=== PATIENT | female | born 1950 | race Caucasian/White ===

== ENCOUNTER → 2017-10-17 | Day surgery (SDC) | payer BC ==
[2017-10-15 08:35] VITALS: Ht 149.9 cm; Wt 90.9 kg
[~2017-10-17] VITALS: Ht 149.9 cm; Wt 90.9 kg
[~2017-10-17] MED LIST: 500ML BSS 0.3ML EPI 1:1000PF IRRIG ONE; ACETAMINOPHEN 325 MG TAB PO PRN; AMVISC PLUS 0.8ML SYRINGE INT OCU ONE; ASPI81TA28 PO; ATROPINE SULFATE 0.1 MG/ML 5ML SYR IV PRN; BSS FLUSH ONE; CALC-51 PO; EFF/375 PO; ENDOCOAT 0.85ML SYRINGE INT OCU ONE; EpHEDrine SULFATE INJ 50 MG/ML AMP IV PRN; EpINEphrine INJ 1MG/ML AMP 1 MG/ML AMP ONE; GLC/500 PO; LACTATED RINGER'S 1000ML 500 ML IV SCH; LEVO100T7 PO; LIDOCAINE 4% OP SOLN DROP CHARGE ONE; LIDOCAINE 4% OP SOLN DROP CHARGE OPR SCH; LIDOCAINE HCL 1% MPF 2 ML VIAL ONE; LISI-729 PO; LVMIPEN SC; MAGN400T6 PO; METO50TA16 PO; MIDAZOLAM HCL 1 MG/ML 2ML VIAL ONE; MIX: 4ML BSS 1ML EPI 1:1000 PF TOP ONE; MOXIFLOXACIN OPH SOLN PER DROP CHARGE ONE; NAPR-22 PO; PHENYLEPHRINE HCL 2.5% OP SOLN PER DROP CHARGE OPR SCH; POVIDONE-IODINE OP SOLN 30 ML BTL ONE; PROPARACAINE 0.5% OP SOLN PER DROP CHARGE OPR SCH; RANI150T85 PO; SIMV40TA2 PO; TOBRAMYCIN/DEXAMETHASONE OPH OINT PER APPLN CHARGE ONE; VENL75CA73 PO
--- NOTE | 2017-10-17 07:30 | History & Physical Bridge - SC ---
H&P Re-Evaluation Bridge Note: I have examined the patient, reviewed the History & Physical and in the interval since the performance of the History & Physical I have noted the following changes of clinical significance: No changes noted
[2017-10-17] MEDS: PHENYLEPHRINE HCL 10% OP SOLN PER DROP CHARGE OPR SCH ×3 (07:31→07:41)
[2017-10-17] MEDS: TROPICAMIDE 1% OP SOLN PER DROP CHARGE OPR SCH ×3 (07:32→07:42)
[2017-10-17] MEDS: CYCLOPENTOLATE HCL 1% OP SOLN PER DROP CHARGE OPR SCH ×3 (07:33→07:43)
[2017-10-17] MEDS: MOXIFLOXACIN OPH SOLN PER DROP CHARGE OPR SCH ×3 (07:34→07:44)
--- NOTE | 2017-10-17 08:37 | [facility] Post Operative Brief Note ---
Immediate Operative Summary Operative Date Oct 17, 2017. Pre-Operative Diagnosis Right Eye Cataract Post-Operative Diagnosis Same Procedure(s) Performed Right Cataract Phacoemulsification With Intraocular Lens Implant Surgeon Dr. Ming Forrest Cloth Printing Back Tender Surgeon(s) None Estimated Blood Loss 0 Findings Consistent with Post-Op Diagnosis Specimens None Anesthesia Type MAC Complication(s) none Disposition Accompanied Pt To Recover: no Disposition:
--- NOTE | 2017-10-17 08:38 | [facility] Operative Report ---
Operative Report Date of Service Oct 17, 2017. Operative Report DATE OF OPERATION: 10/17/17 PREOPERATIVE DIAGNOSIS: Senile nuclear cataract, right eye POSTOPERATIVE DIAGNOSIS: Senile nuclear cataract, right eye PROCEDURE PERFORMED: Phacoemulsification with intraocular lens implantation, right eye SURGEON: Dr. Bradford Forrest ANESTHESIA: Topical with 1% intracameral lidocaine and monitored anesthesia care COMPLICATIONS: None DESCRIPTION OF PROCEDURE: After positively identifying the patient both verbally and by wristband in the preoperative area, the right eye was marked as the operative eye. The patient was then brought back to the operating room by the anesthesia and nursing staff where they were given a drop of Lidocaine and betadine into the operative eye. They were then sterilely prepped and draped in the standard fashion typical for ophthalmic surgery. Steri-strips were placed along the upper eyelids to keep the lashes back, and a lid speculum was placed into the operative eye. At this point, a documented time out was performed with members of the ophthalmology, nursing, and anesthesia staffs all agreeing upon the correct patient, correct location for surgery, correct procedure, and correct type and power of intraocular lens to be implanted. The microscope was then swung into position. First, a paracentesis wound was made using a sideport blade. Then, in sequence, 1% preservative-free lidocaine followed by Endocoat viscoelastic was injected into the anterior chamber. Next , the main incision was made with a keratome blade in triplanar fashion. A sharp cystotome was introduced into the eye and used to create a tear in the anterior capsule, which was directed into a continuous curvilinear capsulorrhexis using Utrata forceps. Hydrodissection was then performed with BSS on a flat-tip cannula. Next, the phacoemulsification handpiece was introduced into the eye and used to remove the nucleus in a [id number] fashion. This was done without complication and then the irrigation-aspiration handpiece was introduced into the eye and used to remove all remaining cortical and epinuclear material. Amvisc was then injected into the anterior chamber as well as into the capsular bag and using the lens injector system, an MX60 17.0 D lens, serial number [id number], and expiration date 05/2020 was injected into the capsular bag and rotated into the correct position. Next, the irrigation- aspiration handpiece was used to remove all remaining Amvisc. BSS was used to hydrate the main wound, and then BSS was injected into the paracentesis site to reach physiologic pressure and then the main wound was checked and found to be watertight. The patient was given drops of Vigamox and Tobradex ointment into the operative eye, and then the surrounding area was cleaned and dried. A clear plastic shield was placed over the eye and the patient was then sat up and taken from the operating room by the anesthesia staff having tolerated the procedure well and suffering no complications. DISPOSITION: The patient was returned to the recovery room in stable condition. I attest to the content of the Intraoperative Record and any orders documented therein. Any exceptions are noted below.
--- NOTE | 2017-10-17 08:39 | Discharge Instructions-SurgCtr ---
Discharge Instructions Date of Service Oct 17, 2017. Visit Reason for Visit: Cataract Right Eye Discharge Discharge Diagnosis / Problem: right cataract Discharge Goals Goal(s): Decrease discomfort, Improve function Activity Recommendations Activity Limitations: as noted below Anesthesia . Post Anesthesia Instructions: If you have had General Anesthesia or IV Sedation: * Do not drive today. * Resume driving when surgeon permits. * Do not make important decisions or sign legal documents today. * Call surgeon for: 1. Temperature elevations greater than 101 degrees F. 2. Uncontrollable pain. 3. Excessive bleeding. 4. Persistent nausea and vomiting. 5. Medication intolerance (nausea, vomiting or rash). * For nausea and vomiting use only clear liquids such as: tea, soda, bouillon until nausea subsides, then gradually increase diet as tolerated. * If you have any concerns or questions, call your surgeon's office. If physician is unavailable and it is an emergency, call 911 or go to the nearest emergency room. . Instructions / Follow-Up Instructions / Follow-Up ACTIVITY RECOMMENDATIONS: * Light activities. * You may walk outside, read, watch television. * You may notice redness on the white part of the eye and some blurry vision - this is normal. MEDICATIONS: Resume previous medications unless instructed otherwise by your surgeon. Start all eye drops at 11 am today: * Eye drops (today): Prednisone - one drop in operative eye every 2 hours while awake Ofloxacin - one drop in operative eye every 2 hours while awake Ketorolac - one drop in operative eye 4 times daily SPECIAL CARE INSTRUCTIONS: * Tape plastic shield over eye to sleep at night. Call your doctor at with any concerns or problems. FOLLOW UP VISIT: Follow-up with Dr Forrest at [facility] as scheduled. Diet Recommendations Home Diet: no limitations Procedures Procedures Performed: Right Cataract Phacoemulsification With Intraocular Lens Implant Pending Studies Studies pending at discharge: no Medical Emergencies . Who to Call and When: Medical Emergencies: If at any time you feel your situation is an emergency, please call 911 immediately. . Non-Emergent Contact Non-Emergency issues call your: Surgeon . . "Provider Documentation" section prepared by Bradford Forrest. .
[2017-10-17 08:40] VITALS: TEMP 36.5
[2017-10-17 09:06] VITALS: BP 131/53; PULSE 64; O2SAT 98
--- NOTE | 2017-10-17 09:09 | Anesthesia Progress Nt - [facility] ---
Anesthesia Post Op Note Date & Time Oct 17, 2017 at 09:09 Vital Signs Pain Intensity: 0 Vital Signs Past 12 Hours Date Time Temp Pulse Resp B/P (MAP) Pulse Ox O2 Delivery O2 Flow Rate FiO2 10/17/17 09:06 64 16 131/53 (79) 98 Room Air 10/17/17 08:40 36.5 61 14 133/62 (85) 96 Room Air 10/17/17 07:22 36.8 60 20 138/82 (100) 96 Room Air Notes Mental Status: alert / awake / arousable, participated in evaluation Pt Amnestic to Procedure: Yes Nausea / Vomiting: adequately controlled Pain: adequately controlled Airway Patency, RR, SpO2: stable & adequate BP & HR: stable & adequate Hydration State: stable & adequate Anesthetic Complications: no major complications apparent
--- NOTE | 2017-10-17 09:22 | [facility] Operative Report ---
Operative Report Date of Service Oct 17, 2017. Operative Report Addendum to operate note on 10/17/17. A Malyugin ring was placed into the eye prior to capsulorrhexis due to poor pupil dilation, and removed prior to final I /A of viscoelastic. I attest to the content of the Intraoperative Record and any orders documented therein. Any exceptions are noted below.
== END | disposition home or self-care (01) ==
LOC: X.SURG 07:06
PROVIDERS: ATTEND Ophthalmology
DX: H25.11 Age-related nuclear cataract, right eye (principal); I25.10 Atherosclerotic heart disease of native coronary artery without angina pectoris; I10 Essential (primary) hypertension; K21.9 Gastro-esophageal reflux disease without esophagitis; E11.9 Type 2 diabetes mellitus without complications; M19.90 Unspecified osteoarthritis, unspecified site; E78.00 Pure hypercholesterolemia, unspecified; Z90.710 Acquired absence of both cervix and uterus; Z90.49 Acquired absence of other specified parts of digestive tract

== ENCOUNTER 2020-01-21 13:23 | Observation (INO) ==
[2020-01-21] MEDS ORDERED: SODIUM CHLORIDE 0.9% 500 ML IV SCH (14:15)
--- NOTE | 2020-01-21 14:31 | Emergency Department Note ---
Impression & Plan Diarrhea, Abdominal pain, lower, Hematochezia ED Provider Note INFORMANT: [Patient] ED PROVIDER(S): Ronnell Farrar MD CHIEF COMPLAINT: Diarrhea PLAN: Disposition: Admitted Condition: [Good] MEDICAL DECISION MAKING: Patient presented due to persistent diarrhea and worsening lower abdominal pain. IV was established. She was hydrated. She declined analgesia. She was placed on a cardiac nurse specialist which revealed a normal sinus rhythm. The patient was sent for CT imaging. Her labs were unremarkable except for an elevated lactate. CT showed colitis. Given the elevated lactate and colitis with GI bleeding, further management in the hospital is warranted. Triage Nursing notes reviewed and agree them. [Prior medical records reviewed] Covid test from yesterday still pending. Vital Signs: reviewed and remarkable for [no significant abnormalities] Differential diagnosis: Etiologies such as infectious colitis, ischemic colitis, COVID-19 infection, gastroenteritis, food borne illness, infections, appendicitis, diverticulitis, inflammatory bowel disease, GI bleed, biliary pathology, as well as others were entertained. Diagnostics interpreted by me: Cardiac Monitoring: Cardiac monitoring ordered by me: The patient was placed on continuous cardiac monitoring and observed. It revealed a normal sinus rhythm at 70 beats per minute without ectopy or evidence of dysrhythmia. Imaging studies: CT revealed a non-specific colitis Consultation(s): Dr. Apple, [facility] Hospitalist. HPI: The patient is a 69 year old female who presents to the Emergency Room with complaints of diarrhea. This started 4 days ago and is worsening. The patient also notes the following associated symptoms, lower abdominal pain, nausea and vomiting. The patient has found no relieving factors. Current pain is rated as 2/10. Telehealth with PCP resulted in outpatient COVID testing, results pending. Pt denies LOC, headache, fevers, chills, diaphoresis, visual changes, neck pain, chest pain, breathing difficulties, back pain, hematochezia, urinary symptoms, numbness, weakness, lymphadenopathy, rash, or other complaints. ROS: See above HPI for pertinent positives & negatives. A total of [10] systems reviewed and were otherwise negative. PAST MEDICAL HISTORY:[See Below] , Diabetes PAST SURGICAL HISTORY:[See Below] FAMILY HISTORY:[See Below] SOCIAL HISTORY:[See Below], No tobacco HOME MEDICATIONS:[See Below] ALLERGIES:[See Below] VITALS:[See Below] PHYSICAL EXAMINATION: GENERAL: Awake, alert, well-appearing, in no distress HENT: Normocephalic, atraumatic. Oropharynx unremarkable. EYES: Normal conjunctiva. Sclera non-icteric. NECK: Inspection normal. Non-tender. Supple. No nuchal rigidity. FROM. No masses. RESPIRATORY: Clear to auscultation. No wheezes. No rales. Normal respiratory effort. CARDIAC: Normal rate. Normal rhythm. No murmurs. No rubs. Extremities warm and well perfused. Pulses equal. No JVD. GI: Soft, non-distended. Bilateral lower tenderness to palpation. No rebound or guarding. No masses. RECTAL: Deferred. MUSCULOSKELETAL: Atraumatic. Chest examination reveals no tenderness. The back is symmetrical on inspection without obvious abnormality. There is no CVA tenderness to palpation. No joint edema. LOWER EXTREMITIES: Calves are equal size bilaterally and non-tender. No edema. No discoloration. NEURO: Normal sensorium. No sensory or motor deficits noted. SKIN: No rash or jaundice noted. Ronnell Farrar MD Past Med/Surg History Medical History Acid reflux Depression with anxiety Fatty liver Frequent PVCs Generalized osteoarthritis Hearing difficulty Hiatal hernia Hyperlipidemia Hypertension Hypothyroidism Type 2 diabetes mellitus Surgical History History of carpal tunnel surgery 1989 History of cataract surgery R/L History of section 1982 History of cholecystectomy mid History of colonoscopy History of esophagogastroduodenoscopy (EGD) History of hysterectomy TOTAL History of tonsillectomy Family History Father Family history of diabetes mellitus Myocardial infarction, Onset Age: 56 Mother Anxiety Grandfather Throat cancer Other Diabetes Denies family history of Ovarian cancer Prostate cancer Breast cancer Colorectal cancer Social History Smoking Status: Never smoker Second Hand Exposure: No; Hx Alcohol Use: Yes Alcohol type: hard liquor Hx Substance Use: No Preferred Language: Faroese Communication Ability: Effective Visual Impairment: No Limitations Hearing Ability: Use of Hearing Aid Mechatronics Technician Required: No Beliefs That Will Affect Care: None marital status: Current Living Situation: Alone Current Living Situation Comment: apartment current occupational status: retired Feels Safe at Home: Yes Childhood Exposure to Second-Hand Smoke: No Dental Care, Regularly: No Physical Activity Frequency: 3-4 Times per Week Seatbelt Use: always Sunscreen Use: No Assistive Devices: Glasses and Hearing Aid - Bilateral Allergies Allergies Allergy/AdvReac Type Severity Reaction Status Date / Time dog dander Allergy Severe Unknown Verified 01/21/20 17:24 Home Meds Home Medications Medication Instructions Recorded Confirmed aspirin 81 mg PO QAM 09/25/18 01/27/20 calcium carbonate [Calcium 600] 600 mg PO BID 09/25/18 01/27/20 fish oil-dha-epa 1 cap PO BID 09/25/18 01/27/20 magnesium oxide 500 mg PO HS 09/25/18 01/27/20 Levemir FlexTouch U-100 Insuln 14 units SQ HS 01/21/20 01/27/20 albuterol sulfate 2 puff INHALATION Q6H PRN 01/21/20 01/27/20 vitamin B complex 1 tab PO QAM 01/21/20 01/27/20 Previous Rx's Medication Instructions Recorded levothyroxine 100 mcg tablet 100 mcg PO QAM #90 tab 11/12/19 metoprolol tartrate 50 mg tablet 50 mg PO BID #180 tab 11/12/19 omeprazole 20 mg capsule,delayed 20 mg PO QAM #90 cap 11/12/19 release simvastatin 40 mg tablet 40 mg PO HS #90 tab 11/12/19 venlafaxine 75 mg capsule,extended See Rx Instructions PO BID #270 cap 11/12/19 release 24 hr lisinopril 5 mg tablet 5 mg PO QAM #7 tab 12/19/19 metformin 500 mg tablet See Rx Instructions .ROUTE 12/19/19 .COMPLEX #28 tab naproxen 500 mg PO BID PRN #180 tab 01/23/20 Results & Data (ED) Vital Signs Vital Signs - 24 hr 01/21/20 13:27 Temperature 36.4 C L Temperature Source Oral Pulse Rate 99 H Pulse Rhythm Regular Pulse Strength Normal Respiratory Rate 20 Respiratory Effort / Characteristics Non-Labored Respiratory Depth Normal Respiratory Pattern Regular Blood Pressure 139/68 Blood Pressure Mean 91 Blood Pressure Position Sitting Pulse Oximetry 95 Oxygen Delivery Method Room Air Sepsis Recent Fever Within 48 Hours No Sepsis New/Unexplained Change in Mental Status No Sepsis Action Taken by Nursing No Action Required Laboratory Data Result diagrams: 01/23/20 07:07 01/23/20 07:07 Lab Results 01/21/20 01/21/20 01/21/20 Range/Units 14:50 14:50 14:50 WBC 10.16 (4.8-10.8) K/uL RBC 4.42 (4.2-5.4) M/uL Hgb 11.7 L (12.0-16.0) g/dL Hct 37.4 (37-47) % MCV 84.6 (80-100) fL MCH 26.5 (25-34) pg MCHC 31.3 L (32-36) g/dL RDW Std Deviation 45.2 (36.4-46.3) fL RDW Coeff of Judy 14.7 H (11.5-14.5) % Plt Count 368 (130-400) K/uL MPV 10.1 (7.4-10.4) fL Immature Gran % (Auto) 0.2 % Neut % (Auto) 77.1 % Lymph % (Auto) 13.6 % Archuleta % (Auto) 8.5 % Eos % (Auto) 0.4 % Baso % (Auto) 0.2 % Neut # (Auto) 7.84 H (1.4-6.5) K/uL Lymph # (Auto) 1.38 (1.2-3.4) K/uL Archuleta # (Auto) 0.86 H (0.11-0.59) K/uL Eos # (Auto) 0.04 (0-0.5) K/uL Baso # (Auto) 0.02 (0-0.2) K/uL Immature Gran # (Auto) 0.02 (0.00-0.02) K/uL Sodium 140 (136-145) mmol/L Potassium 4.4 (3.5-5.1) mmol/L Chloride 109 H (98-107) mmol/L Carbon Dioxide 24 (21-32) mmol/L Anion Gap 7.0 (3-11) BUN 21 H (7-18) mg/dl Creatinine 1.18 (0.6-1.2) mg/dl Est Cr Clr Drug Dosing 44.0 ml/min Est GFR ( Amer) 54.9 Est GFR (Non-Af Amer) 47.4 BUN/Creatinine Ratio 18.0 (10-20) Glucose 219 H (70-99) mg/dl Lactate 2.2 H* (0.4-2.0) mmol/L Calcium 9.4 (8.5-10.1) mg/dl Total Bilirubin 0.4 (0.2-1) mg/dl AST 10 L (15-37) U/L ALT 22 (12-78) U/L Alkaline Phosphatase 84 (45-117) U/L Total Protein 7.5 (6.4-8.2) gm/dl Albumin 3.5 (3.4-5.0) gm/dl Globulin 4.0 (2.5-4.0) gm/dl Albumin/Globulin Ratio 0.9 (0.9-2) Lipase 154 (73-393) U/L Administered Medications Discontinued Medications Aspirin (Aspirin 81 Mg Ectab) 81 mg PO QAM [facility] Stop: 02/21/20 08:59 Last Admin: 01/23/20 08:54 Dose: 81 mg Documented by: [id number] Admin: 01/22/20 08:01 Dose: 81 mg Documented by: [id number] Hydromorphone HCl (Hydromorphone Inj 0.5 Mg/0.5 Ml Syr) 0.5 mg IV Q15M PRN PRN Reason: Pain Stop: 02/04/20 17:17 Last Admin: 01/21/20 17:44 Dose: 0.5 mg Documented by: [id number] Sodium Chloride (Nss) 500 mls @ 999 mls/hr IV .Q31M [facility] Stop: 01/21/20 14:45 Last Infusion: 01/21/20 15:43 Dose: 0 mls/hr Documented by: [id number] Admin: 01/21/20 14:54 Dose: 999 mls/hr Documented by: [id number] Parenteral Electrolytes (Normosol-R) 1,000 mls @ 80 mls/hr IV .[id number] [facility] Stop: 02/20/20 21:18 Last Admin: 01/23/20 03:12 Dose: 80 mls/hr Documented by: [id number] Infusion: 01/23/20 03:12 Dose: 80 mls/hr Documented by: [id number] Infusion: 01/22/20 17:04 Dose: 80 mls/hr Documented by: [id number] Infusion: 01/22/20 12:23 Dose: 0 mls/hr Documented by: [id number] Admin: 01/22/20 10:48 Dose: 80 mls/hr Documented by: [id number] Infusion: 01/22/20 10:47 Dose: 0 mls/hr Documented by: [id number] Admin: 01/21/20 22:17 Dose: 80 mls/hr Documented by: [id number] Magnesium Sulfate/Dextrose (Magnesium Sulfate / D5w) 1 gm in 100 mls @ 50 mls/hr IV Q2H [facility] Stop: 01/22/20 15:29 Last Infusion: 01/22/20 16:22 Dose: 0 mls/hr Documented by: [id number] Admin: 01/22/20 14:22 Dose: 50 mls/hr Documented by: [id number] Infusion: 01/22/20 14:22 Dose: 0 mls/hr Documented by: [id number] Admin: 01/22/20 12:22 Dose: 50 mls/hr Documented by: [id number] Insulin Aspart (Insulin Aspart 100 Units/Ml 3 Ml Pen) 0 units SC ACHS [facility] Stop: 02/20/20 21:18 Last Admin: 01/23/20 08:57 Dose: 5 units Documented by: [id number] Cosigned by: [id number] Admin: 01/22/20 21:25 Dose: 2 units Documented by: [id number] Cosigned by: [id number] Admin: 01/22/20 17:33 Dose: 4 units Documented by: [id number] Cosigned by: [id number] Admin: 01/22/20 12:24 Dose: 3 units Documented by: [id number] Cosigned by: [id number] Admin: 01/22/20 08:02 Dose: 4 units Documented by: [id number] Cosigned by: [id number] Admin: 01/21/20 22:22 Dose: 2 units Documented by: [id number] Cosigned by: [id number] Insulin Detemir (Insulin Detemir Flexpen/Flex Touch 100 Units/Ml 3ml) 10 units SQ HS [facility] Stop: 02/20/20 21:18 Last Admin: 01/22/20 21:24 Dose: 10 units Documented by: [id number] Cosigned by: [id number] Admin: 01/21/20 22:20 Dose: 10 units Documented by: [id number] Cosigned by: [id number] Levothyroxine Sodium (Levothyroxine Sodium 100 Mcg Tablet) 100 mcg PO DAILYBB [facility] Stop: 02/21/20 06:29 Last Admin: 01/23/20 07:44 Dose: 100 mcg Documented by: [id number] Admin: 01/22/20 05:46 Dose: 100 mcg Documented by: [id number] Lisinopril (Lisinopril 5 Mg Tab) 5 mg PO QAM [facility] Stop: 02/21/20 08:59 Last Admin: 01/23/20 08:54 Dose: 5 mg Documented by: [id number] Admin: 01/22/20 08:01 Dose: 5 mg Documented by: [id number] Loperamide HCl (Loperamide Hcl 2 Mg Cap) 2 mg PO Q4H PRN PRN Reason: Diarrhea Stop: 02/20/20 21:18 Last Admin: 01/21/20 22:28 Dose: 2 mg Documented by: [id number] Magnesium Oxide (Magnesium Oxide 400 Mg Tab) 400 mg PO HS [facility] Stop: 02/21/20 20:59 Last Admin: 01/22/20 21:24 Dose: 400 mg Documented by: [id number] Metoprolol Tartrate (Metoprolol Tartrate 50 Mg Tab) 50 mg PO BID [facility]ID Stop: 02/20/20 21:18 Last Admin: 01/23/20 08:56 Dose: 50 mg Documented by: [id number] Admin: 01/22/20 20:34 Dose: 50 mg Documented by: [id number] Admin: 01/22/20 08:01 Dose: 50 mg Documented by: [id number] Admin: 01/21/20 22:21 Dose: 50 mg Documented by: [id number] Ondansetron HCl (Ondansetron Inj 2 Mg/Ml 2 Ml Vial) 4 mg IV NOW STA Stop: 01/21/20 17:19 Last Admin: 01/21/20 17:44 Dose: 4 mg Documented by: [id number] Pantoprazole Sodium (Pantoprazole 40 Mg Tab) 40 mg PO QAM [facility] Stop: 02/22/20 08:59 Last Admin: 01/23/20 08:55 Dose: 40 mg Documented by: [id number] Simethicone (Simethicone 80 Mg Chew) 80 mg PO Q6H PRN PRN Reason: gas Stop: 02/22/20 00:22 Last Admin: 01/23/20 09:07 Dose: 80 mg Documented by: [id number] Simvastatin (Simvastatin 40 Mg Tab) 40 mg PO [facility] Stop: 02/20/20 21:18 Last Admin: 01/22/20 21:24 Dose: 40 mg Documented by: [id number] Admin: 01/21/20 22:23 Dose: 40 mg Documented by: [id number] Venlafaxine HCl (Venlafaxine Hcl Xr 150 Mg Capxr) [facility] [place]: 02/21/20 08:59 Last Admin: 01/23/20 08:55 Dose: 150 mg Documented by: [id number] Admin: 01/22/20 08:02 Dose: 150 mg Documented by: [id number] Venlafaxine HCl (Venlafaxine Hcl Xr 75 Mg Capxr) 75 mg PO [facility] Stop: 02/20/20 21:18 Last Admin: 01/22/20 20:34 Dose: 75 mg Documented by: [id number] Admin: 01/21/20 22:21 Dose: 75 mg Documented by: [id number] Vitamin B Complex (Vitamin B Complex Tab) 1 tab PO [facility] Stop: 02/22/20 08:59 Last Admin: 01/23/20 08:55 Dose: 1 tab Documented by: [id number] Discharge Plan Visit Data Chief Complaint: Diarrhea Stated Complaint: DIARRHEA,CRAMPING/VOMITING ED Provider: Ronnell Farrar Discharge Problem: Diarrhea, Abdominal pain, lower, Hematochezia Patient Disposition: Admitted As Inpatient Condition: Good Discharge Instructions Interventions: ED Discharge Assessment Last Done: 01/21/20 20:44
[2020-01-21 15:00] LABS: Basophils # (auto) 0.02 K/uL (0-0.2); Basophils % (auto) 0.2 %; Eosinophils # (auto) 0.04 K/uL (0-0.5); Eosinophils % (auto) 0.4 %; Hematocrit (blood only) 37.4 % (37-47); Hemoglobin 11.7 g/dL (12.0-16.0); Immature Granulocytes # (auto) 0.02 K/uL (0.00-0.02); Immature Granulocytes % (auto) 0.2 %; Lymphocytes # (auto) 1.38 K/uL (1.2-3.4); Lymphocytes % (auto) 13.6 %; Mean Corpuscular Hemoglobin 26.5 pg (25-34); Mean Corpuscular Hgb Conc 31.3 g/dL (32-36); Mean Corpuscular Volume 84.6 fL (80-100); Mean Platelet Volume 10.1 fL (7.4-10.4); Monocytes # (auto) 0.86 K/uL (0.11-0.59); Monocytes % (auto) 8.5 %; Neutrophils # (auto) 7.84 K/uL (1.4-6.5); Neutrophils % (auto) 77.1 %; Platelet Count 368 K/uL (130-400); RDW Coefficient of Variation 14.7 % (11.5-14.5); RDW Standard Deviation 45.2 fL (36.4-46.3); Red Blood Count 4.42 M/uL (4.2-5.4); White Blood Count 10.16 K/uL (4.8-10.8)
[2020-01-21 15:17] LABS: Albumin Level 3.5 gm/dl (3.4-5.0); Calcium 9.4 mg/dl (8.5-10.1); Est GFR (African American) 54.9; Est GFR (Non-African American) 47.4; Potassium 4.4 mmol/L (3.5-5.1)
[2020-01-21 15:20] LABS: Albumin Globulin Ratio 0.9 (0.9-2); Bilirubin,Total 0.4 mg/dl (0.2-1); Total Protein 7.5 gm/dl (6.4-8.2)
--- NOTE | 2020-01-21 15:54 | CT Scan Report ---
CT SCAN OF THE ABDOMEN AND PELVIS WITHOUT IV CONTRAST CLINICAL HISTORY: Lower abdominal pain. Hematochezia. Vomiting. COMPARISON STUDY: No priors. TECHNIQUE: CT scan of the abdomen and pelvis is performed from the lung bases to the proximal femora. Images are reviewed in the axial, sagittal, and coronal planes. IV contrast was not administered for this examination. Note that the examination is suboptimal without IV contrast. A dose lowering techn ique was utilized adhering to the principles of ALARA. CT DOSE: 1050.10 mGycm FINDINGS: Lung bases: The heart is normal in size and without pericardial effusion. There are coronary artery c alcifications. A small hiatal hernia is observed. The lung bases are clear noting bibasilar scarring/ atelectasis. Liver: The unenhanced liver is enlarged, measuring 19.4 cm in length. The liver demonstrates diffusel y diminished attenuation consistent with hepatic steatosis. There is no intrahepatic biliary ductal d ilatation. Gallbladder: Surgically absent noting clips in the gallbladder fossa. Spleen: Normal in size and attenuation. A peripherally calcified splenic artery aneurysm measures 1.7 cm. Pancreas: The unenhanced pancreas is moderately atrophic and grossly unremarkable. Adrenal glands: Unremarkable. Kidneys: The unenhanced kidneys are atrophic and without hydronephrosis. There are no renal calculi i dentified. There is no evidence of contour deforming renal mass lesion. Abdominal vasculature: The abdominal aorta is normal in course and caliber noting moderate atheroscle rotic calcification. Bowel: There is no bowel obstruction. There is underdistention versus mild wall thickening of the col on. There is moderate sigmoid diverticulosis without clear CT evidence of acute diverticulitis. The a ppendix is not identified. Findings suggest previous appendectomy. Peritoneum: There is no intraperitoneal free air or abdominal ascites. A midline surgical scar is not ed in the pelvis. Lymphadenopathy: None. Pelvic viscera: The bladder is decompressed and grossly unremarkable. The uterus is surgically absent . No adnexal lesion is seen. Skeletal structures: The skeletal structures are osteopenic. There is moderate lumbosacral spondylosi s. No lytic or blastic lesions are seen. IMPRESSION: 1. There is underdistention versus mild wall thickening of the colon. Correlate clinically for eviden ce of a mild nonspecific colitis. 2. There is moderate sigmoid diverticulosis without clear CT evidence of acute diverticulitis. 3. Hepatomegaly and hepatic steatosis. 4. There is a 1.7 cm peripherally calcified splenic artery aneurysm. 5. Additional findings as above. ACT 112: Negative or not required by law. Electronically signed by: Arpit Corley M.D. 01/21/2020 3:52 PM
[2020-01-21] MEDS ORDERED: ONDANSETRON INJ 2 MG/ML 2 ML VIAL IV STA (17:18)
[2020-01-21] MEDS ORDERED: HYDROmorphone INJ 0.5 MG/0.5 ML SYR IV PRN (17:18)
--- NOTE | 2020-01-21 17:57 | History & Physical Report ---
Date of Service January 21, 2020 Assessment & Plan (1) Diarrhea: Copious amounts of watery diarrhea with some blood today. CT a/p on 01/20 showed some non-specific colitis. Lactate was 2.2. ED provider had concern for ischemic colitis, though I do not see much evidence for that, and the diarrhea is already improving. To me, seems more likely a viral gastroenteritis, though no one else in the family has it and she denies any new/different foods. - C. diff and stool culture ordered by the ER - Imodium PRN if C. diff negative - If improving/resolved tomorrow, can consider GI consult or empiric abx. Defer for now given it seems to be resolving already today. (2) Hematochezia: Colonoscopy in 09/2018 showed internal hemorrhoids. Only started bleeding after 4 days of diarrhea. Presently vitals and hemoglobin stable and bleeding seems relatively scant. Believe it to be a flare of her hemorrhoids from the diarrhea. - Hemorrhoid treatment PRN - Monitor hgb and vitals (3) Type 2 diabetes mellitus: A1c was 7.6% in 09/2019. - Hold metformin (could also be contributing to her diarrhea) - Lowered long-acting insulin to 10 units HS given her poor PO intake - Sliding scale insulin (4) Hypertension: BP is 170/75 in the ED. - Continue home lisinopril and metoprolol (5) Hypothyroidism: TSH was 0.84 in 11/2019. No signs/symptoms of hypo-/hyperthyroidism. Don't think diarrhea is an aspect of hyperthyroidism given its acuity. - Continue home Synthroid 100 mcg - Recheck TSH in AM (6) Hyperlipidemia: - Continue statin (7) DVT prophylaxis: SCDs - Low DVT risk per admission calculator & hematochezia History of Present Illness Primary Care Provider: Meliza Dumont MD 69yo F w/ hx of DM and hypothyroidism who presents with diarrhea x 4 days. Reports the diarrhea started on Sunday as explosive watery diarrhea. After 2 days, it became more mucus-y. She is having many episodes per day. She had a tele-health visit with her PCP on Sunday and was ordered a Covid test and stool studies. Her son and granddaughter were exposed to a Covid-confirmed patient, though she herself has not had any respiratory symptoms and no known fevers. The Covid test is pending, but she did not bring in the stool studies. Today, she had some bright red blood with the diarrhea and decided to come to the hospital. She reports she "spent the morning" in the bathroom, but has not had a bowel movement since her arrival to the ER. Allergies Allergy/AdvReac Type Severity Reaction Status Date / Time dog dander Allergy Severe Unknown Verified 01/21/20 17:24 Home Medications Home Medications Medication Instructions Recorded Confirmed Type aspirin 81 mg PO QAM 09/25/18 01/21/20 History calcium carbonate [Calcium 600] 600 mg PO BID 09/25/18 01/21/20 History fish oil-dha-epa 1 cap PO BID 09/25/18 01/21/20 History magnesium oxide 500 mg PO HS 09/25/18 01/21/20 History levothyroxine 100 mcg tablet 100 mcg PO QAM #90 tab 11/12/19 01/21/20 Rx metoprolol tartrate 50 mg tablet 50 mg PO BID #180 tab 11/12/19 01/21/20 Rx naproxen 500 mg tablet 500 mg PO BID #180 tab 11/12/19 01/21/20 Rx omeprazole 20 mg capsule,delayed 20 mg PO QAM #90 cap 11/12/19 01/21/20 Rx release simvastatin 40 mg tablet 40 mg PO HS #90 tab 11/12/19 01/21/20 Rx venlafaxine 75 mg capsule,extended See Rx Instructions PO BID #270 cap 11/12/19 01/21/20 Rx release 24 hr lisinopril 5 mg tablet 5 mg PO QAM #7 tab 12/19/19 01/21/20 Rx metformin 500 mg tablet See Rx Instructions .ROUTE 12/19/19 01/21/20 Rx .COMPLEX #28 tab albuterol sulfate 2 puff INHALATION Q6H PRN 01/21/20 01/21/20 History insulin detemir U-100 [Levemir 14 units SQ HS 01/21/20 01/21/20 History FlexTouch U-100 Insuln] vitamin B complex 1 tab PO QAM 01/21/20 01/21/20 History Past Med/Surg History Medical History Acid reflux Depression with anxiety Fatty liver Frequent PVCs Generalized osteoarthritis Hearing difficulty Hiatal hernia Hyperlipidemia Hypertension Hypothyroidism Type 2 diabetes mellitus Surgical History History of carpal tunnel surgery 1989 History of cataract surgery R/L History of section 1982 History of cholecystectomy mid History of colonoscopy History of esophagogastroduodenoscopy (EGD) History of hysterectomy TOTAL History of tonsillectomy Family History Father Family history of diabetes mellitus Myocardial infarction, Onset Age: 56 Mother Anxiety Grandfather Throat cancer Other Diabetes Denies family history of Ovarian cancer Prostate cancer Breast cancer Colorectal cancer Social History Smoking Status: Never smoker Second Hand Exposure: No; Hx Alcohol Use: Yes Alcohol type: beer, wine and hard liquor Hx Substance Use: No Preferred Language: [place] Communication Ability: Effective Visual Impairment: No Limitations Hearing Ability: Use of Hearing Aid Care Transition Coordinator Required: No Beliefs That Will Affect Care: None marital status: Current Living Situation: Alone current occupational status: retired Feels Safe at Home: Yes Childhood Exposure to Second-Hand Smoke: No Dental Care, Regularly: No Physical Activity Frequency: 3-4 Times per Week Seatbelt Use: always Sunscreen Use: No Assistive Devices: Glasses and Hearing Aid - Bilateral Review of Systems Review of Systems: All systems reviewed & are unremarkable except as noted in HPI & below Physical Exam Constitutional: WD/WN, vitals as above + acute distress Eyes: EOM intact bilaterally; no conjunctival abnormality ENMT: external ear and nose normal, oropharynx normal Neck: trachea midline, no thyromegaly normal visual inspection Respiratory: normal respiratory effort, lungs clear to auscultation no respiratory distress Cardiovascular: RRR, no murmur, no edema Gastrointestinal (Abdomen): Inspection/Auscultation: abdomen normal to inspection; abdomen not distended Musculoskeletal: no cyanosis or clubbing, extremities motor strength 5/5 Skin: no rashes, warm and dry Neurologic: moves all extremities and awake Psychiatric: Orientation: alert, oriented to person and cooperative Results & Data Results & Data ([facility]) Vital Signs (Past 12 Hours) Vital Signs Temp Pulse Resp BP Pulse Ox 01/21/20 16:34 89 14 168/77 H 96 01/21/20 15:00 82 16 144/78 H 95 01/21/20 14:30 85 16 153/79 H 96 01/21/20 13:27 36.4 C L 99 H 20 139/68 95 Code Status & VTE Plan VTE Prophylaxis Plan VTE Prophylaxis will be ordered: Yes PG Care Time/CCT Total # of Minutes Spent Total Time Spent with Patient: Total time spent is greater than 50% in coordination of care (as documented) at patient's floor/unit and/or counseling patient: Coding Level of Care Code 53802 OBS Care - Level 3 Diagnoses Diarrhea R19.7 Hematochezia K92.1 Type 2 diabetes mellitus E11.9 Hypertension I10 Hypothyroidism E03.9 Hyperlipidemia E78.5 DVT prophylaxis Z29.9
[2020-01-21] MEDS ORDERED: ONDANSETRON INJ 2 MG/ML 2 ML VIAL IV PRN (21:19)
[2020-01-21] MEDS ORDERED: ANUSOL SUPP 1 EA PR PRN (21:19)
[2020-01-21] MEDS ORDERED: CARBOHYDRATES FOR HYPOGLYCEMIA PO PRN (21:19)
[2020-01-21] MEDS ORDERED: ALBUT/IPRATROP 3MG/0.5MG NEB 3 ML VIAL NEB PRN (21:19)
[2020-01-21] MEDS ORDERED: GLUCOSE 40% GEL 15 GM TUBE PO PRN (21:19)
[2020-01-21] MEDS ORDERED: GLUCOSE 10 TABS/TUBE PO PRN (21:19)
[2020-01-21] MEDS ORDERED: DEXTROSE 50% 50 ML SYRINGE IV PRN (21:19)
[2020-01-21] MEDS ORDERED: ACETAMINOPHEN 325 MG TAB PO PRN (21:19)
[2020-01-21] MEDS ORDERED: LOPERAMIDE HCL 2 MG CAP PO PRN (21:19)
[2020-01-21] MEDS ORDERED: GLUCAGON FOR INJ 1 MG VIAL SQ PRN (21:19)
[2020-01-21] MEDS: NORMOSOL-R 1,000 ML IV SCH (22:17)
[2020-01-21] MEDS: INSULIN DETEMIR FLEXPEN/FLEX TOUCH 100 UNITS/ML 3ML SQ SCH (22:20)
[2020-01-21] MEDS: VENLAFAXINE HCL XR 75 MG CAPXR PO SCH (22:21)
[2020-01-21] MEDS: METOPROLOL TARTRATE 50 MG TAB PO SCH (22:21)
[2020-01-21] MEDS: INSULIN ASPART 100 UNITS/ML 3 ML PEN SC SCH (22:22)
[2020-01-21] MEDS: SIMVASTATIN 40 MG TAB PO SCH (22:23)
[2020-01-22] MEDS: LEVOTHYROXINE SODIUM 100 MCG TABLET PO SCH (05:46)
[2020-01-22 07:42] LABS: Hematocrit (blood only) 35.9 % (37-47); Hemoglobin 11.3 g/dL (12.0-16.0); Mean Corpuscular Hemoglobin 26.8 pg (25-34); Mean Corpuscular Hgb Conc 31.5 g/dL (32-36); Mean Corpuscular Volume 85.1 fL (80-100); Mean Platelet Volume 9.9 fL (7.4-10.4); Platelet Count 318 K/uL (130-400); RDW Coefficient of Variation 14.9 % (11.5-14.5); RDW Standard Deviation 46.1 fL (36.4-46.3); Red Blood Count 4.22 M/uL (4.2-5.4); White Blood Count 9.58 K/uL (4.8-10.8)
[2020-01-22] MEDS: ASPIRIN 81 MG ECTAB PO SCH (08:01)
[2020-01-22] MEDS: METOPROLOL TARTRATE 50 MG TAB PO SCH ×2 (08:01→20:34)
[2020-01-22] MEDS: lisinopril 5 MG TAB PO SCH (08:01)
[2020-01-22] MEDS: INSULIN ASPART 100 UNITS/ML 3 ML PEN SC SCH ×4 (08:02→21:25)
[2020-01-22] MEDS: VENLAFAXINE HCL XR 150 MG CAPXR PO SCH (08:02)
[2020-01-22 08:23] LABS: BUN Creatinine Ratio 17.5 (10-20); Calcium 9.1 mg/dl (8.5-10.1); Creatinine Clr Calc Pharmacy 53.5 ml/min; Est GFR (African American) 68.7; Est GFR (Non-African American) 59.3; Magnesium 1.4 mg/dl (1.8-2.4); Potassium 3.7 mmol/L (3.5-5.1); Thyroid Stimulating Hormone 0.943 uIu/ml (0.300-4.500)
[2020-01-22 08:30] LABS: Estimated Average Glucose 180 mg/dl; Hemoglobin A1C 7.9 % (4.5-5.6)
--- NOTE | 2020-01-22 09:02 | Student Report ---
[facility] Student Progress Note Date of Service Date of service: January 22, 2020 Subjective Subjective: Cain is a 69 year old female with a pertinent PMX of cholecystectomy (1970s due to "gallbladder infection"), and fatty liver, who presented to the ED yesterday with a 4 day history of worsening abdominal pain and diarrhea. The diarrhea began as explosive and foul smelling and then became more watery and with mucus. She describes her pain as cramping in the lower abdomen. Associated symptoms included nausea and vomiting when her abdominal pain worsened. Her vomitus was without blood and appeared clear. Her stools developed some blood beginning on day 4. A colonoscopy in 2019 showed the presence of internal hemorrhoids. She has never experienced symptoms like this before and she has had no sick contacts or exposures to her knowledge. She does not have a family history of GI cancers. In the ED, a CT scan showed non specific colitis, sigmoid diverticulosis, hepatomegaly and steatosis, and calcified splenic artery aneurism. Laboratory testing for c-diff and COVID-19 were negative. Today is hospital day 2. Her last episode of diarrhea was last night at 10pm. Before breakfast she was experiencing some lower abdominal cramping and nausea. She notes the cramping is worse when moving. After breakfast she is feeling well but developed some upper right quadrant cramping as I spoke with her. ROS ROS: Constitutional: +nausea, no vomiting, no fever/chills Cardiovascular: No chest pain, no calf pain, no swelling of the extremities Respiratory: No SOB Gastrointestinal: +abdominal pain, no diarrhea or constipation Neurological: No weakness, headache, or dizziness Physical Exam Physical Exam: Vitals: 166/86, 79, 20, 36.9C, 97% on room air General: NAD Eyes: anicteric Cardiovascular: RRR, no m/r/g, no lower extremity edema Pulmonary: Clear to auscultation without wheezes/rales/rhonchi, Abdomen: Soft, active bowel sounds. nondistended, RUQ and b/l lower quadrant tenderness to palpation Results Results: Labs Na 140 K 4.4 Cl 109 CO2 24 BUN 21, CRET 1.18 Glucose 156 WBC 9.58 HGB 11.3 HCT 35.9 PLT 31.8 Lactate 2.2 A1c 7.9% A&P A&P: Cain is a 69 year old female with a PMX of fatty liver and PSgx of cholecystectomy who presented to the ED yesterday with a 4 day worsening history of diarrhea and abdominal pain. Assessment Differential diagnosis: infectious (viral or bacterial gastroenteritis), noninfectious (inflammatory bowel disease, ischemic colitis, NSAID related enteropathy). Cain presents with acute diarrhea over the past 5 days along with abdominal pain, nausea, and vomiting but without fevers. This acute presentation seems most consistent with viral or bacterial gastroenteritis. She experienced only o ne episode of bloody diarrhea, leading me in the direction of non-inflammatory diarrhea. Possible causes could be s aureus, salmonella, as well as viral such as norovirus. Because she did have that one incident of bloody diarrhea, shiga toxin producing sin E coli is also on the differential. C diff is also possible but unlikely due to lack of recent hospitalizations. Ishcemic colitis was also considered in the ED due to her presentation. Ischemic colitis presents with abdominal cramping, bloody loose stools, fever and even signs of shock and on exam the patient may have guarding and rebound tenderness. The obstruction and perforation of the colon would be visualized on CT which was not the case for our patient. Because she is on naltrexone, an NSAID related enteropathy could also be considered. This would present with a GI bleed of the stomach or duodenum as well as corresponding lab findings. This is unlikely in her case but could be considered if the hematochezia persists. Although this is the first occurrence of this set of symptoms, if it were to reoccur noninfectious causes of chronic diarrhea should also be considered. This includes inflammatory bowel disease, such as Crohn's or ulcerative colitis, which are lower on the differential as these autoimmune conditions would have presented earlier but could be considered if her symptoms repeated. Plan 1. Diarrhea * Last incident at 10pm last night, currently taking Imodium () * Diarrhea - fluid repletion * C-diff and Covid-19 negative * If persists, consider GI consult and/or abx treatment (azithromycin or a fluoroquinolone) and/or test for staph aureus, bacillus ceurus, clostridium perfringens, salmonella 2. Hematochezia * First incident in the ED, no recent incident * Possibly due to internal hemorrhoids * HgB 11.3 (11.7 on admission), continue to monitor 3. Lower Abdominal pain * mild colon wall thickening on abdominal CT * ddx - infectious colitis, acute uncomplicated diverticulitis, * If persists with diarrhea, GI consult. 4. RUQ Abdominal pain * History of fatty liver and cholecystectomy * ddx - GERD, IBS, sphincter of Oddi dysfunction * If persists, GI consult
[2020-01-22] MEDS: NORMOSOL-R 1,000 ML IV SCH (10:48)
--- NOTE | 2020-01-22 11:37 | Hospitalist Progress Note ---
Date of Service January 22, 2020 Assessment & Plan (1) Diarrhea: Copious amounts of watery diarrhea with some blood in stool on the day of admission. CT a/p on 01/20 showed some possible non-specific colitis. Lactate was 2.2. ED provider had concern for ischemic colitis, though I do not see much evidence for that, and the diarrhea is already resolved. To me, seems more likely a viral gastroenteritis, though no one else in the family has it and she denies any new/different foods. - C. diff negative Stool culture collected and pending Covid-19 negative - Imodium PRN -Continue IV fluids Seems to be improving, abdominal pain persists but not as severe Continue stay for observation for worsening of pain and for replacement of electrolytes Remains afebrile (2) Hematochezia: Colonoscopy in 09/2018 showed internal hemorrhoids. Only started bleeding after 4 days of diarrhea. Presently vitals and hemoglobin stable and bleeding seems relatively scant. Believe it to be a flare of her hemorrhoids from the diarrhea. - Hemorrhoid treatment PRN - Monitor hgb and vitals-both remain stable No endoscopy warranted at this time Okay to continue home aspirin (3) Type 2 diabetes mellitus: A1c was 7.6% in 09/2019. -Continue to hold metformin (could also be contributing to her diarrhea) - Lowered long-acting insulin to 10 units HS given her poor PO intake - Sliding scale insulin (4) Hypertension: Blood pressures here are normal - Continue home lisinopril and metoprolol (5) Hypothyroidism: TSH was 0.84 in 11/2019 and again normal here today at 0.94. No signs/symptoms of hypo-/hyperthyroidism. Don't think diarrhea is an aspect of hyperthyroidism given its acuity. - Continue home Synthroid 100 mcg (6) Hyperlipidemia: - Continue statin (7) Hypomagnesemia: Magnesium 1.4 likely secondary to GI losses Replace with IV magnesium sulfate and restart home magnesium p.o. replacement Follow magnesium level in the morning (8) Acid reflux: On PPI at home-restart for here in the morning (9) Depression with anxiety: Stable -Continue home venlafaxine (10) Frequent PVCs: Continue home metoprolol (11) DVT prophylaxis: SCDs - Low DVT risk per admission calculator & hematochezia Disposition-continued stay but possible discharge home tomorrow if improved Admission and Anticipated Discharge Date Admission Date: January 21, 2020 Subjective Patient feeling improved. Still with some lower abdominal cramping that seems constant. She has not had any further diarrhea since admission. No nausea or vomiting and was tolerating p.o. today. She is making urine. No hematuria or dysuria, no urinary frequency. Denies chest pain or shortness of breath. Denies fevers or chills. Review of Systems Review of Systems: All systems reviewed & are unremarkable except as noted in HPI & below Physical Exam Constitutional: WD/WN, vitals as above + obese Eyes: + anicteric sclerae ENMT: external ear and nose normal, oropharynx normal Neck: trachea midline, no thyromegaly Respiratory: normal respiratory effort, lungs clear to auscultation Cardiovascular: RRR, no murmur, no edema Chest (Breasts): Chest: normal inspection of chest Gastrointestinal (Abdomen): Inspection/Auscultation: normal bowel sounds; abdomen not distended Percussion/Palpation: + abdomen tender (Mild in the periumbilical region without guarding or rebound) and abdomen soft; no guarding and abdomen not rigid Musculoskeletal: Extremities: extremities normal to inspection; no cyanosis and no clubbing Skin: no rashes, warm and dry Neurologic: moves all extremities and awake; no focal motor deficits Psychiatric: A+Ox3, euthymic affect Lymphatic: no lymphedema Results & Data Results & Data ([facility]) Vital Signs (Past 12 Hours) Vital Signs Temp Pulse Resp BP Pulse Ox 01/22/20 07:25 36.9 C 79 20 166/86 H 97 Laboratory Results 01/22/20 01/22/20 01/22/20 Range/Units 16:45 11:56 07:46 WBC (4.8-10.8) K/uL RBC (4.2-5.4) M/uL Hgb (12.0-16.0) g/dL Hct (37-47) % MCV (80-100) fL MCH (25-34) pg MCHC (32-36) g/dL RDW Std Deviation (36.4-46.3) fL RDW Coeff of Judy (11.5-14.5) % Plt Count (130-400) K/uL MPV (7.4-10.4) fL Sodium (136-145) mmol/L Potassium (3.5-5.1) mmol/L Chloride (98-107) mmol/L Carbon Dioxide (21-32) mmol/L Anion Gap (3-11) BUN (7-18) mg/dl Creatinine (0.6-1.2) mg/dl Est Cr Clr Drug Dosing ml/min Est GFR ( Amer) Est GFR (Non-Af Amer) BUN/Creatinine Ratio (10-20) Glucose (70-99) mg/dl POC Glucose 167 H 161 H 181 H (70-99) mg/dl Estimat Average Glucose mg/dl Hemoglobin A1c (4.5-5.6) % Calcium (8.5-10.1) mg/dl Magnesium (1.8-2.4) mg/dl TSH (0.300-4.500) uIu/ml Stl C. diff Tox B Gene (Neg) 01/22/20 01/22/20 01/22/20 Range/Units 07:17 07:17 07:17 WBC 9.58 (4.8-10.8) K/uL RBC 4.22 (4.2-5.4) M/uL Hgb 11.3 L (12.0-16.0) g/dL Hct 35.9 L (37-47) % MCV 85.1 (80-100) fL MCH 26.8 (25-34) pg MCHC 31.5 L (32-36) g/dL RDW Std Deviation 46.1 (36.4-46.3) fL RDW Coeff of Judy 14.9 H (11.5-14.5) % Plt Count 318 (130-400) K/uL MPV 9.9 (7.4-10.4) fL Sodium 141 (136-145) mmol/L Potassium 3.7 D (3.5-5.1) mmol/L Chloride 109 H (98-107) mmol/L Carbon Dioxide 23 (21-32) mmol/L Anion Gap 8.0 (3-11) BUN 17 (7-18) mg/dl Creatinine 0.98 (0.6-1.2) mg/dl Est Cr Clr Drug Dosing 53.5 ml/min Est GFR ( Amer) 68.7 Est GFR (Non-Af Amer) 59.3 BUN/Creatinine Ratio 17.5 (10-20) Glucose 156 H (70-99) mg/dl POC Glucose (70-99) mg/dl Estimat Average Glucose 180 mg/dl Hemoglobin A1c 7.9 H (4.5-5.6) % Calcium 9.1 (8.5-10.1) mg/dl Magnesium 1.4 L (1.8-2.4) mg/dl TSH 0.943 (0.300-4.500) uIu/ml Stl C. diff Tox B Gene (Neg) 01/21/20 01/21/20 Range/Units 22:04 22:01 WBC (4.8-10.8) K/uL RBC (4.2-5.4) M/uL Hgb (12.0-16.0) g/dL Hct (37-47) % MCV (80-100) fL MCH (25-34) pg MCHC (32-36) g/dL RDW Std Deviation (36.4-46.3) fL RDW Coeff of Judy (11.5-14.5) % Plt Count (130-400) K/uL MPV (7.4-10.4) fL Sodium (136-145) mmol/L Potassium (3.5-5.1) mmol/L Chloride (98-107) mmol/L Carbon Dioxide (21-32) mmol/L Anion Gap (3-11) BUN (7-18) mg/dl Creatinine (0.6-1.2) mg/dl Est Cr Clr Drug Dosing ml/min Est GFR ( Amer) Est GFR (Non-Af Amer) BUN/Creatinine Ratio (10-20) Glucose (70-99) mg/dl POC Glucose 197 H (70-99) mg/dl Estimat Average Glucose mg/dl Hemoglobin A1c (4.5-5.6) % Calcium (8.5-10.1) mg/dl Magnesium (1.8-2.4) mg/dl TSH (0.300-4.500) uIu/ml Stl C. diff Tox B Gene Negative Cdiff Gene (Neg) PG Care Time/CCT Total # of Minutes Spent Total Time Spent with Patient: Total time spent is greater than 50% in coordina tion of care (as documented) at patient's floor/unit and/or counseling patient: Coding Level of Care Code 61009 Subseq Hosp Care Lvl 2 Diagnoses Diarrhea R19.7 Hematochezia K92.1 Type 2 diabetes mellitus E11.9 Hypertension I10 Hypothyroidism E03.9 Hyperlipidemia E78.5 Hypomagnesemia E83.42 Acid reflux K21.9 Depression with anxiety F41.8 Frequent PVCs I49.3 DVT prophylaxis Z29.9
[2020-01-22] MEDS: MAGNESIUM SULFATE / D5W 1 GM/100 ML BAG IV SCH ×2 (12:22→14:22)
[2020-01-22] MEDS: VENLAFAXINE HCL XR 75 MG CAPXR PO SCH (20:34)
[2020-01-22] MEDS ORDERED: MAGNESIUM OXIDE 400 MG TAB PO SCH (21:00)
[2020-01-22] MEDS: SIMVASTATIN 40 MG TAB PO SCH (21:24)
[2020-01-22] MEDS: INSULIN DETEMIR FLEXPEN/FLEX TOUCH 100 UNITS/ML 3ML SQ SCH (21:24)
[2020-01-22] MEDS ORDERED: Nursing to Pharmacy Communication SCH (22:30)
[2020-01-23] MEDS ORDERED: SIMETHICONE 80 MG CHEW PO PRN (00:23)
[2020-01-23] MEDS: NORMOSOL-R 1,000 ML IV SCH (03:12)
[2020-01-23 07:42] LABS: Basophils # (auto) 0.03 K/uL (0-0.2); Basophils % (auto) 0.4 %; Eosinophils # (auto) 0.16 K/uL (0-0.5); Eosinophils % (auto) 1.9 %; Hematocrit (blood only) 32.6 % (37-47); Hemoglobin 10.3 g/dL (12.0-16.0); Immature Granulocytes # (auto) 0.02 K/uL (0.00-0.02); Immature Granulocytes % (auto) 0.2 %; Lymphocytes # (auto) 2.05 K/uL (1.2-3.4); Lymphocytes % (auto) 24.2 %; Mean Corpuscular Hemoglobin 26.6 pg (25-34); Mean Corpuscular Hgb Conc 31.6 g/dL (32-36); Mean Corpuscular Volume 84.2 fL (80-100); Mean Platelet Volume 9.7 fL (7.4-10.4); Monocytes # (auto) 0.88 K/uL (0.11-0.59); Monocytes % (auto) 10.4 %; Neutrophils # (auto) 5.34 K/uL (1.4-6.5); Neutrophils % (auto) 62.9 %; Platelet Count 276 K/uL (130-400); RDW Coefficient of Variation 14.9 % (11.5-14.5); RDW Standard Deviation 45.2 fL (36.4-46.3); Red Blood Count 3.87 M/uL (4.2-5.4); White Blood Count 8.48 K/uL (4.8-10.8)
[2020-01-23] MEDS: LEVOTHYROXINE SODIUM 100 MCG TABLET PO SCH (07:44)
[2020-01-23 08:18] LABS: BUN Creatinine Ratio 18.1 (10-20); Calcium 8.4 mg/dl (8.5-10.1); Creatinine Clr Calc Pharmacy 58.9 ml/min; Est GFR (African American) 77.2; Est GFR (Non-African American) 66.6; Magnesium 1.9 mg/dl (1.8-2.4); Potassium 4.2 mmol/L (3.5-5.1)
[2020-01-23] MEDS: lisinopril 5 MG TAB PO SCH (08:54)
[2020-01-23] MEDS: ASPIRIN 81 MG ECTAB PO SCH (08:54)
[2020-01-23] MEDS: VENLAFAXINE HCL XR 150 MG CAPXR PO SCH (08:55)
[2020-01-23] MEDS: METOPROLOL TARTRATE 50 MG TAB PO SCH (08:56)
[2020-01-23] MEDS: INSULIN ASPART 100 UNITS/ML 3 ML PEN SC SCH (08:57)
[2020-01-23] MEDS ORDERED: PANTOprazole 40 MG TAB PO SCH (09:00)
[2020-01-23] MEDS ORDERED: VITAMIN B COMPLEX TAB PO SCH (09:00)
--- NOTE | 2020-01-23 11:39 | Discharge Summary ---
Date of Service January 23, 2020 Admission HPI Per Admitting Provider 69yo F w/ hx of DM and hypothyroidism who presents with diarrhea x 4 days. Reports the diarrhea started on Sunday as explosive watery diarrhea. After 2 days, it became more mucus-y. She is having many episodes per day. She had a tele-health visit with her PCP on Sunday and was ordered a Covid test and stool studies. Her son and granddaughter were exposed to a Covid-confirmed patient, though she herself has not had any respiratory symptoms and no known fevers. The Covid test is pending, but she did not bring in the stool studies. Today, she had some bright red blood with the diarrhea and decided to come to the hospital. She reports she "spent the morning" in the bathroom, but has not had a bowel movement since her arrival to the ER. Principal Diagnosis Viral gastroenteritis Rectal bleeding Discharge Exam Constitutional WD/WN, vitals as above + obese Eyes + anicteric sclerae Neck trachea midline, no thyromegaly Respiratory normal respiratory effort, lungs clear to auscultation Cardiovascular RRR, no murmur, no edema Chest (Breasts) Chest: normal inspection of chest Gastrointestinal (Abdomen) normal bowel sounds, soft, nontender, no hepatosplenomegaly Musculoskeletal Extremities: extremities normal to inspection; no cyanosis and no clubbing Skin no rashes, warm and dry Neurologic moves all extremities and awake; no focal motor deficits Psychiatric A+Ox3, euthymic affect Lymphatic no lymphedema Discharge Data Allergies Allergy/AdvReac Type Severity Reaction Status Date / Time dog dander Allergy Severe Unknown Verified 01/21/20 17:24 Consultations 01/21/20 17:18 ED Decision to Admit Stat Ordered Studies 01/21/20 14:33 CT abd pelvis wo con Stat Hospital Course (1) Diarrhea: Copious amounts of watery diarrhea with some blood in stool on the day of admission. CT a/p on 01/20 showed some possible non-specific colitis. Lactate was 2.2. ED provider had concern for ischemic colitis, though I do not see much evidence for that, and the diarrhea is already resolved. To me, seems more likely a viral gastroenteritis, though no one else in the family has it and she denies any new/different foods. - C. diff negative Stool culture collected and pending but negative to date Covid-19 negative - Imodium PRN was givne She had no further BMs at all for the entire hospital stay Abd pain was improved with simethicone received IV fluids Afebrile Doing well, stable for dc to home (2) Hematochezia: Colonoscopy in 09/2018 showed internal hemorrhoids. Only started bleeding after 4 days of diarrhea. Presently vitals and hemoglobin stable and bleeding seems relatively scant. Believe it to be a flare of her hemorrhoids from the diarrhea. - Hemorrhoid treatment PRN - Monitor hgb and vitals-both remain stable except some mild drop likely from hemodilution No endoscopy warranted at this time Okay to continue home aspirin No further bleeding since admission (3) Type 2 diabetes mellitus: A1c was 7.6% in 09/2019. -ok to restart home metformin -continue home insulin (4) Hypertension: Blood pressures here are normal - Continue home lisinopril and metoprolol (5) Hypothyroidism: TSH was 0.84 in 11/2019 and again normal here today at 0.94. No signs/symptoms of hypo-/hyperthyroidism. Don't think diarrhea is an aspect of hyperthyroidism given its acuity. - Continue home Synthroid 100 mcg (6) Hyperlipidemia: - Continue statin (7) Hypomagnesemia: Magnesium 1.4 likely secondary to GI losses Replaced with IV magnesium sulfate and continued home magnesium p.o. 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 (11) DVT prophylaxis: SCDs - Low DVT risk per admission calculator & hematochezia Disposition-stable for dc to home Total Time Total Time Spent Total Time Spent (In Minutes): 35 min Total Time Includes: Examination of the Patient, Discharge Planning and Medication Reconciliation Discharge Plan Discharge Items Patient Disposition: Home - Self-Care Reason For Visit: Colitis Discharge Diagnosis: Diarrhea, viral gastroenteritis Condition on Discharge: Good Activity: Resume your previous activity Non-emergency contact: Primary Care Provider Call non-emergency contact if: you have any medication questions and your symptoms worsen Follow-up/Referrals: Meliza Dumont MD [Primary Care Provider] - (Please follow up within 1-2 weeks.) Diet: Heart Healthy Addtl Attending Provider Instructions: Please stay hydrated. You likely had a viral gastroenteritis which is now resolved. Eat a bland diet until you are back to normal. Follow up with your PCP within 1 week. Pending Studies at Discharge: Yes Stand-Alone Forms: My [facility] Medications and DC Order Prescriptions: Continued levothyroxine 100 mcg tablet 100 mcg PO QAM Qty: 90 RF: 3 metoprolol tartrate 50 mg tablet 50 mg PO BID Qty: 180 RF: 3 omeprazole 20 mg capsule,delayed release(DR/EC) 20 mg PO QAM Qty: 90 RF: 3 simvastatin 40 mg tablet 40 mg PO HS Qty: 90 RF: 3 venlafaxine 75 mg capsule,extended release 24hr See Rx Instructions PO BID Qty: 270 RF: 3 metformin 500 mg tablet See Rx Instructions .ROUTE .COMPLEX Qty: 28 RF: 0 lisinopril 5 mg tablet 5 mg PO QAM Qty: 7 RF: 0 aspirin 81 mg tablet,delayed release (DR/EC) 81 mg PO QAM RF: 0 calcium carbonate [Calcium 600] 600 mg calcium (1,500 mg) tablet 600 mg PO BID RF: 0 fish oil-dha-epa 1,200-144-216 mg capsule 1 cap PO BID RF: 0 magnesium oxide 500 mg capsule 500 mg PO HS RF: 0 albuterol sulfate 90 mcg/actuation HFA aerosol inhaler 2 puff inhalation Q6H PRN (Reason: Shortness Of Breath Or Wheezing) RF: 0 Levemir FlexTouch U-100 Insuln 100 unit/mL (3 mL) insulin pen 14 units SQ HS RF: 0 vitamin B complex Tablet 1 tab PO QAM RF: 0 Changed naproxen 500 mg tablet 500 mg PO BID PRN (Reason: pain) Qty: 180 RF: 3 Discharge Orders: Discharge Order (Routine); Ordered 01/23/20 Ordered By: Zonia Meredith/Other Patient Handouts: Managing Type 2 Diabetes Admission Data Admit Date/Time: 01/21/20 17:40 Attending Provider: Zonia Giang Admit Provider: Farrukh Apple Primary Care Provider: Meliza Dumont Other Providers: Farrukh Apple Coding Level of Care Code 54778 OBS Care - Discharge Diagnoses Diarrhea R19.7 Hematochezia K92.1 Type 2 diabetes mellitus E11.9 Hypertension I10 Hypothyroidism E03.9 Hyperlipidemia E78.5 Hypomagnesemia E83.42 Acid reflux K21.9 Depression with anxiety F41.8 Frequent PVCs I49.3 DVT prophylaxis Z29.9
--- NOTE | 2020-01-23 12:22 | Student Report ---
[facility] Student Progress Note Date of Service Date of service: January 23, 2020 Subjective Subjective: Cain is a 69 year old female with a pertinent PMX of cholecystectomy and fatty liver, who presented to the ED 2 days ago with a 4 day history of worsening abdominal pain and diarrhea. Today is hospital day 3. Her last episode of diarrhea was two nights ago at 10pm and she has not had a bowel movement since. Her lower abdominal cramping has continued but is relieved some after receiving simethicone. She has had no nausea or vomiting. She is feeling fatigued. ROS ROS: Constitutional: no nausea, no vomiting, no fever/chills, +fatigue Cardiovascular: No chest pain, no calf pain, no swelling of the extremities Respiratory: No SOB Gastrointestinal: +abdominal pain, no diarrhea or constipation Neurological: No weakness, headache, or dizziness Physical Exam Physical Exam: Gen: NAD, AAA Cardiac: RRR, no m/r/b, no lower extremity edema Lungs: Nl bilateral effort, clear to auscultation, Abdominal: normal bowel sound, soft, nondistended, tender in the right and left lower quadrants without guarding Results Results: Preliminary stool cultures are no growing shigella producing e coli, campylobacter, or salmonella. A&P A&P: Cain is a 69 year old female with a PMX of fatty liver and PSgx of cholecystectomy who presented to the ED two days ago with a 4 day worsening history of diarrhea and abdominal pain. Assessment Differential diagnosis: infectious (viral or bacterial gastroenteritis), noninfectious (inflammatory bowel disease, ischemic colitis, NSAID related enteropathy). Cain presents with acute diarrhea over the past 5 days along with abdominal pain, nausea, and vomiting but without fevers. This acute presentation seems most consistent with viral or bacterial gastroenteritis. If this were to reoccur she may want to consider further testing for bacteria or parasites or chronic causes (autoimmune). Plan 1. Diarrhea Last incident at 10pm two days ago, should not continue Immodium Diarrhea - fluid repletion C-diff and Covid-19 negative If persists, consider GI consult and/or abx treatment (azithromycin or a fluoroquinolone) and/or test for staph aureus, bacillus ceurus, clostridium perfringens, salmonella 2. Hematochezia First incident in the ED, no recent incident Possibly due to internal hemorrhoids HgB 11.3 (11.7 on admission), continue to monitor, perhaps reconsider Naltrexone 3. Lower Abdominal pain mild colon wall thickening on abdominal CT ddx - infectious colitis, acute uncomplicated diverticulitis, If persists with diarrhea, GI consult. 4. RUQ Abdominal pain History of fatty liver and cholecystectomy ddx - GERD, IBS, sphincter of Oddi dysfunction If persists, GI consult
== END 2020-01-23 14:21 | disposition home or self-care (01) ==
LOC: 2W 13:23 → ED 13:23 → SUATTDRO 17:40 → 2W 20:44

== ENCOUNTER 2021-05-11 13:59 | Inpatient (IN) ==
[2021-05-11] MEDS ORDERED: ONDANSETRON INJ 2 MG/ML 2 ML VIAL IV STA (14:40)
[2021-05-11] MEDS ORDERED: SODIUM CHLORIDE 0.9% 1000ML 1,000 ML IV SCH (14:45)
--- NOTE | 2021-05-11 14:48 | Emergency Department Note ---
Impression & Plan Weakness, Acute confusion, Fall, Acute hyperglycemia, S/P left knee surgery, Hypomagnesemia ED Provider Note NAME: SHAR COSBY AGE: 70 SEX: F : 1950 ARRIVES VIA: Ambulance INFORMANT: [Patient][daughter] ED PROVIDER(S): [Arpit Joya MD] CHIEF COMPLAINT: Weakness, confusion HISTORY OF PRESENT ILLNESS: The patient is a 70-year-old female presents to the ER with weakness, confusion and a fever. EMS noted her sugar was elevated at around 300. The patient had a left knee replacement surgery yesterday by Dr. Hernandez. She left the hospital the same day. She has gone downhill today. She was trying to walk with her walker when her legs became weak and she was helped to the ground by family. She did not really get injured. She has been somewhat confused and talking about things are not real today. She had a temperature elevation earlier. Her at home nurse today told the family to call EMS. The patient denies any cough or congestion or shortness of breath. No headache. No abdominal pain. She admits to some nausea she thinks from her oxycodone. She does have some moderate left knee pain from her surgery. She denies any urinary complaints. No diarrhea. The patient is currently using oxycodone for pain. She also uses [id number] Tylenol. REVIEW OF SYSTEMS: See HPI for pertinent positives and negatives. A total of ten systems were reviewed and were otherwise negative. PMHx/PSHx: See Below SOCIAL HISTORY: See Below. PHYSICAL EXAM: GENERAL: Patient is in no acute distress. HEENT: No acute trauma, normocephalic atraumatic, mucous membranes moist, no nasal congestion, no scleral icterus. NECK: No stridor, no adenopathy, no meningismus, trachea is midline. LUNGS: Clear to auscultation bilaterally when listening anterior, no wheeze, no rhonchi, breath sounds equal. HEART: Mildly tachycardic, regular rhythm, no murmurs. ABDOMEN: Soft, nontender, bowel sounds positive, no hernias, no peritonitis. EXTREMITIES: No cyanosis. Her left knee surgical incision looks to be healing well so far. There is no drainage, the flakita are intact. NEUROLOGIC: Awake alert, answers questions well, no acute motor or sensory deficits, no focal weakness. No speech slur. SKIN: No rash, no jaundice, no diaphoresis. DIFFERENTIAL DIAGNOSIS: Infection, dehydration, medication reaction, COVID-19, influenza, UTI, metabolic abnormality, hypo/hyperglycemia, electrolyte disturbance, anemia, hypoxia, card iac sources, intracerebral event, toxicologic issues, stroke, TIA, as well as other pathologies. EMERGENCY DEPARTMENT COURSE/PROCEDURES: ECG: Indication was weakness. The ECG shows a sinus tachycardia with a rate of 101. There is some nonspecific ST change. There is no ST elevation, no PVCs. The QTc is 466. Continuous Cardiac Monitoring: An order was placed for continuous cardiac monitoring. The monitor shows a rate of 103 with sinus tachycardia. MEDICAL DECISION MAKING: There is a mild leukocytosis which could be consistent with infection or the stress of her recent surgery. The patient was anemic but she has a history of the same. There is a normal platelet count. No kidney failure. Glucose was elevated at nearly 300. Lactic acid level was elevated consistent with infection and/or dehydration. Magnesium was quite low at 1.3. There were some subtle liver enzyme elevations. The patient appeared to be in a euthyroid state. ECG showed sinus tachycardia, no obvious ischemia. Cardiac enzyme t esting x1 does not show any evidence for acute cardiac injury. Urinalysis does not show infection. COVID and influenza testing was negative. Chest film does not show pneumonia or CHF. On exam, patient's left knee looks to be healing status post her surgery, no signs of cellulitis or infection. The patient received IV saline, 1.5 L. Her sugar has come down a bit. She received IV Zofran for nausea. She was given IV magnesium for the lower magnesium value. The patient presents with weakness, a fall, hypomagnesemia, dehydration, tachycardia and confusion. She requires a hospital stay and further care. I did speak with the patient's orthopedic surgeon, Dr. Hernandez. The patient will be seen by them in consult. I did speak with the family and the patient, the on-call hospitalist was consulted. Past Med/Surg History Medical History Acid reflux controlled, stable, denies issues laying flat Depression with anxiety well managed and stable per pt Fatty liver reports abnormal LFTs following with PCP, stable per pt Generalized osteoarthritis Glaucoma Hearing difficulty Hiatal hernia History of blood transfusion 1982 during childbirth Hyperlipidemia Hypertension controlled, stable Hypothyroidism Iron deficiency anemia Improving per pt, follows with PCP and GI Lumbar back pain Multiple pulmonary nodules Stable per 09/2020, under annual surveillance by PCP Obesity PAC (premature atrial contraction) Chronic and stable per pt, denies recurrence on current regimen initiated by cardio and now following with PCP Type 2 diabetes mellitus NIDDM, stable Surgical History History of cardiac cath >10 yrs ago ([facility]) > no stents History of carpal tunnel surgery R/L History of cataract surgery R/L History of section x1 History of cholecystectomy History of colonoscopy Colonoscopy (10/02/18): MAC sedation at [facility] History of esophagogastroduodenoscopy (EGD) EGD/colonoscopy (08/25/20): MAC at [facility] History of hysterectomy Total History of tonsillectomy History of tooth extraction S/P trigger finger release left Family History Father Family history of diabetes mellitus Myocardial infarction, Onset Age: 56 Mother Anxiety Grandfather (Paternal) Throat cancer Other No family history of adverse response to anesthesia Denies family history of Ovarian cancer Prostate cancer Breast cancer Colorectal cancer Social History Smoking Status: Never smoker Second Hand Exposure: No; Hx Alcohol Use: No Hx Substance Use: No Preferred Language: Croatian Communication Ability: Effective Visual Impairment: No Limitations Hearing Ability: Use of Hearing Aid [place] Guide Required: No Beliefs That Will Affect Care: None marital status: Current Living Situation: Alone current occupational status: 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 Safe at Home: Yes Childhood Exposure to Second-Hand Smoke: No Dental Care, Regularly: No Physical Activity Frequency: Does not Exercise Seatbelt Use: always Sunscreen Use: Yes Assistive Devices: Glasses and Hearing Aid - Bilateral Allergies Allergies Allergy/AdvReac Type Severity Reaction Status Date / Time No Known Allergies Allergy Verified 05/11/21 16:38 Home Meds Home Medications Medication Instructions Recorded Confirmed calcium carbonate 600 mg calcium 600 mg PO BID 09/25/18 05/11/21 (1,500 mg) tablet (Calcium) fish oil-dha-epa 1,200 mg-144 1 cap PO BID 09/25/18 05/11/21 mg-216 mg capsule albuterol sulfate 90 mcg/actuation 2 puff INHALATION Q6H PRN 01/21/20 05/11/21 aerosol inhaler timolol 0.5 % eye drops 1 drp OPHTHALMIC (EYE) QAM 07/07/20 05/11/21 magnesium citrate 100 mg capsule 200 mg PO HS 11/16/20 05/11/21 levothyroxine 100 mcg tablet 100 mcg PO QAM 01/21/21 05/11/21 lisinopril 5 mg tablet 5 mg PO QAM 01/21/21 05/11/21 omeprazole 20 mg capsule,delayed 20 mg PO QAM 01/21/21 05/11/21 release amlodipine 2.5 mg tablet 2.5 mg PO QAM 03/03/21 05/11/21 aspirin 81 mg tablet,delayed 81 mg PO QAM 05/04/21 05/11/21 release venlafaxine 75 mg capsule,extended See Rx Instructions PO BID 05/10/21 05/11/21 release 24 hr (Effexor XR) acetaminophen 500 mg capsule 1,000 mg PO TID PRN 05/11/21 05/11/21 Previous Rx's Medication Instructions Recorded metformin 500 mg tablet 1,000 mg PO BID #360 tab 11/16/20 metoprolol tartrate 50 mg tablet 50 mg PO BID #180 tab 11/16/20 simvastatin 40 mg tablet 40 mg PO HS #90 tab 11/16/20 glipizide 5 mg tablet See Rx Instructions .ROUTE 12/30/20 .COMPLEX #450 tab ketorolac 10 mg tablet 10 mg PO Q6 5 Days #20 tab 05/08/21 ondansetron HCl 4 mg tablet 4 mg PO Q6 PRN #30 tab 05/08/21 oxycodone 5 mg tablet 5 - 10 mg PO Q6 PRN #40 tab 05/08/21 sennosides 8.6 mg-docusate sodium 1 tab-cap PO DAILY #14 tab 05/08/21 50 mg tablet (Senokot-S) Results & Data (ED) Vital Signs Vital Signs - 24 hr 05/11/21 14:24 05/11/21 14:25 05/11/21 15:08 Temperature 37.3 C 37.3 C Temperature Source Oral Oral Pulse Rate 104 H 99 H Pulse Rate [Apical] 104 H Pulse Rhythm Regular Regular Pulse Rhythm [Apical] Regular Pulse Strength Normal Pulse Strength [Apical] Normal Respiratory Rate 18 18 Respiratory Effort / Characteristics Non-Labored Non-Labored Respiratory Depth Normal Normal Respiratory Pattern Regular Regular Blood Pressure 200/80 H Blood Pressure [Left Arm] 200/80 H Blood Pressure Mean 120 Blood Pressure Mean [Left Arm] 120 Blood Pressure Position Lying Blood Pressure Position [Left Arm] Pulse Oximetry 95 95 95 Oxygen Delivery Method Room Air Room Air Room Air Sepsis Recent Fever Within 48 Hours Yes Sepsis New/Unexplained Change in Mental Status Yes Sepsis Action Taken by Nursing Physician Notified 05/11/21 16:55 05/11/21 17:50 Temperature Temperature Source Pulse Rate Pulse Rate [Apical] 99 H 99 H Pulse Rhythm Pulse Rhythm [Apical] Regular Regular Pulse Strength Pulse Strength [Apical] Normal Normal Respiratory Rate 20 18 Respiratory Effort / Characteristics Non-Labored Respiratory Depth Normal Normal Respiratory Pattern Regular Blood Pressure Blood Pressure [Left Arm] 179/96 H 173/97 H Blood Pressure Mean Blood Pressure Mean [Left Arm] 123 122 Blood Pressure Position Blood Pressure Position [Left Arm] Sitting Lying Pulse Oximetry 95 Oxygen Delivery Method Room Air Sepsis Recent Fever Within 48 Hours Sepsis New/Unexplained Change in Mental Status Sepsis Action Taken by Residential Medications Current Medication List: was personally reviewed by me Laboratory Data Attestation: I reviewed the patient's lab results. Result diagrams: 05/11/21 15:15 05/11/21 15:15 Lab Results 05/11/21 05/11/21 05/11/21 Range/Units 15:02 15:02 15:02 WBC (4.8-10.8) K/uL RBC (4.2-5.4) M/uL Hgb (12.0-16.0) g/dL Hct (37-47) % MCV (80-100) fL MCH (25-34) pg MCHC (32-36) g/dL RDW Std Deviation (36.4-46.3) fL RDW Coeff of Judy (11.5-14.5) % Plt Count (130-400) K/uL MPV (7.4-10.4) fL Immature Gran % (Auto) % Neut % (Auto) % Lymph % (Auto) % Martin % (Auto) % Eos % (Auto) % Baso % (Auto) % Neut # (Auto) (1.4-6.5) K/uL Lymph # (Auto) (1.2-3.4) K/uL Martin # (Auto) (0.11-0.59) K/uL Eos # (Auto) (0-0.5) K/uL Baso # (Auto) (0-0.2) K/uL Immature Gran # (Auto) (0.00-0.02) K/uL Sodium (136-145) mmol/L Potassium (3.5-5.1) mmol/L Chloride (98-107) mmol/L Carbon Dioxide (21-32) mmol/L Anion Gap (3-11) BUN (6-23) mg/dl Creatinine (0.6-1.2) mg/dl Est Cr Clr Drug Dosing ml/min Est GFR ( Amer) ml/min Est GFR (Non-Af Amer) ml/min BUN/Creatinine Ratio (10-20) Glucose (70-99(Fasting)) mg/dl POC Glucose (70-99) mg/dl Lactate (0.4-2.0) mmol/L Calcium (8.5-10.1) mg/dl Magnesium (1.7-2.4) mg/dl Total Bilirubin (0.2-1.0) mg/dl AST (13-39) U/L ALT (7-52) U/L Alkaline Phosphatase (34-104) U/L Troponin I (0-0.04) ng/ml Total Protein (6.0-8.3) gm/dl Albumin (3.4-5.0) gm/dl Globulin (2.5-4.0) gm/dl Albumin/Globulin Ratio (0.9-2) TSH (0.300-4.500) uIu/ml Urine Color Yellow Urine Appearance Clear (Clear) Urine pH 5.0 (4.5-7.5) Ur Specific Parks 1.016 (1.000-1.030) Urine Protein 1+ H (Negative) Urine Glucose (UA) 2+ H (Negative) Urine Ketones Negative (Negative) Urine Blood 1+ H (Negative) Urine Nitrite Negative (Negative) Urine Bilirubin Negative (Negative) Urine Urobilinogen Negative (Negative) Ur Leukocyte Esterase Negative (Negative) Urine WBC (Auto) 1-5 (0-5) /hpf Urine RBC (Auto) 0-4 (0-4) /hpf U Hyaline Cast (Auto) 0 (0-5) /lpf U Epithel Cells (Auto) 0-5 (0-5) /lpf Urine Bacteria (Auto) Negative (Negative) Influ A Molecular Assay Negative (Negative) Influ B Molecular Assay Negative (Negative) SARS-CoV-2, RNA, NAAT NEGATIVE (NEGATIVE) 05/11/21 05/11/21 05/11/21 Range/Units 15:15 15:15 15:15 WBC 14.29 H (4.8-10.8) K/uL RBC 3.59 L (4.2-5.4) M/uL Hgb 9.2 L (12.0-16.0) g/dL Hct 29.4 L (37-47) % MCV 81.9 (80-100) fL MCH 25.6 (25-34) pg MCHC 31.3 L (32-36) g/dL RDW Std Deviation 46.8 H (36.4-46.3) fL RDW Coeff of Judy 15.7 H (11.5-14.5) % Plt Count 295 (130-400) K/uL MPV 9.6 (7.4-10.4) fL Immature Gran % (Auto) 0.3 % Neut % (Auto) 76.0 % Lymph % (Auto) 7.9 % Martin % (Auto) 15.7 % Eos % (Auto) 0.0 % Baso % (Auto) 0.1 % Neut # (Auto) 10.86 H (1.4-6.5) K/uL Lymph # (Auto) 1.13 L (1.2-3.4) K/uL Martin # (Auto) 2.25 H (0.11-0.59) K/uL Eos # (Auto) 0.00 (0-0.5) K/uL Baso # (Auto) 0.01 (0-0.2) K/uL Immature Gran # (Auto) 0.04 H (0.00-0.02) K/uL Sodium 136 (136-145) mmol/L Potassium 4.6 (3.5-5.1) mmol/L Chloride 106 (98-107) mmol/L Carbon Dioxide 21 (21-32) mmol/L Anion Gap 9 (3-11) BUN 21 (6-23) mg/dl Creatinine 0.86 (0.6-1.2) mg/dl Est Cr Clr Drug Dosing 58.8 ml/min Est GFR ( Amer) 79.9 ml/min Est GFR (Non-Af Amer) 68.9 ml/min BUN/Creatinine Ratio 24.4 H (10-20) Glucose 289 H (70-99(Fasting)) mg/dl POC Glucose (70-99) mg/dl Lactate (0.4-2.0) mmol/L Calcium 8.9 (8.5-10.1) mg/dl Magnesium 1.3 L (1.7-2.4) mg/dl Total Bilirubin 0.4 (0.2-1.0) mg/dl AST 86 H (13-39) U/L ALT 70 H (7-52) U/L Alkaline Phosphatase 73 (34-104) U/L Troponin I < 0.03 (0-0.04) ng/ml Total Protein 6.4 (6.0-8.3) gm/dl Albumin 3.8 (3.4-5.0) gm/dl Globulin 2.6 (2.5-4.0) gm/dl Albumin/Globulin Ratio 1.5 (0.9-2) TSH 1.484 (0.300-4.500) uIu/ml Urine Color Urine Appearance (Clear) Urine pH (4.5-7.5) Ur Specific Parks (1.000-1.030) Urine Protein (Negative) Urine Glucose (UA) (Negative) Urine Ketones (Negative) Urine Blood (Negative) Urine Nitrite (Negative) Urine Bilirubin (Negative) Urine Urobilinogen (Negative) Ur Leukocyte Esterase (Negative) Urine WBC (Auto) (0-5) /hpf Urine RBC (Auto) (0-4) /hpf U Hyaline Cast (Auto) (0-5) /lpf U Epithel Cells (Auto) (0-5) /lpf Urine Bacteria (Auto) (Negative) Influ A Molecular Assay (Negative) Influ B Molecular Assay (Negative) SARS-CoV-2, RNA, NAAT (NEGATIVE) 05/11/21 05/11/21 05/11/21 Range/Units 15:15 16:50 18:05 WBC (4.8-10.8) K/uL RBC (4.2-5.4) M/uL Hgb (12.0-16.0) g/dL Hct (37-47) % MCV (80-100) fL MCH (25-34) pg MCHC (32-36) g/dL RDW Std Deviation (36.4-46.3) fL RDW Coeff of Judy (11.5-14.5) % Plt Count (130-400) K/uL MPV (7.4-10.4) fL Immature Gran % (Auto) % Neut % (Auto) % Lymph % (Auto) % Martin % (Auto) % Eos % (Auto) % Baso % (Auto) % Neut # (Auto) (1.4-6.5) K/uL Lymph # (Auto) (1.2-3.4) K/uL Martin # (Auto) (0.11-0.59) K/uL Eos # (Auto) (0-0.5) K/uL Baso # (Auto) (0-0.2) K/uL Immature Gran # (Auto) (0.00-0.02) K/uL Sodium (136-145) mmol/L Potassium (3.5-5.1) mmol/L Chloride (98-107) mmol/L Carbon Dioxide (21-32) mmol/L Anion Gap (3-11) BUN (6-23) mg/dl Creatinine (0.6-1.2) mg/dl Est Cr Clr Drug Dosing ml/min Est GFR ( Amer) ml/min Est GFR (Non-Af Amer) ml/min BUN/Creatinine Ratio (10-20) Glucose (70-99(Fasting)) mg/dl POC Glucose 253 H (70-99) mg/dl Lactate 2.7 H* 1.8 (0.4-2.0) mmol/L Calcium (8.5-10.1) mg/dl Magnesium (1.7-2.4) mg/dl Total Bilirubin (0.2-1.0) mg/dl AST (13-39) U/L ALT (7-52) U/L Alkaline Phosphatase (34-104) U/L Troponin I (0-0.04) ng/ml Total Protein (6.0-8.3) gm/dl Albumin (3.4-5.0) gm/dl Globulin (2.5-4.0) gm/dl Albumin/Globulin Ratio (0.9-2) TSH (0.300-4.500) uIu/ml Urine Color Urine Appearance (Clear) Urine pH (4.5-7.5) Ur Specific Parks (1.000-1.030) Urine Protein (Negative) Urine Glucose (UA) (Negative) Urine Ketones (Negative) Urine Blood (Negative) Urine Nitrite (Negative) Urine Bilirubin (Negative) Urine Urobilinogen (Negative) Ur Leukocyte Esterase (Negative) Urine WBC (Auto) (0-5) /hpf Urine RBC (Auto) (0-4) /hpf U Hyaline Cast (Auto) (0-5) /lpf U Epithel Cells (Auto) (0-5) /lpf Urine Bacteria (Auto) (Negative) Influ A Molecular Assay (Negative) Influ B Molecular Assay (Negative) SARS-CoV-2, RNA, NAAT (NEGATIVE) Administered Medications Discontinued Medications Sodium Chloride (Nss 1000ml) 1,000 mls @ 999 mls/hr IV .Q1H1M DAVID Stop: 05/11/21 15:45 Last Infusion: 05/11/21 17:04 Dose: 0 mls/hr Documented by: [id number] Admin: 05/11/21 14:51 Dose: 999 mls/hr Documented by: [id number] Magnesium Sulfate/Dextrose (Magnesium Sulfate / D5w) 1 gm in 100 mls @ 100 mls/hr IV NOW STA Stop: 05/11/21 17:24 Last Infusion: 05/11/21 18:18 Dose: 0 mls/hr Documented by: [id number] Admin: 05/11/21 17:03 Dose: 100 mls/hr Documented by: [id number] Sodium Chloride (Nss 1000ml) 500 mls @ 999 mls/hr IV .Q31M ONE Stop: 05/11/21 17:07 Last Infusion: 05/11/21 17:53 Dose: 0 mls/hr Documented by: [id number] Admin: 05/11/21 17:04 Dose: 999 mls/hr Documented by: [id number] Metoprolol Tartrate (Metoprolol Tartrate 50 Mg Tab) 50 mg PO NOW STA Stop: 05/11/21 17:24 Last Admin: 05/11/21 17:52 Dose: 50 mg Documented by: [id number] Ondansetron HCl (Ondansetron Inj 2 Mg/Ml 2 Ml Vial) 4 mg IV NOW STA Stop: 05/11/21 14:41 Last Admin: 05/11/21 14:51 Dose: 4 mg Documented by: [id number] Imaging Data Radiologist's Impression: Chest X-Ray 05/11/21 14:40 XR chest 1V portable HISTORY: 70 years-old Female weakness acute weakness COMPARISON: Chest CT 09/28/2020, chest radiographs 09/19/2019 TECHNIQUE: Portable AP view of the chest FINDINGS: Cardiac silhouette is enlarged. Calcified plaque of the thoracic aorta. Mild linear subsegmental scarring/atelectasis. Chronic blunting of the lateral right costophrenic angle. There is no pneumothorax, large pleural effusion or overt pulmonary edema. Degenerative changes of the shoulders an spine. Right shoulder rotator cuff calcific tendinosis. IMPRESSION: Mild linear subsegmental bibasilar atelectasis/scarring without acute process. ACT 112: Negative or not required by law. The above report was generated using voice recognition software. It may contain grammatical, syntax or spelling errors. Electronically signed by: Jorge Brito M.D. 05/11/2021 3:48 PM Discharge Plan Visit Data Chief Complaint: Altered Mental Status Stated Complaint: altered mental status, fall ED Provider: Arpit Joya Prescriptions Prescriptions: No Action glipizide 5 mg tablet See Rx Instructions .ROUTE .COMPLEX Qty: 450 RF: 3 ondansetron HCl 4 mg tablet 4 mg PO Q6 PRN (Reason: nausea) Qty: 30 RF: 0 oxycodone 5 mg tablet 5 - 10 mg PO Q6 PRN (Reason: pain) Qty: 40 RF: 0 sennosides-docusate sodium [Senokot-S] 8.6-50 mg tablet 1 tab-cap PO DAILY Qty: 14 RF: 0 ketorolac 10 mg tablet 10 mg PO Q6 5 Days Qty: 20 RF: 0 magnesium citrate 100 mg capsule 200 mg PO HS RF: 0 metoprolol tartrate 50 mg tablet 50 mg PO BID Qty: 180 RF: 3 simvastatin 40 mg tablet 40 mg PO HS Qty: 90 RF: 3 metformin 500 mg tablet 1,000 mg PO BID Qty: 360 RF: 3 amlodipine 2.5 mg tablet 2.5 mg PO QAM RF: 0 calcium carbonate [Calcium 600] 600 mg calcium (1,500 mg) tablet 600 mg PO BID RF: 0 fish oil-dha-epa 1,200-144-216 mg capsule 1 cap PO BID RF: 0 albuterol sulfate 90 mcg/actuation HFA aerosol inhaler 2 puff inhalation Q6H PRN (Reason: Shortness Of Breath Or Wheezing) RF: 0 timolol 0.5 % Drops 1 drp OPHTHALMIC (EYE) QAM RF: 0 levothyroxine 100 mcg tablet 100 mcg PO QAM RF: 0 omeprazole 20 mg capsule,delayed release(DR/EC) 20 mg PO QAM RF: 0 lisinopril 5 mg tablet 5 mg PO QAM RF: 0 aspirin 81 mg Tablet,Delayed Release (Dr/Ec) 81 mg PO QAM RF: 0 venlafaxine [Effexor XR] 75 mg capsule,extended release 24hr See Rx Instructions PO BID RF: 0 acetaminophen 500 mg capsule 1,000 mg PO TID PRN (Reason: Pain) RF: 0
[2021-05-11 15:33] LABS: Appearance Urine Clear (Clear); Bacteria Urine Automated Negative (Negative); Bilirubin Urine Negative (Negative); Blood Urine 1+ (Negative); Cast Urine Automated 0 /lpf (0-5); Color Urine Yellow; Epithelial Cell Urine Auto 0-5 /lpf (0-5); Glucose Urine UA 2+ (Negative); Ketones Urine Negative (Negative); Leukocyte Esterase Urine Negative (Negative); Nitrite Urine Negative (Negative); Protein Urine 1+ (Negative); RBC Urine Automated 0-4 /hpf (0-4); Specific Gravity Urine 1.016 (1.000-1.030); Urobilinogen Urine Negative (Negative)
[2021-05-11 15:33] LABS: Basophils # (auto) 0.01 K/uL (0-0.2); Basophils % (auto) 0.1 %; Hematocrit (blood only) 29.4 % (37-47); Hemoglobin 9.2 g/dL (12.0-16.0); Immature Granulocytes # (auto) 0.04 K/uL (0.00-0.02); Immature Granulocytes % (auto) 0.3 %; Lymphocytes # (auto) 1.13 K/uL (1.2-3.4); Lymphocytes % (auto) 7.9 %; Mean Corpuscular Hemoglobin 25.6 pg (25-34); Mean Corpuscular Hgb Conc 31.3 g/dL (32-36); Mean Corpuscular Volume 81.9 fL (80-100); Mean Platelet Volume 9.6 fL (7.4-10.4); Monocytes # (auto) 2.25 K/uL (0.11-0.59); Monocytes % (auto) 15.7 %; Neutrophils # (auto) 10.86 K/uL (1.4-6.5); Platelet Count 295 K/uL (130-400); RDW Coefficient of Variation 15.7 % (11.5-14.5); RDW Standard Deviation 46.8 fL (36.4-46.3); Red Blood Count 3.59 M/uL (4.2-5.4); White Blood Count 14.29 K/uL (4.8-10.8)
--- NOTE | 2021-05-11 15:49 | XRay Report ---
XR chest 1V portable HISTORY: 70 years-old Female weakness acute weakness COMPARISON: Chest CT 09/28/2020, chest radiographs 09/19/2019 TECHNIQUE: Portable AP view of the chest FINDINGS: Cardiac silhouette is enlarged. Calcified plaque of the thoracic aorta. Mild linear subsegmental scar ring/atelectasis. Chronic blunting of the lateral right costophrenic angle. There is no pneumothorax, large pleural effusion or overt pulmonary edema. Degenerative changes of the shoulders an spine. Rig ht shoulder rotator cuff calcific tendinosis. IMPRESSION: Mild linear subsegmental bibasilar atelectasis/scarring without acute process. ACT 112: Negative or not required by law. The above report was generated using voice recognition software. It may contain grammatical, syntax o r spelling errors. Electronically signed by: Jorge Brito M.D. 05/11/2021 3:48 PM
[2021-05-11 15:51] LABS: Influenza A virus by PCR Negative (Negative); Influenza B virus by PCR Negative (Negative)
[2021-05-11 15:57] LABS: Troponin I < 0.03 ng/ml (0-0.04)
[2021-05-11 16:01] LABS: Alanine Aminotransferase 70 U/L (7-52); Albumin Globulin Ratio 1.5 (0.9-2); Albumin Level 3.8 gm/dl (3.4-5.0); Alkaline Phosphatase 73 U/L (34-104); Anion Gap 9 (3-11); Aspartate Aminotransferase 86 U/L (13-39); BUN Creatinine Ratio 24.4 (10-20); Bilirubin,Total 0.4 mg/dl (0.2-1.0); Blood Urea Nitrogen 21 mg/dl (6-23); Calcium 8.9 mg/dl (8.5-10.1); Carbon Dioxide 21 mmol/L (21-32); Chloride 106 mmol/L (98-107); Creatinine Clr Calc Pharmacy 58.8 ml/min; Est GFR (African American) 79.9 ml/min; Est GFR (Non-African American) 68.9 ml/min; Globulin 2.6 gm/dl (2.5-4.0); Glucose 289 mg/dl (70-99(Fasting)); Magnesium 1.3 mg/dl (1.7-2.4); Potassium 4.6 mmol/L (3.5-5.1); Sodium 136 mmol/L (136-145); Total Protein 6.4 gm/dl (6.0-8.3)
[2021-05-11] MEDS ORDERED: MAGNESIUM SULFATE / D5W 1 GM/100 ML BAG IV STA (16:25)
[2021-05-11] MEDS ORDERED: SODIUM CHLORIDE 0.9% 1000ML 500 ML IV ONE (16:37)
--- NOTE | 2021-05-11 17:02 | History & Physical Report ---
Date of Service May 11, 2021 Assessment & Plan (1) Generalized weakness: Plan: Suspect secondary to recent surgery. Difficult to rule out how much oxycodone and hypomagnesemia contributing. Treatment as below. PT/OT (2) Delirium: Plan: Suspect secondary to opiate use. High possibility of sundowning while admitted. Switch oxycodone to DAVID acetaminophen and PRN tramadol for pain relief Re-orientate frequently (3) Hypomagnesemia: Plan: Mg level 1.3. Mg sulphate 1g given in ER, will give additional 1g now, then add Mg Ox 800mg PO BID. (4) SIRS (systemic inflammatory response syndrome): Plan: HR 99, WBC 14.29. No suspected source of infection. Leuckocytosis expected post surgery. Lactate 2.7. ?due to metformin use and hypoperfusion from anemia and post surgical status. Continue IV fluids. Follow up blood cultures. (5) Status post total knee replacement: Plan: Given significant knee pain will consult [facility] orthopedic surgeon (6) Type 2 diabetes mellitus: Plan: HbA1C 6.4. Discontinue metformin given elevated lactate. Switch glipizide for Novolog sliding scale during inpatient admission. (7) Hypothyroidism: Plan: TSH 1.484 Continue levothyroxine 100mcg PO daily (8) Hypertension: Plan: Missed her usual medications today - suspect cause of her elevated BP Continue amlodipine, lisinopril and metoprolol succinate home dosing (9) Acid reflux: Plan: Switch omeprazole to pantoprazole per hospital formulary Plan: VTE Prophylaxis - aspirin, further chemical prophylaxis deferred pending ortho review Diet - T2DM Disposition - admit to med/surg Admission and Anticipated Discharge Date Admission Date: May 11, 2021 History of Present Illness Chief Complaint: Generalized weakness and confusion Primary Care Provider: Meliza Dumont MD Cain Rowan is a 70 year old female admission for generalized weakness, knee pain and confusion following total knee replacement yesterday. She was reportedly mobile following her knee operation yesterday however overnight it was a struggle to get her to the bathroom and today her daughter was unable to get her up out of bed due to generalized weakness. She took oxycodone 5mg x2 today and her aspirin but none of her other routine medications. She denies any one sided weakness, change in sensation, facial droop, change in speech, vision or hearing. She denies falling and did not hit her head or knee. In the ER her hemoglobin was noted to be 9.2 gtom 10.6 pre-operatively, WBC 14.29, AST 86, ALT 70, glucose 289. CXR with mild bibasilar atelectasis. UA with glucosuria but negative for infection. Allergies Allergy/AdvReac Type Severity Reaction Status Date / Time No Known Allergies Allergy Verified 05/11/21 16:38 Home Medications Medication Instructions Recorded Confirmed Type calcium carbonate 600 mg calcium 600 mg PO BID 09/25/18 05/11/21 History (1,500 mg) tablet (Calcium) fish oil-dha-epa 1,200 mg-144 1 cap PO BID 09/25/18 05/11/21 History mg-216 mg capsule albuterol sulfate 90 mcg/actuation 2 puff INHALATION Q6H PRN 01/21/20 05/11/21 History aerosol inhaler timolol 0.5 % eye drops 1 drp OPHTHALMIC (EYE) QAM 07/07/20 05/11/21 History magnesium citrate 100 mg capsule 200 mg PO HS 11/16/20 05/11/21 History metformin 500 mg tablet 1,000 mg PO BID #360 tab 11/16/20 05/11/21 Rx metoprolol tartrate 50 mg tablet 50 mg PO BID #180 tab 11/16/20 05/11/21 Rx simvastatin 40 mg tablet 40 mg PO HS #90 tab 11/16/20 05/11/21 Rx glipizide 5 mg tablet See Rx Instructions .ROUTE 12/30/20 05/11/21 Rx .COMPLEX #450 tab levothyroxine 100 mcg tablet 100 mcg PO QAM 01/21/21 05/11/21 History lisinopril 5 mg tablet 5 mg PO QAM 01/21/21 05/11/21 History omeprazole 20 mg capsule,delayed 20 mg PO QAM 01/21/21 05/11/21 History release amlodipine 2.5 mg tablet 2.5 mg PO QAM 03/03/21 05/11/21 History aspirin 81 mg tablet,delayed 81 mg PO QAM 05/04/21 05/11/21 History release ketorolac 10 mg tablet 10 mg PO Q6 5 Days #20 tab 05/08/21 05/11/21 Rx ondansetron HCl 4 mg tablet 4 mg PO Q6 PRN #30 tab 05/08/21 05/11/21 Rx oxycodone 5 mg tablet 5 - 10 mg PO Q6 PRN #40 tab 05/08/21 05/11/21 Rx sennosides 8.6 mg-docusate sodium 1 tab-cap PO DAILY #14 tab 05/08/21 05/11/21 Rx 50 mg tablet (Senokot-S) venlafaxine 75 mg capsule,extended See Rx Instructions PO BID 05/10/21 05/11/21 History release 24 hr (Effexor XR) acetaminophen 500 mg capsule 1,000 mg PO TID PRN 05/11/21 05/11/21 History Past Med/Surg History Medical History Acid reflux controlled, stable, denies issues laying flat Depression with anxiety well managed and stable per pt Fatty liver reports abnormal LFTs following with PCP, stable per pt Generalized osteoarthritis Glaucoma Hearing difficulty Hiatal hernia History of blood transfusion 1982 during childbirth Hyperlipidemia Hypertension controlled, stable Hypothyroidism Iron deficiency anemia Improving per pt, follows with PCP and GI Lumbar back pain Multiple pulmonary nodules Stable per 09/2020, under annual surveillance by PCP Obesity PAC (premature atrial contraction) Chronic and stable per pt, denies recurrence on current regimen initiated by cardio and now following with PCP Type 2 diabetes mellitus NIDDM, stable Surgical History History of cardiac cath >10 yrs ago ([facility]) > no stents History of carpal tunnel surgery R/L History of cataract surgery R/L History of section x1 History of cholecystectomy History of colonoscopy Colonoscopy (10/02/18): MAC sedation at [facility] History of esophagogastroduodenoscopy (EGD) EGD/colonoscopy (08/25/20): MAC at [facility] History of hysterectomy Total History of tonsillectomy History of tooth extraction S/P trigger finger release left Family History Father Family history of diabetes mellitus Myocardial infarction, Onset Age: 56 Mother Anxiety Grandfather (Paternal) Throat cancer Other No family history of adverse response to anesthesia Denies family history of Ovarian cancer Prostate cancer Breast cancer Colorectal cancer Social History Smoking Status: Never smoker Second Hand Exposure: No; Hx Alcohol Use: No Hx Substance Use: No Preferred Language: Icelandic Communication Ability: Effective Visual Impairment: No Limitations Hearing Ability: Use of Hearing Aid Communications Planner Required: No Beliefs That Will Affect Care: None marital status: Current Living Situation: Alone current occupational status: 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 Safe at Home: Yes Childhood Exposure to Second-Hand Smoke: No Dental Care, Regularly: No Physical Activity Frequency: Does not Exercise Seatbelt Use: always Sunscreen Use: Yes Assistive Devices: Glasses and Hearing Aid - Bilateral Review of Systems Review of Systems: All systems reviewed & are unremarkable except as noted in Subjective Physical Exam Constitutional: WD/WN, vitals as above Eyes: + anicteric sclerae and EOM intact bilaterally; normal pupil size ENMT: external ear and nose normal, oropharynx normal Neck: trachea midline, no thyromegaly Respiratory: normal respiratory effort, lungs clear to auscultation Cardiovascular: RRR, no murmur, no edema Gastrointestinal (Abdomen): Inspection/Auscultation: normal bowel sounds Percussion/Palpation: abdomen soft; abdomen nontender, no guarding and abdomen not rigid Musculoskeletal: no cyanosis or clubbing, extremities motor strength 5/5 Skin: no rashes, warm and dry Neurologic: moves all extremities, awake and + confused; no focal motor deficits Speech / Cognition: normal speech Motor/Sensory: no tremor and no pronator drift Cranial Nerves: PERRL, EOM intact bilaterally, normal facial strength, tongue midline, able to rotate head bilaterally, able to elevate shoulders bilaterally, no nystagmus and symmetric palate elevation Psychiatric: Orientation: alert, oriented to person, oriented to place and oriented to time (off by may) Results & Data Results & Data ([facility]) Vital Signs (Past 12 Hours) Vital Signs Temp Pulse Pulse Resp BP BP Pulse Ox 05/11/21 16:55 99 H 20 179/96 H 05/11/21 15:08 99 H 95 05/11/21 14:25 37.3 C 104 H 18 200/80 H 95 05/11/21 14:24 37.3 C 104 H 18 200/80 H 95 Laboratory Results Abnormal lab results 05/11/21 05/11/21 05/11/21 Range/Units 15:02 15:15 15:15 WBC 14.29 H (4.8-10.8) K/uL RBC 3.59 L (4.2-5.4) M/uL Hgb 9.2 L (12.0-16.0) g/dL Hct 29.4 L (37-47) % MCHC 31.3 L (32-36) g/dL RDW Std Deviation 46.8 H (36.4-46.3) fL RDW Coeff of Judy 15.7 H (11.5-14.5) % Neut # (Auto) 10.86 H (1.4-6.5) K/uL Lymph # (Auto) 1.13 L (1.2-3.4) K/uL Stanly # (Auto) 2.25 H (0.11-0.59) K/uL Immature Gran # (Auto) 0.04 H (0.00-0.02) K/uL BUN/Creatinine Ratio 24.4 H (10-20) Glucose 289 H (70-99(Fasting)) mg/dl POC Glucose (70-99) mg/dl Lactate (0.4-2.0) mmol/L Magnesium 1.3 L (1.7-2.4) mg/dl AST 86 H (13-39) U/L ALT 70 H (7-52) U/L Urine Protein 1+ H (Negative) Urine Glucose (UA) 2+ H (Negative) Urine Blood 1+ H (Negative) 05/11/21 05/11/21 Range/Units 15:15 16:50 WBC (4.8-10.8) K/uL RBC (4.2-5.4) M/uL Hgb (12.0-16.0) g/dL Hct (37-47) % MCHC (32-36) g/dL RDW Std Deviation (36.4-46.3) fL RDW Coeff of Judy (11.5-14.5) % Neut # (Auto) (1.4-6.5) K/uL Lymph # (Auto) (1.2-3.4) K/uL Stanly # (Auto) (0.11-0.59) K/uL Immature Gran # (Auto) (0.00-0.02) K/uL BUN/Creatinine Ratio (10-20) Glucose (70-99(Fasting)) mg/dl POC Glucose 253 H (70-99) mg/dl Lactate 2.7 H* (0.4-2.0) mmol/L Magnesium (1.7-2.4) mg/dl AST (13-39) U/L ALT (7-52) U/L Urine Protein (Negative) Urine Glucose (UA) (Negative) Urine Blood (Negative) Diagnostic Findings XR chest 1V portable HISTORY: 70 years-old Female weakness acute weakness COMPARISON: Chest CT 09/28/2020, chest radiographs 09/19/2019 TECHNIQUE: Portable AP view of the chest FINDINGS: Cardiac silhouette is enlarged. Calcified plaque of the thoracic aorta. Mild linear subsegmental scarring/atelectasis. Chronic blunting of the lateral right costophrenic angle. There is no pneumothorax, large pleural effusion or overt pulmonary edema. Degenerative changes of the shoulders an spine. Right shoulder rotator cuff calcific tendinosis. IMPRESSION: Mild linear subsegmental bibasilar atelectasis/scarring without acute process. Medications Administered ER Medications Given: NSS 1L bolus, 500ml bolus Ondansetron mg IV Magnesium sulphate 1g IV ECG Indication: tachycardia Rate (beats per minute): 101 Rhythm: sinus tachycardia Findings: + other (Nonspecific T wave abnormality now evident in Inferolateral leads) Comparison ECG Date: from (Jan 24, 2021) Change: the following changes noted (non-specific T wave changes as above are new) Code Status & VTE Plan Code Status Full VTE Prophylaxis Plan VTE Prophylaxis will be ordered: Yes PG Care Time/CCT Total # of Minutes Spent Total Time Spent with Patient: Total time spent is greater than 50% in coordination of care (as documented) at patient's floor/unit and/or counseling patient: Coding Level of Care Code 21647 Initial Inpt Care Lvl 2 Diagnoses Type 2 diabetes mellitus E11.9 Hypothyroidism E03.9 Hypertension I10 Acid reflux K21.9 Hypomagnesemia E83.42 Status post total knee replacement Z96.659 Delirium R41.0 Generalized weakness R53.1 SIRS (systemic inflammatory response syndrome) R65.10
[2021-05-11] MEDS ORDERED: METOPROLOL TARTRATE 50 MG TAB PO STA (17:23)
--- NOTE | 2021-05-11 17:41 | Electrocardiogram Report ---
Test Reason : Blood Pressure : / mmHG Vent. Rate : 101 BPM Atrial Rate : 101 BPM P-R Int : 146 ms QRS Dur : 096 ms QT Int : 360 ms P-R-T Axes : 055 033 049 degrees QTc Int : 466 ms Poor data quality, interpretation may be adversely affected Sinus tachycardia Nonspecific ST and T wave abnormality Abnormal ECG When compared with ECG of 24-JAN-2021 12:20, Nonspecific T wave abnormality now evident in Inferior leads Nonspecific T wave abnormality now evident in Lateral leads Confirmed by Andry Yanes ([id number]) on 05/11/2021 5:41:03 PM Referred By: Confirmed By:Zeus Yanes
[2021-05-11] MEDS ORDERED: ONDANSETRON INJ 2 MG/ML 2 ML VIAL IV PRN (20:23)
[2021-05-11] MEDS ORDERED: GLUCAGON FOR INJ 1 MG VIAL SQ PRN (20:23)
[2021-05-11] MEDS ORDERED: CARBOHYDRATES FOR HYPOGLYCEMIA PO PRN (20:23)
[2021-05-11] MEDS ORDERED: POLYETHYLENE (MIRALAX) 17 GM PACK PO PRN (20:23)
[2021-05-11] MEDS ORDERED: DEXTROSE 50% 50 ML SYRINGE IV PRN (20:23)
[2021-05-11] MEDS ORDERED: GLUCOSE 40% GEL 15 GM TUBE PO PRN (20:23)
[2021-05-11] MEDS ORDERED: ACETAMINOPHEN 325 MG TAB PO PRN (20:23)
[2021-05-11] MEDS ORDERED: GLUCOSE 10 TABS/TUBE PO PRN (20:23)
[2021-05-11] MEDS ORDERED: ONDANSETRON 4 MG OD TAB PO PRN (20:34)
[2021-05-11] MEDS ORDERED: MAGNESIUM SULFATE / D5W 1 GM/100 ML BAG IV ONE (21:00)
[2021-05-11] MEDS ORDERED: SIMVASTATIN 40 MG TAB PO SCH (21:00)
[2021-05-11] MEDS: ACETAMINOPHEN 500 MG TAB PO SCH (21:31)
[2021-05-11] MEDS: MAGNESIUM OXIDE 400 MG TAB PO SCH (21:32)
[2021-05-11] MEDS: METOPROLOL TARTRATE 50 MG TAB PO SCH (21:33)
[2021-05-11] MEDS: VENLAFAXINE HCL XR 75 MG CAPXR PO SCH (21:35)
[2021-05-11] MEDS: INSULIN ASPART PER UNIT SC SCH (21:44)
[2021-05-12] MEDS: LEVOTHYROXINE SODIUM 100 MCG TABLET PO SCH (06:06)
[2021-05-12 08:45] LABS: Basophils # (auto) 0.02 K/uL (0-0.2); Basophils % (auto) 0.2 %; Eosinophils # (auto) 0.01 K/uL (0-0.5); Eosinophils % (auto) 0.1 %; Hematocrit (blood only) 27.2 % (37-47); Hemoglobin 8.7 g/dL (12.0-16.0); Immature Granulocytes # (auto) 0.02 K/uL (0.00-0.02); Immature Granulocytes % (auto) 0.2 %; Lymphocytes # (auto) 1.26 K/uL (1.2-3.4); Lymphocytes % (auto) 12.5 %; Mean Corpuscular Volume 81.2 fL (80-100); Monocytes # (auto) 1.38 K/uL (0.11-0.59); Monocytes % (auto) 13.7 %; Neutrophils # (auto) 7.39 K/uL (1.4-6.5); Neutrophils % (auto) 73.3 %; Platelet Count 271 K/uL (130-400); RDW Standard Deviation 47.4 fL (36.4-46.3); Red Blood Count 3.35 M/uL (4.2-5.4); White Blood Count 10.08 K/uL (4.8-10.8)
[2021-05-12 08:54] LABS: Albumin Globulin Ratio 1.2 (0.9-2); Albumin Level 3.4 gm/dl (3.4-5.0); BUN Creatinine Ratio 21.4 (10-20); Bilirubin,Total 0.4 mg/dl (0.2-1.0); Calcium 8.8 mg/dl (8.5-10.1); Creatinine Clr Calc Pharmacy 70.4 ml/min; Est GFR (African American) 102.5 ml/min; Est GFR (Non-African American) 88.4 ml/min; Globulin 2.8 gm/dl (2.5-4.0); Magnesium 1.7 mg/dl (1.7-2.4); Potassium 4.4 mmol/L (3.5-5.1); Total Protein 6.2 gm/dl (6.0-8.3)
[2021-05-12] MEDS: ACETAMINOPHEN 500 MG TAB PO SCH ×3 (09:56→20:49)
[2021-05-12] MEDS: amLODIPine BESYLATE 5 MG TAB PO SCH (09:57)
[2021-05-12] MEDS: ASPIRIN 81 MG ECTAB PO SCH (09:58)
[2021-05-12] MEDS: lisinopril 5 MG TAB PO SCH (09:58)
[2021-05-12] MEDS: MAGNESIUM OXIDE 400 MG TAB PO SCH ×2 (09:58→20:49)
[2021-05-12] MEDS: METOPROLOL TARTRATE 50 MG TAB PO SCH ×2 (09:59→20:49)
[2021-05-12] MEDS: PANTOprazole 40 MG TAB PO SCH (09:59)
[2021-05-12] MEDS: VENLAFAXINE HCL XR 75 MG CAPXR PO SCH ×2 (10:00→20:50)
[2021-05-12] MEDS: TIMOLOL MALEATE 0.5% OP SOLN 5 ML BTL OP SCH (10:02)
[2021-05-12] MEDS: INSULIN ASPART PER UNIT SC SCH ×4 (10:27→20:48)
[2021-05-12] MEDS: traMADol HCL 50 MG TABLET PO PRN ×2 (10:35→14:43)
[2021-05-12 12:19] LABS: Iron < 10 mcg/dl (35-150); Unsaturated Iron Binding Cap 287 mcg/dl (155-355)
--- NOTE | 2021-05-12 13:22 | Hospitalist Progress Note ---
Date of Service May 12, 2021 Assessment & Plan (1) Acute confusion: Plan: Uncertain etiology of patient's altered mental status, suspect could be toxic encephalopathy related to opioids Patient is awake alert and oriented x3 today on examination 1 set of blood cultures with growth of GPC in clusters, ?Infectious component Urinalysis does not appear grossly infected Chest x-ray without evidence of pneumonia (2) S/P left knee surgery: Plan: Pain control, limit opioids--PO APAP scheduled 1g TID and prn Tramadol currently on board PT/OT eval Orthopedic surgeon has been consulted, appreciate recommendations May benefit from short stay in acute rehab after discharge (3) SIRS (systemic inflammatory response syndrome): Plan: As noted above, 1 set of blood cultures with growth of GPC in clusters Await second set of blood cultures 1 dose of IV vancomycin will be given while waiting for second set Although WBC has normalized, still with left shift on differential Follow up lactate after IV fluid infusion within normal limits at 1.8--could be related to Metformin which is on hold (4) Anemia: Plan: Normocytic and normochromic in setting of recent surgery Iron panel has been ordered, thus far serum iron level back at <10 Dose of Venofer 300 mg x 1 ordered Heme test stool She has a history of Fe deficiency anemia but is not presently on iron supplementation (5) Generalized weakness: Plan: Multifactorial due to the above PT/OT (6) Hypomagnesemia: Plan: Replaced and resolved Continue daily supplementation (7) Type 2 diabetes mellitus: Plan: Metformin is on hold due to the above Continue diabetic diet, Accu-Cheks before meals and at bedtime Sliding scale NovoLog before meals and at bedtime Last hemoglobin A1c 6.4% on 05/02/2021 (8) Elevated LFTs: Plan: AST and ALT both elevated, have trended down some since admission Documented history of fatty liver w/ abnormal LFTs in the past Continue to trend, may need to consider right upper quadrant ultrasound Hold simvastatin (9) Hypertension: Plan: Currently on low-dose amlodipine, lisinopril, and Lopressor Blood pressure elevated this morning prior to med administration We will monitor and make adjustments in current regimen as needed Plan: Interventions as outlined above, dose of Vancomycin, await culture data, dose of Venofer. DVT prevention, currently on aspirin however if being utilized for DVT prevention needs to be administered twice daily. Due to her anemia, will hold adjusting frequency of ASA at this time until stool heme tested to ensure no GI blood loss. For now utilize SCDs to bilateral lower extremities. Follow-up labs in the morning including cbc w/ diff, cmp, and mag PT/OT eval Case management to follow for d/c planning Admission and Anticipated Discharge Date Admission Date: May 11, 2021 Supervising Physician Co-Signing Physician Notes chart reviewed, case d/w Rey Dickey PAC. as above Subjective Patient seen on daily rounds this morning. She is currently resting in bed, verbalizes no current complaints. She is status post left TKA by Dr. Hernandez performed as an outpatient on 05/10/2021. Reports knee pain, aching and burning in nature. She denies chest pain or shortness of breath. Denies cough, fever, chills, N/V/D, or symptoms. She was hospitalized due to intractable knee pain with increased confusion and generalized weakness. This morning, she is awake and alert, answers questions appropriately. Notified by nursing staff that 1 set of her blood cultures came back with gram-positive cocci in clusters. Review of Systems Review of Systems: CONSTITUTIONAL: (+) generalized weakness. Denies weight los s/gain, fever and chills, fatigue, malaise. HEENT: Denies changes in vision and hearing. RESPIRATORY: Denies SOB, cough, wheezing. CV: Denies palpitations, CP, lower extremity edema, orthopnea, PND. GI: Denies abdominal pain, nausea, vomiting and diarrhea. : Denies dysuria and urinary frequency, urgency, hesitancy. MUSCULOSKELETAL: (+) s/p L TKA, burning knee pain. SKIN: Denies rash and pruritus. NEUROLOGICAL: (+) confusion. Denies headache, syncope, focal weakness, numbness, tingling. PSYCHIATRIC: Denies recent changes in mood. Denies anxiety and depression. Physical Exam Physical Exam: GENERAL: 70 yo well-developed, well-nourished WF. NAD. LUNGS: Clear to auscultation bilaterally. No W/R/R. CARDIOVASCULAR: Regular rate and rhythm. ABDOMEN: Soft, non-tender and non-distended. BS normal x 4 quad. EXTREMITIES: No edema. Non-tender. Peripheral pulses +2/4. NEUROLOGIC: A&O x3. PSYCHIATRIC: Cooperative. Appropriate mood and affect. SKIN: Warm, dry, intact. No rashes or lesions. skin incision w/ intact flakita over L knee. Results & Data Results & Data ([facility]) Vital Signs (Past 12 Hours) Vital Signs Temp Pulse Resp BP Pulse Ox 05/12/21 08:39 36.7 C 102 H 16 181/82 H 91 Laboratory Results 05/12/21 07:42 05/12/21 07:42 PG Care Time/CCT Total # of Minutes Spent Total Time Spent with Patient: Total time spent is greater than 50% in coordination of care (as documented) at patient's floor/unit and/or counseling patient: Coding Level of Care Code 29554 Subseq Hosp Care Lvl 3 Diagnoses Acute confusion R41.0 S/P left knee surgery Z98.890 Hypomagnesemia E83.42 SIRS (systemic inflammatory response syndrome) R65.10 Generalized weakness R53.1 Type 2 diabetes mellitus E11.9 Anemia D64.9 Elevated LFTs R79.89 Hypertension I10
[2021-05-12] MEDS ORDERED: VANCOMYCIN CONSULT ACTIVE PRN (13:39)
[2021-05-12] MEDS ORDERED: VANCOMYCIN HCL 1,750 MG in SODIUM CHLORIDE 0.9% 500 ML IV ONE (14:00)
--- NOTE | 2021-05-12 14:48 | Pharmacy Report ---
Pharmacy Vanc AUC Short Note - Date of Service May 12, 2021 - Assessment & Plan Assessment 70 year old F s/p left knee surgery on 05/10/21 admitted with acute confusion Ordered vancomycin IV for GPC (clusters) 03/22 BC - staph/MRSA PCR not obtained Plan Vancomycin * Loading dose: 1750 mg * Maintenance dose: 1250 mg IV every 12 hours * Regimen is predicted to achieve target AUC/PAIGE of 400-600 mg/L.hr within the first 24 hours of therapy * dose reduction may be required if therapy is extended * Ordered x 48 hours - drug level to be obtained if therapy is extended beyond 48 hours Pharmacy will continue to follow and will adjust dose/frequency as necessary. Thank you.
[2021-05-12] MEDS ORDERED: IRON SUCROSE 300 MG in SODIUM CHLORIDE 0.9% 250 ML IV ONE (15:00)
--- NOTE | 2021-05-12 17:58 | Progress Notes ---
DATE OF SERVICE: 05/12/2021. SUBJECTIVE: A 70-year-old white female now postop day #3 from a total knee replacement. She was adm itted last evening for confusion and failure to thrive and decreased mobility. She is doing much bet ter today. She has experienced pain, but nothing out of the ordinary. Feeling much better. OBJECTIVE: VITAL SIGNS: Temperature 36.6. Vital signs are stable. PHYSICAL EXAMINATION: GENERAL: Shows a pleasant, elderly female. Sitting up in her bedside chair, looks pretty comfortabl e. EXTREMITIES: Examination of the leg reveals the dressing to be clean, dry and intact. Mild swelling . Compartments are soft. She can dorsiflex and plantarflex her foot appropriately. LABORATORY DATA: Hemoglobin 8.7. Hematocrit 27.2. Electrolytes are stable. ASSESSMENT: A 70-year-old white female postoperative day 3 from a left knee replacement, readmitted due to just weakness and fatigue and failure to thrive. Also, some confusion. Seems much improved. PLAN: 1. DVT prophylaxis includes thigh-high TEDs, SCDs, and aspirin twice a day. 2. PT, OT, weightbear as tolerated. Left total knee protocol. 3. Pain control. We will try and limit narcotic pain medicines in order to avoid confusion. 4. Medical management as per the medicine service. 5. Disposition: She is hoping to go to rehab, which is appropriate I think in her situation. She w ould benefit from a brief rehab or jail stay for 2 weeks or so. Job ID: [id number]
[2021-05-13] MEDS ORDERED: VANCOMYCIN HCL 1,250 MG in SODIUM CHLORIDE 0.9% 250 ML IV SCH (04:00)
[2021-05-13] MEDS: LEVOTHYROXINE SODIUM 100 MCG TABLET PO SCH (04:52)
[2021-05-13 07:47] LABS: Basophils # (auto) 0.01 K/uL (0-0.2); Basophils % (auto) 0.1 %; Eosinophils # (auto) 0.07 K/uL (0-0.5); Eosinophils % (auto) 0.9 %; Hematocrit (blood only) 25.4 % (37-47); Immature Granulocytes # (auto) 0.04 K/uL (0.00-0.02); Immature Granulocytes % (auto) 0.5 %; Lymphocytes # (auto) 1.08 K/uL (1.2-3.4); Lymphocytes % (auto) 14.1 %; Mean Corpuscular Hemoglobin 25.8 pg (25-34); Mean Corpuscular Hgb Conc 31.5 g/dL (32-36); Mean Corpuscular Volume 81.9 fL (80-100); Monocytes # (auto) 0.76 K/uL (0.11-0.59); Monocytes % (auto) 9.9 %; Neutrophils # (auto) 5.68 K/uL (1.4-6.5); Neutrophils % (auto) 74.5 %; Platelet Count 281 K/uL (130-400); RDW Coefficient of Variation 16.2 % (11.5-14.5); RDW Standard Deviation 48.5 fL (36.4-46.3); White Blood Count 7.64 K/uL (4.8-10.8)
--- NOTE | 2021-05-13 08:01 | Progress Notes ---
DATE OF SERVICE: 05/13/2021. SUBJECTIVE: A 70-year-old female now postop day 3 from a left total knee replacement. She was readm itted for weakness and just gait dysfunction. She is doing quite a bit better. Still having some pa in, but seems to be getting better daily. No complaints. OBJECTIVE: VITAL SIGNS: Temperature 36.9. Vital signs are stable. GENERAL: Shows a pleasant middle-aged female. She is lying in bed, looks pretty comfortable. EXTREMITIES: Examination of the left leg reveals the dressing and wound to be clean, dry and intact. No drainage. She can dorsiflex and plantarflex her foot appropriately. She is neurologically inta ct. LABORATORY DATA: No new labs. ASSESSMENT: A 70-year-old white female postop day 3 from left total knee replacement readmitted with failure to thrive, gait dysfunction and confusion. She is doing much better now. Pain seems to be improved. There are no clinical signs of infection. She had 1 positive blood culture and I think th is is likely a contaminant. She has no signs of sepsis or infection. PLAN: 1. DVT prophylaxis includes thigh-high TEDs, SCDs and we recommend a baby aspirin twice a day for 6 weeks. 2. PT/OT. She should be doing therapy. 3. Routine wound care. 4. Medical management as per the medicine service. From my standpoint, she is okay for discharge an y time. She does not need further antibiotic care from my standpoint. I need to see her back in [facility] 2-3 weeks out from surgery date. Any orthopedic questions can be directed to [phone]. Job ID: [id number]
[2021-05-13 08:06] LABS: Albumin Level 3.1 gm/dl (3.4-5.0); BUN Creatinine Ratio 21.1 (10-20); Bilirubin,Total 0.4 mg/dl (0.2-1.0); Calcium 8.4 mg/dl (8.5-10.1); Creatinine Clr Calc Pharmacy 64.8 ml/min; Est GFR (African American) 92.8 ml/min; Magnesium 1.5 mg/dl (1.7-2.4); Total Protein 6.1 gm/dl (6.0-8.3)
[2021-05-13] MEDS: MAGNESIUM OXIDE 400 MG TAB PO SCH ×2 (08:19→20:56)
[2021-05-13] MEDS: METOPROLOL TARTRATE 50 MG TAB PO SCH ×2 (08:20→20:56)
[2021-05-13] MEDS: amLODIPine BESYLATE 5 MG TAB PO SCH (08:20)
[2021-05-13] MEDS: ASPIRIN 81 MG ECTAB PO SCH ×2 (08:20→20:57)
[2021-05-13] MEDS: ACETAMINOPHEN 500 MG TAB PO SCH ×3 (08:21→20:57)
[2021-05-13] MEDS: lisinopril 5 MG TAB PO SCH (08:21)
[2021-05-13] MEDS: PANTOprazole 40 MG TAB PO SCH (08:23)
[2021-05-13] MEDS: VENLAFAXINE HCL XR 75 MG CAPXR PO SCH ×2 (08:23→20:57)
[2021-05-13] MEDS: TIMOLOL MALEATE 0.5% OP SOLN 5 ML BTL OP SCH (08:29)
[2021-05-13] MEDS: INSULIN ASPART PER UNIT SC SCH ×4 (08:58→20:57)
[2021-05-13] MEDS ORDERED: IRON SUCROSE 300 MG in SODIUM CHLORIDE 0.9% 250 ML IV ONE (10:00)
[2021-05-13] MEDS: MAGNESIUM SULFATE / D5W 1 GM/100 ML BAG IV SCH ×2 (12:13→14:01)
--- NOTE | 2021-05-13 12:26 | Hospitalist Progress Note ---
Date of Service May 13, 2021 Assessment & Plan (1) Acute confusion: Plan: Suspect toxic encephalopathy d/t opioids Resolved (2) S/P left knee surgery: Plan: Pain control, limit opioids--PO APAP scheduled 1g TID and prn Tramadol currently on board PT/OT eval--recommending rehab Orthopedic surgeon has been consulted, appreciate recommendations, have since signed off as they are stable for d/c from their perspective Case management consult for d/c planning since therapy recommending acute rehab (3) SIRS (systemic inflammatory response syndrome): Plan: 1 out of 4 blood culture tubes w/ GPC in clusters, suspect that this is a skin contaminant Follow up lactate after IV fluid infusion within normal limits at 1.8--could be related to Metformin which is on hold No gross evidence of infection, no further vancomycin to be given Chest x-ray unremarkable without evidence of pneumonia Urinalysis does not appear grossly infected (4) Anemia: Plan: Normocytic and normochromic in setting of recent surgery Iron panel has been ordered, thus far serum iron level back at <10 Dose of Venofer 300 mg IV ordered on 05/12 and 05/13 Rectal exam performed on 05/13 and was heme negative She has a history of Fe deficiency anemia but is not presently on iron supplementation Recent thorough work-up including EGD, colonoscopy, and small bowel capsule all w/o evidence of bleeding (5) Generalized weakness: Plan: Multifactorial due to the above Continue PT/OT Rehab on discharge (6) Hypomagnesemia: Plan: IV replacement ordered Continue daily supplementation (7) Type 2 diabetes mellitus: Plan: Metformin is on hold due to the above Continue diabetic diet, Accu-Cheks before meals and at bedtime Sliding scale NovoLog before meals and at bedtime Last hemoglobin A1c 6.4% on 05/02/2021 (8) Elevated LFTs: Plan: AST and ALT both elevated, have trended down some since admission Documented history of fatty liver w/ abnormal LFTs in the past Hold simvastatin (9) Hypertension: Plan: Currently on low-dose amlodipine, lisinopril, and Lopressor Blood pressure elevated this morning prior to med administration We will monitor and make adjustments in current regimen as needed Plan: Interventions as outlined above DVT prevention: ASA 81mg BID per ortho, will adjust frequency as there is no gross evidence of GI blood loss at this time GI ppx: continue PPI Continue PT/OT Follow-up labs in the morning including cbc w/ diff, cmp, and mag Case management to follow for d/c planning: referrals sent to [facility] Updated patient's daughter, Letty, on 05/13. Admission and Anticipated Discharge Date Admission Date: May 11, 2021 Subjective Patient seen on daily rounds this morning. She is currently resting in bed, verbalizes no current complaints. She is status post left TKA by Dr. Hernandez performed as an outpatient on 05/10/2021 and was hospitalized d/t confusion (felt to be opioid induced) and uncontrolled knee pain. She denies chest pain or shortness of breath. Denies cough, fever, chills, N/V/D, or symptoms. Has purewick in place for urine collection. Review of Systems Review of Systems: CONSTITUTIONAL: (+) generalized weakness, fatigue. Denies weight loss/gain, fever and chills, malaise. HEENT: Denies changes in vision and hearing. RESPIRATORY: Denies SOB, cough, wheezing. CV: Denies palpitations, CP, lower extremity edema, orthopnea, PND. GI: Denies abdominal pain, nausea, vomiting and diarrhea. : Denies dysuria and urinary frequency, urgency, hesitancy. MUSCULOSKELETAL: (+) s/p L TKA, knee pain. SKIN: Denies rash and pruritus. NEUROLOGICAL: (+) confusion. Denies headache, syncope, focal weakness, numbness, tingling. PSYCHIATRIC: Denies recent changes in mood. Denies anxiety and depression. Physical Exam Physical Exam: GENERAL: 70 yo well-developed, well-nourished WF. NAD. LUNGS: Fine bibasilar crackles but otherwise clear, nonlabored. CARDIOVASCULAR: Regular rate and rhythm. ABDOMEN: Soft, non-tender and non-distended. BS normal x 4 quad. EXTREMITIES: No edema. Non-tender. Peripheral pulses +2/4. L knee flakita intact, knee wrapped w/ jeannie. NEUROLOGIC: A&O x3. PSYCHIATRIC: Cooperative. Appropriate mood and affect. SKIN: Warm, dry, intact. No rashes or lesions. skin incision w/ intact flakita over L knee. Results & Data Results & Data ([facility]) Vital Signs (Past 12 Hours) Vital Signs Temp Pulse Resp BP Pulse Ox 05/13/21 07:58 37.4 C 100 H 16 163/79 H 91 Laboratory Results 05/13/21 06:52 05/13/21 06:52 PG Care Time/CCT Total # of Minutes Spent Total Time Spent with Patient: Total time spent is greater than 50% in coordination of care (as documented) at patient's floor/unit and/or counseling patient: Coding Level of Care Code 00607 Subseq Hosp Care Lvl 2 Diagnoses Acute confusion R41.0 S/P left knee surgery Z98.890 SIRS (systemic inflammatory response syndrome) R65.10 Anemia D64.9 Generalized weakness R53.1 Hypomagnesemia E83.42 Type 2 diabetes mellitus E11.9 Elevated LFTs R79.89 Hypertension I10
[2021-05-13] MEDS: traMADol HCL 50 MG TABLET PO PRN (18:23)
[2021-05-14] MEDS: LEVOTHYROXINE SODIUM 100 MCG TABLET PO SCH (06:09)
[2021-05-14 06:43] LABS: Hematocrit (blood only) 26.7 % (37-47); Hemoglobin 8.2 g/dL (12.0-16.0); Mean Corpuscular Hemoglobin 25.5 pg (25-34); Mean Corpuscular Hgb Conc 30.7 g/dL (32-36); Mean Corpuscular Volume 83.2 fL (80-100); Mean Platelet Volume 9.4 fL (7.4-10.4); Nucleated RBC # (auto) 0.07 K/uL (0-0); Nucleated RBC % (auto) 0.9 %; Platelet Count 314 K/uL (130-400); RDW Coefficient of Variation 16.4 % (11.5-14.5); RDW Standard Deviation 49.3 fL (36.4-46.3); Red Blood Count 3.21 M/uL (4.2-5.4); White Blood Count 7.99 K/uL (4.8-10.8)
[2021-05-14 07:09] LABS: BUN Creatinine Ratio 25.9 (10-20); Bilirubin,Total 0.4 mg/dl (0.2-1.0); Calcium 8.1 mg/dl (8.5-10.1); Creatinine Clr Calc Pharmacy 57.9 ml/min; Est GFR (Non-African American) 69.9 ml/min; Magnesium 1.9 mg/dl (1.7-2.4); Potassium 4.3 mmol/L (3.5-5.1)
[2021-05-14 07:17] LABS: ALC (manual) 1.73 K/uL (1.2-3.4); ANC (manual) 5.35 K/uL (1.4-6.5); Basophils # (manual) 0.07 K/uL (0-0.2); Basophils % (manual) 0.9 %; Eosinophils # (manual) 0.21 K/uL (0-0.5); Eosinophils % (manual) 2.6 %; Lymphocytes # (manual) 1.73 K/uL (1.2-3.4); Lymphocytes % (manual) 21.7 %; Monocytes # (manual) 0.56 K/uL (0.11-0.59); Myelocytes # (manual) 0.07 K/uL (0-0); Myelocytes % (manual) 0.9 %; Neutrophils # (manual) 5.35 K/uL (1.4-6.5); Neutrophils % (manual) 66.9 %; Polychromasia 1+
[2021-05-14] MEDS: amLODIPine BESYLATE 5 MG TAB PO SCH (08:11)
[2021-05-14] MEDS: METOPROLOL TARTRATE 50 MG TAB PO SCH ×2 (08:11→20:48)
[2021-05-14] MEDS: MAGNESIUM OXIDE 400 MG TAB PO SCH ×2 (08:11→20:49)
[2021-05-14] MEDS: VENLAFAXINE HCL XR 75 MG CAPXR PO SCH ×2 (08:11→20:49)
[2021-05-14] MEDS: ASPIRIN 81 MG ECTAB PO SCH ×2 (08:11→20:49)
[2021-05-14] MEDS: PANTOprazole 40 MG TAB PO SCH (08:11)
[2021-05-14] MEDS: TIMOLOL MALEATE 0.5% OP SOLN 5 ML BTL OP SCH (08:12)
[2021-05-14] MEDS: lisinopril 5 MG TAB PO SCH (08:12)
[2021-05-14] MEDS: ACETAMINOPHEN 500 MG TAB PO SCH (08:12)
[2021-05-14] MEDS: INSULIN ASPART PER UNIT SC SCH ×4 (08:21→20:50)
[2021-05-14] MEDS: traMADol HCL 50 MG TABLET PO PRN (11:00)
--- NOTE | 2021-05-14 11:10 | Progress Notes ---
DATE OF SERVICE: 05/14/2021. SUBJECTIVE: A 70-year-old female now postop day 4 from left knee replacement. Pain seems to be sign ificantly better today. No new complaints. OBJECTIVE: VITAL SIGNS: Temperature 36.9. Vital signs are stable. PHYSICAL EXAMINATION: GENERAL: Shows a pleasant, elderly female. Lying in bed, looks pretty comfortable this morning. EXTREMITIES: Examination of the left leg reveals the incision to be clean, dry and intact. No drain age. She can dorsiflex and plantarflex her foot appropriately. NEUROLOGIC: She is neurologically intact. LABORATORY DATA: Hemoglobin 8.2. Hematocrit 26.7. Electrolytes are stable. ASSESSMENT: A 70-year-old white female now postoperative day 4 from left total knee replacement, dorene dmitted for just fatigue, nausea and failure to thrive. She is doing much better. Pain is controlle d. She is anemic, but asymptomatic. PLAN: 1. DVT prophylaxis including thigh-high TEDs, SCDs, and aspirin twice a day. 2. PT/OT. She can weight bear as tolerated. Left total knee protocol. 3. Pain control, doing okay with current pain regimen. 4. Anemia. She is asymptomatic and we will continue to just follow this along. I would advise amy zacharyt a blood transfusion as she is clinically stable and hemoglobin is stable. 5. Disposition: She is orthopedically okay for discharge any time. She is looking to go to a skill ed nursing facility at this point. I need to see her back 2 weeks out from surgery date. Any orthop edic questions can be directed to me at [phone]. Job ID: [id number]
[2021-05-14] MEDS ORDERED: IRON SUCROSE 300 MG in SODIUM CHLORIDE 0.9% 250 ML IV ONE (13:15)
--- NOTE | 2021-05-14 17:35 | Hospitalist Progress Note ---
Date of Service May 14, 2021 Assessment & Plan (1) Acute confusion: Plan: * Suspect toxic encephalopathy d/t opioids * Resolved with IVF and discontinuation of OxyIR (2) S/P left knee surgery: Plan: * Outpatient elective left TKA done 05/10 on the day prior to this hospitalization * Uncontrolled pain and inability to function independently at home prompted her back to the ED * Patient does seem somewhat unmotivated given knee pain * Consult PT/OTappreciate recommendations. Suspect patient may need rehab (3) SIRS (systemic inflammatory response syndrome): Plan: * Patient with leukocytosis of 14.29 and a mild lactic acidemia of 2.7 upon presentation * Now with low-grade fever of 100.2 * No obvious source of infection * Chest x-ray negative * Blood cultures: 03/22 tubes showing coag negative staph not lugdunensis. Suspect contaminant * Urine culture showing no growth to date. Urinalysis is not grossly infected. * covid negative * Leukocytosis resolved without intervention. Could have been reactive from recent surgery * Lactic acidemia mild and could have been related to Metformin * Low-grade fever could be related to atelectasis. I have encouraged use of incentive spirometry * Hold any antibiotics for now * Her left knee does not appear to be infected * Will obtain a venous Doppler of the left lower extremity to rule out DVT. This could explain her level of pain, her leukocytosis, and her low-grade fever. Not highly suspicious of PE at this time as patient is not hypoxic nor tachycardic. (4) Anemia: Plan: * Normocytic and normochromic in setting of recent surgery * Iron panel has been ordered, thus far serum iron level back at <10 * Dose of Venofer 300 mg IV ordered on 05/12, 05/13 and 05/14 and started on oral supplementation * Rectal exam performed on 05/13 and was heme negative * she has a history of Fe deficiency anemia but is not presently on iron supplementation * Recent thorough work-up including EGD, colonoscopy, and small bowel capsule a ll w/o evidence of bleeding (5) Generalized weakness: Plan: Multifactorial due to the above Continue PT/OT suspect Rehab on discharge (6) Hypomagnesemia: Plan: IV replacement ordered Continue daily supplementation (7) Type 2 diabetes mellitus: Plan: Metformin is on hold due to the above Continue diabetic diet, Accu-Cheks before meals and at bedtime Sliding scale NovoLog before meals and at bedtime Last hemoglobin A1c 6.4% on 05/02/2021 (8) Elevated LFTs: Plan: AST and ALT both elevated, have trended down some since admission Documented history of fatty liver w/ abnormal LFTs in the past Hold simvastatin (9) Hypertension: Plan: Currently on low-dose amlodipine, lisinopril, and Lopressor Blood pressure elevated this morning prior to med administration We will monitor and make adjustments in current regimen as needed Plan: Interventions as outlined above DVT prevention: ASA 81mg BID per ortho, will adjust frequency as there is no gross evidence of GI blood loss at this time GI ppx: continue PPI Continue PT/OT Follow-up labs in the morning including cbc w/ diff, cmp, and mag Case management to follow for d/c planning: referrals sent to [facility] plan of care D/W Dr. Heller Admission and Anticipated Discharge Date Admission Date: May 11, 2021 Subjective Patient seen on daily rounds today. Hospitalized due to weakness following outpatient elective left TKA done the day prior to arrival. Reports when she got home, she had significant pain limiting her ability to ambulate. She lives in a second store apartment and could not function independently which prompted her evaluation into the ED. In addition, there was mention that she was confused. This was thought to be opiate induced. Opiates have since been stopped and her mentation is normal. Answering all questions appropriately to me today. She did have leukocytosis of 14.29 that has normalized without any intervention. She does have a low-grade fever today of 100.2 F but is not utilizing her incentive spirometry every 1 hour as ordered. Currently reports pain in her left knee that is not controlled. Otherwise she denies subjective fevers, chills, chest pain, shortness of breath, abdominal pain, nausea or vomiting. Review of Systems Review of Systems: All systems reviewed and are unremarkable except as noted in HPI and below Denies fevers, chills, headache, nasal congestion, sore throat, cough, chest pain, shortness of breath, palpitations, orthopnea, PND, abdominal pain, nausea, vomiting, diarrhea, constipation, dysuria, hematuria, frequency, back pain, easy bruising or bleeding, skin lesions or rashes. Physical Exam Physical Exam: General: Resting comfortably in her hospital bed. She does not appear ill or toxic. NAD. HEENT: Head is AT/NC. Buccal mucosa is moist and pink Neck: No JVD. Negative hepatojugular reflex Cardiac: RRR without M/G/R Lungs: CTA without W/R/R Abdomen: Normoactive X4. Soft and nontender in all quadrants. Extremities: Left knee examined-- flakita intact. incision well approximated. no drainage or periwound erythema. mild calf tenderness Neuro: A&O X4. Cranial nerves II through XII are grossly intact. No focal neuro deficits Skin: No obvious skin lesions or rashes Psych: Appropriate affect. Pleasant and cooperative Results & Data Results & Data ([facility]) Vital Signs (Past 12 Hours) Vital Signs Temp Pulse Resp BP BP Pulse Ox 05/14/21 15:30 37.8 C H 86 20 166/79 H 93 05/14/21 13:50 36.7 C 82 18 144/64 H 96 05/14/21 07:35 36.9 C 83 16 168/72 H 94 Laboratory Results 05/14/21 06:25 05/14/21 06:25 PG Care Time/CCT Total # of Minutes Spent Total Time Spent with Patient: Total time spent is greater than 50% in coordination of care (as documented) at patient's floor/unit and/or counseling patient: Coding Level of Care Code 65793 Subseq Hosp Care Lvl 2 Diagnoses Acute confusion R41.0 S/P left knee surgery Z98.890 SIRS (systemic inflammatory response syndrome) R65.10 Anemia D64.9 Generalized weakness R53.1 Hypomagnesemia E83.42 Type 2 diabetes mellitus E11.9 Elevated LFTs R79.89 Hypertension I10
[2021-05-15] MEDS ORDERED: OPTIRAY 320 125ml IV ONE (00:10)
--- NOTE | 2021-05-15 02:28 | Communication Note ---
Date of Service: May 15, 2021 Received communication regarding patient's LLE duplex, which showed DVT in the left popliteal and posterior tibial veins. Ordered CTA chest to r/o PE given HR in 90s-100s over last several days (although no hypoxia) - results pending. Started Eliquis 10mg PO BID x1 week. Should be followed by 5mg PO BID, for at least 3 months, given provoked DVT.
[2021-05-15] MEDS ORDERED: APIXABAN 5 MG TABLET PO STA (02:51)
[2021-05-15] MEDS: LEVOTHYROXINE SODIUM 100 MCG TABLET PO SCH (05:17)
[2021-05-15 07:52] LABS: Basophils # (auto) 0.03 K/uL (0-0.2); Basophils % (auto) 0.4 %; Eosinophils # (auto) 0.07 K/uL (0-0.5); Eosinophils % (auto) 0.8 %; Hematocrit (blood only) 27.2 % (37-47); Hemoglobin 8.4 g/dL (12.0-16.0); Immature Granulocytes # (auto) 0.17 K/uL (0.00-0.02); Lymphocytes # (auto) 1.53 K/uL (1.2-3.4); Lymphocytes % (auto) 18.2 %; Mean Corpuscular Hemoglobin 25.5 pg (25-34); Mean Corpuscular Hgb Conc 30.9 g/dL (32-36); Mean Corpuscular Volume 82.7 fL (80-100); Mean Platelet Volume 9.6 fL (7.4-10.4); Monocytes % (auto) 11.9 %; Neutrophils % (auto) 66.7 %; Nucleated RBC # (auto) 0.19 K/uL (0-0); Nucleated RBC % (auto) 2.3 %; Platelet Count 349 K/uL (130-400); RDW Coefficient of Variation 16.4 % (11.5-14.5); RDW Standard Deviation 49.2 fL (36.4-46.3); Red Blood Count 3.29 M/uL (4.2-5.4)
[2021-05-15] MEDS: MAGNESIUM OXIDE 400 MG TAB PO SCH ×2 (08:08→21:02)
[2021-05-15] MEDS: amLODIPine BESYLATE 5 MG TAB PO SCH (08:09)
[2021-05-15] MEDS: VENLAFAXINE HCL XR 75 MG CAPXR PO SCH ×2 (08:09→21:02)
[2021-05-15] MEDS: ASPIRIN 81 MG ECTAB PO SCH (08:09)
[2021-05-15] MEDS: TIMOLOL MALEATE 0.5% OP SOLN 5 ML BTL OP SCH (08:10)
[2021-05-15] MEDS: PANTOprazole 40 MG TAB PO SCH (08:10)
[2021-05-15] MEDS: FERROUS SULFATE 325 MG/7.4 ML UDP PO SCH (08:10)
--- NOTE | 2021-05-15 08:17 | Ultrasound Report ---
LEFT LOWER EXTREMITY VENOUS DOPPLER HISTORY: Left leg pain. COMPARISON STUDY: None. FINDINGS: The left common femoral and superficial femoral veins are patent. There is thrombus seen wi thin the distal left popliteal vein, posterior tibial veins, and one of 2 peroneal veins. The left an terior tibial vein is patent. IMPRESSION: Positive DVT within the left lower extremity. ACT 112: Negative or not required by law. Electronically signed by: Patrick Infante M.D. 05/15/2021 8:15 AM
[2021-05-15 08:28] LABS: Alanine Aminotransferase 82 U/L (7-52); Albumin Level 3.1 gm/dl (3.4-5.0); Alkaline Phosphatase 190 U/L (34-104); Anion Gap 9 (3-11); BUN Creatinine Ratio 28.4 (10-20); Bilirubin,Total 0.4 mg/dl (0.2-1.0); Blood Urea Nitrogen 23 mg/dl (6-23); Calcium 8.2 mg/dl (8.5-10.1); Carbon Dioxide 23 mmol/L (21-32); Chloride 104 mmol/L (98-107); Creatinine Clr Calc Pharmacy 60.8 ml/min; Est GFR (African American) 85.9 ml/min; Est GFR (Non-African American) 74.1 ml/min; Globulin 3.2 gm/dl (2.5-4.0); Glucose 217 mg/dl (70-99(Fasting)); Magnesium 1.8 mg/dl (1.7-2.4); Sodium 136 mmol/L (136-145); Total Protein 6.3 gm/dl (6.0-8.3)
[2021-05-15] MEDS: lisinopril 10 MG TAB PO SCH (08:30)
[2021-05-15] MEDS: INSULIN ASPART PER UNIT SC SCH ×4 (08:30→21:39)
[2021-05-15] MEDS: METOPROLOL TARTRATE 50 MG TAB PO SCH ×2 (08:31→21:03)
[2021-05-15] MEDS: traMADol HCL 50 MG TABLET PO PRN (08:41)
[2021-05-15 08:47] LABS: Polychromasia 1+
--- NOTE | 2021-05-15 09:06 | Progress Notes ---
DATE OF SERVICE: 05/15/2021. SUBJECTIVE: A 70-year-old female postoperative from a left knee replacement. She was discharged and then brought almost right back due to medical issues and confusion. She seems much better. Just waiting for placement. Her pain is controlled. Pain is getting better daily. No fevers. OBJECTIVE: VITAL SIGNS: Temperature 36.9. Vital signs are stable. PHYSICAL EXAMINATION: GENERAL: Shows a pleasant middle-aged female. She is sitting up in bed, looks comfortable. EXTREMITIES: Examination of the left knee reveals the incision to be well approximated. Leg is well aligned. Minimal swelling. No drainage. She can dorsiflex and plantarflex her foot appropriately. ASSESSMENT: A 70-year-old female now postoperative day #5 from a left total knee replacement, readmitted for medical issues. She is doing fine now. Just waiting for placement. PLAN: 1. DVT prophylaxis includes thigh-high TEDs, SCDs, and she is back on her anticoagulation. She has U/S for + DVT. She is back on full dose anti- coagulation. Needs to wear TEDs as well 2. PT/OT. She can weight bear as tolerated in the left lower extremity. 3. Pain control, doing okay with current pain regimen. 4. Disposition: She is okay for discharge any time medically stable and we can find a bed for her. I believe we are just awaiting placement. Job ID: [id number] MTDD
--- NOTE | 2021-05-15 09:09 | CT Scan Report ---
CT ANGIOGRAPHY OF THE CHEST, PULMONARY EMBOLUS PROTOCOL CLINICAL HISTORY: eval for PE (has LLE DVT) COMPARISON STUDY: Chest CT September 28, 2020. Chest radiograph May 11, 2021. TECHNIQUE: Following IV administration of 120 mL of Optiray, helical axial images of the chest were o btained utilizing the pulmonary embolus protocol. Maximal intensity projections and sagittal and cor onal reformats were viewed on an independent 3D workstation. IV contrast was administered without co mplication. Automated exposure control was utilized for the study. A dose lowering technique was ut ilized adhering to the principles of ALARA. CT DOSE: 415.89 mGy.cm FINDINGS: No pulmonary emboli are identified although this exam is significantly compromised by resp iratory motion artifact which compromises visualization of the segmental and subsegmental pulmonary a rteries. Cardiomegaly is noted. There is no pericardial effusion. No thoracic aortic dissection is pr esent. There is no thoracic lymphadenopathy. No pneumothorax or pleural effusion is noted. Linear and groundglass opacities favor atelectasis. No consolidation is identified to suggest pneumonia. The pr eviously described small pulmonary nodules on CT of September 28, 2020 are not well visualized on this exa m due to respiratory motion. Partially calcified 1.7 cm splenic artery aneurysm is unchanged. There i s extensive atherosclerotic plaque of the splenic artery. IMPRESSION: 1. No pulmonary emboli identified although exam significantly compromised by respiratory motion. 2. Linear and groundglass opacity suggestive of atelectasis. No consolidation to suggest pneumonia. 3. Cardiomegaly. ACT 112: Negative or not required by law. Electronically signed by: Avtar Dumont M.D. 05/15/2021 9:08 AM
[2021-05-15 09:19] LABS: Potassium 4.3 mmol/L (3.5-5.1)
--- NOTE | 2021-05-15 09:27 | Hospitalist Progress Note ---
Date of Service May 15, 2021 Assessment & Plan (1) Acute confusion: Plan: * this (and the let leg/knee pain) is what prompted evaluation into the ED * Suspected 2/2 toxic encephalopathy d/t opioids as resolved with IVF and discontinuation of OxyIR (2) S/P left knee surgery: Plan: * Outpatient elective left TKA done 05/10 on the day prior to this hospitalization * Uncontrolled pain and inability to function independently at home prompted her back to the ED * Patient does seem somewhat unmotivated given knee pain * given level of pain, venous doppler done confirming acute DVT- see below * PT/OT on board-- recommending rehab. CM on board * was on ASA BID for DVT prophylaxis but now on Eliquis for tx of his DVT. STOP ASA (3) Left leg DVT: Plan: * Venous Doppler done given postsurgical state and increased left leg pain: Positive for DVT within the left lower extremity involving the distal left popliteal vein, posterior tibial vein and one of the 2 peroneal veins * eliquis started by overnight resident (nees 10mg bid x 7 days then daily) * this is a provoked DVT. needs 6 months ACT. will NOT do hypercoagulable W/U at this time as will be skewed given acute clot and ACT on board. * No hypoxemia or tachycardia. No CP or pleurisy. CTA ordered by night resident (although would not have changed treatment plan). Negative for PE * staff encouraged to HOLD OFF on compression stocking x48 hours (to allow for stabilization of the clot not that patient is on ACT) as to reduce the risk of embolization. (4) SIRS (systemic inflammatory response syndrome): Plan: * Patient with leukocytosis of 14.29 and a mild lactic acidemia of 2.7 upon presentation * Now with low-grade fever of 100.2 (on 05/14) * No obvious source of infection * Chest x-ray negative * Blood cultures: 03/22 tubes showing coag negative staph not lugdunensis. Suspect contaminant * Urine culture showing no growth to date. Urinalysis is not grossly infected. * covid negative * Leukocytosis resolved without intervention. Could have been reactive from recent surgery * Lactic acidemia mild and could have been related to Metformin * Low-grade fever could be related to atelectasis. I have encouraged use of incentive spirometry * Hold any antibiotics for now * Her left knee does not appear to be infected * venous Doppler of the left lower extremity positive for DVT-- This could explain her level of pain, her leukocytosis, and her low-grade fever. Not highly suspicious of PE at this time as patient is not hypoxic nor tachycardic. (5) Anemia: Plan: * Normocytic and normochromic in setting of recent surgery (EBL only 50cc). Could be dilutional * hgb 10.6 prior to surgery (so clearly with chronic anemia) and in the 8's post-op (stable at 8.4 currently) * Iron panel has been ordered, thus far serum iron level back at <10 * Dose of Venofer 300 mg IV ordered on 05/12, 05/13 and 05/14 and started on oral supplementation * Rectal exam performed on 05/13 and was heme negative * she has a history of Fe deficiency anemia but is not presently on iron supplementation * Recent thorough work-up including EGD, colonoscopy, and small bowel capsule all w/o evidence of bleeding (6) Generalized weakness: Plan: * Multifactorial due to the above * Continue PT/OT * needs rehab (7) Hypomagnesemia: Plan: * replaced (8) Type 2 diabetes mellitus: Plan: * Metformin/glipizide on hold while in house (instead utilizing insulin) * BS uptrending (300's today) * add lantus and tighten carb/insulin ratio and correction factor (9) Elevated LFTs: Plan: * AST and ALT both elevated, have trended down some since admission * Documented history of fatty liver w/ abnormal LFTs in the past * Hold simvastatin (recommend 2 week drug holiday) (10) Hypertension: Plan: * Currently on low-dose amlodipine, lisinopril, and Lopressor * Blood pressure elevated this morning prior to med administration * We will monitor and make adjustments in current regimen as needed Plan: Interventions as outlined above GI ppx: continue PPI Continue PT/OT Case management to follow for d/c planning: referrals sent to [facility] plan of care to be D/W Dr. Heller Admission and Anticipated Discharge Date Admission Date: May 11, 2021 Subjective Patient seen on daily rounds today. Venous doppler done lastnight (given post-op state, increased left leg pain and low grade fever). Was positive for DVT. Night resident notified and subsequently started patient on Eliquis. Also order placed for CTA. Patient not hypoxic or tachycardic. CTA negative for PE. staff reports increasing blood sugars (>300 today) Review of Systems Review of Systems: All systems reviewed and are unremarkable except as noted in HPI and below Denies fevers, chills, headache, nasal congestion, sore throat, cough, chest pain, shortness of breath, palpitations, orthopnea, PND, abdominal pain, nausea, vomiting, diarrhea, constipation, dysuria, hematuria, frequency, back pain, joint pain or swelling, easy bruising or bleeding, skin lesions or rashes. Physical Exam Physical Exam: General: Resting comfortably in her hospital bed. She does not appear ill or toxic. NAD. HEENT: Head is AT/NC. Buccal mucosa is moist and pink Neck: No JVD. Negative hepatojugular reflex Cardiac: RRR without M/G/R Lungs: CTA without W/R/R Abdomen: Normoactive X4. Soft and nontender in all quadrants. Extremities: Left knee examined-- flakita intact. incision well approximated. no drainage or periwound erythema. mild calf tenderness Neuro: A&O X4. Cranial nerves II through XII are grossly intact. No focal neuro deficits Skin: No obvious skin lesions or rashes Psych: Appropriate affect. Pleasant and cooperative Results & Data Results & Data ([facility]) Vital Signs (Past 12 Hours) Vital Signs Temp Pulse Resp BP Pulse Ox 05/15/21 07:25 36.9 C 88 18 167/84 H 92 Diagnostic Findings 05/15/21 07:22 PG Care Time/CCT Total # of Minutes Spent Total Time Spent with Patient: Total time spent is greater than 50% in coordination of care (as documented) at patient's floor/unit and/or counseling patient: Coding Level of Care Code 60673 Subseq Hosp Care Lvl 3 Diagnoses Acute confusion R41.0 S/P left knee surgery Z98.890 SIRS (systemic inflammatory response syndrome) R65.10 Anemia D64.9 Generalized weakness R53.1 Hypomagnesemia E83.42 Type 2 diabetes mellitus E11.9 Elevated LFTs R79.89 Hypertension I10 Left leg DVT I82.402
[2021-05-15] MEDS: APIXABAN 5 MG TABLET PO SCH (17:41)
[2021-05-15] MEDS: INSULIN GLARGINE SOLOSTAR 100 UNITS/ML 3 ML PEN SC SCH (21:40)
[2021-05-16] MEDS ORDERED: METOPROLOL TARTRATE 50 MG TAB PO STA (01:01)
[2021-05-16] MEDS: LEVOTHYROXINE SODIUM 100 MCG TABLET PO SCH (06:01)
[2021-05-16] MEDS: VENLAFAXINE HCL XR 75 MG CAPXR PO SCH ×2 (07:49→20:21)
[2021-05-16] MEDS: METOPROLOL TARTRATE 50 MG TAB PO SCH ×2 (07:49→20:22)
[2021-05-16] MEDS: PANTOprazole 40 MG TAB PO SCH (07:49)
[2021-05-16] MEDS: MAGNESIUM OXIDE 400 MG TAB PO SCH ×2 (07:49→20:19)
[2021-05-16] MEDS: APIXABAN 5 MG TABLET PO SCH ×2 (07:50→20:19)
[2021-05-16] MEDS: lisinopril 10 MG TAB PO SCH (07:50)
[2021-05-16] MEDS: amLODIPine BESYLATE 5 MG TAB PO SCH (07:50)
[2021-05-16] MEDS: TIMOLOL MALEATE 0.5% OP SOLN 5 ML BTL OP SCH (07:51)
[2021-05-16] MEDS: FERROUS SULFATE 325 MG/7.4 ML UDP PO SCH (07:51)
[2021-05-16] MEDS: INSULIN GLARGINE SOLOSTAR 100 UNITS/ML 3 ML PEN SC SCH ×2 (09:04→20:18)
[2021-05-16] MEDS: INSULIN ASPART PER UNIT SC SCH ×4 (09:04→20:18)
[2021-05-16] MEDS: traMADol HCL 50 MG TABLET PO PRN ×2 (09:19→13:28)
[2021-05-16] MEDS ORDERED: cloNIDine HCL 0.1 MG TAB PO PRN (10:22)
[2021-05-16] MEDS ORDERED: POLYETHYLENE (MIRALAX) 17 GM PACK PO PRN (10:22)
[2021-05-16] MEDS: bisacodyL 10 MG SUPP PR STA ×2 (11:38→11:39)
[2021-05-16 14:00] LABS: Appearance Urine Clear (Clear); Bacteria Urine Automated Negative (Negative); Bilirubin Urine Negative (Negative); Blood Urine Negative (Negative); Color Urine Yellow; Epithelial Cell Urine Auto >30 /lpf (0-5); Glucose Urine UA Trace (Negative); Ketones Urine Trace (Negative); Leukocyte Esterase Urine Negative (Negative); Nitrite Urine Negative (Negative); Protein Urine 1+ (Negative); RBC Urine Automated 0-4 /hpf (0-4); Specific Gravity Urine 1.022 (1.000-1.030); Urobilinogen Urine Negative (Negative); pH Urine 5.5 (4.5-7.5)
--- NOTE | 2021-05-16 16:23 | Hospitalist Progress Note ---
Date of Service May 16, 2021 Assessment & Plan (1) S/P left knee surgery: Plan: * Outpatient elective left TKA done 05/10 on the day prior to this hospitalization * Uncontrolled pain and inability to function independently at home prompted her back to the ED * Patient does seem somewhat unmotivated given knee pain * given level of pain, venous doppler done confirming acute DVT- see below * PT/OT on board-- recommending rehab. CM on board * was on ASA BID for DVT prophylaxis but now on Eliquis for tx of his DVT. STOP ASA (2) Acute confusion: Plan: * this (and the let leg/knee pain) is what prompted evaluation into the ED * Suspected 2/2 toxic encephalopathy d/t opioids as resolved with IVF and discontinuation of OxyIR (3) Left leg DVT: Plan: * Venous Doppler done given postsurgical state and increased left leg pain: Positive for DVT within the left lower extremity involving the distal left popliteal vein, posterior tibial vein and one of the 2 peroneal veins * eliquis started by overnight resident (nees 10mg bid x 7 days then 5mg bid) * this is a provoked DVT. needs 6 months ACT. will NOT do hypercoagulable W/U at this time as will be skewed given acute clot and ACT on board. * No hypoxemia or tachycardia. No CP or pleurisy. CTA ordered by night resident (although would not have changed treatment plan). Negative for PE * staff encouraged to HOLD OFF on compression stocking x48 hours (to allow for stabilization of the clot not that patient is on ACT) as to reduce the risk of embolization. (4) SIRS (systemic inflammatory response syndrome): Plan: * Patient with leukocytosis of 14.29 and a mild lactic acidemia of 2.7 upon presentation * Now with low-grade fever of 100.2 (on 05/14) * No obvious source of infection * Chest x-ray negative * Blood cultures: 03/22 tubes showing coag negative staph not lugdunensis. Suspect contaminant * Urine culture showing no growth to date. Urinalysis is not grossly infected. * covid negative * Leukocytosis resolved without intervention. Could have been reactive from recent surgery * Lactic acidemia mild and could have been related to Metformin * Low-grade fever could be related to atelectasis or even reactive from DVT-- no fever spikes * no need for abx therapy at this time * Her left knee does not appear to be infected * venous Doppler of the left lower extremity positive for DVT-- This could explain her level of pain, her leukocytosis, and her low-grade fever. Not highly suspicious of PE at this time as patient is not hypoxic nor tachycardic. (5) Anemia: Plan: * Normocytic and normochromic in setting of recent surgery (EBL only 50cc). Could be dilutional * hgb 10.6 prior to surgery (so clearly with chronic anemia) and in the 8's post-op (stable at 8.4 currently) * Iron panel has been ordered--> iron level back at <10 * Dose of Venofer 300 mg IV ordered on 05/12, 05/13 and 05/14 and started on oral supplementation * Recent thorough work-up including EGD, colonoscopy, and small bowel capsule all w/o evidence of bleeding (6) Generalized weakness: Plan: * Multifactorial due to the above * Continue PT/OT--> recommending rehab * needs rehab (7) Hypomagnesemia: Plan: * replaced (8) Type 2 diabetes mellitus: Plan: * Metformin/glipizide on hold while in house (instead utilizing insulin) * BS uptrending (300's today) * now on lantus and with analog coverage (carb/insulin ratio and correction factor) (9) Elevated LFTs: Plan: * AST and ALT both elevated, have trended down some since admission * Documented history of fatty liver w/ abnormal LFTs in the past * Hold simvastatin (recommend 2 week drug holiday) * fu labs in am (10) Hypertension: Plan: * on amlodipine, lisinopril, and Lopressor * lisinopril increased to 10mg * BP slightly improved * continue to monitor Plan: Interventions as outlined above GI ppx: continue PPI Continue PT/OT Case management to follow for d/c planning: referrals sent to [facility] plan of care to be D/W Dr. Heller Admission and Anticipated Discharge Date Admission Date: May 11, 2021 Subjective Urinary incontinence which is new. Denies dysuria, hematuria, frequency, fevers or chills. No suprapubic pain. Urinary incontinence which is new. Denies dysuria, hematuria, frequency, suprapubic pain, F/C. Otherwise, still with pain in the Left leg. Lisinopril has since been increased and her BP is improving with this. Review of Systems Review of Systems: All systems reviewed and are unremarkable except as noted in HPI and below Denies fevers, chills, headache, nasal congestion, sore throat, cough, chest pain, shortness of breath, palpitations, orthopnea, PND, abdominal pain, nausea, vomiting, diarrhea, constipation, dysuria, hematuria, frequency, back pain, joint pain or swelling, easy bruising or bleeding, skin lesions or rashes. Physical Exam Physical Exam: General: Resting comfortably in her hospital bed. She does not appear ill or toxic. NAD. HEENT: Head is AT/NC. Buccal mucosa is moist and pink Neck: No JVD. Negative hepatojugular reflex Cardiac: RRR without M/G/R Lungs: CTA without W/R/R Abdomen: Normoactive X4. Soft and nontender in all quadrants. Extremities: Left knee examined-- flakita intact. incision well approximated. no drainage or periwound erythema. mild calf tenderness Neuro: A&O X4. Cranial nerves II through XII are grossly intact. No focal neuro deficits Skin: No obvious skin lesions or rashes Psych: Appropriate affect. Pleasant and cooperative Results & Data Results & Data ([facility]) Vital Signs (Past 12 Hours) Vital Signs Temp Pulse Resp BP BP Pulse Ox 05/16/21 15:36 37.0 C 84 16 154/80 H 94 05/16/21 10:38 80 136/80 05/16/21 09:00 36.8 C 87 16 173/90 H 95 05/16/21 04:23 73 166/79 H Laboratory Results no lab data today PG Care Time/CCT Total # of Minutes Spent Total Time Spent with Patient: Total time spent is greater than 50% in coordination of care (as documented) at patient's floor/unit and/or counseling patient: Coding Level of Care Code 33469 Subseq Hosp Care Lvl 2 Diagnoses Acute confusion R41.0 S/P left knee surgery Z98.890 Left leg DVT I82.402 SIRS (systemic inflammatory response syndrome) R65.10 Anemia D64.9 Generalized weakness R53.1 Hypomagnesemia E83.42 Type 2 diabetes mellitus E11.9 Elevated LFTs R79.89 Hypertension I10
--- NOTE | 2021-05-16 17:15 | Progress Notes ---
DATE OF SERVICE: 05/16/2021. SUBJECTIVE: A 70-year-old female status post a left knee replacement, readmitted for medical issues. She continues to be doing well. Pain is getting better daily. She did have an ultrasound, which showed a DVT. She is on anticoagulation normally. She is back on her Xarelto at a dose of 10 mg twice a day. PHYSICAL EXAMINATION: GENERAL: Shows a pleasant middle-aged female. EXTREMITIES: Examination of the left knee reveals the incisions and wound to be healing nicely. There is no drainage. She has not had much swelling in this leg. Calf is soft and supple. She is neurologically intact. LABORATORY DATA: No new labs. ASSESSMENT: A 70-year-old female, now 6 days out from a left knee replacement, readmitted for medical issues, now also with a deep venous thrombosis. She is on anticoagulation at baseline. Her knee and leg actually are doing quite well with no signs of thrombosis. CT was negative for pulmonary embolism. PLAN: 1. DVT prophylaxis includes thigh-high TEDs, SCDs, and she is back on Eliquis for DVT treatment. 2. PT/OT. She can weight bear as tolerated. Left total knee protocol. 3. Pain control, doing okay with current pain regimen. 4. Medical management as per the medicine service. 5. Disposition: She is orthopedically okay for discharge any time medically stable. I think they are just waiting to find a placement. I need to see her back in 2 to 3 weeks out from surgery date. Any orthopedic questions can be directed to me at [phone]. Job ID: [id number] [facility]
[2021-05-17] MEDS: LEVOTHYROXINE SODIUM 100 MCG TABLET PO SCH (06:17)
[2021-05-17 06:43] LABS: Basophils # (auto) 0.01 K/uL (0-0.2); Basophils % (auto) 0.1 %; Eosinophils # (auto) 0.11 K/uL (0-0.5); Eosinophils % (auto) 1.1 %; Hematocrit (blood only) 28.4 % (37-47); Hemoglobin 8.8 g/dL (12.0-16.0); Immature Granulocytes % (auto) 3.9 %; Lymphocytes # (auto) 1.86 K/uL (1.2-3.4); Lymphocytes % (auto) 18.1 %; Mean Corpuscular Hemoglobin 26.4 pg (25-34); Mean Corpuscular Volume 85.3 fL (80-100); Mean Platelet Volume 9.2 fL (7.4-10.4); Monocytes # (auto) 1.25 K/uL (0.11-0.59); Monocytes % (auto) 12.2 %; Neutrophils # (auto) 6.62 K/uL (1.4-6.5); Neutrophils % (auto) 64.6 %; Nucleated RBC # (auto) 0.08 K/uL (0-0); Nucleated RBC % (auto) 0.7 %; Platelet Count 420 K/uL (130-400); RDW Coefficient of Variation 16.6 % (11.5-14.5); RDW Standard Deviation 49.5 fL (36.4-46.3); Red Blood Count 3.33 M/uL (4.2-5.4); White Blood Count 10.25 K/uL (4.8-10.8)
[2021-05-17 07:10] LABS: Albumin Level 3.2 gm/dl (3.4-5.0); BUN Creatinine Ratio 28.4 (10-20); Bilirubin,Total 0.4 mg/dl (0.2-1.0); Calcium 8.4 mg/dl (8.5-10.1); Creatinine Clr Calc Pharmacy 48.3 ml/min; Est GFR (Non-African American) 56.1 ml/min; Globulin 3.3 gm/dl (2.5-4.0); Potassium 4.5 mmol/L (3.5-5.1); Total Protein 6.5 gm/dl (6.0-8.3)
[2021-05-17] MEDS: traMADol HCL 50 MG TABLET PO PRN (07:30)
[2021-05-17] MEDS: APIXABAN 5 MG TABLET PO SCH ×2 (07:32→20:26)
[2021-05-17] MEDS: MAGNESIUM OXIDE 400 MG TAB PO SCH ×2 (07:33→20:27)
[2021-05-17] MEDS: amLODIPine BESYLATE 5 MG TAB PO SCH (07:33)
[2021-05-17] MEDS: METOPROLOL TARTRATE 50 MG TAB PO SCH ×2 (07:33→20:26)
[2021-05-17] MEDS: FERROUS SULFATE 325 MG/7.4 ML UDP PO SCH (07:33)
[2021-05-17] MEDS: TIMOLOL MALEATE 0.5% OP SOLN 5 ML BTL OP SCH (07:34)
[2021-05-17] MEDS: lisinopril 10 MG TAB PO SCH (07:34)
[2021-05-17] MEDS: VENLAFAXINE HCL XR 75 MG CAPXR PO SCH ×2 (07:34→20:27)
[2021-05-17] MEDS: PANTOprazole 40 MG TAB PO SCH (07:34)
[2021-05-17] MEDS: INSULIN ASPART PER UNIT SC SCH ×4 (08:36→21:03)
[2021-05-17] MEDS: INSULIN GLARGINE SOLOSTAR 100 UNITS/ML 3 ML PEN SC SCH ×2 (08:37→21:03)
[2021-05-17] MEDS ORDERED: SODIUM CHLORIDE 0.9% 500 ML IV SCH (10:30)
[2021-05-17] MEDS: CeleBREX 200 MG CAP PO SCH (11:22)
--- NOTE | 2021-05-17 14:25 | Progress Notes ---
DATE OF SERVICE: 05/17/2021. SUBJECTIVE: A 70-year-old female now 1 week out from a left total knee arthroplasty readmitted for c onfusion and failure to thrive. She is doing much better. Pain seems to get better daily. She is r eally just waiting for placement. Denies any chest pain or shortness of breath. OBJECTIVE: VITAL SIGNS: Temperature is 36.8. Vital signs are stable. GENERAL: Shows a pleasant, elderly female. She is sitting up at her bedside chair, looks pretty com fortable. EXTREMITIES: Examination of the left leg reveals incision to be clean, dry and intact. Really fairl y mild swelling. Calf is soft and supple. No drainage. NEUROLOGIC: She is neurologically intact. LABORATORY DATA: Hemoglobin 8.8. Hematocrit 28.4. Electrolytes are stable. ASSESSMENT: A 70-year-old female postop day 7 from a left total knee replacement. She has been read mitted for confusion and failure to thrive, but doing much better now. [facility] PLAN: We will continue current management. She is getting therapy daily. She talked about maybe go ing to her daughter's to stay, which I think is a viable option as we are having difficulty getting h er placement. We will leave that up to her and child protective services social worker. In the meantime, she will continue DVT treatment including thigh-high TEDs, SCDs, and Eliquis. Routine wound care. She can weight bear as tolerated. I need to see her back two to three weeks out from surgery date. Any orthopedic ques tions can be directed to me at [phone]. Job ID: [id number]
--- NOTE | 2021-05-17 16:37 | Hospitalist Progress Note ---
Date of Service May 17, 2021 Assessment & Plan (1) S/P left knee surgery: Plan: * Outpatient elective left TKA done 05/10 on the day prior to this hospitalization * Uncontrolled pain and inability to function independently at home prompted her back to the ED * given level of pain, venous doppler done confirming acute DVT- see below * Pain seems to be improving with adequate treatment for DVT * PT/OT on board-- recommending rehab. CM on board * was on ASA BID for DVT prophylaxis but now on Eliquis for tx of his DVT. STOP ASA * Orthopedics on board while in house. Appreciate assistance. (2) Acute confusion: Plan: * this (and the let leg/knee pain) is what prompted evaluation into the ED * Suspected 2/2 toxic encephalopathy d/t opioids as resolved with IVF and discontinuation of OxyIR (3) Left leg DVT: Plan: * Venous Doppler done given postsurgical state and increased left leg pain: Positive for DVT within the left lower extremity involving the distal left popliteal vein, posterior tibial vein and one of the 2 peroneal veins * eliquis started by overnight resident (nees 10mg bid x 7 days then 5mg bid) * this is a provoked DVT. needs 6 months ACT. will NOT do hypercoagulable W/U at this time as will be skewed given acute clot and ACT on board. * No hypoxemia or tachycardia. No CP or pleurisy. CTA ordered by night resident (although would not have changed treatment plan). Negative for PE * staff encouraged to HOLD OFF on compression stocking x48 hours (to allow for stabilization of the clot not that patient is on ACT) as to reduce the risk of embolization. (4) SIRS (systemic inflammatory response syndrome): Plan: * Patient with leukocytosis of 14.29 and a mild lactic acidemia of 2.7 upon presentation * Now with low-grade fever of 100.2 (on 05/14) * No obvious source of infection * Chest x-ray negative * Blood cultures: 03/22 tubes showing coag negative staph not lugdunensis. Suspect contaminant * Initial urinalysis showing no growth * covid negative * Leukocytosis resolved without intervention. Could have been reactive from recent surgery * Lactic acidemia mild and could have been related to Metformin * Low-grade fever could be related to atelectasis or even reactive from DVT-- no fever spikes since adequate treatment for DVT * Her left knee does not appear to be infected * venous Doppler of the left lower extremity positive for DVT-- This could explain her level of pain, her leukocytosis, and her low-grade fever. Not highly suspicious of PE at this time as patient is not hypoxic nor tachycardic. * Patient has since developed urinary incontinence and appears to have a UTI; however, no leukocytosis, fever, tachycardia, or symptoms of sepsis (5) Anemia: Plan: * Normocytic and normochromic in setting of recent surgery (EBL only 50cc). Could be dilutional * hgb 10.6 prior to surgery (so clearly with chronic anemia) and in the 8's post-op (stable at 8.4 currently) * Iron panel has been ordered--> iron level back at <10 * Dose of Venofer 300 mg IV ordered on 05/12, 05/13 and 05/14 and started on oral supplementation * Recent thorough work-up including EGD, colonoscopy, and small bowel capsule all w/o evidence of bleeding (6) UTI (urinary tract infection): Plan: * 05/16, patient developed urinary incontinence * Urinalysis was not grossly infected but her urine culture is growing gram- negative bacilli * Will start Rocephin empirically and tailor final antibiotic based on sensitivities (7) Orthostatic hypotension: Plan: Lyin/82, sitting 130/67, standing 112/67 * lisinopril increased while in house for accelerated HTN * on homeopathic dose of norvasc (2.5mg). Hold this * gently IVF with 500cc IVF * treat UTI * avoid compression stockings for now given DVT * Patient encouraged to sit at the bedside for 30 to 60 seconds prior to standing and then stand for 30 to 60 seconds prior to ambulating (8) Generalized weakness: Plan: * Multifactorial due to the above * Continue PT/OT--> recommending rehab * Case management on board (9) Hypomagnesemia: Plan: * replaced (10) Elevated LFTs: Plan: * AST and ALT both elevated, have trended down some since admission * Documented history of fatty liver w/ abnormal LFTs in the past * Hold simvastatin (recommend 2 week drug holiday) * fu labs show that these are downtrending (11) Type 2 diabetes mellitus: Plan: * Metformin/glipizide on hold while in house (instead utilizing insulin) * now on lantus and with analog coverage (carb/insulin ratio and correction factor) * Blood sugars improving * A1c 6.4% (12) Hypertension: Plan: * on amlodipine, lisinopril, and Lopressor prior to this hospitalization * lisinopril increased to 10mg given multiple days of accelerated BP (180s/90s) * BP improved but now with orthostatic hypotension * Really only on a homeopathic dose of amlodipine anyway. Hold this with continuation of her lisinopril and Lopressor * Continue to monitor Plan: Interventions as outlined above GI ppx: continue PPI Continue PT/OT Case management to follow for d/c planning: referrals sent to [facility] plan of care to be D/W Dr. Scott Admission and Anticipated Discharge Date Admission Date: May 11, 2021 Supervising Physician Co-Signing Physician Notes Attending Attestation - Chart reviewed, care plan d/w CHRISTIANO Banks. I agree with the saucedo components of her documentation. Heath Scott MD Subjective Patient seen on daily rounds today. Reports that her left leg pain is starting to finally improve. Still with urinary incontinence. Her urinalysis was not grossly infected but it seems as if her urine culture is showing gram-negative bacilli asked to. She remains afebrile without leukocytosis. Denies dysuria, hematuria, subjective fevers or chills, or suprapubic pain. In addition, nurse reached out reporting patient felt very dizzy upon standing. Orthostatic vital signs were requested and she did tilt. Laying blood pressure was 159/82, sitting 130/67, standing 112/67 Review of Systems Review of Systems: All systems reviewed and are unremarkable except as noted in HPI and below Denies fevers, chills, headache, nasal congestion, sore throat, cough, chest pain, shortness of breath, palpitations, orthopnea, PND, abdominal pain, nausea, vomiting, diarrhea, constipation, dysuria, hematuria, frequency, back pain, joint pain or swelling, easy bruising or bleeding, skin lesions or rashes. Physical Exam Physical Exam: General: Resting comfortably in her hospital bed. She does not appear ill or toxic. NAD. HEENT: Head is AT/NC. Buccal mucosa is moist and pink Neck: No JVD. Negative hepatojugular reflex Cardiac: RRR without M/G/R Lungs: CTA without W/R/R Abdomen: Normoactive X4. Soft and nontender in all quadrants. Extremities: Left knee examined-- flakita intact. incision well approximated. no drainage or periwound erythema. Improving calf tenderness noted. Negative Homans' sign. Neuro: A&O X4. Cranial nerves II through XII are grossly intact. No focal neuro deficits Skin: No obvious skin lesions or rashes Psych: Appropriate affect. Pleasant and cooperative Results & Data Results & Data ([facility]) Vital Signs (Past 12 Hours) Vital Signs Temp Pulse Pulse Resp BP BP Pulse Ox 05/17/21 14:24 36.8 C 78 17 139/83 95 05/17/21 10:23 36.8 C 74 18 112/67 95 05/17/21 08:31 37.1 C 87 17 145/90 H 96 Laboratory Results 05/17/21 06:05 05/17/21 06:05 Urine culture: Gram-negative bacilli X2 different organisms PG Care Time/CCT Total # of Minutes Spent Total Time Spent with Patient: Total time spent is greater than 50% in coordination of care (as documented) at patient's floor/unit and/or counseling patient: Coding Level of Care Code 85331 Subseq Hosp Care Lvl 3 Diagnoses S/P left knee surgery Z98.890 Acute confusion R41.0 Left leg DVT I82.402 SIRS (systemic inflammatory response syndrome) R65.10 Anemia D64.9 Generalized weakness R53.1 Hypomagnesemia E83.42 Type 2 diabetes mellitus E11.9 Elevated LFTs R79.89 Hypertension I10 UTI (urinary tract infection) N39.0 Orthostatic hypotension I95.1
[2021-05-17] MEDS ORDERED: cefTRIAXone SODIUM 2,000 MG in DEXTROSE 5% 50 ML IV SCH (16:45)
[2021-05-18] MEDS: LEVOTHYROXINE SODIUM 100 MCG TABLET PO SCH (06:01)
[2021-05-18] MEDS: METOPROLOL TARTRATE 50 MG TAB PO SCH ×2 (08:17→20:46)
[2021-05-18] MEDS: lisinopril 10 MG TAB PO SCH (08:17)
[2021-05-18] MEDS: APIXABAN 5 MG TABLET PO SCH ×2 (08:17→20:45)
[2021-05-18] MEDS: VENLAFAXINE HCL XR 75 MG CAPXR PO SCH ×2 (08:18→20:45)
[2021-05-18] MEDS: CeleBREX 200 MG CAP PO SCH (08:18)
[2021-05-18] MEDS: TIMOLOL MALEATE 0.5% OP SOLN 5 ML BTL OP SCH (08:18)
[2021-05-18] MEDS: MAGNESIUM OXIDE 400 MG TAB PO SCH ×2 (08:18→20:46)
[2021-05-18] MEDS: PANTOprazole 40 MG TAB PO SCH (08:18)
[2021-05-18] MEDS: FERROUS SULFATE 325 MG/7.4 ML UDP PO SCH (08:18)
[2021-05-18 08:20] LABS: Hematocrit (blood only) 30.8 % (37-47); Hemoglobin 9.3 g/dL (12.0-16.0); Mean Corpuscular Hemoglobin 25.9 pg (25-34); Mean Corpuscular Hgb Conc 30.2 g/dL (32-36); Mean Corpuscular Volume 85.8 fL (80-100); Mean Platelet Volume 9.5 fL (7.4-10.4); Nucleated RBC # (auto) 0.13 K/uL (0-0); Nucleated RBC % (auto) 1.1 %; Platelet Count 504 K/uL (130-400); RDW Coefficient of Variation 17.6 % (11.5-14.5); RDW Standard Deviation 49.1 fL (36.4-46.3); Red Blood Count 3.59 M/uL (4.2-5.4); White Blood Count 12.39 K/uL (4.8-10.8)
--- NOTE | 2021-05-18 08:32 | Hospitalist Progress Note ---
Date of Service May 18, 2021 Assessment & Plan (1) S/P left knee surgery: Plan: * Outpatient elective left TKA done 05/10 on the day prior to this hospitalization * Uncontrolled pain and inability to function independently at home prompted her back to the ED * given level of pain, venous doppler done confirming acute DVT- see below * Pain seems to be improving with adequate treatment for DVT * PT/OT on board--and initially recommending rehab; however, with controlled leg pain her mobility has also improved. Patient lives in a second floor apartment with a flight of steps; however, has made arrangements to stay with her son temporarily. Therapy believes patient would be safe for discharge home with additional services regarding this plan * was on ASA BID for DVT prophylaxis but now on Eliquis for tx of his DVT. STOP ASA * Orthopedics on board while in house. Appreciate assistance. (2) Acute confusion: Plan: * this (and the let leg/knee pain) is what prompted evaluation into the ED * Suspected 2/2 toxic encephalopathy d/t opioids as resolved with IVF and discontinuation of OxyIR (3) Left leg DVT: Plan: * Venous Doppler done given postsurgical state and increased left leg pain: Po sitive for DVT within the left lower extremity involving the distal left popliteal vein, posterior tibial vein and one of the 2 peroneal veins * eliquis started by overnight resident (nees 10mg bid x 7 days then 5mg bid) * this is a provoked DVT. needs 6 months ACT. will NOT do hypercoagulable W/U at this time as will be skewed given acute clot and ACT on board. * No hypoxemia or tachycardia. No CP or pleurisy. CTA ordered by night resident (although would not have changed treatment plan). Negative for PE * staff encouraged to HOLD OFF on compression stocking x48 hours (to allow for stabilization of the clot not that patient is on ACT) as to reduce the risk of embolization. (4) SIRS (systemic inflammatory response syndrome): Plan: * Patient with leukocytosis of 14.29 and a mild lactic acidemia of 2.7 upon presentation * Now with low-grade fever of 100.2 (on 05/14) * No obvious source of infection * Chest x-ray negative * Blood cultures: 03/22 tubes showing coag negative staph not lugdunensis. Suspect contaminant * Initial urinalysis showing no growth * covid negative * Leukocytosis resolved without intervention. Could have been reactive from recent surgery * Lactic acidemia mild and could have been related to Metformin * Low-grade fever could be related to atelectasis or even reactive from DVT-- no fever spikes since adequate treatment for DVT * Her left knee does not appear to be infected * venous Doppler of the left lower extremity positive for DVT-- This could explain her level of pain, her leukocytosis, and her low-grade fever. Not highly suspicious of PE at this time as patient is not hypoxic nor tachycardic. * Patient has since developed urinary incontinence and appears to have a UTI-- now with increasing leukocytosis. Will follow now that on appropriate abx therapy (5) Anemia: Plan: * Normocytic and normochromic in setting of recent surgery (EBL only 50cc). Could be dilutional * hgb 10.6 prior to surgery (so clearly with chronic anemia) * Hemoglobin has been in the low 8's during this hospital stay * Iron panel has been ordered--> iron level back at <10 * Dose of Venofer 300 mg IV ordered on 05/12, 05/13 and 05/14 and started on oral supplementation * Recent thorough work-up including EGD, colonoscopy, and small bowel capsule all w/o evidence of bleeding * Hemoglobin today at 9.3 (6) UTI (urinary tract infection): Plan: * 05/16, patient developed urinary incontinence * Urinalysis was not grossly infected but her urine culture is growing gram- negative bacilli for which she was empirically started on Rocephin * Urine culture showing Pseudomonas and Proteus * Transition antibiotics to Cipro based on culture data (7) Orthostatic hypotension: Plan: Lyin/82, sitting 130/67, standing 112/67 * lisinopril increased while in house for accelerated HTN * on homeopathic dose of norvasc (2.5mg)-- since stopped * gently IVF with 500cc IVF * treated UTI * avoid compression stockings for now given DVT * Patient encouraged to sit at the bedside for 30 to 60 seconds prior to standing and then stand for 30 to 60 seconds prior to ambulating * follow up Orthostatic VS now normal (8) Generalized weakness: Plan: * Multifactorial due to the above * Continue PT/OT--> initially rehab recommended but now therapy recommends home with home PT/OT, visiting nurses * Case management on board (9) Hypomagnesemia: Plan: * replaced (10) Elevated LFTs: Plan: * AST and ALT both elevated, have trended down some since admission * Documented history of fatty liver w/ abnormal LFTs in the past * Hold simvastatin (recommend 2 week drug holiday) * fu labs show that these are downtrending (11) Type 2 diabetes mellitus: Plan: * Metformin/glipizide on hold while in house (instead utilizing insulin) * now on lantus and with analog coverage (carb/insulin ratio and correction factor) * Blood sugars improving * A1c 6.4% (12) Hypertension: Plan: * on amlodipine, lisinopril, and Lopressor prior to this hospitalization * lisinopril increased to 10mg given multiple days of accelerated BP (180s/90s) * BP improved but now with orthostatic hypotension * Really only on a homeopathic dose of amlodipine anyway. Norvasc has since b een stopped with continuation of her lisinopril and Lopressor * BP currently 125/68 on lisinopril/lopressor. * DC Jenifer upon D.C (as not needed - only 2.5mg) Plan: Interventions as outlined above GI ppx: continue PPI Continue PT/OT improvement in mobility/ambulation with adequate treatment in DVT and now improved leg pain. Plan was for rehab but now therapy agrees patient can be discharged home as planning on staying with her son temporarily to avoid her flight of steps at home. plan of care to be D/W Dr. Scott Admission and Anticipated Discharge Date Admission Date: May 11, 2021 Supervising Physician Co-Signing Physician Notes Attending Attestation - Chart reviewed, care plan d/w CHRISTIANO Banks. I agree with the saucedo components of her documentation. Heath Scott MD Subjective Patient seen on daily rounds today. Overall reports her left leg pain has improved greatly since initiation of anticoagulation therapy for DVT. Still having urinary incontinence. White blood cell count slightly elevated tod ay. Denies fevers or chills. Denies suprapubic pain or dysuria. Urine culture has since come back positive for UTI. Patient initially was empirically placed on Rocephin. Spoke with therapy, patient is improving given control of her left leg pain. She does live in a second floor apartment with a flight of steps; however, is able to stay with her son or daughter temporarily. Therapy believes that she would be stable for discharge to home at this point and no longer needs rehab. Review of Systems Review of Systems: All systems reviewed and are unremarkable except as noted in HPI and below Denies fevers, chills, headache, nasal congestion, sore throat, cough, chest pain, shortness of breath, palpitations, orthopnea, PND, abdominal pain, nausea, vomiting, diarrhea, constipation, dysuria, hematuria, frequency, back pain, joint pain or swelling, easy bruising or bleeding, skin lesions or rashes. Physical Exam Physical Exam: General: Resting comfortably in her hospital bed. She does not appear ill or toxic. NAD. HEENT: Head is AT/NC. Buccal mucosa is moist and pink Neck: No JVD. Negative hepatojugular reflex Cardiac: RRR without M/G/R Lungs: CTA without W/R/R Abdomen: Normoactive X4. Soft and nontender in all quadrants. Extremities: Left knee examined-- flakita intact. incision well approximated. no drainage or periwound erythema. Improving calf tenderness noted. Negative Homans' sign. Neuro: A&O X4. Cranial nerves II through XII are grossly intact. No focal neuro deficits Skin: No obvious skin lesions or rashes Psych: Appropriate affect. Pleasant and cooperative Results & Data Results & Data ([facility]) Vital Signs (Past 12 Hours) Vital Signs Temp Pulse Pulse Resp BP Pulse Ox 05/18/21 07:46 36.3 C L 105 H 16 152/85 H 100 05/17/21 22:51 37.0 C 81 81 16 150/84 H 91 Laboratory Results 05/18/21 07:36 05/18/21 07:36 PG Care Time/CCT Total # of Minutes Spent Total Time Spent with Patient: Total time spent is greater than 50% in coordination of care (as documented) at patient's floor/unit and/or counseling patient: Coding Level of Care Code 22056 Subseq Hosp Care Lvl 2 Diagnoses S/P left knee surgery Z98.890 Acute confusion R41.0 Left leg DVT I82.402 SIRS (systemic inflammatory response syndrome) R65.10 Anemia D64.9 UTI (urinary tract infection) N39.0 Orthostatic hypotension I95.1 Generalized weakness R53.1 Hypomagnesemia E83.42 Elevated LFTs R79.89 Type 2 diabetes mellitus E11.9 Hypertension I10
[2021-05-18 08:54] LABS: Albumin Globulin Ratio 0.9 (0.9-2); Albumin Level 3.3 gm/dl (3.4-5.0); BUN Creatinine Ratio 28.6 (10-20); Bilirubin,Total 0.4 mg/dl (0.2-1.0); Calcium 8.6 mg/dl (8.5-10.1); Creatinine Clr Calc Pharmacy 46.9 ml/min; Est GFR (African American) 62.8 ml/min; Est GFR (Non-African American) 54.1 ml/min; Globulin 3.7 gm/dl (2.5-4.0); Magnesium 1.8 mg/dl (1.7-2.4); Potassium 4.5 mmol/L (3.5-5.1)
[2021-05-18] MEDS ORDERED: TOLTERODINE TARTRATE LA 2 MG CAPCR PO SCH (09:00)
[2021-05-18] MEDS: INSULIN ASPART PER UNIT SC SCH ×4 (09:17→21:15)
[2021-05-18] MEDS: INSULIN GLARGINE SOLOSTAR 100 UNITS/ML 3 ML PEN SC SCH ×2 (09:18→21:11)
[2021-05-18] MEDS: CIPROFLOXACIN / D5W 400 MG/200 ML BAG IV SCH ×2 (10:06→20:44)
--- NOTE | 2021-05-18 15:32 | Progress Notes ---
DATE OF SERVICE: 05/18/2021. SUBJECTIVE: A 70-year-old female, now 8 days out from left knee replacement. This has been complica zulma by a DVT and hospital readmission. She seems to be getting better. Pain seems to be much better controlled. She is just waiting for placement. She is thinking about going to her daughters. OBJECTIVE: VITAL SIGNS: Temperature is 36.9. Vital signs are stable. PHYSICAL EXAMINATION: GENERAL: Shows a pleasant, elderly female. She is sitting up in bed and looks pretty comfortable. EXTREMITIES: Examination of the left leg reveals the incision to be clean, dry and intact. No drain age. Really not much in the way of swelling. NEUROLOGIC: She is neurologically intact. LABORATORY DATA: Hemoglobin 9.3. Hematocrit 30.8. Electrolytes are stable. ASSESSMENT: A 70-year-old female now 8 days out from a left knee replacement complicated by deep jane ous thrombosis, doing okay. Her pain is getting better. She is thinking about maybe going home to h er daughter's house. PLAN: 1. DVT prophylaxis includes thigh-high TEDs, SCDs, and she is now on anticoagulation for her DVT. S he is on a therapeutic dose of Eliquis. 2. PT/OT. She can weight bear as tolerated. Left total knee protocol. 3. Pain control, seems to be doing better with pain control. Pain is improving. 4. Disposition: She is orthopedically okay for discharge any time medically stable. I need to see her back in 2-3 weeks out from her surgery date. Any orthopedic questions can be directed to me at . Job ID: [id number]
[2021-05-19] MEDS: LEVOTHYROXINE SODIUM 100 MCG TABLET PO SCH (06:02)
[2021-05-19 06:18] LABS: Basophils # (auto) 0.03 K/uL (0-0.2); Basophils % (auto) 0.3 %; Eosinophils # (auto) 0.11 K/uL (0-0.5); Hematocrit (blood only) 30.5 % (37-47); Hemoglobin 9.3 g/dL (12.0-16.0); Immature Granulocytes % (auto) 4.6 %; Lymphocytes # (auto) 2.54 K/uL (1.2-3.4); Lymphocytes % (auto) 23.5 %; Mean Corpuscular Hemoglobin 26.1 pg (25-34); Mean Corpuscular Hgb Conc 30.5 g/dL (32-36); Mean Corpuscular Volume 85.7 fL (80-100); Mean Platelet Volume 9.2 fL (7.4-10.4); Monocytes # (auto) 1.09 K/uL (0.11-0.59); Monocytes % (auto) 10.1 %; Neutrophils # (auto) 6.55 K/uL (1.4-6.5); Neutrophils % (auto) 60.5 %; Nucleated RBC # (auto) 0.13 K/uL (0-0); Nucleated RBC % (auto) 1.2 %; Platelet Count 492 K/uL (130-400); RDW Coefficient of Variation 18.1 % (11.5-14.5); RDW Standard Deviation 49.1 fL (36.4-46.3); Red Blood Count 3.56 M/uL (4.2-5.4); White Blood Count 10.82 K/uL (4.8-10.8)
[2021-05-19 06:43] LABS: Albumin Globulin Ratio 0.9 (0.9-2); Albumin Level 3.2 gm/dl (3.4-5.0); BUN Creatinine Ratio 29.1 (10-20); Bilirubin,Total 0.4 mg/dl (0.2-1.0); Calcium 9.4 mg/dl (8.5-10.1); Creatinine Clr Calc Pharmacy 44.8 ml/min; Est GFR (African American) 59.3 ml/min; Est GFR (Non-African American) 51.2 ml/min; Globulin 3.4 gm/dl (2.5-4.0); Potassium 4.7 mmol/L (3.5-5.1); Total Protein 6.6 gm/dl (6.0-8.3)
--- NOTE | 2021-05-19 08:09 | Progress Notes ---
DATE OF SERVICE: 05/19/2021. SUBJECTIVE: A 70-year-old female, now 9 days out from a left knee replacement. She was readmitted f or medical issues. She does have DVT now. She is on anticoagulation. Her knee pain is getting bett er. Just waiting for placement. I believe she has decided to go to her daughter's house. OBJECTIVE: VITAL SIGNS: Temperature 36.5. Vital signs are stable. GENERAL: Shows a pleasant, elderly female. She is lying in bed, looks to be comfortable this mornin g. I did have to wake her. EXTREMITIES: Examination of the left knee reveals incision to be clean, dry and intact. Not much sw elling. No drainage. She is neurologically intact. LABORATORY DATA: Hemoglobin 9.3. Hematocrit 30.5. Electrolytes are stable. ASSESSMENT: A 70-year-old female, now 9 days out from a total knee replacement, doing reasonably wel l. She got readmitted for medical issues including failure to thrive, confusion and doing much thomas r. Just waiting for placement. I believe she has decided to go and stay with her daughter. PLAN: 1. DVT prophylaxis includes thigh-high TEDs, SCDs, and she is on treatment doses now of Eliquis as p er the medicine service. 2. PT/OT. She can weight bear as tolerated. Left total knee protocol. 3. Pain control, doing okay with current pain regimen. 4. Disposition: She is orthopedically okay for discharge any time. I need to see her back somewher e between 2 and 3 weeks out from surgery date, which is about a week from now. Any orthopedic questi ons can be directed to [phone]. Job ID: [id number]
[2021-05-19] MEDS: APIXABAN 5 MG TABLET PO SCH ×2 (08:47→20:29)
[2021-05-19] MEDS: lisinopril 10 MG TAB PO SCH (08:47)
[2021-05-19] MEDS: METOPROLOL TARTRATE 50 MG TAB PO SCH ×2 (08:47→20:29)
[2021-05-19] MEDS: VENLAFAXINE HCL XR 75 MG CAPXR PO SCH ×2 (08:47→20:28)
[2021-05-19] MEDS: CeleBREX 200 MG CAP PO SCH (08:47)
[2021-05-19] MEDS: MAGNESIUM OXIDE 400 MG TAB PO SCH ×2 (08:47→20:28)
[2021-05-19] MEDS: PANTOprazole 40 MG TAB PO SCH (08:48)
[2021-05-19] MEDS: TIMOLOL MALEATE 0.5% OP SOLN 5 ML BTL OP SCH (08:53)
[2021-05-19] MEDS: CIPROFLOXACIN / D5W 400 MG/200 ML BAG IV SCH (08:55)
[2021-05-19] MEDS: FERROUS SULFATE 325 MG/7.4 ML UDP PO SCH (08:59)
[2021-05-19] MEDS: INSULIN GLARGINE SOLOSTAR 100 UNITS/ML 3 ML PEN SC SCH ×2 (08:59→21:22)
[2021-05-19] MEDS: INSULIN ASPART PER UNIT SC SCH ×4 (09:01→21:23)
--- NOTE | 2021-05-19 15:22 | Hospitalist Progress Note ---
Date of Service May 19, 2021 Assessment & Plan (1) S/P left knee surgery: Plan: * Outpatient elective left TKA done 05/10 on the day prior to this hospitalization * Uncontrolled pain and inability to function independently at home prompted her back to the ED * given level of pain, venous doppler done confirming acute DVT- see below * Pain seems to be improving with adequate treatment for DVT * Meeting therapy goals except for step training * PT/OT on board--recommending rehab. Accepted to [facility] with bed availability tomorrow * was on ASA BID for DVT prophylaxis but now on Eliquis for tx of his DVT. STOP ASA * Orthopedics on board while in house. Appreciate assistance. (2) Acute confusion: Plan: * this (and the let leg/knee pain) is what prompted evaluation into the ED * Suspected 2/2 toxic encephalopathy d/t opioids as resolved with IVF and discontinuation of OxyIR (3) Left leg DVT: Plan: * Venous Doppler done given postsurgical state and increased left leg pain: Positive for DVT within the left lower extremity involving the distal left popliteal vein, posterior tibial vein and one of the 2 peroneal veins * eliquis started by overnight resident (nees 10mg bid x 7 days then 5mg bid) * this is a provoked DVT. needs 6 months ACT. will NOT do hypercoagulable W/U at this time as will be skewed given acute clot and ACT on board. * No hypoxemia or tachycardia. No CP or pleurisy. CTA ordered by night resident (although would not have changed treatment plan). Negative for PE * staff encouraged to HOLD OFF on compression stocking x48 hours (to allow for stabilization of the clot not that patient is on ACT) as to reduce the risk of embolization. (4) SIRS (systemic inflammatory response syndrome): Plan: * Patient with leukocytosis of 14.29 and a mild lactic acidemia of 2.7 upon presentation * Now with low-grade fever of 100.2 (on 05/14) * No obvious source of infection * Chest x-ray negative * Blood cultures: 03/22 tubes showing coag negative staph not lugdunensis. Susp ect contaminant * Initial urinalysis showing no growth * covid negative * Leukocytosis resolved without intervention. Could have been reactive from recent surgery * Lactic acidemia mild and could have been related to Metformin * Low-grade fever could be related to atelectasis or even reactive from DVT-- no fever spikes since adequate treatment for DVT * Her left knee does not appear to be infected * venous Doppler of the left lower extremity positive for DVT-- This could explain her level of pain, her leukocytosis, and her low-grade fever. Not highly suspicious of PE at this time as patient is not hypoxic nor tachycardic. * Patient has since developed urinary incontinence and appears to have a UTI-- now with increasing leukocytosis. Will follow now that on appropriate abx therapy (5) Anemia: Plan: * Normocytic and normochromic in setting of recent surgery (EBL only 50cc). Could be dilutional * hgb 10.6 prior to surgery (so clearly with chronic anemia) * Hemoglobin has been in the low 8's during this hospital stay * Iron panel has been ordered--> iron level back at <10 * Dose of Venofer 300 mg IV ordered on 05/12, 05/13 and 05/14 and started on oral supplementation * Recent thorough work-up including EGD, colonoscopy, and small bowel capsule all w/o evidence of bleeding * Hemoglobin today at 9.3 (6) UTI (urinary tract infection): Plan: * 05/16, patient developed urinary incontinence * Urinalysis was not grossly infected but her urine culture is growing gram- negative bacilli for which she was empirically started on Rocephin * Urine culture showing Pseudomonas and Proteus * Transitioned antibiotics to Cipro based on culture data. will need 14 days (7) Orthostatic hypotension: Plan: Lyin/82, sitting 130/67, standing 112/67 * resolved with gently IV hydration * avoid compression stockings for now given DVT * Patient encouraged to sit at the bedside for 30 to 60 seconds prior to standing and then stand for 30 to 60 seconds prior to ambulating * follow up Orthostatic VS now normal (8) Generalized weakness: Plan: * Multifactorial due to the above * Continue PT/OT-->to go to rehab tomorrow * Case management on board (9) Hypomagnesemia: Plan: * replaced (10) Elevated LFTs: Plan: * AST and ALT both elevated, have since normalized * Documented history of fatty liver w/ abnormal LFTs in the past * Hold simvastatin (recommend 2 week drug holiday) * fu labs show that these are downtrending (11) Type 2 diabetes mellitus: Plan: * Metformin/glipizide on hold while in house (instead utilizing insulin) * now on lantus and with analog coverage (carb/insulin ratio and correction factor) * Blood sugars remain elevated * uptitrate lantus * Resume Metformin but will continue to hold glipizide given analog coverage and risk for hypoglycemia * A1c 6.4% (12) Hypertension: Plan: * on amlodipine, lisinopril, and Lopressor prior to this hospitalization * lisinopril increased to 10mg given multiple days of accelerated BP (180s/90s) * BP improved but now with orthostatic hypotension * Really only on a homeopathic dose of amlodipine anyway. Norvasc has since been stopped with continuation of her lisinopril and Lopressor * BP currently 125/68 on lisinopril/lopressor. * DC Norvacs upon D.C (as not needed - only 2.5mg) Plan: Interventions as outlined above GI ppx: continue PPI Continue PT/OT Medically hemodynamically stable for discharge. Has been accepted to [facility] for rehab. They will have a bed open tomorrow. plan of care to be D/W Dr. Scott Admission and Anticipated Discharge Date Admission Date: May 11, 2021 Supervising Physician Co-Signing Physician Notes Attending Attestation - Chart reviewed, care plan d/w CHRISTIANO Banks. I agree with the saucedo components of her documentation. Heath Scott MD Subjective Patient seen on daily rounds today. Overall her pain is adequately controlled. Initially, plan was for discharge to home today where she was temporarily going to stay with a family member that has limited steps; however, in therapy this morning, she was very unsteady with steps. Case management was able to find a bed availability at [facility] and they can accept her tomorrow. Review of Systems Review of Systems: All systems reviewed and are unremarkable except as noted in HPI and below Denies fevers, chills, headache, nasal congestion, sore throat, cough, chest pain, shortness of breath, palpitations, orthopnea, PND, abdominal pain, nausea, vomiting, diarrhea, constipation, dysuria, hematuria, frequency, back pain, joint pain or swelling, easy bruising or bleeding, skin lesions or rashes. Physical Exam Physical Exam: General: Resting comfortably in her hospital bed. She does not appear ill or toxic. NAD. HEENT: Head is AT/NC. Buccal mucosa is moist and pink Neck: No JVD. Negative hepatojugular reflex Cardiac: RRR without M/G/R Lungs: CTA without W/R/R Abdomen: Normoactive X4. Soft and nontender in all quadrants. Extremities: Left knee examined-- flakita intact. incision well approximated. no drainage or periwound erythema. Improving calf tenderness noted. Negative Homans' sign. Neuro: A&O X4. Cranial nerves II through XII are grossly intact. No focal neuro deficits Skin: No obvious skin lesions or rashes Psych: Appropriate affect. Pleasant and cooperative Results & Data Results & Data ([facility]) Vital Signs (Past 12 Hours) Vital Signs Temp Pulse Pulse Resp BP Pulse Ox 05/19/21 14:25 36.9 C 85 16 162/86 H 95 05/19/21 07:26 36.5 C 80 16 173/79 H 97 Diagnostic Findings 05/19/21 05:50 05/19/21 05:50 PG Care Time/CCT Total # of Minutes Spent Total Time Spent with Patient: Total time spent is greater than 50% in coordination of care (as documented) at patient's floor/unit and/or counseling patient: Coding Level of Care Code 51083 Subseq Hosp Care Lvl 2 Diagnoses S/P left knee surgery Z98.890 Acute confusion R41.0 Left leg DVT I82.402 SIRS (systemic inflammatory response syndrome) R65.10 Anemia D64.9 UTI (urinary tract infection) N39.0 Orthostatic hypotension I95.1 Generalized weakness R53.1 Hypomagnesemia E83.42 Elevated LFTs R79.89 Type 2 diabetes mellitus E11.9 Hypertension I10
[2021-05-19] MEDS ORDERED: traMADol HCL 50 MG TABLET PO PRN (15:30)
[2021-05-19] MEDS: traMADol HCL 50 MG TABLET PO PRN (18:00)
[2021-05-19] MEDS: metFORMIN HCL 500 MG TAB PO SCH (20:28)
[2021-05-19] MEDS: CIPROFLOXACIN 500 MG TAB PO SCH (20:29)
[2021-05-20] MEDS: LEVOTHYROXINE SODIUM 100 MCG TABLET PO SCH (05:39)
[2021-05-20] MEDS: lisinopril 10 MG TAB PO SCH (08:52)
[2021-05-20] MEDS: APIXABAN 5 MG TABLET PO SCH (08:52)
[2021-05-20] MEDS: METOPROLOL TARTRATE 50 MG TAB PO SCH (08:52)
[2021-05-20] MEDS: CeleBREX 200 MG CAP PO SCH (08:52)
[2021-05-20] MEDS: CIPROFLOXACIN 500 MG TAB PO SCH (08:52)
[2021-05-20] MEDS: metFORMIN HCL 500 MG TAB PO SCH (08:53)
[2021-05-20] MEDS: MAGNESIUM OXIDE 400 MG TAB PO SCH (08:53)
[2021-05-20] MEDS: PANTOprazole 40 MG TAB PO SCH (08:53)
[2021-05-20] MEDS: VENLAFAXINE HCL XR 75 MG CAPXR PO SCH (08:53)
[2021-05-20] MEDS: FERROUS SULFATE 325 MG/7.4 ML UDP PO SCH (08:54)
[2021-05-20] MEDS: TIMOLOL MALEATE 0.5% OP SOLN 5 ML BTL OP SCH (08:54)
[2021-05-20] MEDS: INSULIN GLARGINE SOLOSTAR 100 UNITS/ML 3 ML PEN SC SCH (08:59)
[2021-05-20] MEDS: INSULIN ASPART PER UNIT SC SCH (09:00)
--- NOTE | 2021-05-20 17:49 | Discharge Summary ---
Date of Service May 20, 2021 Admission HPI Per Admitting Provider Cain Rowan is a 70 year old female admission for generalized weakness, knee pain and confusion following total knee replacement yesterday. She was reportedly mobile following her knee operation yesterday however overnight it was a struggle to get her to the bathroom and today her daughter was unable to get her up out of bed due to generalized weakness. She took oxycodone 5mg x2 today and her aspirin but none of her other routine medications. She denies any one sided weakness, change in sensation, facial droop, change in speech, vision or hearing. She denies falling and did not hit her head or knee. In the ER her hemoglobin was noted to be 9.2 gtom 10.6 pre-operatively, WBC 14.29, AST 86, ALT 70, glucose 289. CXR with mild bibasilar atelectasis. UA with glucosuria but negative for infection. Principal Diagnosis 1. Acute DVT to left lower extremity 2. Altered mental statusopiate induced and resolved 3. UTIPseudomonas 4. Systemic inflammatory response syndromelikely secondary to UTI and acute DVT. Resolved 5. Acute on chronic anemia 6. Hypomagnesemia 7. Transaminitisresolved 8. Overall debility Discharge Exam General: Resting comfortably in her hospital bed. She does not appear ill or toxic. NAD. HEENT: Head is AT/NC. Buccal mucosa is moist and pink Neck: No JVD. Negative hepatojugular reflex Cardiac: RRR without M/G/R Lungs: CTA without W/R/R Abdomen: Normoactive X4. Soft and nontender in all quadrants. Extremities: Left knee examined-- flakita intact. incision well approximated. no drainage or periwound erythema. Improving calf tenderness noted. Negative Homans' sign. Neuro: A&O X4. Cranial nerves II through XII are grossly intact. No focal neuro deficits Skin: No obvious skin lesions or rashes Psych: Appropriate affect. Pleasant and cooperative Discharge Data Allergies Allergy/AdvReac Type Severity Reaction Status Date / Time No Known Allergies Allergy Verified 05/11/21 16:38 Consultations 05/11/21 16:37 ED Decision to Admit Stat 05/11/21 20:57 Consult Orthopedic Surgery Routine Ordered Studies 05/14/21 17:27 US venous doppler LE LT Urgent 05/14/21 23:30 CT angio chest PE protocol Urgent Hospital Course (1) S/P left knee surgery: * Outpatient elective left TKA done 05/10 on the day prior to this hospitalization * Uncontrolled pain and inability to function independently at home prompted her back to the ED * given level of pain, venous doppler done confirming acute DVT- see below * Pain seems to be improving with adequate treatment for DVT * Meeting therapy goals except for step training * PT/OT on board--recommending rehab. Today. Patient is medically hemodynamically stable * was on ASA BID for DVT prophylaxis but now on Eliquis for tx of his DVT. STOP ASA * Orthopedics on board while in house. Appreciate assistance. (2) Acute confusion: * this (and the let leg/knee pain) is what prompted evaluation into the ED * Suspected 2/2 toxic encephalopathy d/t opioids as resolved with IVF and discontinuation of OxyIR (3) Left leg DVT: * Venous Doppler done given postsurgical state and increased left leg pain: Positive for DVT within the left lower extremity involving the distal left popliteal vein, posterior tibial vein and one of the 2 peroneal veins * eliquis started by overnight resident (needs 10mg bid x 7 days then 5mg bid) * this is a provoked DVT. needs 6 months ACT. will NOT do hypercoagulable W/U at this time as will be skewed given acute clot and ACT on board. * No hypoxemia or tachycardia. No CP or pleurisy. CTA ordered by night resident (although would not have changed treatment plan). Negative for PE * staff encouraged to HOLD OFF on compression stocking x48 hours (to allow for stabilization of the clot not that patient is on ACT) as to reduce the risk of embolization. Now (4) SIRS (systemic inflammatory response syndrome): * Patient with leukocytosis of 14.29 and a mild lactic acidemia of 2.7 upon presentation * Now with low-grade fever of 100.2 (on 05/14) * No obvious source of infection * Chest x-ray negative * Blood cultures: 03/22 tubes showing coag negative staph not lugdunensis. Suspect contaminant * Initial urinalysis showing no growth * covid negative * Leukocytosis resolved without intervention. Could have been reactive from recent surgery * Lactic acidemia mild and could have been related to Metformin * Low-grade fever could be related to atelectasis or even reactive from DVT-- no fever spikes since adequate treatment for DVT * Her left knee does not appear to be infected * venous Doppler of the left lower extremity positive for DVT-- This could explain her level of pain, her leukocytosis, and her low-grade fever. Not highly suspicious of PE at this time as patient is not hypoxic nor tachycardic. * Patient has since developed urinary incontinence and appears to have a UTI-- now with increasing leukocytosis. Will follow now that on appropriate abx therapy (5) Anemia: * Normocytic and normochromic in setting of recent surgery (EBL only 50cc). Could be dilutional * hgb 10.6 prior to surgery (so clearly with chronic anemia) * Hemoglobin has been in the low 8's during this hospital stay * Iron panel has been ordered--> iron level back at <10 * Dose of Venofer 300 mg IV ordered on 05/12, 05/13 and 05/14 and started on oral supplementation * Recent thorough work-up including EGD, colonoscopy, and small bowel capsule a ll w/o evidence of bleeding * Hemoglobin today at 9.3 * Continue iron supplementation. Avoid taking with dairy. Recommend taking with vitamin C. Can be constipating thus recommend Colace * Recommend follow-up labs at discretion of PCP (6) UTI (urinary tract infection): * 05/16, patient developed urinary incontinence * Urinalysis was not grossly infected but her urine culture is growing gram- negative bacilli for which she was empirically started on Rocephin * Urine culture showing Pseudomonas and Proteus * Transitioned antibiotics to Cipro based on culture data. will need 14 days * Is complaining of some mild nausea which I believe to be secondary to antibiotics. Did prescribe Zofran to use as needed (7) Orthostatic hypotension: Lyin/82, sitting 130/67, standing 112/67 * resolved with gently IV hydration * avoid compression stockings for now given DVT * Patient encouraged to sit at the bedside for 30 to 60 seconds prior to standing and then stand for 30 to 60 seconds prior to ambulating * follow up Orthostatic VS now normal (8) Generalized weakness: * Multifactorial due to the above * Continue PT/OT--> to SNF for rehab today * Case management on board (9) Hypomagnesemia: * replaced. Continue increased dose (10) Elevated LFTs: * AST and ALT both elevated, have since normalized * Documented history of fatty liver w/ abnormal LFTs in the past * Hold simvastatin (recommend 2 week drug holiday) * fu labs show that these are downtrending (11) Type 2 diabetes mellitus: * Metformin/glipizide on hold while in house (instead utilizing insulin) * now on lantus and with analog coverage (carb/insulin ratio and correction factor) * Blood sugars elevated while in house--suspect diet biggest contributing fa ctor. Although on carb consistent diet, she reports that she is receiving significant amounts of carbohydrates per meal * A1c 6.4% * Resume Metformin and glipizide upon discharge (12) Hypertension: * on amlodipine, lisinopril, and Lopressor prior to this hospitalization * lisinopril increased to 10mg given multiple days of accelerated BP (180s/90s) * BP improved but now with orthostatic hypotension * Really only on a homeopathic dose of amlodipine anyway. Norvasc has since been stopped with continuation of her lisinopril and Lopressor * BP currently 123/70 on lisinopril/lopressor. * DC Dianes upon D.C (as not needed - only 2.5mg) Patient has been medically hemodynamically stable X days. Discharged to SNF for rehab today. plan of care D/W Dr. Scott Total Time Total Time Spent Total Time Spent (In Minutes): 40 minutes including time spent with patient, preparation of documentation, coordination of care, discussion with attending provider. Discharge Plan Discharge Items Patient Disposition: Transfer [facility] Reason For Visit: GENERALIZED WEAKNESS, CONFUSION, HYPOMAGNESIA Discharge Diagnosis: 1. Left Knee Pain s/p Left ORIF 2. Left leg (Acute) DVT 3. Acute on Chronic Anemia 4. UTI- Pseudomonas 5. Urinary Incontinence (suspect related to #4 but may also component overflow incontinence) 6. Nausea- likely related to antibiotic Condition on Discharge: Fair Activity: Per Instructions section Weightbearing: Full weightbearing Non-emergency contact: Primary Care Provider and Specialist Call non-emergency contact if: you have any medication questions, your symptoms worsen and you have a fever Follow-up/Referrals: Meliza Dumont MD [Primary Care Provider] - Ronni Hernandez MD [Physician] - (Orthopedic Follow-up 2-3 weeks from surgery date.) Diet: Carb Consistent or DM2 Addtl Attending Provider Instructions: Diet: carb consistent Activity: as tolerated Recommendations: - for the DVT (clot in the leg) --Eliquis 10mg twice a day (next dose due tonight) through 05/22 then change to 5mg twice a day. --can likely stop Eliquis in 6 months as this is considered a prevoked DVT --this is likely the reason behind the increased pain (which has improved) - for the UTI --because your urine is growing pseudomonas (harder bacteria to treat) you need 14 days total of antibiotics --continue Cipro 500mg twice a day with last dose to complete on the evening of 05/31 --I suspect that the Cipro is contributing to your nausea. Use Zofran as needed - your omeprazole has been changed to pantoprazole and increased to twice a day to protect your stomach on account of the blood thinner and antiinflammatories on board - for your recent knee replacement --use the Naprosyn twice a day as needed for pain --Ultram can be used for breakthrough pain --follow up with Ortho next week as flakita will need removed. - for the urinary incontinence --likely related to the UTI --may be some overflow incontinence (given inability to make it to the bathroom as fast) --if persists-- consider urology referral - for the Anemia --this seems to be chronic but of course if worse following this surgery --you have been started on iron (which can be constipating) --take iron with vitamin C (and avoid dairy) as diary blocks the absorption --recommend follow up labs to trend - CONTINUE TO HOLD STATIN (Zocor) x 2 weeks for "drug holiday" given the mildly elevated liver function studies - Hold ASA (which you take daily) until you are off of the Eliquis - your magnesium supplementation was held increased while in house - follow up with House Physician: 24-48 hours - Recommend Follow up labs (at discretion of PCP/House Physician) 1. CBC- 1 week 2. BMP- 1 week 3. Magnesium- 1 week Addtl Developer Evangelist Provider Instructions: ACTIVITY RECOMMENDATIONS: Physical Therapy: * You will go to physical therapy three times each week for four to six weeks after your surgery in order to regain your knee range of motion and to retrain your knee to work properly. * It is just as important to make sure you are getting your knee perfectly straight as it is to regain your knee bend. * Taking a pain pill an hour before therapy can help you have a more productive and comfortable therapy session. Home Exercise: * You were shown a series of exercises (heel props, heel slides, etc.) in the hospital. Do these exercises three to four times each day including the exercises you were shown in physical therapy. Walking: * Get up and walk several times each day. For the first four weeks, try not to stand or walk for more than one hour at a time. If you do stand or walk for more than one hour, you will not hurt anything, but your knee and leg will likely swell. * As you feel comfortable, you may change from the walker or crutches to a cane and then to independent walking. MEDICATIONS: "VERY IMPORTANT TO READ AND REVIEW" Pain: * The immediate post-operative period after knee replacement surgery is often quite painful. * You are given a prescription for pain medicine. You should take it, as directed, when you need it, especially before physical therapy and before going to bed. Pain that interferes with sleep is very common and can last several months. * You will likely need pain medicine for the first four to six weeks. It will not stop all of the pain. The pain will lessen and as you feel better, you may change to milder pain medicine such as Tylenol. * The most common side effects of pain medicine are nausea and constipation, so don't take more than you need. SPECIAL CARE INSTRUCTIONS: Incision Site Care: * Remove dressing postoperative day 2 and then shower. Keep direct shower pressure off the incision site. * After showering, cover flakita with dry gauze and change daily or more frequently if the dressing is getting saturated with drainage. * Use the JANETTE stockings to hold dressing in place. DO NOT apply tape on the skin. * May completely stop using bandage if wound is dry and no drainage * Flakita are removed between 2 and 3 weeks post-op. If your follow-up appointment is made before 2 weeks, please have your appointment re- scheduled. It is too early to remove the flaktia. Prevention of Infection: * Take antibiotics one hour before any dental cleaning, dental work, urological procedure, gastrointestinal procedure or any invasive surgery in order to prevent your new joint from getting infected. * You may get the antibiotics from the doctor performing the procedure or you may call our office at [phone] before and we will call in a prescription to the pharmacy of your choice. Things to Watch For: * Drainage from the incision site that occurs more than one week after your surgery. * Severely increased knee/leg pain or swelling. * Increased redness at the incision site. * Fever above 102 degrees Fahrenheit. * Unusual chest pain or shortness of breath. * Unusual pain or burning with urination. Call [facility] at [phone] with any of the above problems or if you have any questions about your medicines or recovery. FOLLOW UP VISIT: Make an appointment to see your doctor for approximately two weeks after surgery for a progress check and staple removal by calling the office at [phone]. Pending Studies at Discharge: No Stand-Alone Forms: My [facility] Skilled Items Patient informed of condition?: Yes DNR: No Discharge Level of Care: Acute rehab Communicable Disease: No Discharge Prognosis: Stable Lines: None Urinary Catheter: No Medications and DC Order Prescriptions: New ciprofloxacin HCl 500 mg Tablet 500 mg PO BID Qty: 23 RF: 0 Eliquis 5 mg Tablet 10 mg PO BID Qty: 4 RF: 0 Eliquis 5 mg tablet 5 mg PO BID Qty: 60 RF: 0 ferrous sulfate 325 mg (65 mg iron) tablet 325 mg PO DAILY Qty: 30 RF: 0 tramadol 50 mg Tablet 50 mg PO Q4H PRN (Reason: severe pain) Qty: 30 RF: 0 magnesium oxide 400 mg (241.3 mg magnesium) Tablet 400 mg PO BID Qty: 60 RF: 0 pantoprazole 40 mg Tablet,Delayed Release (Dr/Ec) 40 mg PO BID Qty: 60 RF: 0 lisinopril 10 mg Tablet 10 mg PO QAM Qty: 30 RF: 0 naproxen [Naprosyn] 500 mg tablet 500 mg PO BID PRN (Reason: pain) Qty: 60 RF: 0 Continued glipizide 5 mg tablet See Rx Instructions .ROUTE .COMPLEX Qty: 450 RF: 3 ondansetron HCl 4 mg tablet 4 mg PO Q6 PRN (Reason: nausea) Qty: 30 RF: 0 sennosides-docusate sodium [Senokot-S] 8.6-50 mg tablet 1 tab-cap PO DAILY Qty: 14 RF: 0 metoprolol tartrate 50 mg tablet 50 mg PO BID Qty: 180 RF: 3 metformin 500 mg tablet 1,000 mg PO BID Qty: 360 RF: 3 calcium carbonate [Calcium 600] 600 mg calcium (1,500 mg) tablet 600 mg PO BID RF: 0 fish oil-dha-epa 1,200-144-216 mg capsule 1 cap PO BID RF: 0 albuterol sulfate 90 mcg/actuation HFA aerosol inhaler 2 puff inhalation Q6H PRN (Reason: Shortness Of Breath Or Wheezing) RF: 0 timolol 0.5 % Drops 1 drp OPHTHALMIC (EYE) QAM RF: 0 levothyroxine 100 mcg tablet 100 mcg PO QAM RF: 0 venlafaxine [Effexor XR] 75 mg capsule,extended release 24hr See Rx Instructions PO BID RF: 0 acetaminophen 500 mg capsule 1,000 mg PO TID PRN (Reason: Pain) RF: 0 Discontinued oxycodone 5 mg tablet 5 - 10 mg PO Q6 PRN (Reason: pain) Qty: 40 RF: 0 ketorolac 10 mg tablet 10 mg PO Q6 5 Days Qty: 20 RF: 0 magnesium citrate 100 mg capsule 200 mg PO HS RF: 0 simvastatin 40 mg tablet 40 mg PO HS Qty: 90 RF: 3 amlodipine 2.5 mg tablet 2.5 mg PO QAM RF: 0 omeprazole 20 mg capsule,delayed release(DR/EC) 20 mg PO QAM RF: 0 lisinopril 5 mg tablet 5 mg PO QAM RF: 0 aspirin 81 mg Tablet,Delayed Release (Dr/Ec) 81 mg PO QAM RF: 0 Discharge Orders: Discharge Order (Routine); Ordered 05/20/21 Ordered By: Tia Banks Admission Data Admit Date/Time: 05/11/21 16:53 Attending Provider: Heath Scott Admit Provider: Heath Knutson Primary Care Provider: Meliza Dumont Other Providers: Ronni Hernandez ; Micky Jacob Other Interventions: Discharge Summary Assessment (RN) Last Done: 05/20/21 11:37 Supervising Physician Co-Signing Physician Notes Attending Attestation and Discharge Note: Pt seen/examined, chart reviewed, care plan d/w PA Tia Banks. I agree with the saucedo components of her documentation. 70yo female with T2DM, HTN, & hypothyroidism who presented to the ER about 24 hours after she had undergone outpatient elective L TKR. She returned to the ER because of severe weakness, confusion, and worsening L leg pain. During her stay she was found to have a UTI as well as L leg DVTs. The former was treated with IV then PO abx, and her LLE DVTs were Rx with Eliquis. She made gradual improvement in all presenting symptoms & problems. At discharge she is transferring to SNF for rehab. Discharge exam: gen - NAD, obese, a/o x 3 neck - no JVD mouth - MMM heart - RRR, s1 s2, no murmur lungs - CTA b/l abd - soft, NT, ND, BS+ ext - <1+ edema LLE, none on right; pulses 2+ b/l musculo - left knee vertical incision C/D/I She will follow-up with Dr Hernandez, [facility] [place] [facility], within 1 week of discharge. Heath Scott MD Coding Level of Care Code D/C DAY MANAGEMENT >30 MINS Diagnoses S/P left knee surgery Z98.890 Acute confusion R41.0 Left leg DVT I82.402 SIRS (systemic inflammatory response syndrome) R65.10 Anemia D64.9 UTI (urinary tract infection) N39.0 Orthostatic hypotension I95.1 Generalized weakness R53.1 Hypomagnesemia E83.42 Elevated LFTs R79.89 Type 2 diabetes mellitus E11.9 Hypertension I10
[2021-05-22] MEDS ORDERED: APIXABAN 5 MG TABLET PO SCH (09:00)
== END 2021-05-20 12:28 | DRG 981 ==
LOC: ED 13:59 → 3W 16:53 → SUATTDRO 16:53 → 3W 19:40

== ENCOUNTER 2022-02-22 15:04 | Inpatient (IN) ==
[2022-02-22] MEDS ORDERED: ONDANSETRON INJ 2 MG/ML 2 ML VIAL IV STA (15:25)
[2022-02-22] MEDS ORDERED: ONDANSETRON INJ 2 MG/ML 2 ML VIAL ONE (15:25)
--- NOTE | 2022-02-22 15:25 | Emergency Department Note ---
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 chest radiograph 05/11/2021 FINDINGS: No lines and tubes are seen. Calcified aortic knob is seen. The lungs are clear. No evidence of pleural effusion or pneumothorax. IMPRESSION: No acute chest disease. ACT 112: Negative or not required by law. Electronically signed by: Yosi Solomon M.D. 02/22/2022 4:[address] 02/22/22 15:05 CT head/brain wo con CLINICAL HISTORY: neuro deficit, acute stroke suspected Technique: Contiguous axial CT images of the head were acquired from the base of the skull to the vertex without intravenous contrast administration. Images were viewed in brain, subdural and bone windows. Automated dose lowering techniques and/or adjustment according to patient size were utilized for this exam. Comparison: None available at the time of this dictation. Findings: Areas of decreased attenuation are present in the periventricular and subcortical white matter bilaterally consistent with small vessel ischemic disease. Generalized cerebral atrophy with commensurate enlargement of the ventr icles, sulci, and cisterns is also present. There is no acute intracranial hemorrhage or evidence of acute territorial infarction. No shift of the midline structures, mass effect, or extra-axial abnormalities are shown. Atherosclerotic calcifications are present in the intracranial segments of the internal carotid arteries. Imaged portions of the paranasal sinuses and mastoid air cells are clear. The orbits appear normal. There are no acute fractures of the calvaria or scalp swelling. Impression: No acute intracranial hemorrhage, no evidence of acute territorial infarction or other acute intracranial disease process. ACT 112: Negative or not required by law. Electronically signed by: Yosi Solomon M.D. 02/22/2022 3:31 PM Head CTA 02/22/22 15:05 CTA ANGIOGRAPHY OF THE HEAD CLINICAL HISTORY: neuro deficit, acute stroke suspected COMPARISON STUDY: No previous studies for comparison. TECHNIQUE: Helical axial images of the head were obtained following uneventful intravenous administration of 108 cc of Optiray. Sagittal and coronal reconstructions were viewed as well as maximal intensity projections on an independent 3-D workstation. Automated exposure control was utilized for the study. A dose lowering technique was utilized adhering to the principles of ALARA. FINDINGS: Please note that the head CT will be reported separately. The bilateral M1, M2, A1 and A2 segment are patent. There is moderate plaque within the bilateral cavernous carotids without significant stenosis. No central vessel occlusion is present. There is moderate plaque within the intracranial portion of the left vertebral artery which results in mild stenosis. Basilar artery and bilateral posterior arteries are patent. Major dural sinuses are patent. IMPRESSION: No central vessel occlusion. No intracranial aneurysm. ACT 112: Negative or not required by law. Electronically signed by: Avtar Dumont M.D. 02/22/2022 3:41 PM Neck CTA 02/22/22 15:05 NECK CTA HISTORY: neuro deficit, acute stroke suspected TECHNIQUE: Multiaxial CT images of the neck were performed following the intravenous administration of contrast to evaluate the major cervical vessels. Maximum intensity projection images were also obtained. All measurements were calculated based on NASCET criteria. A dose lowering technique was utilized adhering to the principles of ALARA. COMPARISON STUDY: None. FINDINGS: The aortic arch and proximal great vessels are widely patent. There is no significant stenosis, occlusion, or dissection identified within the bilateral common carotid, internal carotid, or cervical vertebral arteries. IMPRESSION: No significant stenosis, occlusion, or dissection identified within the carotid or vertebral arteries. ACT 112: Negative or not required by law. Electronically signed by: Patrick Infante M.D. 02/22/2022 3:39 PM Discharge Plan Visit Data Chief Complaint: Stroke Alert ED Provider: Stephen Hinson Discharge Problem: Stroke-like symptoms, Hypertension, Hypomagnesemia Patient Disposition: Admitted As Inpatient Discharge Instructions Interventions: ED Discharge Assessment Last Done: 02/22/22 20:06 : Hypertension Qualifiers: Hypertension type: unspecified Qualified Code(s): I10 - Essential (primary) hypertension
[2022-02-22] MEDS ORDERED: OPTIRAY 320 500ml IV ONE (15:27)
[2022-02-22 15:32] LABS: Basophils # (auto) 0.02 K/uL (0-0.2); Basophils % (auto) 0.3 %; Eosinophils # (auto) 0.07 K/uL (0-0.50); Eosinophils % (auto) 0.9 %; Hematocrit (blood only) 38.9 % (34.1-44.9); Hemoglobin 13.1 g/dl (12.0-16.0); Immature Granulocytes # (auto) 0.03 K/uL (0.00-0.02); Immature Granulocytes % (auto) 0.4 %; Lymphocytes % (auto) 29.5 %; Mean Corpuscular Hemoglobin 29.7 pg (25.0-34.0); Mean Corpuscular Hgb Conc 33.7 g/dL (32.0-36.0); Mean Corpuscular Volume 88.2 fL (80.0-100.0); Mean Platelet Volume 9.8 fL (9.4-12.3); Monocytes # (auto) 0.68 K/uL (0.24-0.82); Monocytes % (auto) 8.7 %; Neutrophils # (auto) 4.69 K/uL (1.4-6.5); Neutrophils % (auto) 60.2 %; Platelet Count 270 K/uL (130-400); RDW Coefficient of Variation 12.5 % (11.5-14.5); RDW Standard Deviation 40.4 fL (36.4-46.3); Red Blood Count 4.41 M/uL (3.93-5.22); White Blood Count 7.79 K/ul (4.8-10.8)
--- NOTE | 2022-02-22 15:32 | CT Scan Report ---
CT head/brain wo con CLINICAL HISTORY: neuro deficit, acute stroke suspected Technique: Contiguous axial CT images of the head were acquired from the base of the skull to the tabitha diana without intravenous contrast administration. Images were viewed in brain, subdural and [facility]. Automated dose lowering techniques and/or adjustment according to patient size were utilized for this exam. Comparison: None available at the time of this dictation. Findings: Areas of decreased attenuation are present in the periventricular and subcortical white matter bilate rally consistent with small vessel ischemic disease. Generalized cerebral atrophy with commensurate e nlargement of the ventricles, sulci, and cisterns is also present. There is no acute intracranial hem orrhage or evidence of acute territorial infarction. No shift of the midline structures, mass effect, or extra-axial abnormalities are shown. Atherosclerotic calcifications are present in the intracran ial segments of the internal carotid arteries. Imaged portions of the paranasal sinuses and mastoid air cells are clear. The orbits appear normal. There are no acute fractures of the calvaria or scalp swelling. Impression: No acute intracranial hemorrhage, no evidence of acute territorial infarction or other acute intracra nial disease process. ACT 112: Negative or not required by law. Electronically signed by: Yosi Solomon M.D. 02/22/2022 3:31 PM
[2022-02-22] MEDS ORDERED: LABETALOL HCL IV 5 MG/ML 20ML IV STA (15:34)
--- NOTE | 2022-02-22 15:40 | CT Scan Report ---
NECK CTA HISTORY: neuro deficit, acute stroke suspected TECHNIQUE: Multiaxial CT images of the neck were performed following the intravenous administration o f contrast to evaluate the major cervical vessels. Maximum intensity projection images were also obta ined. All measurements were calculated based on NASCET criteria. A dose lowering technique was utili zed adhering to the principles of ALARA. COMPARISON STUDY: None. FINDINGS: The aortic arch and proximal great vessels are widely patent. There is no significant sten osis, occlusion, or dissection identified within the bilateral common carotid, internal carotid, or c ervical vertebral arteries. IMPRESSION: No significant stenosis, occlusion, or dissection identified within the carotid or vertebral arteries . ACT 112: Negative or not required by law. Electronically signed by: Patrick Infante M.D. 02/22/2022 3:39 PM
--- NOTE | 2022-02-22 15:43 | CT Scan Report ---
CTA ANGIOGRAPHY OF THE HEAD CLINICAL HISTORY: neuro deficit, acute stroke suspected COMPARISON STUDY: No previous studies for comparison. TECHNIQUE: Helical axial images of the head were obtained following uneventful intravenous administr ation of 108 cc of Optiray. Sagittal and coronal reconstructions were viewed as well as maximal inten sity projections on an independent 3-D workstation. Automated exposure control was utilized for the study. A dose lowering technique was utilized adhering to the principles of ALARA. FINDINGS: Please note that the head CT will be reported separately. The bilateral M1, M2, A1 and A2 s egment are patent. There is moderate plaque within the bilateral cavernous carotids without significa nt stenosis. No central vessel occlusion is present. There is moderate plaque within the intracranial portion of the left vertebral artery which results in mild stenosis. Basilar artery and bilateral po sterior arteries are patent. Major dural sinuses are patent. IMPRESSION: No central vessel occlusion. No intracranial aneurysm. ACT 112: Negative or not required by law. Electronically signed by: Avtar Dumont M.D. 02/22/2022 3:41 PM
[2022-02-22 15:48] LABS: Partial Thromboplastin Ratio 0.9; Partial Thromboplastin Time 24.8 Seconds (21.0-31.0); Prothrombin Time 10.6 Seconds (9.0-12.0)
[2022-02-22 16:00] LABS: Albumin Globulin Ratio 1.5 (0.9-2); Albumin Level 4.1 gm/dl (3.4-5.0); BUN Creatinine Ratio 32.4 (10-20); Bilirubin,Total 0.4 mg/dl (0.2-1.0); Calcium 9.4 mg/dl (8.5-10.1); Creatinine Clr Calc Pharmacy 48.3 ml/min; Est GFR (African American) 64.5 ml/min; Est GFR (Non-African American) 55.7 ml/min; Globulin 2.8 gm/dl (2.5-4.0); Magnesium 1.4 mg/dl (1.7-2.4); Potassium 4.4 mmol/L (3.5-5.1); Total Protein 6.9 gm/dl (6.0-8.3)
[2022-02-22 16:02] LABS: Troponin I High Sensitivity 5.9 pg/ml (0-14)
--- NOTE | 2022-02-22 16:50 | XRay Report ---
XR chest 1V portable CLINICAL HISTORY: neuro deficit, acute stroke suspected TECHNIQUE: Single frontal radiograph of the chest was obtained. Comparison: Comparison is made to chest radiograph 05/11/2021 FINDINGS: No lines and tubes are seen. Calcified aortic knob is seen. The lungs are clear. No evidence of pleur al effusion or pneumothorax. IMPRESSION: No acute chest disease. ACT 112: Negative or not required by law. Electronically signed by: Yosi Solomon M.D. 02/22/2022 4:48 PM
[2022-02-22] MEDS ORDERED: MAGNESIUM SULFATE / D5W 1 GM/100 ML BAG IV STA (16:52)
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
[2022-02-22 17:32] LABS: Appearance Urine Clear (Clear); Bacteria Urine Automated Negative (Negative); Bilirubin Urine Negative (Negative); Blood Urine Negative (Negative); Color Urine Yellow; Epithelial Cell Urine Auto >30 /lpf (0-5); Glucose Urine UA Negative (Negative); Ketones Urine Trace (Negative); Leukocyte Esterase Urine Negative (Negative); Nitrite Urine Negative (Negative); Protein Urine 1+ (Negative); RBC Urine Automated 0-4 /hpf (0-4); Specific Gravity Urine > 1.045 (1.000-1.030); Urobilinogen Urine Negative (Negative); pH Urine 5.5 (4.5-7.5)
[2022-02-22] MEDS ORDERED: amLODIPine BESYLATE 5 MG TAB PO ONE (17:32)
[2022-02-22] MEDS: LABETALOL HCL IV 5 MG/ML 20ML IV PRN (18:05)
[2022-02-22] MEDS ORDERED: METOPROLOL TARTRATE 1 MG/ML VIAL IV STA (19:07)
[2022-02-22] MEDS ORDERED: PHARMACIST DISCHARGE MED REC CONSULT PRN (20:05)
[2022-02-22] MEDS ORDERED: GLUCAGON FOR INJ 1 MG VIAL SQ PRN (20:05)
[2022-02-22] MEDS ORDERED: CARBOHYDRATES FOR HYPOGLYCEMIA PO PRN (20:05)
[2022-02-22] MEDS ORDERED: DEXTROSE 50% 50 ML SYRINGE IV PRN (20:05)
[2022-02-22] MEDS ORDERED: ALBUTEROL HFA 8 GM INHALER INH PRN (20:05)
[2022-02-22] MEDS ORDERED: GLUCOSE 40% GEL 15 GM TUBE PO PRN (20:05)
[2022-02-22] MEDS ORDERED: GLUCOSE 10 TAB/TUBE PO PRN (20:05)
[2022-02-22] MEDS: ACETAMINOPHEN 325 MG TAB PO PRN (20:42)
[2022-02-22] MEDS: hydroCHLOROthiazide 25 MG TAB PO SCH (20:42)
[2022-02-22] MEDS: METOPROLOL TARTRATE 50 MG TAB PO SCH (20:43)
[2022-02-22] MEDS: MAGNESIUM OXIDE 400 MG TAB PO SCH (20:43)
[2022-02-22] MEDS: ONDANSETRON INJ 2 MG/ML 2 ML VIAL IV PRN (20:44)
[2022-02-22] MEDS: SIMVASTATIN 40 MG TAB PO SCH (21:43)
[2022-02-22] MEDS: OMEGA-3 (PURIFIED FISH OIL) 1 GM CAP PO SCH (21:43)
[2022-02-22] MEDS: VENLAFAXINE HCL XR 75 MG CAPXR PO SCH (21:43)
[2022-02-22] MEDS: CALCIUM CARBONATE 1250MG TAB PO SCH (21:43)
[2022-02-22] MEDS: INSULIN ASPART PER UNIT SC SCH (21:43)
[2022-02-22] MEDS: LANTUS PER UNIT CHARGE SQ SCH (22:26)
[2022-02-23] MEDS: LABETALOL HCL IV 5 MG/ML 20ML IV PRN (01:32)
[2022-02-23 04:44] LABS: Basophils # (auto) 0.01 K/uL (0-0.2); Basophils % (auto) 0.1 %; Eosinophils # (auto) 0.01 K/uL (0-0.50); Eosinophils % (auto) 0.1 %; Hematocrit (blood only) 39.4 % (34.1-44.9); Hemoglobin 13.7 g/dl (12.0-16.0); Immature Granulocytes # (auto) 0.04 K/uL (0.00-0.02); Immature Granulocytes % (auto) 0.4 %; Lymphocytes # (auto) 1.91 K/uL (1.2-3.4); Lymphocytes % (auto) 20.1 %; Mean Corpuscular Hemoglobin 30.2 pg (25.0-34.0); Mean Corpuscular Hgb Conc 34.8 g/dL (32.0-36.0); Mean Platelet Volume 9.8 fL (9.4-12.3); Monocytes # (auto) 0.85 K/uL (0.24-0.82); Monocytes % (auto) 8.9 %; Neutrophils % (auto) 70.4 %; Platelet Count 280 K/uL (130-400); RDW Coefficient of Variation 12.5 % (11.5-14.5); RDW Standard Deviation 39.4 fL (36.4-46.3); Red Blood Count 4.53 M/uL (3.93-5.22); White Blood Count 9.52 K/ul (4.8-10.8)
[2022-02-23 05:28] LABS: BUN Creatinine Ratio 22.4 (10-20); Calcium 9.5 mg/dl (8.5-10.1); Chol HDL Ratio 2.5 (0-5); Creatinine Clr Calc Pharmacy 57.9 ml/min; Est GFR (African American) 80.5 ml/min; Est GFR (Non-African American) 69.4 ml/min
[2022-02-23] MEDS: LEVOTHYROXINE SODIUM 100 MCG TABLET PO SCH (06:33)
[2022-02-23 08:04] LABS: Estimated Average Glucose 157 mg/dl; Hemoglobin A1C 7.1 % (4.5-5.6)
[2022-02-23] MEDS: INSULIN ASPART PER UNIT SC SCH ×4 (09:45→20:39)
[2022-02-23] MEDS: METOPROLOL TARTRATE 50 MG TAB PO SCH ×2 (10:54→20:42)
[2022-02-23] MEDS: amLODIPine BESYLATE 5 MG TAB PO SCH (10:54)
[2022-02-23] MEDS: ASPIRIN 81 MG ECTAB PO SCH (10:54)
[2022-02-23] MEDS: DOCUSATE SODIUM 100 MG CAP PO SCH (10:56)
[2022-02-23] MEDS: OMEGA-3 (PURIFIED FISH OIL) 1 GM CAP PO SCH ×2 (10:56→20:41)
[2022-02-23] MEDS: CALCIUM CARBONATE 1250MG TAB PO SCH ×2 (10:56→20:40)
[2022-02-23] MEDS: VENLAFAXINE HCL XR 150 MG CAPXR PO SCH (10:57)
[2022-02-23] MEDS: MAGNESIUM OXIDE 400 MG TAB PO SCH ×2 (10:57→20:41)
[2022-02-23] MEDS: TIMOLOL MALEATE 0.5% OP SOLN 5 ML BTL OP SCH (10:58)
[2022-02-23] MEDS: hydroCHLOROthiazide 25 MG TAB PO SCH (11:12)
[2022-02-23] MEDS: LANTUS PER UNIT CHARGE SQ SCH ×2 (11:13→20:39)
--- NOTE | 2022-02-23 12:28 | Hospitalist Progress Note ---
Date of Service February 23, 2022 Assessment & Plan (1) Stroke-like symptoms: Plan: Strokelike symptoms,? CVA versus hypertensive encephalopathy versus more syncopal Patient reports bilateral leg weakness, coordination weakness in her hands without right versus left-sided symptoms. At bedside assessment feels like she is mentating relatively normally, feels fatigued and weak in her legs but with normal strength in her hands Difficulty walking, confusion Last known normal was day prior, tPA not indicated Neck CTA: No acute findings/dissection/significant stenosis or occlusion CTA head: No central vessel occlusion or aneurysm CThead: No acute findings CXR: No acute findings MRI brain w/o contrast not ordered on admission. Will order now but low suspicion of CVA Patient hypertensive to greater than 200, received labetalol with some improve ment Echo pending, no chest pain/clinical signs of ACS leading symptoms Denies history of A. fib, sinus on admission PT/OT ordered. Patient does sound like she has an element of chronic decondi tioning and gradual worsening strength over the last year - B12 level given difficulty with balancing and metformin use Type 2 diabetes mellitus Hold home glipizide Hold home metformin 1 g twice daily Convert to weight-based basal bolus SSI CAD Continue metoprolol Continue simvastatin Continue aspirin daily No signs of ACS Anxiety/depression Venlafaxine continued Hypertension Continue amlodipine, metoprolol, aspirin Hyperlipidemia If work-up consistent with TIA/CVA or lipid panel elevated convert simvastatin to atorvastatin 40-80 mg Hypothyroidism TSH 1.223 Continue Synthroid Hypomagnesemia - continue to monitor and replace as needed. Low suspicion contributing towards presentation given rapid resolution as above DVT prophylaxis: SCDs Diet: DM Disposition: med/tele CODE STATUS: Full (2) Hypertension: (3) Hypomagnesemia: (4) Sacroiliac joint pain: (5) Type 2 diabetes mellitus: (6) Hypothyroidism: (7) Hearing difficulty: (8) Hyperlipidemia: Admission and Anticipated Discharge Date Admission Date: February 22, 2022 Subjective Reports not sleeping at all overnight therefore just feels very tired today. Able to recount story from yesterday but unsure if she lost consciousness. No lightheadedness today but not yet been out of bed. Symptoms appear to be bilateral in both legs and arms. No current weakness or reduced co-ordination. Ongoing difficulties with balance since her left knee operation. Review of Systems Review of Systems: All systems reviewed & are unremarkable except as noted in Subjective Physical Exam Constitutional: WD/WN, vitals as above Respiratory: normal respiratory effort, lungs clear to auscultation Cardiovascular: RRR, no murmur, no edema Gastrointestinal (Abdomen): normal bowel sounds, soft, nontender, no hepatosplenomegaly Musculoskeletal: no cyanosis or clubbing, extremities motor strength 5/5 Neurologic: moves all extremities and awake; no focal motor deficits and not confused Speech / Cognition: normal speech Motor/Sensory: no tremor and no pronator drift Cranial Nerves: PERRL, EOM intact bilaterally, normal facial strength, tongue midline, able to rotate head bilaterally, able to elevate shoulders bilaterally, no nystagmus and symmetric palate elevation Coordination: normal [id number] test (slow but no lateralizing deficit) Psychiatric: A+Ox3, euthymic affect Results & Data Results & Data ([facility]) Vital Signs (Past 12 Hours) Vital Signs Pulse Pulse Resp BP BP Pulse Ox O2 Del Method 02/23/22 03:00 81 16 162/74 H 96 Room Air 02/23/22 02:40 82 22 02/23/22 02:40 168/67 H 02/23/22 02:30 79 19 02/23/22 02:20 79 15 92 02/23/22 02:10 76 12 93 02/23/22 02:00 78 16 93 02/23/22 02:00 201/87 H 02/23/22 01:50 77 14 183/92 H 94 02/23/22 01:40 75 15 90 02/23/22 01:38 183/92 H 02/23/22 01:38 76 20 95 Room Air 02/23/22 01:30 81 20 02/23/22 01:21 84 21 02/23/22 01:21 193/90 H 02/23/22 01:20 84 15 02/23/22 01:10 88 22 96 02/23/22 01:01 90 16 96 02/23/22 01:01 192/55 H 02/23/22 01:00 89 18 97 Nasal Cannula 02/23/22 00:50 80 21 97 02/23/22 00:40 81 17 97 02/23/22 00:30 81 15 95 O2 Flow Rate 02/23/22 03:00 02/23/22 02:40 02/23/22 02:40 02/23/22 02:30 02/23/22 02:20 02/23/22 02:10 02/23/22 02:00 02/23/22 02:00 02/23/22 01:50 02/23/22 01:40 02/23/22 01:38 02/23/22 01:38 02/23/22 01:30 02/23/22 01:21 02/23/22 01:21 02/23/22 01:20 02/23/22 01:10 02/23/22 01:01 02/23/22 01:01 02/23/22 01:00 2 02/23/22 00:50 02/23/22 00:40 02/23/22 00:30 PG Care Time/CCT Total # of Minutes Spent Total Time Spent with Patient: Total time spent is greater than 50% in coordination of care (as documented) at patient's floor/unit and/or counseling patient: Coding Level of Care Code 10919 Subseq Obs Care Lvl 2 Diagnoses Stroke-like symptoms R29.90 Hypertension I10 Hypertension type: unspecified Hypomagnesemia E83.42 Sacroiliac joint pain M53.3 Type 2 diabetes mellitus E11.9 Hypothyroidism E03.9 Hearing difficulty H91.90 Hyperlipidemia E78.5 (1) Hypertension Hypertension type: unspecified Qualified Code(s): I10 - Essential (primary) hypertension
--- NOTE | 2022-02-23 13:38 | XCELERA ---
[id number]
[2022-02-23] MEDS: MAGNESIUM SULFATE / D5W 1 GM/100 ML BAG IV SCH ×3 (13:42→17:50)
[2022-02-23] MEDS: ONDANSETRON INJ 2 MG/ML 2 ML VIAL IV PRN (16:13)
[2022-02-23] MEDS: ACETAMINOPHEN 325 MG TAB PO PRN (16:13)
[2022-02-23] MEDS: hydrALAZINE HCL 20 MG/ML VIAL IV PRN (18:40)
[2022-02-23] MEDS: SIMVASTATIN 40 MG TAB PO SCH (20:43)
[2022-02-23] MEDS: VENLAFAXINE HCL XR 75 MG CAPXR PO SCH (20:44)
--- NOTE | 2022-02-23 21:30 | Electrocardiogram Report ---
Test Reason : Blood Pressure : / mmHG Vent. Rate : 076 BPM Atrial Rate : 076 BPM P-R Int : 152 ms QRS Dur : 100 ms QT Int : 422 ms P-R-T Axes : 064 035 070 degrees QTc Int : 474 ms Normal sinus rhythm Normal ECG When compared with ECG of 11-MAY-2021 14:20, Nonspecific T wave abnormality no longer evident in Lateral leads Confirmed by Tim Perkins ([id number]) on 02/23/2022 9:29:36 PM Referred By: REFERRED SELF Confirmed By:Tim Perkins
[2022-02-24] MEDS: LEVOTHYROXINE SODIUM 100 MCG TABLET PO SCH (06:00)
--- NOTE | 2022-02-24 07:26 | Magnetic Resonance Report ---
MR brain wo con CLINICAL HISTORY: Off balance, altered mental state TECHNIQUE: Multiplanar and multisequence MR images of the brain were obtained without intravenous con trast. Comparison: Comparison is made to CTA head and neck 02/22/2022 FINDINGS: No abnormal restricted diffusion is identified. Foci of T2 and FLAIR hyperintensity are noted in the paraventricular areas consistent with chronic small vessel ischemic disease. Ex vacuo ventriculomegal y and sulcal enlargement is noted compatible with diffuse encephalomalacia. No mass is seen. There is no mass effect or midline shift. There is no evidence of acute intraparenchymal hemorrhage. No extra axial fluid collections are seen. The corpus callosum, pituitary gland, and cerebellar tonsils appea r grossly unremarkable. Flow voids of the major intracranial arterial vessels are identified. The imaged portions of the para nasal sinuses, mastoid air cells, and orbits are unremarkable. IMPRESSION: No acute abnormality and in particular no evidence of acute infarct. ACT 112: Negative or not required by law. Electronically signed by: Yosi Solomon M.D. 02/24/2022 7:25 AM
[2022-02-24 08:03] LABS: Basophils # (auto) 0.01 K/uL (0-0.2); Basophils % (auto) 0.1 %; Eosinophils # (auto) 0.05 K/uL (0-0.50); Eosinophils % (auto) 0.6 %; Hematocrit (blood only) 44.4 % (34.1-44.9); Immature Granulocytes # (auto) 0.03 K/uL (0.00-0.02); Immature Granulocytes % (auto) 0.3 %; Lymphocytes # (auto) 2.43 K/uL (1.2-3.4); Lymphocytes % (auto) 26.8 %; Mean Corpuscular Hemoglobin 29.9 pg (25.0-34.0); Mean Corpuscular Hgb Conc 33.8 g/dL (32.0-36.0); Mean Corpuscular Volume 88.6 fL (80.0-100.0); Mean Platelet Volume 9.6 fL (9.4-12.3); Monocytes # (auto) 1.03 K/uL (0.24-0.82); Monocytes % (auto) 11.4 %; Neutrophils # (auto) 5.52 K/uL (1.4-6.5); Neutrophils % (auto) 60.8 %; Platelet Count 300 K/uL (130-400); RDW Coefficient of Variation 12.4 % (11.5-14.5); RDW Standard Deviation 40.2 fL (36.4-46.3); Red Blood Count 5.01 M/uL (3.93-5.22); White Blood Count 9.07 K/ul (4.8-10.8)
[2022-02-24] MEDS: TIMOLOL MALEATE 0.5% OP SOLN 5 ML BTL OP SCH (08:45)
[2022-02-24] MEDS: METOPROLOL TARTRATE 50 MG TAB PO SCH ×2 (08:45→20:05)
[2022-02-24] MEDS: MAGNESIUM OXIDE 400 MG TAB PO SCH ×2 (08:45→20:06)
[2022-02-24] MEDS: OMEGA-3 (PURIFIED FISH OIL) 1 GM CAP PO SCH ×2 (08:46→20:05)
[2022-02-24] MEDS: DOCUSATE SODIUM 100 MG CAP PO SCH (08:46)
[2022-02-24] MEDS: CALCIUM CARBONATE 1250MG TAB PO SCH ×2 (08:46→20:06)
[2022-02-24] MEDS: ASPIRIN 81 MG ECTAB PO SCH (08:46)
[2022-02-24] MEDS: amLODIPine BESYLATE 5 MG TAB PO SCH (08:46)
[2022-02-24] MEDS: hydroCHLOROthiazide 25 MG TAB PO SCH (08:46)
[2022-02-24] MEDS: VENLAFAXINE HCL XR 150 MG CAPXR PO SCH (08:46)
[2022-02-24 08:49] LABS: BUN Creatinine Ratio 22.3 (10-20); Calcium 9.7 mg/dl (8.5-10.1); Creatinine Clr Calc Pharmacy 52.3 ml/min; Est GFR (African American) 71.2 ml/min; Est GFR (Non-African American) 61.5 ml/min; Magnesium 1.9 mg/dl (1.7-2.4); Potassium 3.7 mmol/L (3.5-5.1)
[2022-02-24] MEDS: INSULIN ASPART PER UNIT SC SCH ×4 (08:49→20:03)
[2022-02-24] MEDS: LANTUS PER UNIT CHARGE SQ SCH ×2 (08:49→20:03)
[2022-02-24] MEDS: CYANOCOBALAMIN 1000 MCG/ML VIAL IM SCH (12:05)
[2022-02-24] MEDS: ACETAMINOPHEN 325 MG TAB PO PRN ×2 (12:07→16:40)
[2022-02-24] MEDS: ONDANSETRON INJ 2 MG/ML 2 ML VIAL IV PRN (12:07)
[2022-02-24] MEDS: hydrALAZINE HCL 20 MG/ML VIAL IV PRN (13:02)
[2022-02-24] MEDS ORDERED: MECLIZINE 12.5 MG TAB PO PRN (18:53)
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
[2022-02-24] MEDS: VENLAFAXINE HCL XR 75 MG CAPXR PO SCH (20:04)
[2022-02-24] MEDS: SIMVASTATIN 40 MG TAB PO SCH (20:05)
[2022-02-24 21:06] LABS: Albumin Globulin Ratio 1.4 (0.9-2); Albumin Level 4.2 gm/dl (3.4-5.0); BUN Creatinine Ratio 27.6 (10-20); Bilirubin,Total 0.4 mg/dl (0.2-1.0); Calcium 9.7 mg/dl (8.5-10.1); Creatinine Clr Calc Pharmacy 56.5 ml/min; Est GFR (African American) 78.2 ml/min; Est GFR (Non-African American) 67.5 ml/min; Potassium 3.6 mmol/L (3.5-5.1); Total Protein 7.2 gm/dl (6.0-8.3)
[2022-02-25] MEDS: LEVOTHYROXINE SODIUM 100 MCG TABLET PO SCH (05:28)
[2022-02-25 07:05] LABS: Basophils # (auto) 0.02 K/uL (0-0.2); Basophils % (auto) 0.2 %; Eosinophils # (auto) 0.04 K/uL (0-0.50); Eosinophils % (auto) 0.4 %; Hematocrit (blood only) 44.7 % (34.1-44.9); Hemoglobin 15.1 g/dl (12.0-16.0); Immature Granulocytes # (auto) 0.04 K/uL (0.00-0.02); Immature Granulocytes % (auto) 0.4 %; Lymphocytes # (auto) 2.69 K/uL (1.2-3.4); Lymphocytes % (auto) 26.5 %; Mean Corpuscular Hemoglobin 29.7 pg (25.0-34.0); Mean Corpuscular Hgb Conc 33.8 g/dL (32.0-36.0); Mean Platelet Volume 9.4 fL (9.4-12.3); Monocytes % (auto) 11.8 %; Neutrophils # (auto) 6.18 K/uL (1.4-6.5); Neutrophils % (auto) 60.7 %; Platelet Count 293 K/uL (130-400); RDW Coefficient of Variation 12.4 % (11.5-14.5); RDW Standard Deviation 39.9 fL (36.4-46.3); Red Blood Count 5.08 M/uL (3.93-5.22); White Blood Count 10.17 K/ul (4.8-10.8)
[2022-02-25 07:27] LABS: BUN Creatinine Ratio 27.6 (10-20); Calcium 9.7 mg/dl (8.5-10.1); Est GFR (African American) 78.2 ml/min; Est GFR (Non-African American) 67.5 ml/min; Magnesium 1.7 mg/dl (1.7-2.4); Potassium 3.3 mmol/L (3.5-5.1)
[2022-02-25] MEDS: CALCIUM CARBONATE 1250MG TAB PO SCH ×2 (07:59→20:33)
[2022-02-25] MEDS: METOPROLOL TARTRATE 50 MG TAB PO SCH ×2 (07:59→20:34)
[2022-02-25] MEDS: hydroCHLOROthiazide 25 MG TAB PO SCH (07:59)
[2022-02-25] MEDS: ASPIRIN 81 MG ECTAB PO SCH (07:59)
[2022-02-25] MEDS: VENLAFAXINE HCL XR 150 MG CAPXR PO SCH (07:59)
[2022-02-25] MEDS: MAGNESIUM OXIDE 400 MG TAB PO SCH ×2 (07:59→20:32)
[2022-02-25] MEDS: amLODIPine BESYLATE 5 MG TAB PO SCH (08:00)
[2022-02-25] MEDS: OMEGA-3 (PURIFIED FISH OIL) 1 GM CAP PO SCH ×2 (08:00→20:32)
[2022-02-25] MEDS: TIMOLOL MALEATE 0.5% OP SOLN 5 ML BTL OP SCH (08:00)
[2022-02-25] MEDS: CYANOCOBALAMIN 1000 MCG/ML VIAL IM SCH (08:00)
[2022-02-25] MEDS: LANTUS PER UNIT CHARGE SQ SCH ×2 (08:11→20:29)
[2022-02-25] MEDS: INSULIN ASPART PER UNIT SC SCH ×4 (08:11→20:29)
[2022-02-25] MEDS: DOCUSATE SODIUM 100 MG CAP PO SCH (08:12)
[2022-02-25] MEDS: ACETAMINOPHEN 325 MG TAB PO PRN ×2 (10:31→20:30)
[2022-02-25] MEDS ORDERED: POTASSIUM CHLORIDE CRTAB 20 MEQ TABCR PO STA (11:27)
--- NOTE | 2022-02-25 20:09 | Hospitalist Progress Note ---
Date of Service February 25, 2022 Assessment & Plan (1) Acute encephalopathy: Plan: Uncertain etiology. I spoke with Dr Knutson who cared for her prior to me assuming her care. He reports that she was more interactive and more talkative. In fact she was able to answer questions & give history. MRI brain without acute or chronic stroke but severe atrophy noted. Baseline mental status?? B12 level was low - replacing. Check B1 level. TSH wnl and ammonia wnl. If family reports rapidly worsening memory & cognition along with gait impairment and urinary incontinence consider NPH. If NPH is suspected could attempt diagnostic/therapeutic LP on Sunday. Strongly consider neurology consult for their opinion. No obvious infectious etiology seen. To be complete check a COVID/flu/RSV swab as these viral pathogens can cause considerable confusion in some adults. (2) Dizziness: Plan: Patient reported this to Dr Knutson in the last [address] Knutson had started meclizine. Etiology of her dizziness is uncertain. By report it sounds like vertigo -- due to peripheral reason? (ie - inner ear) (3) Headache: Plan: Patient also reported this to Dr Knutson in the last 48 hours in addition to #2. Check a crp/sed rate in am. If high consider TA as cause of presentation as TA can present with not only headache but confusion & other neuro signs/symptoms. (4) Epigastric pain: Plan: abdomen benign on exam today resolved (5) Hypertensive urgency: Plan: Improved s/p increase in amlodipine to 10mg PO daily Continue metoprolol and HCTZ (6) Stroke-like symptoms: Plan: CVA ruled out - MRI brain negative for such stroke-like symptoms -- due to #5? other? (7) Hypomagnesemia: Plan: replaced resolved (8) Type 2 diabetes mellitus: Plan: HbA1C 7.1 Holding glipizide and metformin While inpatient treat with basal bolus insulin Lantus and novolog increase lantus to 10 units BID (9) Hypothyroidism: Plan: TSH 1.223 Continue levothyroxine 100mcg PO daily (10) Hearing difficulty: Plan: SEVERE Requires hearing aids by report but did not have them during my visit today (11) Hyperlipidemia: Plan: Continue simvastatin LFTS wnl (12) Coronary artery disease: Plan: Continue metoprolol, statin, asa No signs of ACS (13) Anxiety: Plan: venlafaxine continued (14) H/O deep venous thrombosis: Plan: 04/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 no longer on anticoagulation (15) Hypokalemia: Plan: replace repeat BMP am Plan will need to get collateral information from family re: her neurocognitive baseline Admission and Anticipated Discharge Date Admission Date: February 22, 2022 Subjective patient sitting in chair during the visit when I came to see her I noted that her IV was lying on the floor she was also picking at the leads and wires of her tele box I said hello and showed her my ID badge - she did not say anything I then asked verbally how she was - she just looked at me I then wrote down on paper "How are you feeling?" she took the pad of paper and looked the the writing - she did not respond verbally; she then started flipping the pages on the paperpad I gave her a pen and showed her the pad once more - the pad said "How are you feeling?" again she simply started flipping the pages staff came to bedside - she did similarly things for them as well per staff she was more oriented and talkative earlier in the day unable to elicit any history or ROS due to confusion & hearing impairment (latter severe) tele overnight - wnl Review of Systems Review of Systems: Unobtainable due to cognitive status Physical Exam Physical Exam: gen - obese, NAD, sitting in chair, occasionally smiling face - right lower facial droop mouth - MMM ears - SEVERE hearing impairment neck - no JVD heart - RRR, s1 s2 lungs - CTA b/l abd - soft ND BS+, apparent nontenderness ext - no edema, pulses 2+ b/l neuro - seems to move all 4 limbs spontaneously & equally, thought blocking? vs expressive aphasia vs other; no tremors noted; ?slight facial droop on right? skin - no rash Results & Data Results & [facility] ([facility]) Vital Signs (Past 12 Hours) Vital Signs Temp Pulse Pulse Resp BP BP Pulse Ox 02/25/22 19:50 37.0 C 86 20 174/97 H 92 02/25/22 15:58 36.9 C 86 18 145/82 H 93 02/25/22 14:14 82 02/25/22 10:55 36.8 C 67 18 172/97 H 92 O2 Del Method 02/25/22 19:50 Room Air 02/25/22 15:58 Room Air 02/25/22 14:14 02/25/22 10:55 Room Air Laboratory Results Laboratory Results - last 24 hr 02/24/22 02/25/22 02/25/22 19:26 06:35 06:35 WBC 10.17 RBC 5.08 Hgb 15.1 Hct 44.7 MCV 88.0 MCH 29.7 MCHC 33.8 RDW Std Deviation 39.9 RDW Coeff of Judy 12.4 Plt Count 293 MPV 9.4 Immature Gran % (Auto) 0.4 Neut % (Auto) 60.7 Lymph % (Auto) 26.5 Isabella % (Auto) 11.8 Eos % (Auto) 0.4 Baso % (Auto) 0.2 Neut # (Auto) 6.18 Lymph # (Auto) 2.69 Isabella # (Auto) 1.20 H Eos # (Auto) 0.04 Baso # (Auto) 0.02 Immature Gran # (Auto) 0.04 H Sodium 133 L 135 L Potassium 3.6 3.3 L Chloride 95 L 97 L Carbon Dioxide 27 27 Anion Gap 11 11 BUN 24 H 24 H Creatinine 0.87 0.87 Est Cr Clr Drug Dosing 56.5 55.0 Est GFR ( Amer) 78.2 78.2 Est GFR (Non-Af Amer) 67.5 67.5 BUN/Creatinine Ratio 27.6 H 27.6 H Glucose 180 H 167 H POC Glucose Calcium 9.7 9.7 Magnesium 1.7 Total Bilirubin 0.4 AST 22 ALT 18 Alkaline Phosphatase 73 Total Protein 7.2 Albumin 4.2 Globulin 3.0 Albumin/Globulin Ratio 1.4 Lipase 44 02/25/22 02/25/22 02/25/22 07:44 11:55 16:37 WBC RBC Hgb Hct MCV MCH MCHC RDW Std Deviation RDW Coeff of Judy Plt Count MPV Immature Gran % (Auto) Neut % (Auto) Lymph % (Auto) Isabella % (Auto) Eos % (Auto) Baso % (Auto) Neut # (Auto) Lymph # (Auto) Isabella # (Auto) Eos # (Auto) Baso # (Auto) Immature Gran # (Auto) Sodium Potassium Chloride Carbon Dioxide Anion Gap BUN Creatinine Est Cr Clr Drug Dosing Est GFR ( Amer) Est GFR (Non-Af Amer) BUN/Creatinine Ratio Glucose POC Glucose 181 H 178 H 215 H Calcium Magnesium Total Bilirubin AST ALT Alkaline Phosphatase Total Protein Albumin Globulin Albumin/Globulin Ratio Lipase 02/25/22 19:42 WBC RBC Hgb Hct MCV MCH MCHC RDW Std Deviation RDW Coeff of Judy Plt Count MPV Immature Gran % (Auto) Neut % (Auto) Lymph % (Auto) Isabella % (Auto) Eos % (Auto) Baso % (Auto) Neut # (Auto) Lymph # (Auto) Isabella # (Auto) Eos # (Auto) Baso # (Auto) Immature Gran # (Auto) Sodium Potassium Chloride Carbon Dioxide Anion Gap BUN Creatinine Est Cr Clr Drug Dosing Est GFR ( Amer) Est GFR (Non-Af Amer) BUN/Creatinine Ratio Glucose POC Glucose 185 H Calcium Magnesium Total Bilirubin AST ALT Alkaline Phosphatase Total Protein Albumin Globulin Albumin/Globulin Ratio Lipase PG Care Time/CCT Total # of Minutes Spent Total Time Spent with Patient: Total time spent is greater than 50% in coordination of care (as documented) at patient's floor/unit and/or counseling patient: Coding Level of Care Code 55072 Subseq Hosp Care Lvl 2 Diagnoses Acute encephalopathy G93.40 Dizziness R42 Headache R51.9 Epigastric pain R10.13 Hypertensive urgency I16.0 Stroke-like symptoms R29.90 Hypomagnesemia E83.42 Type 2 diabetes mellitus E11.9 Hypothyroidism E03.9 Hearing difficulty H91.90 Hyperlipidemia E78.5 Coronary artery disease I25.10 Anxiety F41.9 H/O deep venous thrombosis Z86.718 Hypokalemia E87.6
[2022-02-25] MEDS ORDERED: MELATONIN 3 MG TAB PO PRN (20:10)
[2022-02-25] MEDS: MELATONIN 3 MG TAB PO SCH (20:30)
[2022-02-25] MEDS: SIMVASTATIN 40 MG TAB PO SCH (20:32)
[2022-02-25] MEDS: POTASSIUM CHLORIDE CRTAB 20 MEQ TABCR PO SCH (20:32)
[2022-02-25] MEDS: VENLAFAXINE HCL XR 75 MG CAPXR PO SCH (20:33)
[2022-02-26] MEDS: LEVOTHYROXINE SODIUM 100 MCG TABLET PO SCH (05:58)
[2022-02-26 06:56] LABS: BUN Creatinine Ratio 40.2 (10-20); Calcium 9.4 mg/dl (8.5-10.1); Creatinine Clr Calc Pharmacy 52.9 ml/min; Est GFR (African American) 73.1 ml/min; Est GFR (Non-African American) 63.1 ml/min; Potassium 3.6 mmol/L (3.5-5.1)
[2022-02-26] MEDS: LANTUS PER UNIT CHARGE SQ SCH ×2 (08:12→20:56)
[2022-02-26] MEDS: INSULIN ASPART PER UNIT SC SCH ×4 (08:12→20:56)
[2022-02-26] MEDS: OMEGA-3 (PURIFIED FISH OIL) 1 GM CAP PO SCH ×2 (08:16→20:56)
[2022-02-26] MEDS: POTASSIUM CHLORIDE CRTAB 20 MEQ TABCR PO SCH ×2 (08:16→21:00)
[2022-02-26] MEDS: METOPROLOL TARTRATE 50 MG TAB PO SCH ×2 (08:16→20:58)
[2022-02-26] MEDS: CALCIUM CARBONATE 1250MG TAB PO SCH ×2 (08:16→20:57)
[2022-02-26] MEDS: MAGNESIUM OXIDE 400 MG TAB PO SCH ×2 (08:16→20:57)
[2022-02-26] MEDS: TIMOLOL MALEATE 0.5% OP SOLN 5 ML BTL OP SCH (08:16)
[2022-02-26] MEDS: amLODIPine BESYLATE 5 MG TAB PO SCH (08:17)
[2022-02-26] MEDS: CYANOCOBALAMIN 1000 MCG/ML VIAL IM SCH (08:17)
[2022-02-26] MEDS: hydroCHLOROthiazide 25 MG TAB PO SCH (08:17)
[2022-02-26] MEDS: VENLAFAXINE HCL XR 150 MG CAPXR PO SCH (08:17)
[2022-02-26] MEDS: DOCUSATE SODIUM 100 MG CAP PO SCH (08:19)
[2022-02-26 08:55] LABS: Influenza A virus by PCR Negative (Neg); Influenza B virus by PCR Negative (Neg); RSV by PCR Negative (Neg); SARS CoV2 RNA(COVID-19) Ceph NEGATIVE (Negative)
--- NOTE | 2022-02-26 10:47 | Neurology Consultation ---
Date of Consultation February 26, 2022 Assessment & Plan (1) Acute encephalopathy: (2) Gait disturbance: (3) Hypertension: (4) Hearing difficulty: Plan patient was admitted with acute encephalopathy. She has had some balance and gait issues for months now which may be worse. On examination today she does not have any encephalopathy or dementia. She answers questions follows commands very well. She is extremely hard of hearing but when she can hear she answers well. There are no focal findings but her balance and stance is off. MRI of the brain shows no stroke or posterior fossa issue but she does have moderate old small vessel ischemic disease and generalized atrophy. Radiology report states that the enlarged ventricles are likely due to the generalized atrophy ( hydrocephalus ex vacuo ). I am not certain about this. Patient does have some urinary continence. Patient may have a polyneuropathy affecting her gait. Recommendations: 1. Check B12 and TSH. 2. I see no indication for an LP or EEG at this time. 3. I would consider EMG and nerve conduction studies of the legs as an outpatient. 4. the patient needs her hearing aids 5. We can follow up in Neurology as an outpatient, if desired. Overall, spent a total of 60 minutes with this case including review of records, review of MRI films, direct evaluation the patient bedside, and discussion case with the patient and RN at bedside, and Dr. Scott including differential diagnosis and treatment options. History of Present Illness Reason for Consultation: Patient is a 71-year-old, who I was asked to see at the request of Dr. Scott, for neurologic consultation regarding balance issues and altered mental status. Requesting Physician: Dr. Scott Attending Physician: Heath Scott History of Present Illness this patient has a history of hypertension, type 2 diabetes, and urinary urgency / incontinence followed by Dr. Dumont. She had a left knee replacement in April of this year by Dr. Hernandez and has bilateral knee pain. Gradually over the last 6 months her balance has been worse. She last saw Dr. Dumont February 22 as an outpatient. Later that day the patient came to the emergency room because of confusion and a retic driving. She was slow and had difficulty walking. There are no new medications. In the emergency room she was not confused and had no focal findings. Blood pressure was 180/114 and had remained elevated in the emergency room. laboratory studies revealed a magnesium of 1.4 on admission which has been replaced. Glucose was 156 otherwise Chem profile and CBC were unremarkable. Triglycerides were 221 and total cholesterol 178. CT scan of the head was unremarkable. CT angiography of the head and neck were unremarkable as well. MRI of the brain showed no stroke. There was atrophy and old small vessel ischemic changes of a mild to moderate nature. Ventricles were enlarged radiology felt that it was hydrocephalus ex vacuo. Last evening the patient was very confused. Nursing, this morning says the patient is oriented. Blood pressure today is 159/81.Chem profile this morning was unremarkable although the glucose was 153 and C reactive protein was mildly elevated at 0.82. ESR is normal at 26. she has been remained afebrile with normal white counts Allergies Allergy/AdvReac Type Severity Reaction Status Date / Time lisinopril AdvReac hyperkalemi Verified 02/22/22 14:11 a Home Medications Medication Instructions Recorded Confirmed Type calcium carbonate 600 mg calcium 600 mg PO BID 09/25/18 02/22/22 History (1,500 mg) tablet (Calcium) fish oil-dha-epa 1,200 mg-144 1 cap PO BID 09/25/18 02/22/22 History mg-216 mg capsule albuterol sulfate 90 mcg/actuation 2 puff inhalation Q6H PRN 01/21/20 02/22/22 History aerosol inhaler Shortness Of Breath Or Wheezing timolol 0.5 % eye drops 1 drp ophthalmic (eye) QAM 07/07/20 02/22/22 History acetaminophen 500 mg capsule 1,000 mg PO TID PRN Pain 05/11/21 02/22/22 History naproxen 500 mg tablet (Naprosyn) 500 mg PO BID PRN pain #60 tabs 05/20/21 02/22/22 Rx docusate sodium 100 mg capsule 100 mg PO DAILY 08/04/21 02/22/22 History (Colace) magnesium oxide 400 mg (241.3 mg 400 mg PO DAILY #60 tabs 10/03/21 02/22/22 Rx magnesium) tablet glipizide 5 mg tablet See Rx Instructions .Route 12/23/21 02/22/22 Rx .COMPLEX #450 tabs levothyroxine 100 mcg tablet 100 mcg PO QAM #90 tabs 12/23/21 02/22/22 Rx metformin 500 mg tablet 1,000 mg PO BID #360 tabs 12/23/21 02/22/22 Rx metoprolol tartrate 50 mg tablet 50 mg PO BID #180 tabs 12/23/21 02/22/22 Rx omeprazole 20 mg capsule,delayed 20 mg PO DAILY #90 caps 12/23/21 02/22/22 Rx release simvastatin 40 mg tablet 40 mg PO QPM #90 tabs 12/23/21 02/22/22 Rx venlafaxine 75 mg capsule,extended See Rx Instructions PO BID #270 12/23/21 02/22/22 Rx release 24 hr (Effexor XR) caps amlodipine 5 mg tablet 5 mg PO DAILY #90 tabs 01/06/22 02/22/22 Rx aspirin 81 mg tablet,delayed 81 mg PO DAILY 02/22/22 02/22/22 History release solifenacin 5 mg tablet (Vesicare) 5 mg PO DAILY 02/22/22 02/22/22 History Patient History Medical History Acid reflux Depression with anxiety Fatty liver Generalized osteoarthritis Glaucoma Hearing difficulty Hiatal hernia Hyperlipidemia Hypertension Hypothyroidism Iron deficiency anemia Ischial bursitis Left leg DVT post-up left TKA 04/2021 - completed 6 months anticoagulation Lumbar back pain Multiple pulmonary nodules Obesity Sacroiliac joint pain Type 2 diabetes mellitus Surgical History History of cardiac cath >10 yrs ago ([facility]) > no stents History of carpal tunnel surgery R/L History of cataract surgery R/L History of section x1 History of cholecystectomy History of colonoscopy Colonoscopy (10/02/18): MAC sedation at [facility] History of esophagogastroduodenoscopy (EGD) EGD/colonoscopy (08/25/20): MAC at [facility] History of hysterectomy Total History of tonsillectomy History of tooth extraction S/P trigger finger release left Status post total knee replacement left knee 05/10/21 Family History Father Family history of diabetes mellitus Myocardial infarction, Onset Age: 56 Mother Anxiety Grandfather (Paternal) Throat cancer Other No family history of adverse response to anesthesia Denies family history of Ovarian cancer Prostate cancer Breast cancer Colorectal cancer Social History Smoking Status: Unknown if ever smoked Second Hand Exposure: No; Hx Alcohol Use: No Hx Substance Use: No Preferred Language: Mohawk Communication Ability: Impaired Communication Ability Comment: hard of hearing Visual Impairment: No Limitations Hearing Ability: Use of Hearing Aid Rn Bariatric Required: No Beliefs That Will Affect Care: None marital status: Current Living Situation: Alone Current Living Situation Comment: possible placement- daughter expressed concerns with recent illness current occupational status: retired 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 Constitutional: no fever, no fatigue and no weakness Eyes: no diplopia, no eye pain and no worsening vision Ear, Nose, Mouth, Throat: no ear pain, no tinnitus, no hearing loss, no dizziness, no snoring, no hoarseness and no dysphagia Respiratory: no cough and no dyspnea Cardiovascular: no chest pain, no palpitations and no lightheadedness Gastrointestinal: no abdominal pain, no nausea and no vomiting Genitourinary: no dysuria, no urinary frequency and no urinary incontinence Musculoskeletal: no back pain, no neck pain, no radicular pain, no joint pain and no myalgia Integumentary: no rash and no lesions Neurologic: no gait abnormality, no localized weakness, no generalized weakness, no tingling, no numbness, no tremor(s), no abnormal movements, no headache(s), no abnormal speech, no confusion and no memory loss Psychiatric: no depression, no irritability, no anxiety, no difficulty concentrating, no confusion and no hallucinations Endocrine: no fatigue and no flushing Hematologic / Lymphatic: no easy bleeding and no easy bruising Allergy / Immunological: no urticaria and no problem reported Exam (Neuro) Physical Exam: The patient is right-handed. The patient is very hard of hearing bilaterally. She normally has hearing aides, but can't find them The patient is awake, alert, and attentive. Speech is normal without any aphasia or dysarthria. The patient can name objects, repeat phrases, and has normal spontaneous speech. Mentation and thought processes are intact, with orientation to person, place and time, and normal fund of knowledge. Attention and concentration are normal. Mood and affect are normal and appropriate. General appearance and grooming are normal. Short and long-term memory are intact To conversation. Pupils are 4 mm bilaterally and reactive to light. Extraocular eye muscles are intact without nystagmus. Visual acuity and visual morris seem normal grossly to confrontation. There are no deficits to sensation in the face in all 3 distributions of the fifth cranial nerve bilaterally. Corneal reflexes are positive bilaterally. Facial strength and symmetry was normal bilaterally. There is normal sternocleidomastoid and trapezius (shoulder shrug) strength bilaterally. Tongue is midline with good strength bilaterally. Neck has a full range of motion without discomfort. There are no cervical bruits bilaterally. There are no cranial or ocular bruits. Heart is without murmur. There is a regular rhythm and rate. Cervical, thoracic, and lumbar spine are nontender to palpation. stance sitting up in bed is poor and she tends to fall back and to the right. Stance standing is difficult and needs the assistance of 1. Her gait is very unstable. With outstretched arms there is no drift. There are no resting, postural, or action tremors. There is no ataxia with finger to nose testing. There is good facility in the hands. No other abnormal involuntary movements are noted. Motor strength is 5/5 diffusely in the arms bilaterally including deltoids, biceps, triceps, brachioradialis, wrist flexors and extensors, pot sander, and intrinsic hand muscles. Motor strength is 5/5 diffusely in the legs bilaterally including hip flexors, quadriceps, hamstrings, gastrocnemius, tibialis anterior, tibialis posterior, and Peroneii muscles. Toe extensors are normal and there is good bulk in the extensor digitorum brevis muscles bilaterally. The limbs have good tone without rigidity or spasticity. There is no atrophy noted in the muscles. Muscle bulk is normal, there is no tenderness to palpation, no myotonia to percussion, and no fasciculations seen. Sensory examination is intact to touch and pin throughout all 4 limbs diffusely. Reflexes are 1/4 in the biceps, triceps, brachioradialis, quadriceps, and Achilles tendons bilaterally. There is no clonus bilaterally. Toes are downgoing with plantar stimulation bilaterally. Peripheral pulses are present and of normal quality distally in all 4 limbs. There is no peripheral edema noted in the limbs. Results & Data ([facility]) Vital Signs (Past 12 Hours) Vital Signs Temp Pulse Pulse Resp BP BP Pulse Ox 02/26/22 09:19 02/26/22 07:48 36.5 C 71 18 159/81 H 92 02/26/22 07:04 84 02/26/22 04:31 36.8 C 74 20 136/73 94 02/25/22 23:55 36.8 C 81 20 160/91 H 92 O2 Del Method 02/26/22 09:19 Room Air 02/26/22 07:48 Room Air 02/26/22 07:04 02/26/22 04:31 Room Air 02/25/22 23:55 Room Air PG Care Time/CCT Total # of Minutes Spent Total Time Spent with Patient: Total time spent is greater than 50% in coordination of care (as documented) at patient's floor/unit and/or counseling patient: Coding Level of Care Code 11900 Initial Inpt Care Lvl 3 Diagnoses Acute encephalopathy G93.40 Gait disturbance R26.9 Hypertension I10 Hypertension type: unspecified Hearing difficulty H91.90 (1) Hypertension Hypertension type: unspecified Qualified Code(s): I10 - Essential (primary) hypertension
[2022-02-26] MEDS: SIMVASTATIN 40 MG TAB PO SCH (20:58)
[2022-02-26] MEDS: VENLAFAXINE HCL XR 75 MG CAPXR PO SCH (20:58)
[2022-02-26] MEDS: MELATONIN 3 MG TAB PO SCH (21:00)
--- NOTE | 2022-02-26 21:12 | Hospitalist Progress Note ---
Date of Service February 26, 2022 Assessment & Plan (1) Acute encephalopathy: Plan: Uncertain etiology. I spoke with Dr Knutson who cared for her prior to me assuming her care. Her altered MS is odd - she will be fine for days at at time, then yesterday she was significantly altered, and now today is completely normal. MRI brain without acute or chronic stroke but severe atrophy noted. Baseline mental status - a/o x 3 but son confirmed mild memory issues over last year. B12 level was low - replacing. Check B1 level. TSH wnl and ammonia wnl. COVID/RSV/flu negative. With altered MS, urinary incontinence, and gait disturbance -- NPH? Other? Appreciate Dr Cohen's consultation. We discussed the possibility of an LP. If NPH an LP can be diagnostic - removal of some CSF leads to improvement in gait, etc. LP can also r/o infectious etiologies but highly unlikely. Will order LP for tomorrow. (2) Dizziness: Plan: Patient reported this to Dr Knutson earlier in the stay. Dr Knutson had started meclizine. Etiology of her dizziness is uncertain. By report it sounds like vertigo -- due to peripheral reason? (ie - inner ear) Either way it is resolved. (3) Headache: Plan: Patient also reported this to Dr Knutson early in the stay. crp/sed rate wnl. headache resolved. (4) Epigastric pain: Plan: abdomen benign on exam again today resolved (5) Hypertensive urgency: Plan: Improved s/p increase in amlodipine to 10mg PO daily Continue metoprolol and HCTZ (6) Stroke-like symptoms: Plan: CVA ruled out - MRI brain negative for such stroke-like symptoms -- due to #5? other? (7) Hypomagnesemia: Plan: replaced resolved (8) Type 2 diabetes mellitus: Plan: HbA1C 7.1 Holding glipizide and metformin increased lantus to 10 units BID increase novolog sliding scale (9) Hypothyroidism: Plan: TSH 1.223 Continue levothyroxine 100mcg PO daily (10) Hearing difficulty: Plan: SEVERE Requires hearing aids by report; does not have them with her (11) Hyperlipidemia: Plan: Continue simvastatin LFTS wnl (12) Coronary artery disease: Plan: Continue metoprolol, statin, asa No signs of ACS (13) Anxiety: Plan: venlafaxine continued (14) H/O deep venous thrombosis: Plan: 04/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 no longer on anticoagulation (15) Hypokalemia: Plan: replaced resolved Plan LP tomorrow PT/OT both advise rehab at d/c - I agree w/ their recommendations Admission and Anticipated Discharge Date Admission Date: February 25, 2022 Subjective tele overnight wnl patient is back to baseline - talking, answering questions, etc son at bedside - agrees she was very confused yesterday but he also agrees she is at baseline today son does state they have noted some mild memory loss in the last 6-12 months patient states her walking has worsened last few months and the urinary incontinence is new as well she denies any complaints today eating well Review of Systems Review of Systems: gen - no fever cv - no cp, no orthopnea pulm - no cough, no dyspnea GI - no abd pain or nausea/emesis Physical Exam Physical Exam: gen - obese, NAD, laying in bed; looks MUCH better today; interactive, answering questions normally, talking, etc. mouth - MMM ears - SEVERE hearing impairment neck - no JVD heart - RRR, s1 s2, no murmur lungs - CTA b/l abd - soft ND BS+ NT ext - no edema, pulses 2+ b/l psych - a/o x 3 Results & Data Results & Data ([facility]) Vital Signs (Past 12 Hours) Vital Signs Temp Pulse Pulse Resp BP BP Pulse Ox 02/26/22 19:55 36.4 C L 81 20 133/81 95 02/26/22 16:13 72 02/26/22 15:37 36.9 C 70 18 130/74 93 02/26/22 11:49 36.8 C 70 18 148/80 H 94 02/26/22 09:19 O2 Del Method 02/26/22 19:55 Room Air 02/26/22 16:13 02/26/22 15:37 Room Air 02/26/22 11:49 Room Air 02/26/22 09:19 Room Air Laboratory Results Laboratory Results - last 24 hr 02/26/22 02/26/22 02/26/22 05:55 05:55 05:55 ESR 26 Sodium 138 Potassium 3.6 Chloride 101 Carbon Dioxide 27 Anion Gap 10 BUN 37 H Creatinine 0.92 Est Cr Clr Drug Dosing 52.9 Est GFR ( Amer) 73.1 Est GFR (Non-Af Amer) 63.1 BUN/Creatinine Ratio 40.2 H Glucose 153 H POC Glucose Calcium 9.4 C-Reactive Protein Vitamin B1 Pending SARS-CoV-2 (PCR) Influenza Type A (PCR) Influenza Type B (PCR) RSV (RT-PCR) 02/26/22 02/26/22 02/26/22 05:55 07:45 11:18 ESR Sodium Potassium Chloride Carbon Dioxide Anion Gap BUN Creatinine Est Cr Clr Drug Dosing Est GFR ( Amer) Est GFR (Non-Af Amer) BUN/Creatinine Ratio Glucose POC Glucose 170 H 322 H* Calcium C-Reactive Protein 0.82 H Vitamin B1 SARS-CoV-2 (PCR) Influenza Type A (PCR) Influenza Type B (PCR) RSV (RT-PCR) 02/26/22 02/26/22 02/26/22 11:20 11:20 17:14 ESR Sodium Potassium Chloride Carbon Dioxide Anion Gap BUN Creatinine Est Cr Clr Drug Dosing Est GFR ( Amer) Est GFR (Non-Af Amer) BUN/Creatinine Ratio Glucose POC Glucose 343 H* 326 H* 125 H Calcium C-Reactive Protein Vitamin B1 SARS-CoV-2 (PCR) Influenza Type A (PCR) Influenza Type B (PCR) RSV (RT-PCR) 02/26/22 02/26/22 20:50 Unknown ESR Sodium Potassium Chloride Carbon Dioxide Anion Gap BUN Creatinine Est Cr Clr Drug Dosing Est GFR ( Amer) Est GFR (Non-Af Amer) BUN/Creatinine Ratio Glucose POC Glucose 178 H Calcium C-Reactive Protein Vitamin B1 SARS-CoV-2 (PCR) NEGATIVE Influenza Type A (PCR) Negative Influenza Type B (PCR) Negative RSV (RT-PCR) Negative PG Care Time/CCT Total # of Minutes Spent Total Time Spent with Patient: Total time spent is greater than 50% in coordination of care (as documented) at patient's floor/unit and/or counseling patient: Coding Level of Care Code 21138 Subseq Hosp Care Lvl 3 Diagnoses Acute encephalopathy G93.40 Dizziness R42 Headache R51.9 Epigastric pain R10.13 Hypertensive urgency I16.0 Stroke-like symptoms R29.90 Hypomagnesemia E83.42 Type 2 diabetes mellitus E11.9 Hypothyroidism E03.9 Hearing difficulty H91.90 Hyperlipidemia E78.5 Coronary artery disease I25.10 Anxiety F41.9 H/O deep venous thrombosis Z86.718 Hypokalemia E87.6
[2022-02-27] MEDS: LEVOTHYROXINE SODIUM 100 MCG TABLET PO SCH (05:51)
[2022-02-27] MEDS: CALCIUM CARBONATE 1250MG TAB PO SCH ×2 (08:50→21:00)
[2022-02-27] MEDS: OMEGA-3 (PURIFIED FISH OIL) 1 GM CAP PO SCH ×2 (08:50→20:58)
[2022-02-27 08:51] LABS: Hematocrit (blood only) 45.1 % (34.1-44.9); Hemoglobin 15.2 g/dl (12.0-16.0); Mean Corpuscular Hemoglobin 29.9 pg (25.0-34.0); Mean Corpuscular Hgb Conc 33.7 g/dL (32.0-36.0); Mean Corpuscular Volume 88.6 fL (80.0-100.0); Mean Platelet Volume 9.7 fL (9.4-12.3); Platelet Count 323 K/uL (130-400); RDW Coefficient of Variation 12.6 % (11.5-14.5); Red Blood Count 5.09 M/uL (3.93-5.22); White Blood Count 8.74 K/ul (4.8-10.8)
[2022-02-27] MEDS: VENLAFAXINE HCL XR 150 MG CAPXR PO SCH (08:51)
[2022-02-27] MEDS: CYANOCOBALAMIN 1000 MCG/ML VIAL IM SCH (08:51)
[2022-02-27] MEDS: MAGNESIUM OXIDE 400 MG TAB PO SCH ×2 (08:51→20:59)
[2022-02-27] MEDS: CYANOCOBALAMIN (B-12) 500 MCG TABLET PO SCH (08:51)
[2022-02-27] MEDS: METOPROLOL TARTRATE 50 MG TAB PO SCH ×2 (08:51→21:00)
[2022-02-27] MEDS: POTASSIUM CHLORIDE CRTAB 20 MEQ TABCR PO SCH ×2 (08:52→20:59)
[2022-02-27] MEDS: amLODIPine BESYLATE 5 MG TAB PO SCH (08:52)
[2022-02-27] MEDS: TIMOLOL MALEATE 0.5% OP SOLN 5 ML BTL OP SCH (08:52)
[2022-02-27] MEDS: INSULIN ASPART PER UNIT SC SCH ×4 (08:53→20:55)
[2022-02-27] MEDS: hydroCHLOROthiazide 25 MG TAB PO SCH (08:53)
[2022-02-27] MEDS: LANTUS PER UNIT CHARGE SQ SCH ×2 (08:54→20:55)
[2022-02-27] MEDS: DOCUSATE SODIUM 100 MG CAP PO SCH (09:06)
[2022-02-27 09:15] LABS: BUN Creatinine Ratio 32.4 (10-20); Calcium 9.4 mg/dl (8.5-10.1); Creatinine Clr Calc Pharmacy 43.4 ml/min; Est GFR (African American) 58.3 ml/min; Est GFR (Non-African American) 50.3 ml/min; Potassium 3.8 mmol/L (3.5-5.1)
--- NOTE | 2022-02-27 15:06 | Fluoroscopy Report ---
FLUOROSCOPICALLY GUIDED LUMBAR PUNCTURE CLINICAL HISTORY: episodes altered MS, r/o infectious process FLUOROSCOPY TIME: 0.9 minutes NUMBER OF FLUOROSCOPIC IMAGES: 2 PROCEDURE: The procedure, risks and benefits were discussed with the patient's daughter and the will ent including the risk of spinal headache, bleeding and infection. Given patient's altered mental sta tus, the patient's daughter agreed to the procedure and informed written consent was obtained. The pr ocedure was performed by Dr. Dumont following a timeout. The left L4-L5 interlaminar space was tar geted. Skin overlying the space was prepped and draped in sterile fashion and local anesthesia was ac hieved with 1% lidocaine. Under intermittent fluoroscopic guidance, a 5 inch, 22-gauge spinal needle was directed thecal sac. CSF was initially blood-tinged but quickly cleared. Opening pressure was 12 cm of water. Despite multiple attempted repositioning, only 4 cc of CSF could be collected. This was placed in 3 vials and sent to the laboratory for analysis as ordered. The needle was removed. The pat ient tolerated the procedure well and no immediate complications were evident. IMPRESSION: 1. Fluoroscopically guided lumbar puncture with collection of 4 cc of cerebrospinal fluid which was s ent to the laboratory for analysis as ordered. Fluid initially blood-tinged but quickly cleared. Desp ite multiple attempts at repositioning, no additional fluid could be collected. 2. Opening pressure of 12 cm of water. ACT 112: Negative or not required by law. Electronically signed by: Avtar Dumont M.D. 02/27/2022 3:05 PM
[2022-02-27 15:37] LABS: CSF Glucose 130 mg/dl (40-70)
[2022-02-27 15:45] LABS: Appearance CSF Clear; CSF Count Tube # 3; CSF Xanthrochromic No xanthochromia; Color CSF Colorless
[2022-02-27 16:01] LABS: CSF Chemistry Tube # 1
[2022-02-27] MEDS: SIMVASTATIN 40 MG TAB PO SCH (20:59)
[2022-02-27] MEDS: VENLAFAXINE HCL XR 75 MG CAPXR PO SCH (21:00)
[2022-02-27] MEDS: MELATONIN 3 MG TAB PO SCH (21:02)
--- NOTE | 2022-02-27 22:03 | Hospitalist Progress Note ---
Date of Service February 27, 2022 Assessment & Plan (1) Acute encephalopathy: Plan: Present on admission -- Uncertain etiology. Mental status had improved, then on 02/25, was very confused much of the day but by 02/26 was again back to baseline. She is at baseline again today as well. MRI brain without acute or chronic stroke but severe atrophy noted. Baseline mental status - a/o x 3 but son confirmed mild memory issues over last year. B12 level was low - replacing. Checked B1 level. While level is pending place on empiric B1 200mg BID. TSH wnl and ammonia wnl. COVID/RSV/flu negative. With altered MS, urinary incontinence, and gait disturbance -- NPH? Other? Appreciate Dr Cohen's consultation from [facility] [place] neurolog. We discussed the possibility of an LP. If NPH an LP can be diagnostic - removal of some CSF leads to improvement in gait, etc. Patient did have LP today under fluoro - opening pressure 12, zero WBCs, mildly bloody tap (500 RBCs) but no xanthochromia. She did not notice any change in her gait following the LP. Dr Cohen recommended EMG studies post-d/c to rule out diabetic neuropathy as the cause of gait disturbance, but even if present, that would not cause her mental status issues. (2) Dizziness: Plan: Patient reported this to Dr Knutson earlier in the stay. Dr Knutson had started meclizine. Etiology of her dizziness was uncertain. By report it sounded like vertigo -- due to peripheral reason? (ie - inner ear) Either way it is resolved. (3) Headache: Plan: Patient also reported this to Dr Knutson early in the stay. crp/sed rate wnl. headache resolved. MRI brain negative. No infectious cause of her headache and her LP today is not suspicious for infection. (4) Epigastric pain: Plan: abdomen benign on exam again today resolved (5) Hypertensive urgency: Plan: Improved s/p increase in amlodipine to 10mg PO daily Continue metoprolol and HCTZ (6) Stroke-like symptoms: Plan: CVA ruled out - MRI brain negative for such stroke-like symptoms -- due to #5? other? 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 no longer on anticoagulation (15) Hypokalemia: Plan: replaced resolved Plan PT/OT both advise rehab at d/c - social work to assist w/ dispo left message for pt's daughter on her voicemail this evening Admission and Anticipated Discharge Date Admission Date: February 25, 2022 Subjective saw patient after her LP she reported feeling well no headache when getting up/standing she was very awake/alert during my visit today patient reports no change in gait or urinary incontinence following her LP today patient reports no new complaints she voices that she feels well we discussed rehab post-d/c -- she is agreeable tele overnight wnl Review of Systems Review of Systems: gen - feels good, normal appetite cv - no orthopnea, no cp pulm - no dyspnea, no cough GI - no abd pain, nausea or vomiting Physical Exam Physical Exam: gen - obese, NAD, laying in bed comfortably, awake/alert mouth - MMM ears - SEVERE hearing impairment - baseline neck - no JVD heart - RRR, s1 s2, no murmur lungs - CTA b/l abd - soft ND BS+ NT ext - no edema, pulses 2+ b/l psych - a/o x 3 Results & Data Results & Data ([facility]) Vital Signs (Past 12 Hours) Vital Signs Temp Pulse Pulse Resp BP BP Pulse Ox 02/27/22 19:00 36.8 C 83 18 147/84 H 94 02/27/22 16:28 36.5 C 78 16 154/82 H 94 02/27/22 15:58 37.1 C 75 18 155/81 H 93 02/27/22 15:49 75 02/27/22 15:28 36.6 C 75 16 162/84 H 94 02/27/22 15:13 36.7 C 76 16 168/81 H 94 02/27/22 11:03 36.6 C 70 18 134/69 95 O2 Del Method 02/27/22 19:00 Room Air 02/27/22 16:28 Room Air 02/27/22 15:58 Room Air 02/27/22 15:49 02/27/22 15:28 Room Air 02/27/22 15:13 Room Air 02/27/22 11:03 Room Air Laboratory Results Laboratory Results - last 24 hr 02/27/22 02/27/22 02/27/22 07:53 08:29 08:29 WBC 8.74 RBC 5.09 Hgb 15.2 Hct 45.1 H MCV 88.6 MCH 29.9 MCHC 33.7 RDW Std Deviation 41.0 RDW Coeff of Judy 12.6 Plt Count 323 MPV 9.7 Sodium 139 Potassium 3.8 Chloride 100 Carbon Dioxide 31 Anion Gap 8 BUN 36 H Creatinine 1.11 Est Cr Clr Drug Dosing 43.4 Est GFR ( Amer) 58.3 Est GFR (Non-Af Amer) 50.3 BUN/Creatinine Ratio 32.4 H Glucose 200 H POC Glucose 152 H Calcium 9.4 Fld Lyme DNA (PCR) Fluid Comment CSF Appearance CSF Color Xanthrochromic CSF WBC CSF RBC CSF Cell Count Tube # CSF Chemistry Tube # CSF Glucose CSF Total Protein Lyme Specimen Source 02/27/22 02/27/22 02/27/22 11:45 11:47 11:48 WBC RBC Hgb Hct MCV MCH MCHC RDW Std Deviation RDW Coeff of Judy Plt Count MPV Sodium Potassium Chloride Carbon Dioxide Anion Gap BUN Creatinine Est Cr Clr Drug Dosing Est GFR ( Amer) Est GFR (Non-Af Amer) BUN/Creatinine Ratio Glucose POC Glucose 387 H* 334 H* 328 H* Calcium Fld Lyme DNA (PCR) Fluid Comment CSF Appearance CSF Color Xanthrochromic CSF WBC CSF RBC CSF Cell Count Tube # CSF Chemistry Tube # CSF Glucose CSF Total Protein Lyme Specimen Source 02/27/22 02/27/22 02/27/22 14:25 14:25 14:25 WBC RBC Hgb Hct MCV MCH MCHC RDW Std Deviation RDW Coeff of Judy Plt Count MPV Sodium Potassium Chloride Carbon Dioxide Anion Gap BUN Creatinine Est Cr Clr Drug Dosing Est GFR ( Amer) Est GFR (Non-Af Amer) BUN/Creatinine Ratio Glucose POC Glucose Calcium Fld Lyme DNA (PCR) Fluid Comment CSF Appearance Clear CSF Color Colorless Xanthrochromic No xanthochromia CSF WBC 0 CSF RBC 600 CSF Cell Count Tube # 3 CSF Chemistry Tube # 1 CSF Glucose 130 H CSF Total Protein 83.9 H Lyme Specimen Source 02/27/22 02/27/22 02/27/22 14:25 16:41 20:35 WBC RBC Hgb Hct MCV MCH MCHC RDW Std Deviation RDW Coeff of Judy Plt Count MPV Sodium Potassium Chloride Carbon Dioxide Anion Gap BUN Creatinine Est Cr Clr Drug Dosing Est GFR ( Amer) Est GFR (Non-Af Amer) BUN/Creatinine Ratio Glucose POC Glucose 217 H 161 H Calcium Fld Lyme DNA (PCR) Pending Fluid Comment CSF Appearance CSF Color Xanthrochromic CSF WBC CSF RBC CSF Cell Count Tube # CSF Chemistry Tube # CSF Glucose CSF Total Protein Lyme Specimen Source Pending PG Care Time/CCT Total # of Minutes Spent Total Time Spent with Patient: Total time spent is greater than 50% in coordination of care (as documented) at patient's floor/unit and/or counseling patient: Coding Level of Care Code 70222 Subseq Hosp Care Lvl 2 Diagnoses Acute encephalopathy G93.40 Dizziness R42 Headache R51.9 Epigastric pain R10.13 Hypertensive urgency I16.0 Stroke-like symptoms R29.90 Hypomagnesemia E83.42 Type 2 diabetes mellitus E11.9 Hypothyroidism E03.9 Hearing difficulty H91.90 Hyperlipidemia E78.5 Coronary artery disease I25.10 Anxiety F41.9 H/O deep venous thrombosis Z86.718 Hypokalemia E87.6
[2022-02-28] MEDS: LEVOTHYROXINE SODIUM 100 MCG TABLET PO SCH (05:24)
[2022-02-28] MEDS: METOPROLOL TARTRATE 50 MG TAB PO SCH ×2 (08:16→21:44)
[2022-02-28] MEDS: CALCIUM CARBONATE 1250MG TAB PO SCH ×2 (08:17→21:43)
[2022-02-28] MEDS: MAGNESIUM OXIDE 400 MG TAB PO SCH ×2 (08:17→21:43)
[2022-02-28] MEDS: POTASSIUM CHLORIDE CRTAB 20 MEQ TABCR PO SCH ×2 (08:17→21:45)
[2022-02-28] MEDS: hydroCHLOROthiazide 25 MG TAB PO SCH (08:17)
[2022-02-28] MEDS: OMEGA-3 (PURIFIED FISH OIL) 1 GM CAP PO SCH ×2 (08:18→21:43)
[2022-02-28] MEDS: VENLAFAXINE HCL XR 150 MG CAPXR PO SCH (08:18)
[2022-02-28] MEDS: amLODIPine BESYLATE 5 MG TAB PO SCH (08:18)
[2022-02-28] MEDS: CYANOCOBALAMIN (B-12) 500 MCG TABLET PO SCH (08:18)
[2022-02-28] MEDS: TIMOLOL MALEATE 0.5% OP SOLN 5 ML BTL OP SCH (08:19)
[2022-02-28] MEDS: THIAMINE HCL 100 MG TAB PO SCH ×2 (08:22→21:45)
[2022-02-28] MEDS: INSULIN ASPART PER UNIT SC SCH ×4 (08:24→21:42)
[2022-02-28] MEDS: LANTUS PER UNIT CHARGE SQ SCH ×2 (08:24→21:42)
[2022-02-28] MEDS: DOCUSATE SODIUM 100 MG CAP PO SCH (08:38)
[2022-02-28] MEDS ORDERED: ASPIRIN 81 MG ECTAB PO ONE (10:00)
[2022-02-28] MEDS: ACETAMINOPHEN 325 MG TAB PO PRN ×2 (11:15→21:44)
--- NOTE | 2022-02-28 18:10 | Hospitalist Progress Note ---
Date of Service February 28, 2022 Assessment & Plan (1) Acute encephalopathy: Plan: Present on admission -- Uncertain etiology. Mental status had improved, then on 02/25, was very confused much of the day but by 02/26 was again back to baseline. She is at baseline again today as well. MRI brain without acute or chronic stroke but severe atrophy noted. MRI reviewed with the neurologist Baseline mental status - a/o x 3 but son confirmed mild memory issues over last year. B12 level was low - replacing. Checked B1 level. While level is pending place on empiric B1 200mg BID. TSH wnl and ammonia wnl. COVID/RSV/flu negative. Was quite hypertensive on admission and could be hypertensive encephalopathy With altered MS, urinary incontinence, and gait disturbance -- NPH? Other? Appreciate Dr Cohen's consultation from [facility] [place] neurolog. We discussed the possibility of an LP. If NPH an LP can be diagnostic - removal of some CSF leads to improvement in gait, etc. Patient did have LP on 02/27 under fluoro - opening pressure 12, zero WBCs, mildly bloody tap (500 RBCs) but no xanthochromia. Only four mL of CSF were able to be collected thus could not really be diagnostic/therapeutic for NPH as a large volume would have to be removed as per my discussion with neurology She did not notice any change in her gait following the LP. Dr Cohen recommended EMG studies post-d/c to rule out diabetic neuropathy as the cause of gait disturbance, but even if present, that would not cause her mental status issues. -Plan to have her follow-up with neurology, Dr. Cohen, after discharge for EMG. He will consider ordering a radionucleotide cisternogram which is a diagnostic study for NPH -Continue to control blood pressures (2) Dizziness: Plan: Patient reported this to Dr Knutson earlier in the stay. Dr Knutson had started meclizine. Etiology of her dizziness was uncertain. By report it sounded like vertigo -- due to peripheral reason? (ie - inner ear) Either way it is resolved. (3) Headache: Plan: Patient also reported this to Dr Knutson early in the stay. crp/sed rate wnl. headache resolved. MRI brain negative. No infectious cause of her headache and her LP today is not suspicious for infection. Follow CSF culture-no growth to date 0 WBCs on CSF fluid Protein elevated but in the setting of 600 RBCs (4) Hypertensive urgency: Plan: Improved s/p increase in amlodipine to 10mg PO daily Continue metoprolol and HCTZ (5) Type 2 diabetes mellitus: Plan: HbA1C 7.1 Holding glipizide and metformin With hyperglycemia at lunchtime Continue lantus to 10 units BID increase novolog sliding scale again to correction factor of 18, leave carb ratio at 1-8 (6) Hypothyroidism: Plan: TSH 1.223 Continue levothyroxine 100mcg PO daily (7) Hearing difficulty: Plan: SEVERE Requires hearing aids (8) Hyperlipidemia: Plan: Continue simvastatin LFTS wnl (9) Coronary artery disease: Plan: Continue metoprolol, statin, asa No signs of ACS (10) Anxiety: Plan: venlafaxine continued (11) H/O deep venous thrombosis: Plan: 04/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 Denies chest pains or shortness of breath. She knows where she is and what year does. She understands she is awaiting rehab placement. We discussed plans for EMG as an outpatient and her B12 deficiency as causes of the issues with her legs. She reported she had a headache earlier today but is now gone Telemetry with normal sinus rhythm with rates in the 60s to 70s Review of Systems Review of Systems: All systems reviewed & are unremarkable except as noted in HPI & below Physical Exam Physical Exam: gen - obese, NAD, sitting up in chair mouth - MMM ears - SEVERE hearing impairment - baseline heart - RRR, s1 s2, no murmur lungs - CTA b/l abd - soft ND BS+ NT ext - no edema, pulses 2+ b/l psych - a/o x 3, moves all extremities equally, no facial droop Results & Data Results & Data ([facility]) Vital Signs (Past 12 Hours) Vital Signs Temp Pulse Pulse Resp BP Pulse Ox O2 Del Method 02/28/22 16:58 67 02/28/22 14:55 36.5 C 66 18 148/78 H 96 Room Air 02/28/22 10:48 36.9 C 71 18 135/74 96 Room Air 02/28/22 08:50 Room Air 02/28/22 07:30 67 02/28/22 07:50 36.5 C 79 18 155/84 H 98 Room Air Laboratory Results 02/28/22 02/28/22 02/28/22 Range/Units 16:31 11:46 11:45 POC Glucose 172 H 350 H* 371 H* (70-99) mg/dl 02/28/22 02/27/22 Range/Units 07:41 20:35 POC Glucose 176 H 161 H (70-99) mg/dl PG Care Time/CCT Total # of Minutes Spent Total Time Spent with Patient: Total time spent is greater than 50% in coordination of care (as documented) at patient's floor/unit and/or counseling patient: Coding Level of Care Code 35498 Subseq Hosp Care Lvl 2 Diagnoses Acute encephalopathy G93.40 Dizziness R42 Headache R51.9 Hypertensive urgency I16.0 Type 2 diabetes mellitus E11.9 Hypothyroidism E03.9 Hearing difficulty H91.90 Hyperlipidemia E78.5 Coronary artery disease I25.10 Anxiety F41.9 H/O deep venous thrombosis Z86.718
[2022-02-28] MEDS: MELATONIN 3 MG TAB PO SCH (21:44)
[2022-02-28] MEDS: VENLAFAXINE HCL XR 75 MG CAPXR PO SCH (21:45)
[2022-02-28] MEDS: SIMVASTATIN 40 MG TAB PO SCH (21:46)
[2022-03-01] MEDS: LEVOTHYROXINE SODIUM 100 MCG TABLET PO SCH (05:44)
[2022-03-01] MEDS: CYANOCOBALAMIN (B-12) 500 MCG TABLET PO SCH (08:28)
[2022-03-01] MEDS: hydroCHLOROthiazide 25 MG TAB PO SCH (08:28)
[2022-03-01] MEDS: amLODIPine BESYLATE 5 MG TAB PO SCH (08:28)
[2022-03-01] MEDS: VENLAFAXINE HCL XR 150 MG CAPXR PO SCH (08:29)
[2022-03-01] MEDS: THIAMINE HCL 100 MG TAB PO SCH ×2 (08:29→20:04)
[2022-03-01] MEDS: ASPIRIN 81 MG ECTAB PO SCH (08:29)
[2022-03-01] MEDS: OMEGA-3 (PURIFIED FISH OIL) 1 GM CAP PO SCH ×2 (08:29→19:57)
[2022-03-01] MEDS: TIMOLOL MALEATE 0.5% OP SOLN 5 ML BTL OP SCH (08:30)
[2022-03-01] MEDS: LANTUS PER UNIT CHARGE SQ SCH ×2 (08:32→20:45)
[2022-03-01] MEDS: INSULIN ASPART PER UNIT SC SCH ×4 (08:32→20:38)
[2022-03-01] MEDS: POTASSIUM CHLORIDE CRTAB 20 MEQ TABCR PO SCH ×2 (08:37→20:04)
[2022-03-01] MEDS: DOCUSATE SODIUM 100 MG CAP PO SCH (08:37)
[2022-03-01] MEDS: METOPROLOL TARTRATE 50 MG TAB PO SCH ×2 (09:29→20:05)
[2022-03-01] MEDS: CALCIUM CARBONATE 1250MG TAB PO SCH ×2 (09:29→19:58)
[2022-03-01] MEDS: MAGNESIUM OXIDE 400 MG TAB PO SCH ×2 (09:29→20:05)
--- NOTE | 2022-03-01 16:19 | Hospitalist Progress Note ---
Date of Service March 01, 2022 Assessment & Plan (1) Acute encephalopathy: Plan: Present on admission -- Uncertain etiology except perhaps hypertensive encephalopathy Mental status had improved, then on 02/25, was very confused much of the day but by 02/26 was again back to baseline where she remains. Family does not report any underlying known cognitive impairment, but family is concerned that the patient is developing dementia Baseline mental status - a/o x 3 but son confirmed mild memory issues over last year. MRI brain without acute or chronic stroke but severe atrophy noted. MRI reviewed with the neurologist B12 level was low - replacing. Checked B1 level. While level is pending place on empiric B1 200mg BID. TSH wnl and ammonia wnl. COVID/RSV/flu negative. Was quite hypertensive on admission and could be hypertensive encephalopathy With altered MS, urinary incontinence, and gait disturbance -- NPH? Other? Appreciate Dr Cohen's consultation from [facility] [place] neurolog. If NPH an LP can be diagnostic - removal of some CSF leads to improvement in gait, etc. Patient did have LP on 02/27 under fluoro - opening pressure 12, zero WBCs, mildly bloody tap (500 RBCs) but no xanthochromia. Only four mL of CSF were able to be collected thus could not really be diagnostic/therapeutic for NPH as a large volume would have to be removed as per my discussion with neurology She did not notice any change in her gait following the LP. Dr Cohen recommended EMG studies post-d/c to rule out diabetic neuropathy as the cause of gait disturbance, but even if present, that would not cause her mental status issues. -Plan to have her follow-up with neurology, Dr. Cohen, after discharge for EMG. He will consider ordering a radionucleotide cisternogram which is a diagnostic study for NPH -Follow-up on B1 level when available -Continue B12 replacement -Continue to control blood pressures as below -Consider neuropsychological testing to evaluate for dementia -Recommend no driving at this time (2) Dizziness: Plan: Patient reported this to Dr Knutson earlier in the stay. Dr Knutson had started meclizine. Etiology of her dizziness was uncertain. By report it sounded like vertigo -- due to peripheral reason? (ie - inner ear) Either way it is resolved. (3) Headache: Plan: Patient also reported this to Dr Knutson early in the stay. crp/sed rate wnl. headache resolved but did report a mild headache on 12/14 MRI brain negative. No infectious cause of her headache and her LP today is not suspicious for i nfection. Follow CSF culture-no growth to date 0 WBCs on CSF fluid Protein elevated but in the setting of 600 RBCs (4) Hypertensive urgency: Plan: Improved s/p increase in amlodipine to 10mg PO daily Continue metoprolol and HCTZ was started this admission-we will increase to 25 Mg p.o. once daily (5) Type 2 diabetes mellitus: Plan: HbA1C 7.1 Holding glipizide and metformin With persistent hyperglycemia at lunchtime Increase lantus to 12 units BID increase novolog sliding scale again for the morning insulin given lunchtime highs (6) Hypothyroidism: Plan: TSH 1.223 Continue levothyroxine 100mcg PO daily (7) Hearing difficulty: Plan: SEVERE Requires hearing aids but unfortunately lost them here at the hospital (8) Hyperlipidemia: Plan: Continue simvastatin LFTS wnl (9) Coronary artery disease: Plan: Continue metoprolol, statin, asa No signs of ACS (10) Anxiety: Plan: venlafaxine continued (11) H/O deep venous thrombosis: Plan: 04/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 No dizziness. No chest pains or shortness of breath,. Does also report some mild abdominal pain. Thinks that she has not moved her bowels in 2 weeks but nursing reports she moved her bowels yesterday. When I checked back on her again later in the day with her family present, she was out of bed to chair and felt normal, was eating and drinking without difficulty. Telemetry with normal sinus rhythm with rates in the 60s 70s. Review of Systems Review of Systems: All systems reviewed & are unremarkable except as noted in HPI & below Physical Exam Physical Exam: gen - obese, NAD, sitting up in chair mouth - MMM ears - SEVERE hearing impairment - baseline heart - RRR, s1 s2, no murmur lungs - CTA b/l abd - soft ND BS+ NT ext - no edema, pulses 2+ b/l psych - a/o x 3, moves all extremities equally, no facial droop Results & Data Results & Data ([facility]) Vital Signs (Past 12 Hours) Vital Signs Temp Pulse Pulse Resp BP BP Pulse Ox 03/01/22 15:09 36.3 C L 77 17 147/82 H 97 03/01/22 11:05 36.8 C 78 18 168/92 H 96 03/01/22 08:00 03/01/22 07:56 36.7 C 71 18 150/72 H 94 03/01/22 06:49 72 O2 Del Method 03/01/22 15:09 Room Air 03/01/22 11:05 Room Air 03/01/22 08:00 Room Air 03/01/22 07:56 Room Air 03/01/22 06:49 Laboratory Results 03/01/22 03/01/22 03/01/22 Range/Units 16:15 11:17 11:16 POC Glucose 192 H 396 H* 379 H* (70-99) mg/dl 03/01/22 02/28/22 Range/Units 07:52 20:06 POC Glucose 190 H 148 H (70-99) mg/dl PG Care Time/CCT Total # of Minutes Spent Total Time Spent with Patient: Total time spent is greater than 50% in coordination of care (as documented) at patient's floor/unit and/or counseling patient: Coding Level of Care Code 32059 Subseq Hosp Care Lvl 2 Diagnoses Acute encephalopathy G93.40 Dizziness R42 Headache R51.9 Hypertensive urgency I16.0 Type 2 diabetes mellitus E11.9 Hypothyroidism E03.9 Hearing difficulty H91.90 Hyperlipidemia E78.5 Coronary artery disease I25.10 Anxiety F41.9 H/O deep venous thrombosis Z86.718
[2022-03-01] MEDS: ACETAMINOPHEN 325 MG TAB PO PRN (16:28)
[2022-03-01] MEDS: SIMVASTATIN 40 MG TAB PO SCH (19:58)
[2022-03-01] MEDS: VENLAFAXINE HCL XR 75 MG CAPXR PO SCH (20:05)
[2022-03-01] MEDS: MELATONIN 3 MG TAB PO SCH (20:06)
[2022-03-02] MEDS: LEVOTHYROXINE SODIUM 100 MCG TABLET PO SCH (05:48)
[2022-03-02 07:56] LABS: BUN Creatinine Ratio 32.7 (10-20); Calcium 9.1 mg/dl (8.5-10.1); Creatinine Clr Calc Pharmacy 47.6 ml/min; Est GFR (African American) 65.3 ml/min; Est GFR (Non-African American) 56.4 ml/min; Magnesium 1.6 mg/dl (1.7-2.4); Potassium 3.7 mmol/L (3.5-5.1)
[2022-03-02] MEDS: INSULIN ASPART PER UNIT SC SCH ×4 (08:28→20:21)
[2022-03-02] MEDS: MAGNESIUM OXIDE 400 MG TAB PO SCH ×2 (08:29→20:07)
[2022-03-02] MEDS: CALCIUM CARBONATE 1250MG TAB PO SCH ×2 (08:29→20:09)
[2022-03-02] MEDS: hydroCHLOROthiazide 25 MG TAB PO SCH (08:29)
[2022-03-02] MEDS: THIAMINE HCL 100 MG TAB PO SCH ×2 (08:30→20:13)
[2022-03-02] MEDS: METOPROLOL TARTRATE 50 MG TAB PO SCH ×2 (08:30→20:15)
[2022-03-02] MEDS: OMEGA-3 (PURIFIED FISH OIL) 1 GM CAP PO SCH ×2 (08:30→20:08)
[2022-03-02] MEDS: CYANOCOBALAMIN (B-12) 500 MCG TABLET PO SCH (08:30)
[2022-03-02] MEDS: amLODIPine BESYLATE 5 MG TAB PO SCH (08:31)
[2022-03-02] MEDS: DOCUSATE SODIUM 100 MG CAP PO SCH (08:32)
[2022-03-02] MEDS: POTASSIUM CHLORIDE CRTAB 20 MEQ TABCR PO SCH ×2 (08:32→20:07)
[2022-03-02] MEDS: ASPIRIN 81 MG ECTAB PO SCH (08:32)
[2022-03-02] MEDS: LANTUS PER UNIT CHARGE SQ SCH ×2 (08:32→20:21)
[2022-03-02] MEDS: VENLAFAXINE HCL XR 150 MG CAPXR PO SCH (08:33)
[2022-03-02] MEDS: TIMOLOL MALEATE 0.5% OP SOLN 5 ML BTL OP SCH (08:33)
[2022-03-02] MEDS: MAGNESIUM SULFATE / D5W 1 GM/100 ML BAG IV SCH ×2 (11:03→13:09)
[2022-03-02] MEDS: ACETAMINOPHEN 325 MG TAB PO PRN (17:28)
--- NOTE | 2022-03-02 17:33 | Hospitalist Progress Note ---
Date of Service March 02, 2022 Assessment & Plan (1) Acute encephalopathy: Plan: Present on admission -- Uncertain etiology except perhaps hypertensive encephalopathy Mental status had improved, then on 02/25, was very confused much of the day but by 02/26 was again back to baseline where she remains. Family does not report any underlying known cognitive impairment, but family is concerned that the patient is developing dementia Baseline mental status - a/o x 3 but son confirmed mild memory issues over last year. MRI brain without acute or chronic stroke but severe atrophy noted. MRI reviewed with the neurologist B12 level was low - replacing. Checked B1 level. While level is pending place on empiric B1 200mg BID. TSH wnl and ammonia wnl. COVID/RSV/flu negative. Was quite hypertensive on admission and could be hypertensive encephalopathy With altered MS, urinary incontinence, and gait disturbance -- NPH? Other? Appreciate Dr Cohen's consultation from [facility] [place] neurolog. If NPH an LP can be diagnostic - removal of some CSF leads to improvement in gait, etc. Patient did have LP on 02/27 under fluoro - opening pressure 12, zero WBCs, mildly bloody tap (500 RBCs) but no xanthochromia. Only four mL of CSF were able to be collected thus could not really be diagnostic/therapeutic for NPH as a large volume would have to be removed as per my discussion with neurology She did not notice any change in her gait following the LP. Dr Cohen recommended EMG studies post-d/c to rule out diabetic neuropathy as the cause of gait disturbance, but even if present, that would not cause her mental status issues. -Plan to have her follow-up with neurology, Dr. Cohen, after discharge for EMG. He will consider ordering a radionucleotide cisternogram which is a diagnostic study for NPH -Follow-up on B1 level when available -Continue B12 replacement -Continue to control blood pressures as below -Consider neuropsychological testing to evaluate for dementia -Recommend no driving at this time (2) Dizziness: Plan: Patient reported this to Dr Knutson earlier in the stay. Dr Knutson had started meclizine. Etiology of her dizziness was uncertain. By report it sounded like vertigo -- due to peripheral reason? (ie - inner ear) Either way it is resolved. (3) Headache: Plan: Patient also reported this to Dr Knutson early in the stay. crp/sed rate wnl. headache resolved but did report a mild headache on 12/14 MRI brain negative. No infectious cause of her headache and her LP today is not suspicious for infection. Follow CSF culture-no growth to date 0 WBCs on CSF fluid Protein elevated but in the setting of 600 RBCs (4) Hypertensive urgency: Plan: Improved s/p increase in amlodipine to 10mg PO daily but remained elevated -Continue metoprolol -increased HCTZ to 25mg-this was started this admission BPs now much improved (5) Type 2 diabetes mellitus: Plan: HbA1C 7.1 Holding glipizide and metformin With persistent hyperglycemia at lunchtime again today Increase lantus again to 14 units BID increase novolog sliding scale again on 03/02 -advised against eating pancakes for breakfast each morning as she has been doing (6) Hypothyroidism: Plan: TSH 1.223 Continue levothyroxine 100mcg PO daily (7) Hearing difficulty: Plan: severe Requires hearing aids but unfortunately lost them here at the hospital (8) Hyperlipidemia: Plan: Continue simvastatin LFTS wnl (9) Coronary artery disease: Plan: Continue metoprolol, statin, asa No signs of ACS (10) Anxiety: Plan: venlafaxine continued (11) H/O deep venous thrombosis: Plan: 04/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 Says she has chronic arthritis. No other concerns. Very mentally clear today. Review of Systems Review of Systems: All systems reviewed & are unremarkable except as noted in HPI & below Physical Exam Physical Exam: gen - obese, NAD, sitting up in chair mouth - MMM ears - SEVERE hearing impairment - baseline heart - RRR, s1 s2, no murmur lungs - CTA b/l abd - soft ND BS+ NT ext - no edema, pulses 2+ b/l psych - a/o x 3, moves all extremities equally, no facial droop Results & Data Results & Data ([facility]) Vital Signs (Past 12 Hours) Vital Signs Temp Pulse Resp BP Pulse Ox O2 Del Method 03/02/22 15:11 36.8 C 66 18 129/79 94 Room Air 03/02/22 07:58 36.8 C 72 18 150/84 H 91 Room Air Laboratory Results 03/02/22 03/02/22 03/02/22 Range/Units 16:32 14:32 12:00 Sodium (136-145) mmol/L Potassium (3.5-5.1) mmol/L Chloride (98-107) mmol/L Carbon Dioxide (21-32) mmol/L Anion Gap (3-11) BUN (6-23) mg/dl Creatinine (0.6-1.2) mg/dl Est Cr Clr Drug Dosing ml/min Est GFR ( Amer) ml/min Est GFR (Non-Af Amer) ml/min BUN/Creatinine Ratio (10-20) Glucose (70-99(Fasting)) mg/dl POC Glucose 110 H 230 H 339 H* (70-99) mg/dl Calcium (8.5-10.1) mg/dl Magnesium (1.7-2.4) mg/dl 03/02/22 03/02/22 03/01/22 Range/Units 07:43 07:22 20:31 Sodium 139 (136-145) mmol/L Potassium 3.7 (3.5-5.1) mmol/L Chloride 101 (98-107) mmol/L Carbon Dioxide 29 (21-32) mmol/L Anion Gap 9 (3-11) BUN 33 H (6-23) mg/dl Creatinine 1.01 (0.6-1.2) mg/dl Est Cr Clr Drug Dosing 47.6 ml/min Est GFR ( Amer) 65.3 ml/min Est GFR (Non-Af Amer) 56.4 ml/min BUN/Creatinine Ratio 32.7 H (10-20) Glucose 170 H (70-99(Fasting)) mg/dl POC Glucose 167 H 104 H (70-99) mg/dl Calcium 9.1 (8.5-10.1) mg/dl Magnesium 1.6 L (1.7-2.4) mg/dl PG Care Time/CCT Total # of Minutes Spent Total Time Spent with Patient: Total time spent is greater than 50% in coordination of care (as documented) at patient's floor/unit and/or counseling patient: Coding Level of Care Code 26984 Subseq Hosp Care Lvl 2 Diagnoses Acute encephalopathy G93.40 Dizziness R42 Headache R51.9 Hypertensive urgency I16.0 Type 2 diabetes mellitus E11.9 Hypothyroidism E03.9 Hearing difficulty H91.90 Hyperlipidemia E78.5 Coronary artery disease I25.10 Anxiety F41.9 H/O deep venous thrombosis Z86.718
[2022-03-02] MEDS: SIMVASTATIN 40 MG TAB PO SCH (20:09)
[2022-03-02] MEDS: VENLAFAXINE HCL XR 75 MG CAPXR PO SCH (20:09)
[2022-03-02] MEDS: MELATONIN 3 MG TAB PO SCH (20:21)
[2022-03-03] MEDS: LEVOTHYROXINE SODIUM 100 MCG TABLET PO SCH (05:56)
[2022-03-03] MEDS: INSULIN ASPART PER UNIT SC SCH ×4 (08:26→21:20)
[2022-03-03] MEDS: LANTUS PER UNIT CHARGE SQ SCH ×2 (08:27→21:19)
[2022-03-03] MEDS: POTASSIUM CHLORIDE CRTAB 20 MEQ TABCR PO SCH ×2 (08:31→21:22)
[2022-03-03] MEDS: CALCIUM CARBONATE 1250MG TAB PO SCH ×2 (08:32→21:22)
[2022-03-03] MEDS: VENLAFAXINE HCL XR 150 MG CAPXR PO SCH (08:32)
[2022-03-03] MEDS: THIAMINE HCL 100 MG TAB PO SCH ×2 (08:33→21:24)
[2022-03-03] MEDS: MAGNESIUM OXIDE 400 MG TAB PO SCH ×2 (08:34→21:25)
[2022-03-03] MEDS: ASPIRIN 81 MG ECTAB PO SCH (08:34)
[2022-03-03] MEDS: METOPROLOL TARTRATE 50 MG TAB PO SCH ×2 (08:34→21:26)
[2022-03-03] MEDS: CYANOCOBALAMIN (B-12) 500 MCG TABLET PO SCH (08:34)
[2022-03-03] MEDS: hydroCHLOROthiazide 25 MG TAB PO SCH (08:35)
[2022-03-03] MEDS: amLODIPine BESYLATE 5 MG TAB PO SCH (08:35)
[2022-03-03] MEDS: TIMOLOL MALEATE 0.5% OP SOLN 5 ML BTL OP SCH (08:36)
[2022-03-03] MEDS: DOCUSATE SODIUM 100 MG CAP PO SCH (10:40)
[2022-03-03] MEDS: OMEGA-3 (PURIFIED FISH OIL) 1 GM CAP PO SCH ×2 (10:41→21:23)
--- NOTE | 2022-03-03 16:09 | Hospitalist Progress Note ---
Date of Service March 03, 2022 Assessment & Plan (1) Acute encephalopathy: Plan: Present on admission -- Uncertain etiology except perhaps hypertensive encephalopathy Mental status had improved, then on 02/25, was very confused much of the day but by 02/26 was again back to baseline where she remains, doing well. Family does not report any underlying known cognitive impairment, but family is concerned that the patient is developing dementia Baseline mental status - a/o x 3 but son confirmed mild memory issues over last year. MRI brain without acute or chronic stroke but severe atrophy noted. MRI reviewed with the neurologist B12 level was low - replacing. Checked B1 level. While level is pending place on empiric B1 200mg BID. TSH wnl and ammonia wnl. COVID/RSV/flu negative. Was quite hypertensive on admission and could be hypertensive encephalopathy With altered MS, urinary incontinence, and gait disturbance -- NPH? Other? Appreciate Dr Cohen's consultation from [facility] [place]. If NPH an LP can be diagnostic - removal of some CSF leads to improvement in gait, etc. Patient did have LP on 02/27 under fluoro - opening pressure 12, zero WBCs, mildly bloody tap (500 RBCs) but no xanthochromia. Only four mL of CSF were able to be collected thus could not really be diagnostic/therapeutic for NPH as a large volume would have to be removed as per my discussion with neurology She did not notice any change in her gait following the LP. Dr Cohen recommended EMG studies post-d/c to rule out diabetic neuropathy as the cause of gait disturbance, but even if present, that would not cause her mental status issues. -Plan to have her follow-up with neurology, Dr. Cohen, after discharge for EMG. He will consider ordering a radionucleotide cisternogram which is a diagnostic study for NPH -Follow-up on B1 level when available -Continue B12 replacement -Continue to control blood pressures as below -Consider neuropsychological testing to evaluate for dementia -Recommend no driving at this time (2) Dizziness: Plan: Patient reported this to Dr Knutson earlier in the stay. Dr Knutson had started meclizine. Etiology of her dizziness was uncertain. By report it sounded like vertigo -- due to peripheral reason? (ie - inner ear) Either way it is resolved. (3) Headache: Plan: Patient also reported this to Dr Knutson early in the stay. crp/sed rate wnl. headache resolved but did report a mild headache on 03/01 MRI brain negative. No infectious cause of her headache and her LP today is not suspicious for infection. Follow CSF culture-no growth to date 0 WBCs on CSF fluid Protein elevated but in the setting of 600 RBCs (4) Hypertensive urgency: Plan: Improved s/p increase in amlodipine to 10mg PO daily but remained elevated -Continue metoprolol -increased HCTZ to 25mg-this was started this admission BPs now much improved (5) Type 2 diabetes mellitus: Plan: HbA1C 7.1 Holding glipizide and metformin With persistent hyperglycemia at lunchtime now improved with increasing doses of breakfast Novolog and Lantus; also counseled to not eat pancakes for breakfast continue lantus 14 units BID continue current novolog sliding scale (6) Hypothyroidism: Plan: TSH 1.223 Continue levothyroxine 100mcg PO daily (7) Hearing difficulty: Plan: severe Requires hearing aids but unfortunately lost them here at the hospital (8) Hyperlipidemia: Plan: Continue simvastatin LFTS wnl (9) Coronary artery disease: Plan: Continue metoprolol, statin, asa No signs of ACS (10) Anxiety: Plan: venlafaxine continued (11) H/O deep venous thrombosis: Plan: 04/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 Did not move bowels today. Is eating. Did not work with PT today. Review of Systems Review of Systems: All systems reviewed & are unremarkable except as noted in HPI & below Physical Exam Physical Exam: gen - obese, NAD, sitting up in chair mouth - MMM ears - SEVERE hearing impairment - baseline heart - RRR, s1 s2, no murmur lungs - CTA b/l abd - soft ND BS+ NT ext - no edema, pulses 2+ b/l psych - a/o x 3, moves all extremities equally, no facial droop Results & Data Results & Data ([facility]) Vital Signs (Past 12 Hours) Vital Signs Temp Pulse Resp BP Pulse Ox O2 Del Method 03/03/22 15:05 37.0 C 69 18 138/81 94 Room Air 03/03/22 10:59 Room Air 03/03/22 07:47 36.6 C 73 18 171/98 H 96 Room Air PG Care Time/CCT Total # of Minutes Spent Total Time Spent with Patient: Total time spent is greater than 50% in coordination of care (as documented) at patient's floor/unit and/or counseling patient: Coding Level of Care Code 70353 Subseq Hosp Care Lvl 1 Diagnoses Acute encephalopathy G93.40 Dizziness R42 Headache R51.9 Hypertensive urgency I16.0 Type 2 diabetes mellitus E11.9 Hypothyroidism E03.9 Hearing difficulty H91.90 Hyperlipidemia E78.5 Coronary artery disease I25.10 Anxiety F41.9 H/O deep venous thrombosis Z86.718
[2022-03-03] MEDS: MELATONIN 3 MG TAB PO SCH (21:21)
[2022-03-03] MEDS: VENLAFAXINE HCL XR 75 MG CAPXR PO SCH (21:22)
[2022-03-03] MEDS: SIMVASTATIN 40 MG TAB PO SCH (21:25)
[2022-03-03 22:42] LABS: Lyme DNA PCR CSF or Synovial Not Detected (Not Detected); Lyme DNA Source CSF
[2022-03-04] MEDS: LEVOTHYROXINE SODIUM 100 MCG TABLET PO SCH ×2 (05:36→07:23)
[2022-03-04] MEDS: POTASSIUM CHLORIDE CRTAB 20 MEQ TABCR PO SCH ×2 (08:07→22:14)
[2022-03-04] MEDS: CYANOCOBALAMIN (B-12) 500 MCG TABLET PO SCH (08:07)
[2022-03-04] MEDS: amLODIPine BESYLATE 5 MG TAB PO SCH (08:07)
[2022-03-04] MEDS: CALCIUM CARBONATE 1250MG TAB PO SCH ×2 (08:07→22:17)
[2022-03-04] MEDS: METOPROLOL TARTRATE 50 MG TAB PO SCH ×2 (08:08→22:14)
[2022-03-04] MEDS: OMEGA-3 (PURIFIED FISH OIL) 1 GM CAP PO SCH ×2 (08:08→22:18)
[2022-03-04] MEDS: THIAMINE HCL 100 MG TAB PO SCH ×2 (08:08→22:15)
[2022-03-04] MEDS: VENLAFAXINE HCL XR 150 MG CAPXR PO SCH ×2 (08:08→22:15)
[2022-03-04] MEDS: MAGNESIUM OXIDE 400 MG TAB PO SCH ×2 (08:09→22:15)
[2022-03-04] MEDS: ASPIRIN 81 MG ECTAB PO SCH (08:09)
[2022-03-04] MEDS: hydroCHLOROthiazide 25 MG TAB PO SCH (08:16)
[2022-03-04] MEDS: TIMOLOL MALEATE 0.5% OP SOLN 5 ML BTL OP SCH (09:37)
[2022-03-04] MEDS: DOCUSATE SODIUM 100 MG CAP PO SCH (09:37)
[2022-03-04] MEDS: LANTUS PER UNIT CHARGE SQ SCH ×2 (09:41→22:13)
[2022-03-04] MEDS: INSULIN ASPART PER UNIT SC SCH ×4 (09:41→22:14)
--- NOTE | 2022-03-04 18:38 | Hospitalist Progress Note ---
Date of Service March 04, 2022 Assessment & Plan (1) Acute encephalopathy: Plan: Present on admission -- Uncertain etiology except perhaps hypertensive encephalopathy Mental status had improved, then on 02/25, was very confused much of the day but by 02/26 was again back to baseline where she remains, doing well. Family does not report any underlying known cognitive impairment, but family is concerned that the patient is developing dementia Baseline mental status - a/o x 3 but son confirmed mild memory issues over last year. MRI brain without acute or chronic stroke but severe atrophy noted. MRI reviewed with the neurologist B12 level was low - replacing. Checked B1 level-severely low at 7. Was started on empiric B1 200mg BID prior to result but now would continue on same dose indefinitely TSH wnl and ammonia wnl. COVID/RSV/flu negative. Was quite hypertensive on admission and could be hypertensive encephalopathy With altered MS, urinary incontinence, and gait disturbance -- NPH? Other? Appreciate Dr Cohen[place] consultation [place] [facility] [place] If NPH an LP can be diagnostic - removal of some CSF leads to improvement in gait, etc. Patient did have LP on 02/27 under fluoro - opening pressure 12, zero WBCs, mildly bloody tap (500 RBCs) but no xanthochromia. Only four mL of CSF were able to be collected thus could not really be diagnostic/therapeutic for NPH as a large volume would have to be removed as per my discussion with neurology She did not notice any change in her gait following the LP. Dr Cohen recommended EMG studies post-d/c to rule out diabetic neuropathy as the cause of gait disturbance, but even if present, that would not cause her mental status issues. -Plan to have her follow-up with neurology, Dr. Cohen, after discharge for EMG. He will consider ordering a radionucleotide cisternogram which is a diagnostic study for NPH -replace vitamin B1 -Continue B12 replacement -Continue to control blood pressures as below -Consider neuropsychological testing to evaluate for dementia -Recommend no driving at this time (2) Dizziness: Plan: Patient reported this to Dr Knutson earlier in the stay. Dr Knutson had started meclizine. Etiology of her dizziness was uncertain. By report it sounded like vertigo -- due to peripheral reason? (ie - inner ear) Either way it is resolved. (3) Headache: Plan: Patient also reported this to Dr Zenia early in the stay. crp/sed rate wnl. headache resolved but did report a mild headache on 03/01 MRI brain negative. No infectious cause of her headache and her LP today is not suspicious for infection. Follow CSF culture-no growth to date 0 WBCs on CSF fluid Protein elevated but in the setting of 600 RBCs (4) Hypertensive urgency: Plan: Improved s/p increase in amlodipine to 10mg PO daily but remained elevated -Continue metoprolol -increased HCTZ to 25mg-this was started this admission BPs now much improved (5) Type 2 diabetes mellitus: Plan: HbA1C 7.1 Holding glipizide and metformin With persistent hyperglycemia at lunchtime now improved with increasing doses of breakfast Novolog and Lantus; also counseled to not eat pancakes for breakfast continue lantus 14 units BID continue current novolog sliding scale (6) Hypothyroidism: Plan: TSH 1.223 Continue levothyroxine 100mcg PO daily (7) Hearing difficulty: Plan: severe Requires hearing aids but unfortunately lost them here at the hospital (8) Hyperlipidemia: Plan: Continue simvastatin LFTS wnl (9) Coronary artery disease: Plan: Continue metoprolol, statin, asa No signs of ACS (10) Anxiety: Plan: venlafaxine continued (11) H/O deep venous thrombosis: Plan: 04/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 States that she's very bored. Has an occasional mild headache. Has some indigestion. Eating and drinking, moved bowels today Review of Systems Review of Systems: All systems reviewed & are unremarkable except as noted in HPI & below Physical Exam Physical Exam: gen - obese, NAD, lying in bed mouth - MMM ears - SEVERE hearing impairment - baseline heart - RRR, s1 s2, no murmur lungs - CTA b/l abd - soft ND BS+ NT ext - no edema, pulses 2+ b/l psych - a/o x 3, moves all extremities equally, no facial droop Results & Data Results & Data ([place]) Vital Signs (Past 12 Hours) Vital Signs Temp Pulse Resp BP Pulse Ox O2 Del Method 03/04/22 15:28 36.8 C 67 16 121/80 95 Room Air 03/04/22 08:00 Room Air 03/04/22 08:15 36.5 C 92 H 18 148/82 H 97 Room Air Laboratory Results 03/04/22 03/04/22 03/04/22 Range/Units 16:46 11:56 08:11 POC Glucose 144 H 195 H 161 H (70-99) mg/dl Vitamin B1 (8-30) nmol/L Fld Lyme DNA (PCR) (Not Detected) Lyme Specimen Source Lyme DNA Comment 03/03/22 02/27/22 02/26/22 Range/Units 20:18 14:25 05:55 POC Glucose 182 H (70-99) mg/dl Vitamin B1 7 L (8-30) nmol/L Fld Lyme DNA (PCR) Not Detected (Not Detected) Lyme Specimen Source CSF Lyme DNA Comment see note PG Care Time/CCT Total # of Minutes Spent Total Time Spent with Patient: Total time spent is greater than 50% in coordination of care (as documented) at patient's floor/unit and/or counseling patient: Coding Level of Care Code 95930 Subseq Hosp Care Lvl 2 Diagnoses Acute encephalopathy G93.40 Dizziness R42 Headache R51.9 Hypertensive urgency I16.0 Type 2 diabetes mellitus E11.9 Hypothyroidism E03.9 Hearing difficulty H91.90 Hyperlipidemia E78.5 Coronary artery disease I25.10 Anxiety F41.9 H/O deep venous thrombosis Z86.718
[2022-03-04] MEDS: VENLAFAXINE HCL XR 75 MG CAPXR PO SCH (22:16)
[2022-03-04] MEDS: SIMVASTATIN 40 MG TAB PO SCH (22:17)
[2022-03-04] MEDS: MELATONIN 3 MG TAB PO SCH (22:19)
[2022-03-04] MEDS: FAMOTIDINE 20 MG TAB PO SCH (22:19)
[2022-03-05] MEDS: LEVOTHYROXINE SODIUM 100 MCG TABLET PO SCH (06:04)
[2022-03-05] MEDS: ASPIRIN 81 MG ECTAB PO SCH (08:09)
[2022-03-05] MEDS: FAMOTIDINE 20 MG TAB PO SCH ×2 (08:09→21:38)
[2022-03-05] MEDS: CYANOCOBALAMIN (B-12) 500 MCG TABLET PO SCH (08:09)
[2022-03-05] MEDS: METOPROLOL TARTRATE 50 MG TAB PO SCH ×2 (08:09→21:37)
[2022-03-05] MEDS: MAGNESIUM OXIDE 400 MG TAB PO SCH ×2 (08:09→21:37)
[2022-03-05] MEDS: hydroCHLOROthiazide 25 MG TAB PO SCH (08:09)
[2022-03-05] MEDS: POTASSIUM CHLORIDE CRTAB 20 MEQ TABCR PO SCH ×2 (08:09→21:36)
[2022-03-05] MEDS: CALCIUM CARBONATE 1250MG TAB PO SCH ×2 (08:09→22:37)
[2022-03-05] MEDS: amLODIPine BESYLATE 5 MG TAB PO SCH (08:09)
[2022-03-05] MEDS: THIAMINE HCL 100 MG TAB PO SCH ×2 (08:09→21:38)
[2022-03-05] MEDS: DOCUSATE SODIUM 100 MG CAP PO SCH (08:09)
[2022-03-05] MEDS: OMEGA-3 (PURIFIED FISH OIL) 1 GM CAP PO SCH ×2 (08:10→21:38)
[2022-03-05] MEDS: TIMOLOL MALEATE 0.5% OP SOLN 5 ML BTL OP SCH (08:10)
[2022-03-05] MEDS: INSULIN ASPART PER UNIT SC SCH ×4 (09:04→20:54)
[2022-03-05] MEDS: LANTUS PER UNIT CHARGE SQ SCH ×2 (09:05→21:36)
--- NOTE | 2022-03-05 21:15 | Hospitalist Progress Note ---
Date of Service March 05, 2022 Assessment & Plan (1) Acute encephalopathy: Plan: resolved. has not recurred in over a week. Present on admission -- Uncertain etiology. Mental status had improved, then on 02/25, was very confused much of the day but by 02/26 was again back to baseline. MRI brain without acute or chronic stroke but severe atrophy noted. Baseline mental status - a/o x 3 but son confirmed mild memory issues over last year. B12 level and B1 level both low - replacing. Both of these nutritional def can cause memory/cognitive issues. TSH wnl and ammonia wnl. COVID/RSV/flu negative. With altered MS, urinary incontinence, and gait disturbance -- NPH? Other? Appreciate Dr Cohen's consultation from [facility] [place]. Patient did have LP under fluoro - opening pressure 12, zero WBCs, mildly bloody tap (500 RBCs) but no xanthochromia. She did not notice any change in her gait following the LP. Dr Cohen recommended EMG studies post-d/c to rule out diabetic neuropathy as the cause of gait disturbance, but even if present, that would not cause her mental status issues. In addition, he will consider ordering a radionucleotide cisternogram which is a diagnostic study for NPH. I explained the above plan to the patient & her son today. (2) Dizziness: Plan: Patient reported this to Dr Knutson earlier in the stay. Dr Knutson had started meclizine. Etiology of her dizziness was uncertain. By report it sounded like vertigo -- due to peripheral reason? (ie - inner ear) Either way it is resolved. Has not recurred. (3) Headache: Plan: Patient also reported this to Dr Knutson early in the stay. crp/sed rate wnl. headache resolved. MRI brain negative. No infectious cause of her headache and her LP today was negative for infection. (4) Hypertensive urgency: Plan: Improved s/p increase in amlodipine to 10mg PO daily Continue metoprolol and HCTZ BPs still modestly high - next step would add low-dose ARB follow for now (5) Stroke-like symptoms: Plan: CVA ruled out - MRI brain negative for such symptoms likely were due to #1 above (6) Hypomagnesemia: Plan: replaced resolved (7) Type 2 diabetes mellitus: Plan: HbA1C 7.1 Holding glipizide and metformin cont lantus BID cont novolog (8) Hypothyroidism: Plan: TSH 1.223 Continue levothyroxine 100mcg PO daily (9) Hearing difficulty: Plan: SEVERE Requires hearing aids (10) Hyperlipidemia: Plan: Continue simvastatin LFTS wnl (11) Coronary artery disease: Plan: Continue metoprolol, statin, asa No signs of ACS (12) Anxiety: Plan: venlafaxine continued (13) H/O deep venous thrombosis: Plan: 04/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 no longer on anticoagulation (14) Hypokalemia: Plan: replaced resolved (15) B12 deficiency: Plan: b12 1000mcg once daily x 1 year recheck level 4-6 weeks to ensure it is coming up (16) Vitamin B1 deficiency: Plan: thiamine 200mg BID x 1 month recheck level at conclusion of therapy Plan PT/OT both advised rehab at d/c - social work to assist w/ disposition son updated at bedside today Admission and Anticipated Discharge Date Admission Date: February 25, 2022 Subjective pt's son and daughter in law were present during the visit patient was sitting in chair by the window offered no complaints feels good eating well asked "what's the plan?" we talked about rehab - all present were in agreement Review of Systems Review of Systems: cv - no chest pain, edema or lightheadedness pulm - no cough, no dyspnea psych - no confusion GI - no pain or nausea/emesis Physical Exam Physical Exam: gen - obese, NAD, sitting in chair comfortably mouth - MMM ears - SEVERE hearing impairment - baseline neck - no JVD heart - RRR, s1 s2, no murmur lungs - CTA b/l abd - soft ND BS+ NT ext - no edema, pulses 2+ b/l psych - a/o x 3 Results & Data Results & Data ([facility]) Vital Signs (Past 12 Hours) Vital Signs Temp Pulse Resp BP Pulse Ox O2 Del Method 03/05/22 16:26 36.8 C 69 16 151/83 H 95 Room Air Laboratory Results Laboratory Results - last 24 hr 03/05/22 03/05/22 03/05/22 08:04 12:02 16:56 POC Glucose 103 H 161 H 158 H 03/05/22 20:45 POC Glucose 120 H PG Care Time/CCT Total # of Minutes Spent Total Time Spent with Patient: Total time spent is greater than 50% in coordination of care (as documented) at patient's floor/unit and/or counseling patient: Coding Level of Care Code 60955 Subseq Hosp Care Lvl 2 Diagnoses Acute encephalopathy G93.40 Dizziness R42 Headache R51.9 Hypertensive urgency I16.0 Stroke-like symptoms R29.90 Hypomagnesemia E83.42 Type 2 diabetes mellitus E11.9 Hypothyroidism E03.9 Hearing difficulty H91.90 Hyperlipidemia E78.5 Coronary artery disease I25.10 Anxiety F41.9 H/O deep venous thrombosis Z86.718 Hypokalemia E87.6 B12 deficiency E53.8 Vitamin B1 deficiency E51.9
[2022-03-05] MEDS: SIMVASTATIN 40 MG TAB PO SCH (21:36)
[2022-03-05] MEDS: MELATONIN 3 MG TAB PO SCH (21:36)
[2022-03-05] MEDS: VENLAFAXINE HCL XR 75 MG CAPXR PO SCH (21:40)
[2022-03-06] MEDS: LEVOTHYROXINE SODIUM 100 MCG TABLET PO SCH (05:44)
[2022-03-06] MEDS: POTASSIUM CHLORIDE CRTAB 20 MEQ TABCR PO SCH ×2 (07:30→21:41)
[2022-03-06] MEDS: VENLAFAXINE HCL XR 150 MG CAPXR PO SCH (07:30)
[2022-03-06] MEDS: amLODIPine BESYLATE 5 MG TAB PO SCH (07:31)
[2022-03-06] MEDS: ASPIRIN 81 MG ECTAB PO SCH (07:31)
[2022-03-06] MEDS: CYANOCOBALAMIN (B-12) 500 MCG TABLET PO SCH (07:31)
[2022-03-06] MEDS: hydroCHLOROthiazide 25 MG TAB PO SCH (07:32)
[2022-03-06] MEDS: THIAMINE HCL 100 MG TAB PO SCH ×2 (07:32→21:36)
[2022-03-06] MEDS: DOCUSATE SODIUM 100 MG CAP PO SCH (07:32)
[2022-03-06] MEDS: MAGNESIUM OXIDE 400 MG TAB PO SCH ×2 (07:32→21:36)
[2022-03-06] MEDS: METOPROLOL TARTRATE 50 MG TAB PO SCH ×2 (07:32→21:35)
[2022-03-06] MEDS: FAMOTIDINE 20 MG TAB PO SCH ×2 (07:33→22:44)
[2022-03-06] MEDS: OMEGA-3 (PURIFIED FISH OIL) 1 GM CAP PO SCH ×2 (07:33→21:35)
[2022-03-06] MEDS: CALCIUM CARBONATE 1250MG TAB PO SCH ×2 (07:34→21:34)
[2022-03-06] MEDS: TIMOLOL MALEATE 0.5% OP SOLN 5 ML BTL OP SCH (07:35)
[2022-03-06 08:44] LABS: Hematocrit (blood only) 43.5 % (34.1-44.9); Hemoglobin 14.3 g/dl (12.0-16.0); Mean Corpuscular Hemoglobin 29.4 pg (25.0-34.0); Mean Corpuscular Hgb Conc 32.9 g/dL (32.0-36.0); Mean Corpuscular Volume 89.5 fL (80.0-100.0); Mean Platelet Volume 10.1 fL (9.4-12.3); Platelet Count 268 K/uL (130-400); RDW Coefficient of Variation 12.7 % (11.5-14.5); RDW Standard Deviation 41.2 fL (36.4-46.3); Red Blood Count 4.86 M/uL (3.93-5.22); White Blood Count 8.51 K/ul (4.8-10.8)
[2022-03-06 09:18] LABS: BUN Creatinine Ratio 27.3 (10-20); Calcium 9.3 mg/dl (8.5-10.1); Creatinine Clr Calc Pharmacy 44.1 ml/min; Est GFR (African American) 58.9 ml/min; Est GFR (Non-African American) 50.8 ml/min; Magnesium 1.7 mg/dl (1.7-2.4)
[2022-03-06] MEDS: LANTUS PER UNIT CHARGE SQ SCH ×2 (09:29→21:43)
[2022-03-06] MEDS: INSULIN ASPART PER UNIT SC SCH ×4 (09:29→21:42)
[2022-03-06] MEDS: LOSARTAN POTASSIUM 25 MG TAB PO SCH (14:31)
--- NOTE | 2022-03-06 20:06 | Hospitalist Progress Note ---
Date of Service March 06, 2022 Assessment & Plan (1) Acute encephalopathy: Plan: resolved. has not recurred in over a week. Present on admission -- Uncertain etiology. Mental status had improved, then on 02/25, was very confused much of the day but by 02/26 was again back to baseline. MRI brain without acute or chronic stroke but severe atrophy noted. Baseline mental status - a/o x 3 but son confirmed mild memory issues over last year. B12 level and B1 level both low - replacing. Both of these nutritional def can cause memory/cognitive issues. TSH wnl and ammonia wnl. COVID/RSV/flu negative. With altered MS, urinary incontinence, and gait disturbance -- NPH? Other? Appreciate Dr Cohen's consultation from [facility] [place] neurology. Patient did have LP under fluoro - opening pressure 12, zero WBCs, mildly bloody tap (500 RBCs) but no xanthochromia. She did not notice any change in her gait following the LP. Dr Cohen recommended EMG studies post-d/c to rule out diabetic neuropathy as the cause of gait disturbance, but even if present, that would not cause her mental status issues. In addition, he will consider ordering a radionucleotide cisternogram which is a diagnostic study for NPH. I explained the above plan to the patient & her son this weekend. (2) Dizziness: Plan: present on admission - etiology uncertain - resolved, and has not recurred 2nd to #4? (3) Headache: Plan: present on admission - resolved, has not recurred 2nd to #4?? crp/sed rate wnl. headache resolved. MRI brain negative. No infectious cause of her headache and her LP was negative for infection. (4) Hypertensive urgency: Plan: resolved s/p increase in amlodipine to 10mg PO daily Continue metoprolol and HCTZ BPs still modestly high - add low-dose ARB - losartan 25mg daily (5) Stroke-like symptoms: Plan: CVA ruled out - MRI brain negative for such symptoms likely were due to #1 above (6) Hypomagnesemia: Plan: replaced resolved (7) Type 2 diabetes mellitus: Plan: HbA1C 7.1 Holding glipizide and metformin cont lantus BID cont novolog (8) Hypothyroidism: Plan: TSH 1.223 Continue levothyroxine 100mcg PO daily (9) Hearing difficulty: Plan: SEVERE Requires hearing aids (10) Hyperlipidemia: Plan: Continue simvastatin LFTS wnl (11) Coronary artery disease: Plan: Continue metoprolol, statin, asa No signs of ACS (12) Anxiety: Plan: venlafaxine continued (13) H/O deep venous thrombosis: Plan: 04/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 Admission and Anticipated Discharge Date Admission Date: February 25, 2022 Subjective patient resting in bed watching TV feels good no complaints anxious to get to rehab Review of Systems Review of Systems: gen - good appetite pulm - no cough/no dyspnea GI - no N/V neuro - no headache, no dizziness Physical Exam Physical Exam: gen - obese, NAD, laying in bed comfortably ; looks great today mouth - MMM ears - SEVERE hearing impairment - baseline neck - no JVD heart - RRR, s1 s2, no murmur lungs - CTA b/l abd - soft ND BS+ NT ext - no edema, pulses 2+ b/l psych - a/o x 3 Results & Data Results & Data ([facility]) Vital Signs (Past 12 Hours) Vital Signs Temp Pulse Resp BP Pulse Ox O2 Del Method 03/06/22 15:32 36.4 C L 69 16 139/83 94 Room Air Laboratory Results Laboratory Results - last 24 hr 03/05/22 03/06/22 03/06/22 20:45 08:11 08:18 WBC 8.51 RBC 4.86 Hgb 14.3 Hct 43.5 MCV 89.5 MCH 29.4 MCHC 32.9 RDW Std Deviation 41.2 RDW Coeff of Judy 12.7 Plt Count 268 MPV 10.1 Sodium Potassium Chloride Carbon Dioxide Anion Gap BUN Creatinine Est Cr Clr Drug Dosing Est GFR ( Amer) Est GFR (Non-Af Amer) BUN/Creatinine Ratio Glucose POC Glucose 120 H 126 H Calcium Magnesium 25-OH Vitamin D Total 03/06/22 03/06/2203/06/22 08:18 08:18 17:01 WBC RBC Hgb Hct MCV MCH MCHC RDW Std Deviation RDW Coeff of Judy Plt Count MPV Sodium 140 Potassium 4.0 Chloride 103 Carbon Dioxide 30 Anion Gap 7 BUN 30 H Creatinine 1.10 Est Cr Clr Drug Dosing 44.1 Est GFR ( Amer) 58.9 Est GFR (Non-Af Amer) 50.8 BUN/Creatinine Ratio 27.3 H Glucose 141 H POC Glucose 173 H Calcium 9.3 Magnesium 1.7 25-OH Vitamin D Total 40.9 PG Care Time/CCT Total # of Minutes Spent Total Time Spent with Patient: Total time spent is greater than 50% in coordination of care (as documented) at patient's floor/unit and/or counseling patient: Coding Level of Care Code 69343 Subseq Hosp Care Lvl 2 Diagnoses Acute encephalopathy G93.40 Dizziness R42 Headache R51.9 Hypertensive urgency I16.0 Stroke-like symptoms R29.90 Hypomagnesemia E83.42 Type 2 diabetes mellitus E11.9 Hypothyroidism E03.9 Hearing difficulty H91.90 Hyperlipidemia E78.5 Coronary artery disease I25.10 Anxiety F41.9 H/O deep venous thrombosis Z86.718 Hypokalemia E87.6 B12 deficiency E53.8 Vitamin B1 deficiency E51.9
[2022-03-06] MEDS: SIMVASTATIN 40 MG TAB PO SCH (21:34)
[2022-03-06] MEDS: VENLAFAXINE HCL XR 75 MG CAPXR PO SCH (21:34)
[2022-03-06] MEDS: MELATONIN 3 MG TAB PO SCH (21:42)
[2022-03-07] MEDS: LEVOTHYROXINE SODIUM 100 MCG TABLET PO SCH (05:36)
[2022-03-07] MEDS: LANTUS PER UNIT CHARGE SQ SCH ×2 (09:22→21:34)
[2022-03-07] MEDS: INSULIN ASPART PER UNIT SC SCH ×4 (09:22→21:00)
[2022-03-07] MEDS: amLODIPine BESYLATE 5 MG TAB PO SCH (09:24)
[2022-03-07] MEDS: ASPIRIN 81 MG ECTAB PO SCH (09:25)
[2022-03-07] MEDS: CALCIUM CARBONATE 1250MG TAB PO SCH ×2 (09:25→21:29)
[2022-03-07] MEDS: CYANOCOBALAMIN (B-12) 500 MCG TABLET PO SCH (09:25)
[2022-03-07] MEDS: OMEGA-3 (PURIFIED FISH OIL) 1 GM CAP PO SCH ×2 (09:27→21:33)
[2022-03-07] MEDS: METOPROLOL TARTRATE 50 MG TAB PO SCH ×2 (09:28→21:29)
[2022-03-07] MEDS: MAGNESIUM OXIDE 400 MG TAB PO SCH ×2 (09:28→21:33)
[2022-03-07] MEDS: hydroCHLOROthiazide 25 MG TAB PO SCH (09:28)
[2022-03-07] MEDS: LOSARTAN POTASSIUM 25 MG TAB PO SCH (09:28)
[2022-03-07] MEDS: VENLAFAXINE HCL XR 150 MG CAPXR PO SCH (09:29)
[2022-03-07] MEDS: THIAMINE HCL 100 MG TAB PO SCH ×2 (09:29→21:29)
[2022-03-07] MEDS: TIMOLOL MALEATE 0.5% OP SOLN 5 ML BTL OP SCH (09:31)
[2022-03-07] MEDS: FAMOTIDINE 20 MG TAB PO SCH ×2 (10:03→21:27)
[2022-03-07] MEDS: POTASSIUM CHLORIDE CRTAB 20 MEQ TABCR PO SCH (10:03)
[2022-03-07] MEDS: DOCUSATE SODIUM 100 MG CAP PO SCH (10:03)
[2022-03-07 12:20] LABS: Calcium 9.6 mg/dl (8.5-10.1); Creatinine Clr Calc Pharmacy 44.1 ml/min; Est GFR (African American) 58.9 ml/min; Est GFR (Non-African American) 50.8 ml/min; Magnesium 1.5 mg/dl (1.7-2.4); Potassium 3.7 mmol/L (3.5-5.1)
[2022-03-07] MEDS ORDERED: MAGNESIUM SULFATE / D5W 1 GM/100 ML BAG IV ONE ×2 (12:24→19:52)
[2022-03-07] MEDS ORDERED: metFORMIN HCL 500 MG TAB PO ONE (13:00)
[2022-03-07] MEDS ORDERED: SODIUM CHLORIDE 0.9% 1000ML 500 ML IV ONE (14:49)
--- NOTE | 2022-03-07 14:52 | Hospitalist Progress Note ---
Date of Service March 07, 2022 Assessment & Plan (1) Acute encephalopathy: Plan: resolved. has not recurred in over a week. Present on admission -- Uncertain etiology. Mental status had improved, then on 02/25, was very confused much of the day but by 02/26 was again back to baseline. MRI brain without acute or chronic stroke but severe atrophy noted. Baseline mental status - a/o x 3 but son confirmed mild memory issues over last year. B12 level and B1 level both low - replacing. Both of these nutritional def can cause memory/cognitive issues. TSH wnl and ammonia wnl. COVID/RSV/flu negative. With altered MS, urinary incontinence, and gait disturbance -- NPH? Other? Appreciate Dr Cohen's consultation from [facility] [place] neurology. Patient did have LP under fluoro - opening pressure 12, zero WBCs, mildly bloody tap (500 RBCs) but no xanthochromia. She did not notice any change in her gait following the LP. Dr Cohen recommended EMG studies post-d/c to rule out diabetic neuropathy as the cause of gait disturbance, but even if present, that would not cause her mental status issues. In addition, he will consider ordering a radionucleotide cisternogram which is a diagnostic study for NPH. I explained the above plan to the patient & her son this weekend. (2) Dizziness: Plan: present on admission - retrospectively it may have been orthostasis as in #3 (3) Orthostatic hypotension: Plan: severe as confirmed on formal orthostatics today, SBP dropping to the 70s with standing likely combination of recent institution of HCTZ and other BP meds, poor liquid intake, +/- diabetic neuropathy leading to orthostasis? STOP HCTZ 500cc bolus of NS now, followed by NS at 100cc/hr overnight orthostatic checks qshift f/u in am (4) Headache: Plan: present on admission - resolved, has not recurred 2nd to #5?? crp/sed rate wnl. headache resolved. MRI brain negative. No infectious cause of her headache and her LP was negative for infection. (5) Hypertensive urgency: Plan: at home patient was taking metoprolol 50mg BID + amlodipine 5mg daily during the stay her resting BPs were markedly elevated HCTZ and losartan were added while here, and amlodipine was titrated to 10mg although lying/resting BPs improved nicely with all of the above she now has significant, symptomatic orthostasis as in #3 STOP HCTZ cut back amlodipine to 5mg from 10mg re-eval BPs in am (6) Stroke-like symptoms: Plan: CVA ruled out - MRI brain negative for such (7) Hypomagnesemia: Plan: replaced resolved now low again - likely from HCTZ use stopping HCTZ replace today - mag sulfate 2 grams IV x 1 repeat mag level am (8) Type 2 diabetes mellitus: Plan: HbA1C 7.1 Had been holding glipizide and metformin resume metformin today cont lantus BID cont novolog (9) Hypothyroidism: Plan: TSH 1.223 Continue levothyroxine 100mcg PO daily (10) Hearing difficulty: Plan: SEVERE Requires hearing aids (11) Hyperlipidemia: Plan: Continue simvastatin LFTS wnl (12) Coronary artery disease: Plan: Continue metoprolol, statin, asa No signs of ACS (13) Anxiety: Plan: venlafaxine continued (14) H/O deep venous thrombosis: Plan: 04/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 no longer on anticoagulation given the protracted nature of this hospital stay will send out on 30 days of xarelto 10mg daily for DVT Proph while here adding lovenox (15) Hypokalemia: Plan: replaced resolved (16) B12 deficiency: Plan: b12 1000mcg once daily x 1 year recheck level 4-6 weeks to ensure it is coming up (17) Vitamin B1 deficiency: Plan: thiamine 200mg BID x 1 month recheck level at conclusion of therapy Plan PT/OT both advised rehab at d/c has bed at rehab, but canceled discharge today due to severe orthostasis daughter updated by phone this evening extensively Admission and Anticipated Discharge Date Admission Date: February 25, 2022 Subjective patient states that while ambulating this am she felt dizzy it was a lightheaded feeling, not vertigo the feeling is similar to prior episodes of dizziness she has had at home eating well per staff liquid intake is fair at best no other new complaints Review of Systems Review of Systems: gen - good appetite, feels well, normal energy cv - no cp, no edema pul - no cough or dyspnea GI - no vomiting, no abd pain Physical Exam Physical Exam: gen - obese, NAD, laying in bed comfortably mouth - MMM ears - hearing impairment at baseline neck - no JVD heart - RRR, s1 s2, no murmur lungs - CTA b/l abd - soft ND BS+ NT ext - no edema, pulses 2+ b/l psych - a/o x 3 Results & Data Results & Data ([facility]) Vital Signs (Past 12 Hours) Vital Signs Temp Pulse Resp BP Pulse Ox O2 Del Method 03/07/22 07:55 36.6 C 78 14 120/74 96 Room Air Laboratory Results Laboratory Results - last 24 hr 03/06/22 03/06/22 03/06/22 12:04 17:01 20:26 Sodium Potassium Chloride Carbon Dioxide Anion Gap BUN Creatinine Est Cr Clr Drug Dosing Est GFR ( Amer) Est GFR (Non-Af Amer) BUN/Creatinine Ratio Glucose POC Glucose 199 H 173 H 183 H Calcium Magnesium SARS-CoV-2, RNA, NAAT 03/07/22 03/07/22 03/07/22 08:53 10:46 11:05 Sodium 133 L Potassium 3.7 Chloride 98 Carbon Dioxide 27 Anion Gap 8 BUN 33 H Creatinine 1.10 Est Cr Clr Drug Dosing 44.1 Est GFR ( Amer) 58.9 Est GFR (Non-Af Amer) 50.8 BUN/Creatinine Ratio 30.0 H Glucose 307 H* POC Glucose 192 H Calcium 9.6 Magnesium 1.5 L SARS-CoV-2, RNA, NAAT NEGATIVE 03/07/22 11:55 Sodium Potassium Chloride Carbon Dioxide Anion Gap BUN Creatinine Est Cr Clr Drug Dosing Est GFR ( Amer) Est GFR (Non-Af Amer) BUN/Creatinine Ratio Glucose POC Glucose 289 H Calcium Magnesium SARS-CoV-2, RNA, NAAT PG Care Time/CCT Total # of Minutes Spent Total Time Spent with Patient: Total time spent is greater than 50% in coordination of care (as documented) at patient's floor/unit and/or counseling patient: Coding Level of Care Code 12191 Subseq Hosp Care Lvl 3 Diagnoses Acute encephalopathy G93.40 Dizziness R42 Orthostatic hypotension I95.1 Headache R51.9 Hypertensive urgency I16.0 Stroke-like symptoms R29.90 Hypomagnesemia E83.42 Type 2 diabetes mellitus E11.9 Hypothyroidism E03.9 Hearing difficulty H91.90 Hyperlipidemia E78.5 Coronary artery disease I25.10 Anxiety F41.9 H/O deep venous thrombosis Z86.718 Hypokalemia E87.6 B12 deficiency E53.8 Vitamin B1 deficiency E51.9
[2022-03-07] MEDS: NSS + 20MEQ KCL 20 MEQ/1,000 ML BAG IV SCH (17:21)
[2022-03-07] MEDS: MELATONIN 3 MG TAB PO SCH (21:27)
[2022-03-07] MEDS: SIMVASTATIN 40 MG TAB PO SCH (21:33)
[2022-03-07] MEDS: VENLAFAXINE HCL XR 75 MG CAPXR PO SCH (21:34)
[2022-03-08] MEDS: NSS + 20MEQ KCL 20 MEQ/1,000 ML BAG IV SCH ×2 (03:05→13:50)
[2022-03-08] MEDS: LEVOTHYROXINE SODIUM 100 MCG TABLET PO SCH (05:59)
[2022-03-08] MEDS: metFORMIN HCL 500 MG TAB PO SCH ×2 (07:57→17:26)
[2022-03-08 08:16] LABS: BUN Creatinine Ratio 30.4 (10-20); Calcium 8.7 mg/dl (8.5-10.1); Creatinine Clr Calc Pharmacy 47.5 ml/min; Est GFR (African American) 64.5 ml/min; Est GFR (Non-African American) 55.7 ml/min; Magnesium 1.8 mg/dl (1.7-2.4); Potassium 4.1 mmol/L (3.5-5.1)
[2022-03-08] MEDS: LANTUS PER UNIT CHARGE SQ SCH ×2 (09:05→21:19)
[2022-03-08] MEDS: INSULIN ASPART PER UNIT SC SCH ×4 (09:06→21:19)
[2022-03-08] MEDS: amLODIPine BESYLATE 5 MG TAB PO SCH (09:08)
[2022-03-08] MEDS: CYANOCOBALAMIN (B-12) 500 MCG TABLET PO SCH (09:09)
[2022-03-08] MEDS: CALCIUM CARBONATE 1250MG TAB PO SCH ×2 (09:09→21:22)
[2022-03-08] MEDS: ASPIRIN 81 MG ECTAB PO SCH (09:09)
[2022-03-08] MEDS: ENOXAPARIN INJ 40 MG/0.4 ML SYR SQ SCH (09:10)
[2022-03-08] MEDS: LOSARTAN POTASSIUM 25 MG TAB PO SCH (09:14)
[2022-03-08] MEDS: OMEGA-3 (PURIFIED FISH OIL) 1 GM CAP PO SCH ×2 (09:14→21:22)
[2022-03-08] MEDS: MAGNESIUM OXIDE 400 MG TAB PO SCH ×2 (09:14→21:20)
[2022-03-08] MEDS: METOPROLOL TARTRATE 50 MG TAB PO SCH ×2 (09:15→21:23)
[2022-03-08] MEDS: THIAMINE HCL 100 MG TAB PO SCH ×2 (09:15→21:21)
[2022-03-08] MEDS: VENLAFAXINE HCL XR 150 MG CAPXR PO SCH (09:16)
[2022-03-08] MEDS: FAMOTIDINE 20 MG TAB PO SCH ×2 (11:28→21:18)
[2022-03-08] MEDS: DOCUSATE SODIUM 100 MG CAP PO SCH (11:28)
[2022-03-08] MEDS: TIMOLOL MALEATE 0.5% OP SOLN 5 ML BTL OP SCH (11:28)
[2022-03-08] MEDS ORDERED: ONDANSETRON INJ 2 MG/ML 2 ML VIAL IV PRN (18:30)
--- NOTE | 2022-03-08 21:06 | Hospitalist Progress Note ---
Date of Service March 08, 2022 Assessment & Plan (1) Acute encephalopathy: Plan: RESOLVED. Present on admission -- Uncertain etiology. Mental status had improved, then on 02/25, was very confused much of the day but by 02/26 was again back to baseline. MRI brain without acute or chronic stroke but severe atrophy noted. Baseline mental status - a/o x 3 but son confirmed mild memory issues over last year. B12 level and B1 level both low - replacing. Both of these nutritional def can cause memory/cognitive issues. TSH wnl and ammonia wnl. COVID/RSV/flu negative. With altered MS, urinary incontinence, and gait disturbance -- NPH? Other? Appreciate Dr Cohen's consultation from [facility] [place] neurology. Patient did have LP under fluoro - opening pressure 12, zero WBCs, mildly bloody tap (500 RBCs) but no xanthochromia. She did not notice any change in her gait following the LP. Dr Cohen recommended EMG studies post-d/c to rule out diabetic neuropathy as the cause of gait disturbance, but even if present, that would not cause her mental status issues. In addition, he will consider ordering a radionucleotide cisternogram which is a diagnostic study for NPH. I explained the above plan to the patient & her son this weekend. (2) Dizziness: Plan: present on admission - retrospectively it may have been orthostasis as in #3 (3) Orthostatic hypotension: Plan: severe as confirmed on formal orthostatics yesterday, SBP dropping to the 70s with standing likely combination of recent institution of HCTZ and other BP meds, poor liquid intake, +/- diabetic neuropathy leading to orthostasis? STOPPED HCTZ s/p IV fluids overnight with resolved dizziness lower amlodipine dose back to 5mg daily (4) Headache: Plan: present on admission - resolved, has not recurred 2nd to #5?? crp/sed rate wnl. headache resolved. MRI brain negative. No infectious cause of her headache and her LP was negative for infection. (5) Hypertensive urgency: Plan: at home patient was taking metoprolol 50mg BID + amlodipine 5mg daily during the stay her resting BPs were markedly elevated HCTZ and losartan were added while here, and amlodipine was titrated to 10mg although lying/resting BPs improved nicely with all of the above she then developed symptomatic orthostasis as in #3 STOPPED HCTZ reduced amlodipine dose to 5mg from 10mg re-eval BPs in am (6) Stroke-like symptoms: Plan: CVA ruled out - MRI brain negative for such (7) Hypomagnesemia: Plan: replaced resolved (8) Type 2 diabetes mellitus: Plan: HbA1C 7.1 Had been holding glipizide and metformin resumed metformin cont lantus BID cont novolog (9) Hypothyroidism: Plan: TSH 1.223 Continue levothyroxine 100mcg PO daily (10) Hearing difficulty: Plan: SEVERE Requires hearing aids (11) Hyperlipidemia: Plan: Continue simvastatin LFTS wnl (12) Coronary artery disease: Plan: Continue metoprolol, statin, asa No signs of ACS (13) Anxiety: Plan: venlafaxine continued (14) H/O deep venous thrombosis: Plan: 04/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 no longer on anticoagulation given the protracted nature of this hospital stay will send out on 30 days of xarelto 10mg daily for DVT Proph while here -- lovenox (15) Hypokalemia: Plan: replaced resolved (16) B12 deficiency: Plan: b12 1000mcg once daily x 1 year recheck level 4-6 weeks to ensure it is coming up (17) Vitamin B1 deficiency: Plan: thiamine 200mg BID x 1 month recheck level at conclusion of therapy Plan PT/OT both advised rehab at d/c daughter updated by phone yesterday evening extensively Admission and Anticipated Discharge Date Admission Date: February 25, 2022 Subjective no further dizziness feels good this am denies any new complaints anxious to leave hospital eating well Review of Systems Review of Systems: cv - no orthopnea or pain pulm - no cough or dyspnea GI - no abd pain; + bowel movements Physical Exam Physical Exam: gen - obese, NAD mouth - MMM ears - hearing impairment at baseline (severe) neck - no JVD heart - RRR, s1 s2, no murmur lungs - CTA b/l abd - soft ND BS+ NT ext - no edema, pulses 2+ b/l psych - a/o x 3 Results & Data Results & Data ([facility]) Vital Signs (Past 12 Hours) Vital Signs Temp Pulse Resp BP Pulse Ox O2 Del Method 03/08/22 19:54 Room Air 03/08/22 15:06 37.1 C 73 18 139/78 92 Room Air Laboratory Results Laboratory Results - last 24 hr 03/08/22 03/08/22 03/08/22 07:34 07:59 11:57 Sodium 139 Potassium 4.1 Chloride 107 Carbon Dioxide 27 Anion Gap 5 BUN 31 H Creatinine 1.02 Est Cr Clr Drug Dosing 47.5 Est GFR ( Amer) 64.5 Est GFR (Non-Af Amer) 55.7 BUN/Creatinine Ratio 30.4 H Glucose 119 H POC Glucose 120 H 170 H Calcium 8.7 Magnesium 1.8 03/08/22 03/08/22 17:18 20:53 Sodium Potassium Chloride Carbon Dioxide Anion Gap BUN Creatinine Est Cr Clr Drug Dosing Est GFR ( Amer) Est GFR (Non-Af Amer) BUN/Creatinine Ratio Glucose POC Glucose 75 90 Calcium Magnesium PG Care Time/CCT Total # of Minutes Spent Total Time Spent with Patient: Total time spent is greater than 50% in coordination of care (as documented) at patient's floor/unit and/or counseling patient: Coding Level of Care Code 08852 Subseq Hosp Care Lvl 2 Diagnoses Acute encephalopathy G93.40 Dizziness R42 Orthostatic hypotension I95.1 Headache R51.9 Hypertensive urgency I16.0 Stroke-like symptoms R29.90 Hypomagnesemia E83.42 Type 2 diabetes mellitus E11.9 Hypothyroidism E03.9 Hearing difficulty H91.90 Hyperlipidemia E78.5 Coronary artery disease I25.10 Anxiety F41.9 H/O deep venous thrombosis Z86.718 Hypokalemia E87.6 B12 deficiency E53.8 Vitamin B1 deficiency E51.9
[2022-03-08] MEDS: MELATONIN 3 MG TAB PO SCH (21:20)
[2022-03-08] MEDS: SIMVASTATIN 40 MG TAB PO SCH (21:20)
[2022-03-08] MEDS: VENLAFAXINE HCL XR 75 MG CAPXR PO SCH (21:21)
[2022-03-09] MEDS: LEVOTHYROXINE SODIUM 100 MCG TABLET PO SCH (05:59)
[2022-03-09 09:19] LABS: Basophils # (auto) 0.03 K/uL (0-0.2); Basophils % (auto) 0.4 %; Eosinophils # (auto) 0.19 K/uL (0-0.50); Eosinophils % (auto) 2.2 %; Hemoglobin 12.6 g/dl (12.0-16.0); Immature Granulocytes # (auto) 0.03 K/uL (0.00-0.02); Immature Granulocytes % (auto) 0.4 %; Lymphocytes # (auto) 2.14 K/uL (1.2-3.4); Lymphocytes % (auto) 25.2 %; Mean Corpuscular Hemoglobin 29.9 pg (25.0-34.0); Mean Corpuscular Hgb Conc 33.2 g/dL (32.0-36.0); Mean Corpuscular Volume 90.3 fL (80.0-100.0); Monocytes % (auto) 10.6 %; Neutrophils # (auto) 5.21 K/uL (1.4-6.5); Neutrophils % (auto) 61.2 %; Platelet Count 254 K/uL (130-400); RDW Coefficient of Variation 13.1 % (11.5-14.5); RDW Standard Deviation 42.5 fL (36.4-46.3); Red Blood Count 4.21 M/uL (3.93-5.22)
[2022-03-09 09:39] LABS: Albumin Level 3.5 gm/dl (3.4-5.0); BUN Creatinine Ratio 26.8 (10-20); Bilirubin Direct 0.1 mg/dl (0-0.2); Bilirubin,Total 0.4 mg/dl (0.2-1.0); Creatinine Clr Calc Pharmacy 49.9 ml/min; Est GFR (African American) 68.6 ml/min; Est GFR (Non-African American) 59.2 ml/min; Total Protein 6.5 gm/dl (6.0-8.3)
[2022-03-09] MEDS: METOPROLOL TARTRATE 50 MG TAB PO SCH ×2 (10:21→20:50)
[2022-03-09] MEDS: amLODIPine BESYLATE 5 MG TAB PO SCH (10:21)
[2022-03-09] MEDS: CALCIUM CARBONATE 1250MG TAB PO SCH ×2 (10:21→20:55)
[2022-03-09] MEDS: THIAMINE HCL 100 MG TAB PO SCH ×2 (10:22→20:55)
[2022-03-09] MEDS: metFORMIN HCL 500 MG TAB PO SCH ×2 (10:22→16:59)
[2022-03-09] MEDS: CYANOCOBALAMIN (B-12) 500 MCG TABLET PO SCH (10:22)
[2022-03-09] MEDS: MAGNESIUM OXIDE 400 MG TAB PO SCH ×2 (10:22→20:55)
[2022-03-09] MEDS: OMEGA-3 (PURIFIED FISH OIL) 1 GM CAP PO SCH ×2 (10:22→20:55)
[2022-03-09] MEDS: VENLAFAXINE HCL XR 150 MG CAPXR PO SCH (10:23)
[2022-03-09] MEDS: LOSARTAN POTASSIUM 25 MG TAB PO SCH (10:23)
[2022-03-09] MEDS: ASPIRIN 81 MG ECTAB PO SCH (10:23)
[2022-03-09] MEDS: ENOXAPARIN INJ 40 MG/0.4 ML SYR SQ SCH (10:24)
[2022-03-09] MEDS: TIMOLOL MALEATE 0.5% OP SOLN 5 ML BTL OP SCH (10:24)
[2022-03-09] MEDS: DOCUSATE SODIUM 100 MG CAP PO SCH (10:28)
[2022-03-09] MEDS: FAMOTIDINE 20 MG TAB PO SCH ×2 (10:28→20:52)
[2022-03-09] MEDS: INSULIN ASPART PER UNIT SC SCH ×4 (10:36→20:41)
[2022-03-09] MEDS: LANTUS PER UNIT CHARGE SQ SCH ×2 (10:36→21:56)
[2022-03-09 16:33] LABS: Appearance Urine Clear (Clear); Bilirubin Urine Negative (Negative); Blood Urine Negative (Negative); Color Urine Yellow; Glucose Urine UA Negative (Negative); Ketones Urine Negative (Negative); Leukocyte Esterase Urine Negative (Negative); Nitrite Urine Negative (Negative); Protein Urine Negative (Negative); Specific Gravity Urine 1.007 (1.000-1.030); Urobilinogen Urine Negative (Negative); pH Urine 6.5 (4.5-7.5)
[2022-03-09] MEDS ORDERED: PANTOprazole 40 MG TAB PO STA (20:02)
[2022-03-09] MEDS: ACETAMINOPHEN 325 MG TAB PO PRN (20:52)
[2022-03-09] MEDS: SIMVASTATIN 40 MG TAB PO SCH (20:52)
[2022-03-09] MEDS: MELATONIN 3 MG TAB PO SCH (20:53)
[2022-03-09] MEDS: VENLAFAXINE HCL XR 75 MG CAPXR PO SCH (20:54)
--- NOTE | 2022-03-09 22:11 | Hospitalist Progress Note ---
Date of Service March 09, 2022 Assessment & Plan (1) Acute encephalopathy: Plan: RESOLVED. Present on admission -- Uncertain etiology. Mental status had improved, then on 02/25, was very confused much of the day but by 02/26 was again back to baseline. Since the 02/26 she has remained at neuropsych baseline. MRI brain without acute or chronic stroke but severe atrophy noted. Baseline mental status - a/o x 3 but son confirmed mild memory issues over last year. B12 level and B1 level both low - replacing. Both of these nutritional def can cause memory/cognitive issues. TSH wnl and ammonia wnl. COVID/RSV/flu negative. With altered MS, urinary incontinence, and gait disturbance -- NPH? Other? Appreciate Dr Cohen's consultation from [facility]. Patient did have LP under fluoro - opening pressure 12, zero WBCs, mildly bloody tap (500 RBCs) but no xanthochromia. She did not notice any change in her gait following the LP. Dr Cohen recommended EMG studies post-d/c to rule out diabetic neuropathy as the cause of gait disturbance, but even if present, that would not cause her mental status issues. In addition, he will consider ordering a radionucleotide cisternogram which is a diagnostic study for NPH. Will need f/u with [facility] post-d/c. (2) Dizziness: Plan: present on admission - retrospectively it may have been orthostasis as in #3 (3) Orthostatic hypotension: Plan: occurred several days ago -- severe as confirmed on formal orthostatics with SBP dropping to the 70s with standing likely combination of recent institution of HCTZ and other BP meds, poor liquid intake, +/- diabetic neuropathy leading to orthostasis? STOPPED HCTZ s/p IV fluids with resolved dizziness lowered amlodipine dose back to 5mg daily (4) Headache: Plan: present on admission - resolved, has not recurred 2nd to #5?? crp/sed rate wnl. headache resolved. MRI brain negative. No infectious cause of her headache and her LP was negative for infection. (5) Hypertensive urgency: Plan: at home patient was taking metoprolol 50mg BID + amlodipine 5mg daily during the stay her resting BPs were markedly elevated HCTZ and losartan were added while here, and amlodipine was titrated to 10mg although lying/resting BPs improved nicely with all of the above she then developed symptomatic orthostasis as in #3 STOPPED HCTZ reduced amlodipine dose to 5mg from 10mg BPs today stable (6) Stroke-like symptoms: Plan: CVA ruled out - MRI brain negative for such (7) Hypomagnesemia: Plan: replaced resolved (8) Type 2 diabetes mellitus: Plan: HbA1C 7.1 Had been holding glipizide and metformin resumed metformin cont lantus BID but LOWER the dose cont novolog but loosen correction, carb ratio, and goal range at d/c would continue lantus daily + metformin but stop glipizide (9) Hypothyroidism: Plan: TSH 1.223 Continue levothyroxine 100mcg PO daily (10) Hearing difficulty: Plan: SEVERE Requires hearing aids (11) Hyperlipidemia: Plan: Continue simvastatin LFTS wnl (12) Coronary artery disease: Plan: Continue metoprolol, statin, asa No signs of ACS (13) Anxiety: Plan: venlafaxine continued (14) H/O deep venous thrombosis: Plan: 04/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 other? neuro f/u post-d/c to r/o NPH if w/u for NPH is negative then send to urology u/a today COMPLETELY NORMAL (19) Acid reflux: Plan: could occasional nausea/emesis be GERD? add PPI to the H2 cameron Plan PT/OT both advised rehab at d/c hopefully d/c to rehab 03/10 Admission and Anticipated Discharge Date Admission Date: February 25, 2022 Subjective uneventful day no further/recurrent emesis occasional stomach upset only tolerated both breakfast and lunch without issue no dizziness feels good Review of Systems Review of Systems: cv - no orthopnea or chest pain pulm - no dyspnea - c/o urinary incontinence GI - no pain Physical Exam Physical Exam: gen - obese, NAD, laying in bed watching TV mouth - MMM ears - hearing impairment at baseline (severe) neck - no JVD heart - RRR, s1 s2, no murmur lungs - CTA b/l abd - soft ND BS+ NT ext - no edema, pulses 2+ b/l psych - a/o x 3 Results & Data Results & Data ([facility]) Vital Signs (Past 12 Hours) Vital Signs Temp Pulse Resp BP Pulse Ox O2 Del Method O2 Del Method 03/09/22 21:32 36.6 C 68 16 145/84 H 93 Room Air 03/09/22 20:00 Room Air 03/09/22 15:45 36.4 C L 70 16 167/80 H 96 Room Air Laboratory Results Laboratory Results - last 24 hr 03/09/22 03/09/22 03/09/22 08:38 08:49 08:49 WBC 8.50 RBC 4.21 Hgb 12.6 Hct 38.0 MCV 90.3 MCH 29.9 MCHC 33.2 RDW Std Deviation 42.5 RDW Coeff of Judy 13.1 Plt Count 254 MPV 10.0 Immature Gran % (Auto) 0.4 Neut % (Auto) 61.2 Lymph % (Auto) 25.2 [place] % (Auto) 10.6 Eos % (Auto) 2.2 Baso % (Auto) 0.4 Neut # (Auto) 5.21 Lymph # (Auto) 2.14 [place] # (Auto) 0.90 H Eos # (Auto) 0.19 Baso # (Auto) 0.03 Immature Gran # (Auto) 0.03 H Sodium 139 Potassium 4.0 Chloride 106 Carbon Dioxide 25 Anion Gap 8 BUN 26 H Creatinine 0.97 Est Cr Clr Drug Dosing 49.9 Est GFR ( Amer) 68.6 Est GFR (Non-Af Amer) 59.2 BUN/Creatinine Ratio 26.8 H Glucose 109 H POC Glucose 105 H Calcium 9.0 Total Bilirubin 0.4 Direct Bilirubin 0.1 AST 14 ALT 17 Alkaline Phosphatase 80 Total Protein 6.5 Albumin 3.5 Lipase 35 Urine Color Urine Appearance Urine pH Ur Specific [place] Urine Protein Urine Glucose (UA) Urine Ketones Urine Blood Urine Nitrite Urine Bilirubin Urine Urobilinogen Ur Leukocyte Esterase 03/09/22 03/09/22 03/09/22 12:08 17:08 17:09 WBC RBC Hgb Hct MCV MCH MCHC RDW Std Deviation RDW Coeff of Judy Plt Count MPV Immature Gran % (Auto) Neut % (Auto) Lymph % (Auto) [place] % (Auto) Eos % (Auto) Baso % (Auto) Neut # (Auto) Lymph # (Auto) [place] # (Auto) Eos # (Auto) Baso # (Auto) Immature Gran # (Auto) Sodium Potassium Chloride Carbon Dioxide Anion Gap BUN Creatinine Est Cr Clr Drug Dosing Est GFR ( Amer) Est GFR (Non-Af Amer) BUN/Creatinine Ratio Glucose POC Glucose 221 H 64 L* 70 Calcium Total Bilirubin Direct Bilirubin AST ALT Alkaline Phosphatase Total Protein Albumin Lipase Urine Color Urine Appearance Urine pH Ur Specific [place] Urine Protein Urine Glucose (UA) Urine Ketones Urine Blood Urine Nitrite Urine Bilirubin Urine Urobilinogen Ur Leukocyte Esterase 03/09/22 03/09/22 20:34 Unknown WBC RBC Hgb Hct MCV MCH MCHC RDW Std Deviation RDW Coeff of Judy Plt Count MPV Immature Gran % (Auto) Neut % (Auto) Lymph % (Auto) [place] % (Auto) Eos % (Auto) Baso % (Auto) Neut # (Auto) Lymph # (Auto) [place] # (Auto) Eos # (Auto) Baso # (Auto) Immature Gran # (Auto) Sodium Potassium Chloride Carbon Dioxide Anion Gap BUN Creatinine Est Cr Clr Drug Dosing Est GFR ( Amer) Est GFR (Non-Af Amer) BUN/Creatinine Ratio Glucose POC Glucose 137 H Calcium Total Bilirubin Direct Bilirubin AST ALT Alkaline Phosphatase Total Protein Albumin Lipase Urine Color Yellow Urine Appearance Clear Urine pH 6.5 Ur Specific [place] 1.007 Urine Protein Negative Urine Glucose (UA) Negative Urine Ketones Negative Urine Blood Negative Urine Nitrite Negative Urine Bilirubin Negative Urine Urobilinogen Negative Ur Leukocyte Esterase Negative PG Care Time/CCT Total # of Minutes Spent Total Time Spent with Patient: Total time spent is greater than 50% in coordination of care (as documented) at patient's floor/unit and/or counseling patient: Coding Level of Care Code 91564 Subseq Hosp Care Lvl 2 Diagnoses Acute encephalopathy G93.40 Dizziness R42 Orthostatic hypotension I95.1 Headache R51.9 Hypertensive urgency I16.0 Stroke-like symptoms R29.90 Hypomagnesemia E83.42 Type 2 diabetes mellitus E11.9 Hypothyroidism E03.9 Hearing difficulty H91.90 Hyperlipidemia E78.5 Coronary artery disease I25.10 Anxiety F41.9 H/O deep venous thrombosis Z86.718 Hypokalemia E87.6 B12 deficiency E53.8 Vitamin B1 deficiency E51.9 Urinary incontinence R32 Acid reflux K21.9
[2022-03-10] MEDS: LEVOTHYROXINE SODIUM 100 MCG TABLET PO SCH (05:38)
[2022-03-10] MEDS ORDERED: PANTOprazole 40 MG TAB PO SCH (09:00)
[2022-03-10] MEDS: INSULIN ASPART PER UNIT SC SCH (10:01)
[2022-03-10] MEDS: LANTUS PER UNIT CHARGE SQ SCH (10:01)
[2022-03-10] MEDS: OMEGA-3 (PURIFIED FISH OIL) 1 GM CAP PO SCH (10:03)
[2022-03-10] MEDS: metFORMIN HCL 500 MG TAB PO SCH (10:03)
[2022-03-10] MEDS: METOPROLOL TARTRATE 50 MG TAB PO SCH (10:04)
[2022-03-10] MEDS: MAGNESIUM OXIDE 400 MG TAB PO SCH (10:04)
[2022-03-10] MEDS: VENLAFAXINE HCL XR 150 MG CAPXR PO SCH (10:04)
[2022-03-10] MEDS: ASPIRIN 81 MG ECTAB PO SCH (10:04)
[2022-03-10] MEDS: THIAMINE HCL 100 MG TAB PO SCH (10:04)
[2022-03-10] MEDS: LOSARTAN POTASSIUM 25 MG TAB PO SCH (10:04)
[2022-03-10] MEDS: ENOXAPARIN INJ 40 MG/0.4 ML SYR SQ SCH (10:05)
[2022-03-10] MEDS: CALCIUM CARBONATE 1250MG TAB PO SCH (10:05)
[2022-03-10] MEDS: CYANOCOBALAMIN (B-12) 500 MCG TABLET PO SCH (10:05)
[2022-03-10] MEDS: amLODIPine BESYLATE 5 MG TAB PO SCH (10:05)
[2022-03-10] MEDS: FAMOTIDINE 20 MG TAB PO SCH (10:06)
[2022-03-10] MEDS: TIMOLOL MALEATE 0.5% OP SOLN 5 ML BTL OP SCH (10:06)
[2022-03-10] MEDS: DOCUSATE SODIUM 100 MG CAP PO SCH (10:06)
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
== END 2022-03-10 12:32 | DRG 79 ==
LOC: ED 15:04 → EDINP 15:04 → SUATTDRO 17:15 → 2W 20:06 → SUATTDRO 02-25 20:14 → 3W 03-05 01:41
DX: I10 Essential (primary) hypertension; I95.1 Orthostatic hypotension; I25.10 Atherosclerotic heart disease of native coronary artery without angina pectoris; F41.8 Other specified anxiety disorders; E83.42 Hypomagnesemia; K21.9 Gastro-esophageal reflux disease without esophagitis; I16.0 Hypertensive urgency; E78.5 Hyperlipidemia, unspecified; E53.8 Deficiency of other specified B group vitamins; R29.706 NIHSS score 6; R32 Unspecified urinary incontinence; E87.6 Hypokalemia; Z79.01 Long term (current) use of anticoagulants; H91.90 Unspecified hearing loss, unspecified ear; I67.4 Hypertensive encephalopathy; Z79.4 Long term (current) use of insulin; Z79.82 Long term (current) use of aspirin; Z96.652 Presence of left artificial knee joint; E03.9 Hypothyroidism, unspecified; Z79.890 Hormone replacement therapy; R26.89 Other abnormalities of gait and mobility; E11.9 Type 2 diabetes mellitus without complications; Z86.718 Personal history of other venous thrombosis and embolism; Z79.84 Long term (current) use of oral hypoglycemic drugs

== ENCOUNTER 2022-04-19 16:30 | Inpatient (IN) ==
--- NOTE | 2022-04-19 18:14 | XRay Report ---
XR chest 1V portable HISTORY: confusion COMPARISON: Chest 02/22/2022. FINDINGS: No pneumothorax. No pleural effusions. The cardiac silhouette remains borderline enlarged. No new focal lung consolidations to suggest a pneumonia. No evidence for pulmonary edema. There is a linear scarlike density within the right lower lung zone. IMPRESSION: No acute process. ACT 112: Negative or not required by law. Electronically signed by: Patrick Infante M.D. 04/19/2022 6:13 PM
[2022-04-19 18:50] LABS: Basophils # (auto) 0.04 K/uL (0-0.2); Basophils % (auto) 0.5 %; Eosinophils # (auto) 0.17 K/uL (0-0.50); Eosinophils % (auto) 1.9 %; Hematocrit (blood only) 38.2 % (37.0-47.0); Hemoglobin 12.9 g/dl (12.0-16.0); Immature Granulocytes # (auto) 0.02 K/uL (0.01-0.20); Immature Granulocytes % (auto) 0.2 %; Lymphocytes # (auto) 2.39 K/uL (1.2-3.4); Lymphocytes % (auto) 27.3 %; Mean Corpuscular Hemoglobin 29.9 pg (25.0-34.0); Mean Corpuscular Hgb Conc 33.8 g/dL (32.0-36.0); Mean Corpuscular Volume 88.6 fL (80.0-100.0); Mean Platelet Volume 10.2 fL (9.4-12.4); Monocytes # (auto) 0.89 K/uL (0.11-0.59); Monocytes % (auto) 10.1 %; Neutrophils # (auto) 5.26 K/uL (1.40-6.50); Platelet Count 302 K/uL (130-400); RDW Coefficient of Variation 13.5 % (11.5-14.5); RDW Standard Deviation 43.9 fL (36.4-46.3); Red Blood Count 4.31 M/uL (4.20-5.40); White Blood Count 8.77 K/ul (4.8-10.8)
[2022-04-19 19:05] LABS: Albumin Globulin Ratio 1.4 (0.9-2); Albumin Level 4.1 gm/dl (3.4-5.0); BUN Creatinine Ratio 34.7 (10-20); Bilirubin,Total 0.4 mg/dl (0.2-1.0); Calcium 9.4 mg/dl (8.5-10.1); Creatinine Clr Calc Pharmacy 48.9 ml/min; Est GFR (African American) 70.3 ml/min; Est GFR (Non-African American) 60.7 ml/min; Potassium 4.1 mmol/L (3.5-5.1); Total Protein 7.1 gm/dl (6.0-8.3)
--- NOTE | 2022-04-19 20:42 | Emergency Department Note ---
Impression & Plan Ambulatory dysfunction, Frequent falls, Failure to thrive in adult, Head injury, Confusion ED Provider Note NAME: SHAR COSBY AGE: 71 SEX: F : 1950 ARRIVES VIA: Walk-In INFORMANT: Patient, the patient's daughter ED PROVIDER(S): Stephen Hinson DO CHIEF COMPLAINT: Multiple falls HPI: The patient is a 71-year-old female who presented to the emergency department for an evaluation of multiple complaints. The patient was recently discharged from inpatient skilled nursing care. She has been living with her daughter but her daughter is having a very hard time. The patient's had a very significant decline especially over the last few days. She is had frequent falls. She was noted to strike her head at least once but at this time the patient states that she did not strike her head recently. The daughter does give a good portion of the history. There is been no vomiting. There is been no reported abdominal pain. The patient has a history of diabetes. She burned her foot recently on hot water. There have been no fever. The patient is also been complaining of headache and her daughter finds her to be confused at times. ROS: See above HPI for pertinent positives & negatives. A total of 10 systems reviewed and were otherwise negative. PAST MEDICAL HISTORY: See Below PAST SURGICAL HISTORY: See Below FAMILY HISTORY: See Below SOCIAL HISTORY: See Below HOME MEDICATIONS: See Below ALLERGIES: See Below VITALS: See Below PHYSICAL EXAMINATION: GENERAL: The patient is awake and alert. She is comfortable appearing. EYES: The conjunctivae are clear. The pupils are round and reactive. EARS, NOSE, MOUTH AND THROAT: The nose is without any evidence of any deformity. NECK: The neck is nontender and supple. RESPIRATORY: Normal respiratory effort is noted there is no evidence of wheezing rhonchi or rales CARDIOVASCULAR: Regular rate and rhythm noted there no murmurs rubs or gallops normal S1 normal S2. GASTROINTESTINAL: The abdomen is soft. Abdomen is nontender. MUSCULOSKELETAL/EXTREMITIES: There is no evidence of gross deformity full range of motion is noted in the hips and shoulders. SKIN: Skin was warm and dry. There is pedal edema bilaterally. Pulses are symmetric in both feet. There is a second-degree burn that is healing on the dorsum of the right foot. NEUROLOGIC: Patient is awake alert and oriented to person place and time. Strength was symmetric but diminished. No facial droop was appreciated. MEDICAL DECISION MAKING: The patient is a 71-year-old female who presented to the emergency department with her daughter for an evaluation of altered mental status. The patient recently was in a skilled nursing setting. She recently came home to stay with her daughter. The patient has severe hearing difficulty. She also has ambulatory dysfunction at baseline. According to her family member she has been compliant with her outpatient medications but has had frequent falls and appears to be declining. Her family member was very concerned because the patient was also confused. On my evaluation she was awake and alert but appeared to be very confused at times. She was very slow to answer questions. She is had frequent falls as well as head injury reported but no recent head injury. Given her confusion further laboratory and radiographic studies were obtained to ensure there is no acute process. I discussed patient's laboratory and radiographic studies with the daughter. No definite cause for the patient's presentation this evening could be found but the patient's family member was very concerned and was not comfortable with her going home. For this reason I discussed the patient's case with the on-call [facility] hospitalist. Triage Nursing notes reviewed. Prior medical records reviewed Vital Signs: reviewed and remarkable for elevated blood pressure. Differential diagnosis: Infection, dehydration, metabolic abnormality, hypo/hyperglycemia, electrolyte disturbance, anemia, hypoxia, cardiac sources, intracerebral event, toxicologic, neurologic, as well as other pathologies. ER treatment provided: See below Diagnostics interpreted by me: ECG: EKG was obtained in the emergency department. My interpretation is normal sinus rhythm at 85 bpm. There was no ectopy. There was no acute ST segment abnormalities noted. This was compared to a tracing from February 22, 2022. No changes were noted. Cardiac Monitoring: An order was placed for continuous cardiac monitoring. The monitor shows a rate of 80 bpm with sinus rhythm Laboratory studies: As stated above and show below. Imaging studies: See below. Radiographic imaging was reviewed by myself Consultation(s): I discussed case with Dr Cortez who is on-call for the [facility] group. Past Med/Surg History Medical History (Updated 04/20/22 @ 08:41 by Stephen Hinson DO) Acid reflux Acute encephalopathy Anxiety B12 deficiency Bladder spasms Coronary artery disease Depression with anxiety Fatty liver Gait disturbance Generalized osteoarthritis Glaucoma H/O deep venous thrombosis Hearing difficulty Hiatal hernia Hyperlipidemia Hypertension Hypertensive urgency Hypokalemia Hypomagnesemia Hypothyroidism Iron deficiency anemia Ischial bursitis Left leg DVT post-up left TKA 04/2021 - completed 6 months anticoagulation Lumbar back pain Multiple pulmonary nodules Obesity Orthostatic hypotension Type 2 diabetes mellitus Urinary incontinence Vitamin B1 deficiency Surgical History History of cardiac cath >10 yrs ago ([facility]) > no stents History of carpal tunnel surgery R/L History of cataract surgery R/L History of section x1 History of cholecystectomy History of colonoscopy Colonoscopy (10/02/18): MAC sedation at [facility] History of esophagogastroduodenoscopy (EGD) EGD/colonoscopy (08/25/20): MAC at [facility] History of hysterectomy Total History of tonsillectomy History of tooth extraction S/P trigger finger release left Status post total knee replacement left knee 05/10/21 Family History Father Family history of diabetes mellitus Myocardial infarction, Onset Age: 56 Mother Anxiety Grandfather (Paternal) Throat cancer Other No family history of adverse response to anesthesia Denies family history of Ovarian cancer Prostate cancer Breast cancer Colorectal cancer Social History Smoking Status: Never smoker Second Hand Exposure: No; Do You Dip or Chew Tobacco: No; Hx Alcohol Use: No Hx Substance Use: No Preferred Language: Lebanese Communication Ability: Effective Visual Impairment: No Limitations Hearing Ability: Use of Hearing Aid Hot Die Press Feeder Required: No Beliefs That Will Affect Care: None marital status: Current Living Situation: Family Current Living Situation Comment: possible placement- daughter expressed concerns with recent illness current occupational status: retired 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 [employer] Feels Safe at Home: Yes Safety Concerns: Feels Safe At This Time Childhood Exposure to Second-Hand Smoke: No Dental Care, Regularly: No Physical Activity Frequency: 3-4 Times per Week Seatbelt Use: always Sunscreen Use: Yes Assistive Devices: Glasses and Walker Allergies Allergies Allergy/AdvReac Type Severity Reaction Status Date / Time lisinopril AdvReac hyperkalemi Verified 04/10/22 13:41 a Home Meds Home Medications Medication Instructions Recorded Confirmed calcium carbonate 600 mg calcium 600 mg PO BID 09/25/18 04/19/22 (1,500 mg) tablet (Calcium) fish oil-dha-epa 1,200 mg-144 1 cap PO BID 09/25/18 04/19/22 mg-216 mg capsule albuterol sulfate 90 mcg/actuation 2 puff inhalation Q6H PRN 01/21/20 04/19/22 aerosol inhaler Shortness Of Breath Or Wheezing timolol 0.5 % eye drops 1 drp ophthalmic (eye) QAM 07/07/20 04/19/22 acetaminophen 500 mg capsule 1,000 mg PO TID PRN Pain 05/11/21 04/19/22 docusate sodium 100 mg capsule 100 mg PO DAILY 08/04/21 04/19/22 (Colace) aspirin 81 mg tablet,delayed 81 mg PO DAILY 02/22/22 04/19/22 release solifenacin 5 mg tablet (Vesicare) 5 mg PO DAILY 02/22/22 04/19/22 Previous Rx's Medication Instructions Recorded levothyroxine 100 mcg tablet 100 mcg PO QAM #90 tabs 12/23/21 metformin 500 mg tablet 1,000 mg PO BID #360 tabs 12/23/21 metoprolol tartrate 50 mg tablet 50 mg PO BID #180 tabs 12/23/21 simvastatin 40 mg tablet 40 mg PO QPM #90 tabs 12/23/21 venlafaxine 75 mg capsule,extended See Rx Instructions PO BID #270 12/23/21 release 24 hr (Effexor XR) caps amlodipine 5 mg tablet 5 mg PO DAILY #90 tabs 01/06/22 cyanocobalamin (vitamin B-12) 500 1,000 mcg PO QAM #60 tabs 03/10/22 mcg tablet famotidine 20 mg tablet (Pepcid) 20 mg PO BID PRN acid 03/10/22 reflux/heartburn #30 tabs losartan 25 mg tablet 25 mg PO QAM #30 tabs 03/10/22 magnesium oxide 400 mg (241.3 mg 400 mg PO BID #60 tabs 03/10/22 magnesium) tablet melatonin 3 mg tablet 3 mg PO HS #30 tabs 03/10/22 omeprazole 20 mg capsule,delayed 40 mg PO DAILY #60 caps 03/10/22 release insulin glargine 100 unit/mL (3 See Rx Instructions subcut DAILY 04/14/22 mL) subcutaneous pen (Lantus #15 mL Solostar U-100 Insulin) pen needle, diabetic 32 gauge x #100 ea 04/14/22 1/" (BD Ultra-Fine Micro Pen Needle) Results & Data (ED) Vital Signs Vital Signs - 24 hr 04/19/22 17:29 04/19/22 22:00 Temperature 36.8 C Temperature Source Skin Pulse Rate 90 Pulse Rate [Finger] 75 Pulse Rhythm [Finger] Regular Pulse Strength [Finger] Normal Respiratory Rate 20 19 Respiratory Effort / Characteristics Non-Labored Spontaneous Non-Labored Respiratory Depth Normal Normal Respiratory Pattern Regular Regular Blood Pressure 187/99 H Blood Pressure [Left Arm] 187/90 H Blood Pressure Mean 128 Blood Pressure Mean [Left Arm] 122 Blood Pressure Position [Left Arm] Lying Pulse Oximetry 100 99 Oxygen Delivery Method Room Air Room Air Sepsis Recent Fever Within 48 Hours No Sepsis New/Unexplained Change in Mental Status N/A Sepsis Action Taken by Nursing No Action Required Home Medications Current Medication List: was personally reviewed by me Laboratory Data Attestation: I reviewed the patient's lab results. 04/19/22 18:34 04/19/22 18:34 Lab Results 04/19/22 04/19/22 04/19/22 Range/Units 18:34 18:34 20:52 WBC 8.77 (4.8-10.8) K/ul RBC 4.31 (4.20-5.40) M/uL Hgb 12.9 (12.0-16.0) g/dl Hct 38.2 (37.0-47.0) % MCV 88.6 (80.0-100.0) fL MCH 29.9 (25.0-34.0) pg MCHC 33.8 (32.0-36.0) g/dL RDW Std Deviation 43.9 (36.4-46.3) fL RDW Coeff of Judy 13.5 (11.5-14.5) % Plt Count 302 (130-400) K/uL MPV 10.2 (9.4-12.4) fL Immature Gran % (Auto) 0.2 % Neut % (Auto) 60.0 % Lymph % (Auto) 27.3 % [place] % (Auto) 10.1 % Eos % (Auto) 1.9 % Baso % (Auto) 0.5 % Neut # (Auto) 5.26 (1.40-6.50) K/uL Lymph # (Auto) 2.39 (1.2-3.4) K/uL [place] # (Auto) 0.89 H (0.11-0.59) K/uL Eos # (Auto) 0.17 (0-0.50) K/uL Baso # (Auto) 0.04 (0-0.2) K/uL Immature Gran # (Auto) 0.02 (0.01-0.20) K/uL Sodium 139 (136-145) mmol/L Potassium 4.1 (3.5-5.1) mmol/L Chloride 105 (98-107) mmol/L Carbon Dioxide 25 (21-32) mmol/L Anion Gap 9 (3-11) BUN 33 H (6-23) mg/dl Creatinine 0.95 (0.6-1.2) mg/dl Est Cr Clr Drug Dosing 48.9 ml/min Est GFR ( Amer) 70.3 ml/min Est GFR (Non-Af Amer) 60.7 ml/min BUN/Creatinine Ratio 34.7 H (10-20) Glucose 207 H (70-99(Fasting)) mg/dl Calcium 9.4 (8.5-10.1) mg/dl Total Bilirubin 0.4 (0.2-1.0) mg/dl AST 19 (13-39) U/L ALT 15 (7-52) U/L Alkaline Phosphatase 77 (34-104) U/L Total Protein 7.1 (6.0-8.3) gm/dl Albumin 4.1 (3.4-5.0) gm/dl Globulin 3.0 (2.5-4.0) gm/dl Albumin/Globulin Ratio 1.4 (0.9-2) Urine Color Urine Appearance (Clear) Urine pH (4.5-7.5) Ur Specific [place] (1.000-1.030) Urine Protein (Negative) Urine Glucose (UA) (Negative) Urine Ketones (Negative) Urine Blood (Negative) Urine Nitrite (Negative) Urine Bilirubin (Negative) Urine Urobilinogen (Negative) Ur Leukocyte Esterase (Negative) Urine WBC (Auto) (0-5) /hpf Urine RBC (Auto) (0-4) /hpf U Hyaline Cast (Auto) (0-5) /lpf U Epithel Cells (Auto) (0-5) /lpf Urine Bacteria (Auto) (Negative) SARS-CoV-2, RNA, NAAT NEGATIVE (NEGATIVE) 04/19/22 Range/Units 22:10 WBC (4.8-10.8) K/ul RBC (4.20-5.40) M/uL Hgb (12.0-16.0) g/dl Hct (37.0-47.0) % MCV (80.0-100.0) fL MCH (25.0-34.0) pg MCHC (32.0-36.0) g/dL RDW Std Deviation (36.4-46.3) fL RDW Coeff of Judy (11.5-14.5) % Plt Count (130-400) K/uL MPV (9.4-12.4) fL Immature Gran % (Auto) % Neut % (Auto) % Lymph % (Auto) % [place] % (Auto) % Eos % (Auto) % Baso % (Auto) % Neut # (Auto) (1.40-6.50) K/uL Lymph # (Auto) (1.2-3.4) K/uL [place] # (Auto) (0.11-0.59) K/uL Eos # (Auto) (0-0.50) K/uL Baso # (Auto) (0-0.2) K/uL Immature Gran # (Auto) (0.01-0.20) K/uL Sodium (136-145) mmol/L Potassium (3.5-5.1) mmol/L Chloride (98-107) mmol/L Carbon Dioxide (21-32) mmol/L Anion Gap (3-11) BUN (6-23) mg/dl Creatinine (0.6-1.2) mg/dl Est Cr Clr Drug Dosing ml/min Est GFR ( Amer) ml/min Est GFR (Non-Af Amer) ml/min BUN/Creatinine Ratio (10-20) Glucose (70-99(Fasting)) mg/dl Calcium (8.5-10.1) mg/dl Total Bilirubin (0.2-1.0) mg/dl AST (13-39) U/L ALT (7-52) U/L Alkaline Phosphatase (34-104) U/L Total Protein (6.0-8.3) gm/dl Albumin (3.4-5.0) gm/dl Globulin (2.5-4.0) gm/dl Albumin/Globulin Ratio (0.9-2) Urine Color Yellow Urine Appearance Clear (Clear) Urine pH 5.0 (4.5-7.5) Ur Specific [place] 1.024 (1.000-1.030) Urine Protein 2+ H (Negative) Urine Glucose (UA) Negative (Negative) Urine Ketones Trace H (Negative) Urine Blood Negative (Negative) Urine Nitrite Negative (Negative) Urine Bilirubin Negative (Negative) Urine Urobilinogen Negative (Negative) Ur Leukocyte Esterase Trace H (Negative) Urine WBC (Auto) 5-10 H (0-5) /hpf Urine RBC (Auto) 0-4 (0-4) /hpf U Hyaline Cast (Auto) 0 (0-5) /lpf U Epithel Cells (Auto) >30 H (0-5) /lpf Urine Bacteria (Auto) Negative (Negative) SARS-CoV-2, RNA, NAAT (NEGATIVE) Administered Medications Potassium Chloride/Sodium Chloride (Normal Saline W/20 Meq Kcl) 20 meq in 1,000 mls @ 80 mls/hr IV .[id number] [facility] Stop: 04/20/22 13:52 Last Admin: 04/20/22 02:52 Dose: 80 mls/hr Documented By: ADOLFO Levothyroxine Sodium (Levothyroxine Sodium 100 Mcg Tablet) 100 mcg PO DAILYBB [facility] Stop: 05/20/22 06:29 Last Admin: 04/20/22 06:14 Dose: 100 mcg Documented By: ADOLFO Miscellaneous (Solifenacin [Vesicare] 5 Mg - Order Awaiting Action) 1 each N/A QS [facility] Stop: 05/20/22 07:59 Last Admin: 04/20/22 08:15 Dose: Not Given Documented By: ARNOLDO Discontinued Medications Ioversol (Optiray 320 500ml) 120 ml IV ONCE ONE Stop: 04/19/22 23:05 Last Admin: 04/19/22 23:08 Dose: 120 ml Documented By: ANKIT Metoprolol Tartrate (Metoprolol Tartrate 50 Mg Tab) 50 mg PO NOW STA Stop: 04/19/22 23:28 Last Admin: 04/20/22 00:49 Dose: 50 mg Documented By: ADOLFO Imaging Data Radiologist's Impression: Cervical Spine CT 04/19/22 20:36 CT SCAN OF THE CERVICAL SPINE CLINICAL HISTORY: Fall. COMPARISON STUDY: CT angiogram of the neck dated 02/22/2022. TECHNIQUE: CT scan of the cervical spine is performed from the skull base to the upper thoracic spine. Images are reviewed in the axial, sagittal, and coronal planes. IV contrast was not administered for this examination. A dose lowering technique was utilized adhering to the principles of ALARA. FINDINGS: Skeletal structures: The skeletal structures are osteopenic. There is no evidence of fracture or subluxation involving the cervical spine. Vertebral body height is maintained. There is minimal anterolisthesis at C3-C4. Alignment is otherwise preserved. There is straightening of the cervical lordosis with reversal centered at C5. Anterior osteophytes are seen throughout. The odontoid process and lateral masses are intact. The atlantoaxial articulation is preserved noting productive degenerative change. The spinous processes appear intact. There is moderate multilevel cervical spondylosis. Uncovertebral and facet arthropathy contribute to neural foraminal narrowing at several levels. Intervertebral discs: There is severe disc space narrowing with endplate sclerosis seen at C5-C6 and C7-T1. Severe disc space narrowing is also seen at C4-C5 and C6-C7. Central canal: Posterior disc osteophyte complexes are seen at all levels between C3-C4 and C7-T1. This likely contributes to multilevel acquired compromise of the central canal. Soft tissues: The prevertebral and paraspinous soft tissues are within normal limits. Calvarium: The visualized calvarium at the skull base appears intact. Brain parenchyma: Partially visualized brain parenchyma at the skull base is within normal limits. Sinuses and mastoids: Mucosal thickening is noted in the right maxillary antrum. The mastoid air cells are well pneumatized. Lung apices: Clear as visualized. IMPRESSION: 1. There is no evidence of fracture or subluxation involving the cervical spine. 2. Osteopenia and spondylotic change as above. ACT 112: Negative or not required by law. Electronically signed by: Arpit Corley M.D. 04/20/2022 7:[address] 04/19/22 20:36 CT SCAN OF THE BRAIN WITHOUT IV CONTRAST CLINICAL HISTORY: Fall. COMPARISON STUDY: CT of the brain dated 02/22/2022. MRI of the brain dated 02/23/2022. TECHNIQUE: Unenhanced axial CT scan of the brain is performed from the vertex to the skull base. A dose lowering technique was utilized adhering to the principles of ALARA. CT DOSE: 1034.36 mGy.cm FINDINGS: Brain parenchyma: There is age-related involutional change noting moderate subcortical and periventricular microangiopathic disease. There is no hemorrh age, mass effect, or evidence of acute territorial ischemia by CT criteria. Berry-white matter differentiation is preserved. No extra-axial fluid collection is seen. Ventricles, sulci, cisterns: Prominent secondary to involutional change. Intracranial vasculature: There is atherosclerotic calcification of the cavernous carotid and vertebral arteries. Calvarium: Unremarkable. Sinuses and mastoids: There is mild mucosal thickening and fluid within the right maxillary antrum. The remaining visualized paranasal sinuses are clear. The mastoid air cells are well pneumatized. Orbits: The bony orbits are grossly intact. There are bilateral ocular lens implants. IMPRESSION: There is no hemorrhage, mass effect, or evidence of acute territorial ischemia by CT criteria. ACT 112: Negative or not required by law. Electronically signed by: Arpit Corley M.D. 04/20/2022 7:07 AM Head CTA 04/19/22 22:26 CT ANGIOGRAM OF THE BRAIN CLINICAL HISTORY: Generalized weakness. Falls. Change in mental status. COMPARISON STUDY: Unenhanced CT of the brain performed earlier the same day 04/19/2022. CT angiogram of the brain dated 02/22/2022. MRI of the brain dated 02/23/2022. TECHNIQUE: Following the IV administration of 112 cc of Optiray 320, CT angiogram of the brain was performed from the skull base to the vertex. Images are reviewed in the axial, sagittal, and coronal planes. 3-D MIPS images are created and assessed. IV contrast was administered without complication. A dose lowering technique was utilized adhering to the principles of ALARA. FINDINGS: Brain parenchyma: There is age-related involutional change noting moderate sub cortical and periventricular microangiopathic disease. There is no evidence of hemorrhage, mass effect, or acute territorial ischemia noting angiographic phase technique. There is no evidence of enhancing mass lesion on the angiogram phase images. No extra-axial fluid collection is seen. Berry-white matter differentiation is preserved. Ventricles, sulci, and cisterns: Prominent degenerative endplate changes. CT angiogram of the brain: There is atherosclerotic calcification of the cavernous carotid and vertebral arteries. The internal carotid arteries are widely patent, as are the anterior and middle cerebral arteries. The vertebrobasilar system and posterior cerebral arteries are widely patent. The vertebral arteries are codominant. There is no aneurysm, high-grade stenosis, or focal vessel cutoff identified throughout the intracranial circulation. Dural sinuses: Clear as visualized. Orbits: The bony orbits are intact. The orbital contents are normal as visualized noting bilateral ocular lens implants. Sinuses and mastoids: There is moderate mucosal thickening and fluid within the right maxillary antrum. The remaining paranasal sinuses are clear. The mastoid air cells are well pneumatized. Calvarium: Unremarkable. IMPRESSION: 1. There is no evidence of hemorrhage, mass effect, or acute territorial ischemia noting angiographic phase technique. 2. Unremarkable CT angiogram of the brain. No change from 02/22/2022. ACT 112: Negative or not required by law. Electronically signed by: Arpit Corley M.D. 04/20/2022 7:06 AM Neck CTA 04/19/22 22:26 CT ANGIOGRAM OF THE NECK CLINICAL HISTORY: Generalized weakness. Falls. COMPARISON STUDY: CT angiogram of the neck dated 02/22/2022 TECHNIQUE: Following the IV administration of 112 of Optiray 320, CT angiogram of the neck was performed from the aortic arch to the skull base. Images are reviewed in the axial, sagittal, and coronal planes. 3-D MIPS images are created and assessed. IV contrast was administered without complication. All measurements were calculated based on NASCET criteria. A dose lowering technique was utilized adhering to the principles of ALARA. CT DOSE: 516.81 mGy.cm FINDINGS: Thoracic aorta: There is atherosclerotic calcification of the thoracic aorta. Visualized portions of the thoracic aorta are normal in caliber. The aortic arch demonstrates standard 3-vessel anatomy. Right carotid arterial system: The right common carotid artery is widely patent, as are the right internal and external carotid arteries. Minimal calcified plaque is seen in the carotid bulb. Left carotid arterial system: The left common carotid artery is widely patent, as are the left internal and external carotid arteries. Vertebral arteries: The vertebral arteries are widely patent bilaterally and codominant. Subclavian arteries: Widely patent bilaterally. Intracranial vasculature: The visualized intracranial vessels at the skull base are patent. Jugular veins: Widely patent bilaterally. Brain parenchyma: The visualized brain parenchyma the skull base is within no rmal limits. Lung apices: Partially visualized upper lobe lung parenchyma appears clear. Soft tissues: The visualized pharyngeal soft tissues are normal in appearance noting angiographic phase technique. The oropharyngeal airway appears widely patent. The salivary and thyroid glands are normal in appearance. No cervical lymphadenopathy is seen. Skeletal structures: The skeletal structures are osteopenic. The visualized calvarium at the skull base appears intact. The imaged cervical spine is maintained noting multilevel spondylosis. No lytic or blastic lesion is seen. Sinuses and mastoids: There is mild mucosal thickening within the right maxillary antrum. The remaining paranasal sinuses are clear. The mastoid air cells are well pneumatized. IMPRESSION: Unremarkable CT angiogram of the neck. No change from 02/22/2022. ACT 112: Negative or not required by law. Electronically signed by: Arpit Corley M.D. 04/20/2022 6:57 AM Patient: SHAR COSBY (Female) : 52 Status: ER Date: 04/19/22 21:21 Room #: History: pt sent home from [facility] 1 month ago pt has had 10 falls over past month pt seen in ER last week pt reports "somthing is draining in my head" confusion recent incontinence decreased fluid intake and output Slices: [id number] Priors: Tech: Alpesh Loya @ [id number] Exams: CT C SPINE Contrast: Accession Numbers: [id number] Referring Physician: GORDO CARDENAS Preliminary Findings Only See Final Report For Complete Findings CT C SPINE: No acute fracture or dislocation of the cervical spine. Moderate bony spinal canal stenosis at the C5-6 level. Radiologist: Naeem Tovar M.D. Study ready at 21:23 and initial results transmitted at 21:32 Patient: SHAR COSBY (Female) : 52 Status: ER Date: 04/19/22 21:20 Room #: History: pt sent home from [facility] 1 month ago pt has had 10 falls over past month pt seen in ER last week pt reports "somthing is draining in my head" confusion recent incontinence decreased fluid intake and output Slices: 67 Priors: Tech: Alpesh Loya @ [phone] Exams: CT HEAD Contrast: Accession Numbers: [id number] Referring Physician: GORDO CARDENAS Preliminary Findings Only See Final Report For Complete Findings CT HEAD: Compared to prior CT head of 02/22/2022, the basilar artery appears hyperdense. If there is clinical concern for a posterior fossa stroke, CTA of the brain would be beneficial. Otherwise, no acute intracranial abnormalities. Radiologist: Naeem Tovar M.D. Study ready at 21:22 and initial results transmitted at 21:27 Patient: SHAR COSBY (Female) : 52 Status: ER Date: 04/19/22 23:13 Room #: History: weakness, falls, confusion Slices: 527 Priors: Tech: VuElicia martin @ [phone] Exams: CTA HEAD Contrast: IV Amt: 120ml Accession Numbers: [id number] Referring Physician: GORDO CARDENAS Preliminary Findings Only See Final Report For Complete Findings CTA HEAD: No large vessel intracranial occlusion. No intracranial aneurysm. Radiologist: Naeem Tovar M.D. Study ready at 23:18 and initial results transmitted at 23:31 Discharge Plan Visit Data Chief Complaint: Referred by Doctor Stated Complaint: NOT PASSING URINE,DEHYDRATED,FALLING FREQ ED Provider: Stephen Hinson Discharge Problem: Ambulatory dysfunction, Frequent falls, Failure to thrive in adult, Head injury, Confusion Patient Disposition: Admitted As Inpatient Discharge Instructions Interventions: ED Discharge Assessment Last Done: 04/20/22 01:24
[2022-04-19 22:49] LABS: Appearance Urine Clear (Clear); Bacteria Urine Automated Negative (Negative); Bilirubin Urine Negative (Negative); Blood Urine Negative (Negative); Cast Urine Automated 0 /lpf (0-5); Color Urine Yellow; Epithelial Cell Urine Auto >30 /lpf (0-5); Glucose Urine UA Negative (Negative); Ketones Urine Trace (Negative); Leukocyte Esterase Urine Trace (Negative); Nitrite Urine Negative (Negative); Protein Urine 2+ (Negative); RBC Urine Automated 0-4 /hpf (0-4); Specific Gravity Urine 1.024 (1.000-1.030); Urobilinogen Urine Negative (Negative)
[2022-04-19] MEDS ORDERED: OPTIRAY 320 500ml IV ONE (23:04)
[2022-04-19] MEDS ORDERED: METOPROLOL TARTRATE 50 MG TAB PO STA (23:27)
--- NOTE | 2022-04-19 23:36 | History & Physical Report ---
Date of Service April 19, 2022 Assessment & Plan (1) Type 2 diabetes mellitus: (2) Vitamin B1 deficiency: (3) B12 deficiency: (4) Status post fall: (5) Frequent falls: (6) Hypertension: (7) Depression with anxiety: (8) Ambulatory dysfunction: (9) Generalized osteoarthritis: (10) Multiple pulmonary nodules: (11) Bladder spasms: (12) Gait disturbance: (13) Coronary artery disease: (14) Failure to thrive in adult: Plan Increasing frequency of falls/ambulatory dysfunction/failure to thrive in adult- The patient had an extensive hospitalization from 02/22-03/10/2022 for presumed acute encephalopathy from unknown cause. She did appear to respond to conservative therapy and IV fluids Work-up at that time included negative imaging of CT head on 02/22/2022, CTA head and neck on 02/22/2022, and MRI of brain on 02/23/2022. CT head in the ED this evening showed no acute stroke. There was question of a hyperdense change in the basilar artery, with suggestion that CTA brain could be checked for possible stroke. However, patient just had normal imaging within the past [address] on IV fluids Consult PT/OT Disposition will need to be assessed for the patient is able to go back to current living situation or whether she may need to be considered for more perm anent detention care Patient may benefit from neurocognitive testing Diabetes mellitus- Hold metformin Placed on Accu-Cheks with SSI Hypertension- Continue amlodipine, aspirin, losartan and metoprolol tartrate with hold parameters Hyperlipidemia- Continue simvastatin Hypothyroidism- Continue levothyroxine Depression with anxiety continue venlafaxine Glaucoma- Continue timolol Bladder spasm- Continue Solifenacin Insomnia- Continue melatonin History of Present Illness Chief Complaint: The patient presents to the emergency department with multiple concerns by family, who been having a difficult time taking care of her after discharge from inpatient care at [facility] a few days ago. Primary Care Provider: Meliza Dumont MD The patient is a 71-year-old female with a past medical history including B12 deficiency, B1 deficiency, diabetes mellitus type 2, hypertension, ischial bursitis, left lower extremity DVT, generalized osteoarthritis, fatty liver, depression with anxiety, hiatal hernia, glaucoma, iron deficiency anemia, multiple pulmonary nodules, lumbar back pain, and increasing number of falls associated with generalized weakness. The patient had been admitted to [facility] from 02/22/2022-03/10/2022 for initially stroke work-up, and then issues related to falls and ambulatory dysfunction. She was transferred to [facility], where she remained until couple days ago, and was then returned home and l iving with her daughter. Her daughter reports that the patient has had a very significant decline over the last few days, with frequent falls, having struck her head at least 1 time. The daughter reports that the patient has been more episodes of confusion. The daughter provides most of the HPI and review of systems due to patient's underlying memory issues. Allergies Allergy/AdvReac Type Severity Reaction Status Date / Time lisinopril AdvReac hyperkalemi Verified 04/10/22 13:41 a Home Medications Medication Instructions Recorded Confirmed Type calcium carbonate 600 mg calcium 600 mg PO BID 09/25/18 04/19/22 History (1,500 mg) tablet (Calcium) fish oil-dha-epa 1,200 mg-144 1 cap PO BID 09/25/18 04/19/22 History mg-216 mg capsule albuterol sulfate 90 mcg/actuation 2 puff inhalation Q6H PRN 01/21/20 04/19/22 History aerosol inhaler Shortness Of Breath Or Wheezing timolol 0.5 % eye drops 1 drp ophthalmic (eye) QAM 07/07/20 04/19/22 History acetaminophen 500 mg capsule 1,000 mg PO TID PRN Pain 05/11/21 04/19/22 History docusate sodium 100 mg capsule 100 mg PO DAILY 08/04/21 04/19/22 History (Colace) levothyroxine 100 mcg tablet 100 mcg PO QAM #90 tabs 12/23/21 04/19/22 Rx metformin 500 mg tablet 1,000 mg PO BID #360 tabs 12/23/21 04/19/22 Rx metoprolol tartrate 50 mg tablet 50 mg PO BID #180 tabs 12/23/21 04/19/22 Rx simvastatin 40 mg tablet 40 mg PO QPM #90 tabs 12/23/21 04/19/22 Rx venlafaxine 75 mg capsule,extended See Rx Instructions PO BID #270 12/23/21 04/19/22 Rx release 24 hr (Effexor XR) caps amlodipine 5 mg tablet 5 mg PO DAILY #90 tabs 01/06/22 04/19/22 Rx aspirin 81 mg tablet,delayed 81 mg PO DAILY 02/22/22 04/19/22 History release solifenacin 5 mg tablet (Vesicare) 5 mg PO DAILY 02/22/22 04/19/22 History cyanocobalamin (vitamin B-12) 500 1,000 mcg PO QAM #60 tabs 03/10/22 04/19/22 Rx mcg tablet famotidine 20 mg tablet (Pepcid) 20 mg PO BID PRN acid 03/10/22 04/19/22 Rx reflux/heartburn #30 tabs losartan 25 mg tablet 25 mg PO QAM #30 tabs 03/10/22 04/19/22 Rx magnesium oxide 400 mg (241.3 mg 400 mg PO BID #60 tabs 03/10/22 04/19/22 Rx magnesium) tablet melatonin 3 mg tablet 3 mg PO HS #30 tabs 03/10/22 04/19/22 Rx omeprazole 20 mg capsule,delayed 40 mg PO DAILY #60 caps 03/10/22 04/19/22 Rx release insulin glargine 100 unit/mL (3 See Rx Instructions subcut DAILY 04/14/22 04/19/22 Rx mL) subcutaneous pen (Lantus #15 mL Solostar U-100 Insulin) pen needle, diabetic 32 gauge x #100 ea 04/14/22 04/19/22 Rx 1/4" (BD Ultra-Fine Micro Pen Needle) Past Med/Surg History Medical History (Updated 04/20/22 @ 04:14 by Ravi Cortez MD) Acid reflux Acute encephalopathy Anxiety B12 deficiency Bladder spasms Coronary artery disease Depression with anxiety Fatty liver Gait disturbance Generalized osteoarthritis Glaucoma H/O deep venous thrombosis Hearing difficulty Hiatal hernia Hyperlipidemia Hypertension Hypertensive urgency Hypokalemia Hypomagnesemia Hypothyroidism Iron deficiency anemia Ischial bursitis Left leg DVT post-up left TKA 04/2021 - completed 6 months anticoagulation Lumbar back pain Multiple pulmonary nodules Obesity Orthostatic hypotension Type 2 diabetes mellitus Urinary incontinence Vitamin B1 deficiency Surgical History History of cardiac cath >10 yrs ago ([facility]) > no stents History of carpal tunnel surgery R/L History of cataract surgery R/L History of section x1 History of cholecystectomy History of colonoscopy Colonoscopy (10/02/18): MAC sedation at [facility] History of esophagogastroduodenoscopy (EGD) EGD/colonoscopy (08/25/20): MAC at [facility] History of hysterectomy Total History of tonsillectomy History of tooth extraction S/P trigger finger release left Status post total knee replacement left knee 05/10/21 Family History Father Family history of diabetes mellitus Myocardial infarction, Onset Age: 56 Mother Anxiety Grandfather (Paternal) Throat cancer Other No family history of adverse response to anesthesia Denies family history of Ovarian cancer Prostate cancer Breast cancer Colorectal cancer Social History Smoking Status: Never smoker Second Hand Exposure: No; Hx Alcohol Use: No Hx Substance Use: No Preferred Language: Syriac Communication Ability: Impaired Visual Impairment: No Limitations Hearing Ability: Use of Hearing Aid 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: No Beliefs That Will Affect Care: None marital status: Current Living Situation: Alone Current Living Situation Comment: possible placement- daughter expressed concerns with recent illness current occupational status: retired 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 [employer] Feels Safe at Home: Yes Childhood Exposure to Second-Hand Smoke: No Dental Care, Regularly: No Physical Activity Frequency: 3-4 Times per Week Seatbelt Use: always Sunscreen Use: Yes Assistive Devices: Walker Review of Systems Review of Systems: the patient has not had chest pain, palpitations, shortness of breath, dyspnea on exertion, cough, lower extremity swelling, sore throat, fevers, chills, sweats, weight change, fatigue, nausea, vomiting, diarrhea , constipation, abdominal pain, pelvic pain, blood in urine or stool, dysuria, urinary frequency or urgency, loss of consciousness, rash, abnormal bruising or bleeding, Focal weakness, numbness or tingling in arms or legs, neck pain, or night sweats. The review of systems is otherwise negative other than for that already noted above, and at least 10 systems have been reviewed. Physical Exam Physical Exam: The patient is awake, intermittently confused, well developed and well nourished, normocephalic and atraumatic, lying in bed and in no acute distress. HEENT--PERRL, EOMI, mucous membranes and oropharynx mildly dry. Neck--supple. No JVD. No bruits. Thyroid normal, trachea midline, no adenopathy. Heart--normal S1 and S2. No murmurs, rubs or gallops. Lungs--clear bilaterally, no respiratory distress, no accessory muscle use. Abdomen--normal bowel sounds and soft. Nontender. Nondistended, no hernias or masses, no organomegaly. Extremities--no cyanosis or clubbing. No edema. Dermatologic--normal skin turgor, normal color, no abnormal lymph nodes, no rash. Neurologic--cranial nerves II through XII grossly intact. Rheumatologic--normal range of motion. Psychiatric--normal affect. Results & Data Results & Data ([facility]) Vital Signs (Past 12 Hours) Vital Signs Temp Pulse Pulse Resp BP BP Pulse Ox 04/19/22 22:00 75 19 187/90 H 99 04/19/22 17:29 36.8 C 90 20 187/99 H 100 O2 Del Method 04/19/22 22:00 Room Air 04/19/22 17:29 Room Air Laboratory Results Laboratory Results WBC 8.77 K/ul (4.8-10.8) 04/19/22 18:34 RBC 4.31 M/uL (4.20-5.40) 04/19/22 18:34 Hgb 12.9 g/dl (12.0-16.0) 04/19/22 18:34 Hct 38.2 % (37.0-47.0) 04/19/22 18:34 MCV 88.6 fL (80.0-100.0) 04/19/22 18:34 MCH 29.9 pg (25.0-34.0) 04/19/22 18:34 MCHC 33.8 g/dL (32.0-36.0) 04/19/22 18:34 RDW Std Deviation 43.9 fL (36.4-46.3) 04/19/22 18:34 RDW Coeff of Judy 13.5 % (11.5-14.5) 04/19/22 18:34 Plt Count 302 K/uL (130-400) 04/19/22 18:34 MPV 10.2 fL (9.4-12.4) 04/19/22 18:34 Immature Gran % (Auto) 0.2 % 04/19/22 18:34 Neut % (Auto) 60.0 % 04/19/22 18:34 Lymph % (Auto) 27.3 % 04/19/22 18:34 Andrew % (Auto) 10.1 % 04/19/22 18:34 Eos % (Auto) 1.9 % 04/19/22 18:34 Baso % (Auto) 0.5 % 04/19/22 18:34 Neut # (Auto) 5.26 K/uL (1.40-6.50) 04/19/22 18:34 Lymph # (Auto) 2.39 K/uL (1.2-3.4) 04/19/22 18:34 Andrew # (Auto) 0.89 K/uL (0.11-0.59) H 04/19/22 18:34 Eos # (Auto) 0.17 K/uL (0-0.50) 04/19/22 18:34 Baso # (Auto) 0.04 K/uL (0-0.2) 04/19/22 18:34 Immature Gran # (Auto) 0.02 K/uL (0.01-0.20) 04/19/22 18:34 Sodium 139 mmol/L (136-145) 04/19/22 18:34 Potassium 4.1 mmol/L (3.5-5.1) 04/19/22 18:34 Chloride 105 mmol/L (98-107) 04/19/22 18:34 Carbon Dioxide 25 mmol/L (21-32) 04/19/22 18:34 Anion Gap 9 (3-11) 04/19/22 18:34 BUN 33 mg/dl (6-23) H 04/19/22 18:34 Creatinine 0.95 mg/dl (0.6-1.2) 04/19/22 18:34 Est Cr Clr Drug Dosing 48.9 ml/min 04/19/22 18:34 Est GFR ( Amer) 70.3 ml/min 04/19/22 18:34 Est GFR (Non-Af Amer) 60.7 ml/min 04/19/22 18:34 BUN/Creatinine Ratio 34.7 (10-20) H 04/19/22 18:34 Glucose 207 mg/dl (70-99(Fasting)) H 04/19/22 18:34 Calcium 9.4 mg/dl (8.5-10.1) 04/19/22 18:34 Total Bilirubin 0.4 mg/dl (0.2-1.0) 04/19/22 18:34 AST 19 U/L (13-39) 04/19/22 18:34 ALT 15 U/L (7-52) 04/19/22 18:34 Alkaline Phosphatase 77 U/L (34-104) 04/19/22 18:34 Total Protein 7.1 gm/dl (6.0-8.3) 04/19/22 18:34 Albumin 4.1 gm/dl (3.4-5.0) 04/19/22 18:34 Globulin 3.0 gm/dl (2.5-4.0) 04/19/22 18:34 Albumin/Globulin Ratio 1.4 (0.9-2) 04/19/22 18:34 Urine Color Yellow 04/19/22 22:10 Urine Appearance Clear (Clear) 04/19/22 22:10 Urine pH 5.0 (4.5-7.5) 04/19/22 22:10 Ur Specific [place] 1.024 (1.000-1.030) 04/19/22 22:10 Urine Protein 2+ (Negative) H 04/19/22 22:10 Urine Glucose (UA) Negative (Negative) 04/19/22 22:10 Urine Ketones Trace (Negative) H 04/19/22 22:10 Urine Blood Negative (Negative) 04/19/22 22:10 Urine Nitrite Negative (Negative) 04/19/22 22:10 Urine Bilirubin Negative (Negative) 04/19/22 22:10 Urine Urobilinogen Negative (Negative) 04/19/22 22:10 Ur Leukocyte Esterase Trace (Negative) H 04/19/22 22:10 Urine WBC (Auto) 5-10 /hpf (0-5) H 04/19/22 22:10 Urine RBC (Auto) 0-4 /hpf (0-4) 04/19/22 22:10 U Hyaline Cast (Auto) 0 /lpf (0-5) 04/19/22 22:10 U Epithel Cells (Auto) >30 /lpf (0-5) H 04/19/22 22:10 Urine Bacteria (Auto) Negative (Negative) 04/19/22 22:10 SARS-CoV-2, RNA, NAAT NEGATIVE (NEGATIVE) 04/19/22 20:52 Impressions Chest X-Ray 04/19/22 17:35 XR chest 1V portable HISTORY: confusion COMPARISON: Chest 02/22/2022. FINDINGS: No pneumothorax. No pleural effusions. The cardiac silhouette remains borderline enlarged. No new focal lung consolidations to suggest a pneumonia. No evidence for pulmonary edema. There is a linear scarlike density within the right lower lung zone. IMPRESSION: No acute process. ACT 112: Negative or not required by law. Electronically signed by: Patrick Infante M.D. 04/19/2022 6:13 PM Code Status & VTE Plan Code Status Full code VTE Prophylaxis Plan VTE Prophylaxis will be ordered: Yes PG Care Time/CCT Total # of Minutes Spent Total Time Spent with Patient: Total time spent is greater than 50% in coordination of care (as documented) at patient's floor/unit and/or counseling patient: Coding Level of Care Code 68564 INT INP/OBS CARE 3/75MIN Diagnoses Type 2 diabetes mellitus E11.9 Vitamin B1 deficiency E51.9 B12 deficiency E53.8 Status post fall Z91.81 Frequent falls R29.6 Hypertension I10 Depression with anxiety F41.8 Ambulatory dysfunction R26.2 Generalized osteoarthritis M15.9 Multiple pulmonary nodules R91.8 Bladder spasms N32.89 Gait disturbance R26.9 Coronary artery disease I25.10 Failure to thrive in adult R62.7
[2022-04-20] MEDS ORDERED: CARBOHYDRATES FOR HYPOGLYCEMIA PO PRN (01:23)
[2022-04-20] MEDS ORDERED: GLUCOSE 10 TAB/TUBE PO PRN (01:23)
[2022-04-20] MEDS ORDERED: NSS + 20MEQ KCL 20 MEQ/1,000 ML BAG IV SCH (01:23)
[2022-04-20] MEDS ORDERED: GLUCOSE 40% GEL 15 GM TUBE PO PRN (01:23)
[2022-04-20] MEDS ORDERED: GLUCAGON FOR INJ 1 MG VIAL SQ PRN (01:23)
[2022-04-20] MEDS ORDERED: ALBUTEROL HFA 8 GM INHALER INH PRN (01:23)
[2022-04-20] MEDS ORDERED: FAMOTIDINE 20 MG TAB PO PRN (01:23)
[2022-04-20] MEDS ORDERED: DEXTROSE 50% 50 ML SYRINGE IV PRN (01:23)
[2022-04-20] MEDS: LEVOTHYROXINE SODIUM 100 MCG TABLET PO SCH (06:14)
--- NOTE | 2022-04-20 07:00 | CT Scan Report ---
CT ANGIOGRAM OF THE NECK CLINICAL HISTORY: Generalized weakness. Falls. COMPARISON STUDY: CT angiogram of the neck dated 02/22/2022 TECHNIQUE: Following the IV administration of 112 of Optiray 320, CT angiogram of the neck was perfor med from the aortic arch to the skull base. Images are reviewed in the axial, sagittal, and coronal p lanes. 3-D MIPS images are created and assessed. IV contrast was administered without complication. A ll measurements were calculated based on NASCET criteria. A dose lowering technique was utilized adh ering to the principles of ALARA. CT DOSE: 516.81 mGy.cm FINDINGS: Thoracic aorta: There is atherosclerotic calcification of the thoracic aorta. Visualized portions of the thoracic aorta are normal in caliber. The aortic arch demonstrates standard 3-vessel anatomy. Right carotid arterial system: The right common carotid artery is widely patent, as are the right int ernal and external carotid arteries. Minimal calcified plaque is seen in the carotid bulb. Left carotid arterial system: The left common carotid artery is widely patent, as are the left help desk intern al and external carotid arteries. Vertebral arteries: The vertebral arteries are widely patent bilaterally and codominant. Subclavian arteries: Widely patent bilaterally. Intracranial vasculature: The visualized intracranial vessels at the skull base are patent. Jugular veins: Widely patent bilaterally. Brain parenchyma: The visualized brain parenchyma the skull base is within normal limits. Lung apices: Partially visualized upper lobe lung parenchyma appears clear. Soft tissues: The visualized pharyngeal soft tissues are normal in appearance noting angiographic pha se technique. The oropharyngeal airway appears widely patent. The salivary and thyroid glands are nor mal in appearance. No cervical lymphadenopathy is seen. Skeletal structures: The skeletal structures are osteopenic. The visualized calvarium at the skull ba se appears intact. The imaged cervical spine is maintained noting multilevel spondylosis. No lytic or blastic lesion is seen. Sinuses and mastoids: There is mild mucosal thickening within the right maxillary antrum. The remaini ng paranasal sinuses are clear. The mastoid air cells are well pneumatized. IMPRESSION: Unremarkable CT angiogram of the neck. No change from 02/22/2022. ACT 112: Negative or not required by law. Electronically signed by: Arpit Corley M.D. 04/20/2022 6:57 AM
--- NOTE | 2022-04-20 07:09 | CT Scan Report ---
CT SCAN OF THE BRAIN WITHOUT IV CONTRAST CLINICAL HISTORY: Fall. COMPARISON STUDY: CT of the brain dated 02/22/2022. MRI of the brain dated 02/23/2022. TECHNIQUE: Unenhanced axial CT scan of the brain is performed from the vertex to the skull base. A do se lowering technique was utilized adhering to the principles of ALARA. CT DOSE: 1034.36 mGy.cm FINDINGS: Brain parenchyma: There is age-related involutional change noting moderate subcortical and periventri cular microangiopathic disease. There is no hemorrhage, mass effect, or evidence of acute territorial ischemia by CT criteria. Berry-white matter differentiation is preserved. No extra-axial fluid collec tion is seen. Ventricles, sulci, cisterns: Prominent secondary to involutional change. Intracranial vasculature: There is atherosclerotic calcification of the cavernous carotid and vertebr al arteries. Calvarium: Unremarkable. Sinuses and mastoids: There is mild mucosal thickening and fluid within the right maxillary antrum. T he remaining visualized paranasal sinuses are clear. The mastoid air cells are well pneumatized. Orbits: The bony orbits are grossly intact. There are bilateral ocular lens implants. IMPRESSION: There is no hemorrhage, mass effect, or evidence of acute territorial ischemia by CT guanako hernandez. ACT 112: Negative or not required by law. Electronically signed by: Arpit Corley M.D. 04/20/2022 7:07 AM
--- NOTE | 2022-04-20 07:09 | CT Scan Report ---
CT ANGIOGRAM OF THE BRAIN CLINICAL HISTORY: Generalized weakness. Falls. Change in mental status. COMPARISON STUDY: Unenhanced CT of the brain performed earlier the same day 04/19/2022. CT angiogram of the brain dated 02/22/2022. MRI of the brain dated 02/23/2022. TECHNIQUE: Following the IV administration of 112 cc of Optiray 320, CT angiogram of the brain was pe rformed from the skull base to the vertex. Images are reviewed in the axial, sagittal, and coronal pl anes. 3-D MIPS images are created and assessed. IV contrast was administered without complication. A dose lowering technique was utilized adhering to the principles of ALARA. FINDINGS: Brain parenchyma: There is age-related involutional change noting moderate subcortical and periventri cular microangiopathic disease. There is no evidence of hemorrhage, mass effect, or acute territorial ischemia noting angiographic phase technique. There is no evidence of enhancing mass lesion on the a ngiogram phase images. No extra-axial fluid collection is seen. Berry-white matter differentiation is preserved. Ventricles, sulci, and cisterns: Prominent degenerative endplate changes. CT angiogram of the brain: There is atherosclerotic calcification of the cavernous carotid and verteb ral arteries. The internal carotid arteries are widely patent, as are the anterior and middle cerebra l arteries. The vertebrobasilar system and posterior cerebral arteries are widely patent. The vertebr al arteries are codominant. There is no aneurysm, high-grade stenosis, or focal vessel cutoff identif ied throughout the intracranial circulation. Dural sinuses: Clear as visualized. Orbits: The bony orbits are intact. The orbital contents are normal as visualized noting bilateral oc ular lens implants. Sinuses and mastoids: There is moderate mucosal thickening and fluid within the right maxillary antru m. The remaining paranasal sinuses are clear. The mastoid air cells are well pneumatized. Calvarium: Unremarkable. IMPRESSION: 1. There is no evidence of hemorrhage, mass effect, or acute territorial ischemia noting angiographic phase technique. 2. Unremarkable CT angiogram of the brain. No change from 02/22/2022. ACT 112: Negative or not required by law. Electronically signed by: Arpit Corley M.D. 04/20/2022 7:06 AM
--- NOTE | 2022-04-20 07:15 | CT Scan Report ---
CT SCAN OF THE CERVICAL SPINE CLINICAL HISTORY: Fall. COMPARISON STUDY: CT angiogram of the neck dated 02/22/2022. TECHNIQUE: CT scan of the cervical spine is performed from the skull base to the upper thoracic spine . Images are reviewed in the axial, sagittal, and coronal planes. IV contrast was not administered fo r this examination. A dose lowering technique was utilized adhering to the principles of ALARA. FINDINGS: Skeletal structures: The skeletal structures are osteopenic. There is no evidence of fracture or subl uxation involving the cervical spine. Vertebral body height is maintained. There is minimal anterolis thesis at C3-C4. Alignment is otherwise preserved. There is straightening of the cervical lordosis wi th reversal centered at C5. Anterior osteophytes are seen throughout. The odontoid process and later al masses are intact. The atlantoaxial articulation is preserved noting productive degenerative bateman e. The spinous processes appear intact. There is moderate multilevel cervical spondylosis. Uncoverteb ral and facet arthropathy contribute to neural foraminal narrowing at several levels. Intervertebral discs: There is severe disc space narrowing with endplate sclerosis seen at C5-C6 and C7-T1. Severe disc space narrowing is also seen at C4-C5 and C6-C7. Central canal: Posterior disc osteophyte complexes are seen at all levels between C3-C4 and C7-T1. Th is likely contributes to multilevel acquired compromise of the central canal. Soft tissues: The prevertebral and paraspinous soft tissues are within normal limits. Calvarium: The visualized calvarium at the skull base appears intact. Brain parenchyma: Partially visualized brain parenchyma at the skull base is within normal limits. Sinuses and mastoids: Mucosal thickening is noted in the right maxillary antrum. The mastoid air cell s are well pneumatized. Lung apices: Clear as visualized. IMPRESSION: 1. There is no evidence of fracture or subluxation involving the cervical spine. 2. Osteopenia and spondylotic change as above. ACT 112: Negative or not required by law. Electronically signed by: Arpit Corley M.D. 04/20/2022 7:14 AM
[2022-04-20] MEDS: CALCIUM CARBONATE 1250MG TAB PO SCH ×2 (08:35→22:09)
[2022-04-20] MEDS: CYANOCOBALAMIN (B-12) 500 MCG TABLET PO SCH (08:35)
[2022-04-20] MEDS: ASPIRIN 81 MG ECTAB PO SCH (08:35)
[2022-04-20] MEDS: amLODIPine BESYLATE 5 MG TAB PO SCH (08:35)
[2022-04-20] MEDS: MAGNESIUM OXIDE 400 MG TAB PO SCH ×2 (08:36→22:09)
[2022-04-20] MEDS: PANTOprazole 40 MG TAB PO SCH (08:36)
[2022-04-20] MEDS: LOSARTAN POTASSIUM 25 MG TAB PO SCH (08:36)
[2022-04-20] MEDS: DOCUSATE SODIUM 100 MG CAP PO SCH (08:36)
[2022-04-20] MEDS: OMEGA-3 (PURIFIED FISH OIL) 1 GM CAP PO SCH ×2 (08:36→22:10)
[2022-04-20] MEDS: METOPROLOL TARTRATE 50 MG TAB PO SCH ×2 (08:36→22:08)
[2022-04-20] MEDS: ENOXAPARIN INJ 40 MG/0.4 ML SYR SQ SCH (08:40)
[2022-04-20] MEDS: TIMOLOL MALEATE 0.5% OP SOLN 5 ML BTL OP SCH (08:41)
[2022-04-20] MEDS: VENLAFAXINE HCL XR 75 MG CAPXR PO SCH ×2 (08:43→22:11)
[2022-04-20] MEDS: INSULIN ASPART PER UNIT SC SCH ×4 (09:25→22:10)
--- NOTE | 2022-04-20 14:04 | Electrocardiogram Report ---
Test Reason : Blood Pressure : / mmHG Vent. Rate : 085 BPM Atrial Rate : 085 BPM P-R Int : 136 ms QRS Dur : 090 ms QT Int : 390 ms P-R-T Axes : 070 024 042 degrees QTc Int : 464 ms Poor data quality, interpretation may be adversely affected Normal sinus rhythm Possible Left atrial enlargement Nonspecific ST abnormality Abnormal ECG When compared with ECG of 22-FEB-2022 15:45, No significant change was found Confirmed by Stephen Leal ([id number]) on 04/20/2022 2:04:14 PM Referred By: Meliza Dumont Confirmed By:Stephen Leal
[2022-04-20] MEDS: MELATONIN 3 MG TAB PO SCH (22:14)
[2022-04-20] MEDS: SIMVASTATIN 40 MG TAB PO SCH (22:49)
--- NOTE | 2022-04-20 23:45 | Hospitalist Progress Note ---
Date of Service April 20, 2022 Assessment & Plan (1) Frequent falls: Plan: Increasing frequency of falls/ambulatory dysfunction/failure to thrive in adult- The patient had an extensive hospitalization from 02/22-03/10/2022 for presumed acute encephalopathy from unknown cause. She did appear to respond to conservative therapy and IV fluids Work-up at that time included negative imaging of CT head on 02/22/2022, CTA head and neck on 02/22/2022, and MRI of brain on 02/23/2022. CT head in the ED this evening showed no acute stroke. There was question of a hyperdense change in the basilar artery, with suggestion that CTA brain could be checked for possible stroke. However, patient just had normal imaging within the past [address] on IV fluids Consult PT/OT Disposition will need to be assessed for the patient is able to go back to current living situation or whether she may need to be considered for more permanent half-way care Patient may benefit from neurocognitive testing Diabetes mellitus- Hold metformin Placed on Accu-Cheks with SSI Hypertension- Continue amlodipine, aspirin, losartan and metoprolol tartrate with hold parameters Hyperlipidemia- Continue simvastatin Hypothyroidism- Continue levothyroxine Depression with anxiety continue venlafaxine Glaucoma- Continue timolol Bladder spasm- Continue Solifenacin Insomnia- Continue melatonin (2) Failure to thrive in adult: (3) Type 2 diabetes mellitus: (4) Vitamin B1 deficiency: (5) B12 deficiency: (6) Status post fall: (7) Hypertension: (8) Depression with anxiety: (9) Ambulatory dysfunction: (10) Generalized osteoarthritis: (11) Multiple pulmonary nodules: (12) Bladder spasms: (13) Gait disturbance: (14) Coronary artery disease: Plan Admission and Anticipated Discharge Date Admission Date: April 19, 2022 Subjective Patient seen and examined No acute complaints noted Physical Exam Physical Exam: Head and ENT no thyroid enlargement trachea midline Cardiovascular S1-S2 are normal no S3 Lungs bilateral air entry slightly decreased at bases Abdomen soft nondistended positive bowel sounds no rebound tenderness Extremity shows trace edema Neurologically no focal deficits Skin shows no rash no cyanosis Results & Data Results & Data ([facility]) Vital Signs (Past 12 Hours) Vital Signs Temp Pulse Pulse Resp BP Pulse Ox O2 Del Method 04/20/22 22:42 36.9 C 94 H 18 156/79 H 93 Room Air 04/20/22 18:45 95 H 04/20/22 18:40 36.5 C 94 H 20 166/84 H 95 Room Air 04/20/22 18:24 80 16 150/72 H 95 Room Air 04/20/22 16:14 37.5 C 79 16 153/78 H 94 Room Air 04/20/22 13:49 75 20 158/84 H 95 Room Air PG Care Time/CCT Total # of Minutes Spent Total Time Spent with Patient: Total time spent is greater than 50% in coordination of care (as documented) at patient's floor/unit and/or counseling patient: Coding Level of Care Code 60508 SUB INP/OBS CARE /25MIN Diagnoses Frequent falls R29.6 Failure to thrive in adult R62.7 Type 2 diabetes mellitus E11.9 Vitamin B1 deficiency E51.9 B12 deficiency E53.8 Status post fall Z91.81 Hypertension I10 Depression with anxiety F41.8 Ambulatory dysfunction R26.2 Generalized osteoarthritis M15.9 Multiple pulmonary nodules R91.8 Bladder spasms N32.89 Gait disturbance R26.9 Coronary artery disease I25.10
[2022-04-21] MEDS: LEVOTHYROXINE SODIUM 100 MCG TABLET PO SCH (07:18)
[2022-04-21] MEDS: INSULIN ASPART PER UNIT SC SCH ×4 (08:05→20:42)
[2022-04-21] MEDS: ENOXAPARIN INJ 40 MG/0.4 ML SYR SQ SCH (08:06)
[2022-04-21] MEDS: LOSARTAN POTASSIUM 25 MG TAB PO SCH (08:08)
[2022-04-21] MEDS: CYANOCOBALAMIN (B-12) 500 MCG TABLET PO SCH (08:08)
[2022-04-21] MEDS: ASPIRIN 81 MG ECTAB PO SCH (08:08)
[2022-04-21] MEDS: PANTOprazole 40 MG TAB PO SCH (08:08)
[2022-04-21] MEDS: TIMOLOL MALEATE 0.5% OP SOLN 5 ML BTL OP SCH (08:08)
[2022-04-21] MEDS: amLODIPine BESYLATE 5 MG TAB PO SCH (08:08)
[2022-04-21] MEDS: DOCUSATE SODIUM 100 MG CAP PO SCH (08:08)
[2022-04-21] MEDS: MAGNESIUM OXIDE 400 MG TAB PO SCH ×2 (08:09→20:39)
[2022-04-21] MEDS: OMEGA-3 (PURIFIED FISH OIL) 1 GM CAP PO SCH ×2 (08:09→20:39)
[2022-04-21] MEDS: METOPROLOL TARTRATE 50 MG TAB PO SCH ×2 (08:09→20:37)
[2022-04-21] MEDS: VENLAFAXINE HCL XR 75 MG CAPXR PO SCH ×2 (08:09→20:38)
[2022-04-21] MEDS: CALCIUM CARBONATE 1250MG TAB PO SCH ×2 (08:09→20:38)
[2022-04-21] MEDS: ACETAMINOPHEN 325 MG TAB PO PRN (08:11)
[2022-04-21 08:54] LABS: Basophils # (auto) 0.02 K/uL (0-0.2); Basophils % (auto) 0.4 %; Eosinophils # (auto) 0.16 K/uL (0-0.50); Eosinophils % (auto) 3.1 %; Hematocrit (blood only) 38.5 % (37.0-47.0); Hemoglobin 12.8 g/dl (12.0-16.0); Lymphocytes # (auto) 1.64 K/uL (1.2-3.4); Lymphocytes % (auto) 31.3 %; Mean Corpuscular Hgb Conc 33.2 g/dL (32.0-36.0); Mean Corpuscular Volume 90.2 fL (80.0-100.0); Mean Platelet Volume 10.5 fL (9.4-12.4); Monocytes # (auto) 0.68 K/uL (0.11-0.59); Neutrophils # (auto) 2.74 K/uL (1.40-6.50); Neutrophils % (auto) 52.2 %; Platelet Count 245 K/uL (130-400); RDW Coefficient of Variation 13.5 % (11.5-14.5); RDW Standard Deviation 44.2 fL (36.4-46.3); Red Blood Count 4.27 M/uL (4.20-5.40); White Blood Count 5.24 K/ul (4.8-10.8)
[2022-04-21 09:18] LABS: Albumin Globulin Ratio 1.4 (0.9-2); Albumin Level 3.8 gm/dl (3.4-5.0); BUN Creatinine Ratio 18.9 (10-20); Bilirubin,Total 0.5 mg/dl (0.2-1.0); Calcium 9.8 mg/dl (8.5-10.1); Creatinine Clr Calc Pharmacy 48.6 ml/min; Est GFR (African American) 70.3 ml/min; Est GFR (Non-African American) 60.7 ml/min; Globulin 2.7 gm/dl (2.5-4.0); Magnesium 1.4 mg/dl (1.7-2.4); Potassium 4.3 mmol/L (3.5-5.1); Total Protein 6.5 gm/dl (6.0-8.3)
[2022-04-21] MEDS: SIMVASTATIN 40 MG TAB PO SCH (20:39)
[2022-04-21] MEDS: MELATONIN 3 MG TAB PO SCH (20:42)
--- NOTE | 2022-04-21 23:54 | Hospitalist Progress Note ---
Date of Service April 21, 2022 Assessment & Plan (1) Frequent falls: Plan: Increasing frequency of falls/ambulatory dysfunction/failure to thrive in adult- The patient had an extensive hospitalization from 02/22-03/10/2022 for presumed acute encephalopathy from unknown cause. She did appear to respond to conservative therapy and IV fluids Work-up at that time included negative imaging of CT head on 02/22/2022, CTA head and neck on 02/22/2022, and MRI of brain on 02/23/2022. CT head in the ED this evening showed no acute stroke. There was question of a hyperdense change in the basilar artery, with suggestion that CTA brain could be checked for possible stroke. However, patient just had normal imaging within the past [address] on IV fluids Consult PT/OT Disposition will need to be assessed for the patient is able to go back to current living situation or whether she may need to be considered for more permanent shelter care Patient may benefit from neurocognitive testing 03/21-patient needs to be placed in a permanent shelter care facility Needs PT OT input Case management assistance Diabetes mellitus- Hold metformin Placed on Accu-Cheks with SSI Hypertension- Continue amlodipine, aspirin, losartan and metoprolol tartrate with hold parameters Hyperlipidemia- Continue simvastatin Hypothyroidism- Continue levothyroxine Depression with anxiety continue venlafaxine Glaucoma- Continue timolol Bladder spasm- Continue Solifenacin Insomnia- Continue melatonin (2) Failure to thrive in adult: (3) Type 2 diabetes mellitus: (4) Vitamin B1 deficiency: (5) B12 deficiency: (6) Status post fall: (7) Hypertension: (8) Depression with anxiety: (9) Ambulatory dysfunction: (10) Generalized osteoarthritis: (11) Multiple pulmonary nodules: (12) Bladder spasms: (13) Gait disturbance: (14) Coronary artery disease: Plan Admission and Anticipated Discharge Date Admission Date: April 19, 2022 Subjective Patient seen and examined No acute complaints noted Patient still has inability to ambulate without assistance PT OT input pending Physical Exam Physical Exam: Head and ENT no thyroid enlargement trachea midline Cardiovascular S1-S2 are normal no S3 Lungs bilateral air entry slightly decreased at bases Abdomen soft nondistended positive bowel sounds no rebound tenderness Extremity shows trace edema Neurologically no focal deficits Skin shows no rash no cyanosis Results & Data Results & Data ([facility]) Vital Signs (Past 12 Hours) Vital Signs Temp Pulse Pulse Resp BP Pulse Ox O2 Del Method 04/21/22 23:00 36.6 C 74 18 156/80 H 97 Room Air 04/21/22 20:00 Room Air 04/21/22 18:34 37.0 C 75 20 163/84 H 96 Room Air 04/21/22 14:48 77 04/21/22 15:27 37.0 C 69 18 161/83 H 96 Room Air Laboratory Results Short CBC 04/21/22 Range/Units 07:58 WBC 5.24 (4.8-10.8) K/ul Hgb 12.8 (12.0-16.0) g/dl Hct 38.5 (37.0-47.0) % Plt Count 245 (130-400) K/uL BMP 04/21/22 07:58 Sodium 140 Potassium 4.3 Chloride 109 H Carbon Dioxide 24 BUN 18 Creatinine 0.95 Glucose 177 H Calcium 9.8 Liver Function 04/21/22 Range/Units 07:58 Total Bilirubin 0.5 (0.2-1.0) mg/dl AST 17 (13-39) U/L ALT 13 (7-52) U/L Alkaline Phosphatase 73 (34-104) U/L Albumin 3.8 (3.4-5.0) gm/dl PG Care Time/CCT Total # of Minutes Spent Total Time Spent with Patient: Total time spent is greater than 50% in coordination of care (as documented) at patient's floor/unit and/or counseling patient: Coding Level of Care Code 02942 SUB INP/OBS CARE 2/35MIN Diagnoses Frequent falls R29.6 Failure to thrive in adult R62.7 Type 2 diabetes mellitus E11.9 Vitamin B1 deficiency E51.9 B12 deficiency E53.8 Status post fall Z91.81 Hypertension I10 Depression with anxiety F41.8 Ambulatory dysfunction R26.2 Generalized osteoarthritis M15.9 Multiple pulmonary nodules R91.8 Bladder spasms N32.89 Gait disturbance R26.9 Coronary artery disease I25.10
[2022-04-22] MEDS: LEVOTHYROXINE SODIUM 100 MCG TABLET PO SCH (05:34)
[2022-04-22] MEDS: METOPROLOL TARTRATE 50 MG TAB PO SCH ×2 (06:53→19:47)
[2022-04-22] MEDS: amLODIPine BESYLATE 5 MG TAB PO SCH (06:53)
[2022-04-22 06:59] LABS: Basophils # (auto) 0.01 K/uL (0-0.2); Basophils % (auto) 0.2 %; Eosinophils # (auto) 0.25 K/uL (0-0.50); Eosinophils % (auto) 4.2 %; Hematocrit (blood only) 37.8 % (37.0-47.0); Hemoglobin 12.6 g/dl (12.0-16.0); Lymphocytes # (auto) 2.03 K/uL (1.2-3.4); Lymphocytes % (auto) 34.2 %; Mean Corpuscular Hemoglobin 29.8 pg (25.0-34.0); Mean Corpuscular Hgb Conc 33.3 g/dL (32.0-36.0); Mean Corpuscular Volume 89.4 fL (80.0-100.0); Mean Platelet Volume 9.9 fL (9.4-12.4); Monocytes # (auto) 0.67 K/uL (0.11-0.59); Monocytes % (auto) 11.3 %; Neutrophils # (auto) 2.98 K/uL (1.40-6.50); Neutrophils % (auto) 50.1 %; Platelet Count 251 K/uL (130-400); RDW Coefficient of Variation 13.2 % (11.5-14.5); RDW Standard Deviation 43.1 fL (36.4-46.3); Red Blood Count 4.23 M/uL (4.20-5.40); White Blood Count 5.94 K/ul (4.8-10.8)
[2022-04-22 07:16] LABS: Albumin Globulin Ratio 1.4 (0.9-2); Albumin Level 3.7 gm/dl (3.4-5.0); BUN Creatinine Ratio 20.8 (10-20); Bilirubin,Total 0.5 mg/dl (0.2-1.0); Calcium 9.5 mg/dl (8.5-10.1); Creatinine Clr Calc Pharmacy 45.2 ml/min; Est GFR (African American) 65.3 ml/min; Est GFR (Non-African American) 56.4 ml/min; Globulin 2.7 gm/dl (2.5-4.0); Magnesium 1.3 mg/dl (1.7-2.4); Potassium 4.1 mmol/L (3.5-5.1); Total Protein 6.4 gm/dl (6.0-8.3)
[2022-04-22] MEDS: ACETAMINOPHEN 325 MG TAB PO PRN (08:15)
[2022-04-22] MEDS: INSULIN ASPART PER UNIT SC SCH ×4 (08:15→21:00)
[2022-04-22] MEDS: ENOXAPARIN INJ 40 MG/0.4 ML SYR SQ SCH (08:16)
[2022-04-22] MEDS: MAGNESIUM OXIDE 400 MG TAB PO SCH ×3 (08:17→19:49)
[2022-04-22] MEDS: TIMOLOL MALEATE 0.5% OP SOLN 5 ML BTL OP SCH (08:17)
[2022-04-22] MEDS: CYANOCOBALAMIN (B-12) 500 MCG TABLET PO SCH (08:17)
[2022-04-22] MEDS: ASPIRIN 81 MG ECTAB PO SCH (08:17)
[2022-04-22] MEDS: PANTOprazole 40 MG TAB PO SCH (08:17)
[2022-04-22] MEDS: CALCIUM CARBONATE 1250MG TAB PO SCH ×2 (08:17→19:49)
[2022-04-22] MEDS: LOSARTAN POTASSIUM 25 MG TAB PO SCH (08:18)
[2022-04-22] MEDS: VENLAFAXINE HCL XR 75 MG CAPXR PO SCH ×2 (08:18→19:48)
[2022-04-22] MEDS: OMEGA-3 (PURIFIED FISH OIL) 1 GM CAP PO SCH ×2 (08:18→19:47)
[2022-04-22] MEDS: DOCUSATE SODIUM 100 MG CAP PO SCH (08:19)
[2022-04-22] MEDS: cefTRIAXone SODIUM 2,000 MG in DEXTROSE 5% 50 ML IV SCH (16:57)
[2022-04-22] MEDS: SIMVASTATIN 40 MG TAB PO SCH (19:47)
[2022-04-22] MEDS: MELATONIN 3 MG TAB PO SCH (19:51)
--- NOTE | 2022-04-22 22:56 | Hospitalist Progress Note ---
Date of Service April 22, 2022 Assessment & Plan (1) Frequent falls: Plan: Increasing frequency of falls/ambulatory dysfunction/failure to thrive in adult- The patient had an extensive hospitalization from 02/22-03/10/2022 for presumed acute encephalopathy from unknown cause. She did appear to respond to conservative therapy and IV fluids Work-up at that time included negative imaging of CT head on 02/22/2022, CTA head and neck on 02/22/2022, and MRI of brain on 02/23/2022. CT head in the ED this evening showed no acute stroke. There was question of a hyperdense change in the basilar artery, with suggestion that CTA brain could be checked for possible stroke. However, patient just had normal imaging within the past [address] on IV fluids Consult PT/OT Disposition will need to be assessed for the patient is able to go back to current living situation or whether she may need to be considered for more permanent halfway care Patient may benefit from neurocognitive testing 2/3-patient needs to be placed in a permanent halfway care facility Needs PT OT input Case management assistance 2/4-Case management to assist with placement in a halfway facility Patient has urinary symptoms and has positive UA We will start patient on IV ceftriaxone for presumptive UTI Diabetes mellitus- Hold metformin Placed on Accu-Cheks with SSI Hypertension- Continue amlodipine, aspirin, losartan and metoprolol tartrate with hold para meters Hyperlipidemia- Continue simvastatin Hypothyroidism- Continue levothyroxine Depression with anxiety continue venlafaxine Glaucoma- Continue timolol Bladder spasm- Continue Solifenacin Insomnia- Continue melatonin (2) Failure to thrive in adult: (3) Type 2 diabetes mellitus: (4) Vitamin B1 deficiency: (5) B12 deficiency: (6) Status post fall: (7) Hypertension: (8) Depression with anxiety: (9) Ambulatory dysfunction: (10) Generalized osteoarthritis: (11) Multiple pulmonary nodules: (12) Bladder spasms: (13) Gait disturbance: (14) Coronary artery disease: Plan Admission and Anticipated Discharge Date Admission Date: April 22, 2022 Subjective Patient seen and examined No acute complaints noted Patient still has inability to ambulate without assistance Patient reports intermittent urinary symptoms Physical Exam Physical Exam: Head and ENT no thyroid enlargement trachea midline Cardiovascular S1-S2 are normal no S3 Lungs bilateral air entry slightly decreased at bases Abdomen soft nondistended positive bowel sounds no rebound tenderness Extremity shows trace edema Neurologically no focal deficits Skin shows no rash no cyanosis Results & Data Results & Data ([facility]) Vital Signs (Past 12 Hours) Vital Signs Temp Pulse Pulse Resp BP BP Pulse Ox 04/22/22 19:42 36.7 C 78 20 161/76 H 96 04/22/22 14:19 85 04/22/22 15:41 37.3 C 86 20 166/69 H 96 04/22/22 11:34 36.9 C 68 18 153/72 H 93 O2 Del Method 04/22/22 19:42 Room Air 04/22/22 14:19 04/22/22 15:41 Room Air 04/22/22 11:34 Room Air Laboratory Results Short CBC 04/22/22 Range/Units 06:45 WBC 5.94 (4.8-10.8) K/ul Hgb 12.6 (12.0-16.0) g/dl Hct 37.8 (37.0-47.0) % Plt Count 251 (130-400) K/uL BMP 04/22/22 06:45 Sodium 138 Potassium 4.1 Chloride 107 Carbon Dioxide 24 BUN 21 Creatinine 1.01 Glucose 165 H Calcium 9.5 Liver Function 04/22/22 Range/Units 06:45 Total Bilirubin 0.5 (0.2-1.0) mg/dl AST 13 (13-39) U/L ALT 12 (7-52) U/L Alkaline Phosphatase 70 (34-104) U/L Albumin 3.7 (3.4-5.0) gm/dl PG Care Time/CCT Total # of Minutes Spent Total Time Spent with Patient: Total time spent is greater than 50% in coordination of care (as documented) at patient's floor/unit and/or counseling patient: Coding Level of Care Code 96541 SUB INP/OBS CARE 2/35MIN Diagnoses Frequent falls R29.6 Failure to thrive in adult R62.7 Type 2 diabetes mellitus E11.9 Vitamin B1 deficiency E51.9 B12 deficiency E53.8 Status post fall Z91.81 Hypertension I10 Depression with anxiety F41.8 Ambulatory dysfunction R26.2 Generalized osteoarthritis M15.9 Multiple pulmonary nodules R91.8 Bladder spasms N32.89 Gait disturbance R26.9 Coronary artery disease I25.10
[2022-04-23] MEDS: LEVOTHYROXINE SODIUM 100 MCG TABLET PO SCH (06:33)
[2022-04-23 06:55] LABS: Hemoglobin 12.8 g/dl (12.0-16.0); Mean Corpuscular Hemoglobin 29.9 pg (25.0-34.0); Mean Corpuscular Hgb Conc 33.7 g/dL (32.0-36.0); Mean Corpuscular Volume 88.8 fL (80.0-100.0); Mean Platelet Volume 9.9 fL (9.4-12.4); Platelet Count 276 K/uL (130-400); RDW Coefficient of Variation 13.2 % (11.5-14.5); RDW Standard Deviation 42.9 fL (36.4-46.3); Red Blood Count 4.28 M/uL (4.20-5.40)
[2022-04-23 07:25] LABS: BUN Creatinine Ratio 28.1 (10-20); Calcium 9.5 mg/dl (8.5-10.1); Creatinine Clr Calc Pharmacy 51.4 ml/min; Est GFR (African American) 76.1 ml/min; Est GFR (Non-African American) 65.7 ml/min; Potassium 3.8 mmol/L (3.5-5.1)
[2022-04-23] MEDS: TIMOLOL MALEATE 0.5% OP SOLN 5 ML BTL OP SCH (08:51)
[2022-04-23] MEDS: ACETAMINOPHEN 325 MG TAB PO PRN ×3 (08:51→21:42)
[2022-04-23] MEDS: INSULIN ASPART PER UNIT SC SCH ×4 (08:51→21:41)
[2022-04-23] MEDS: METOPROLOL TARTRATE 50 MG TAB PO SCH ×2 (08:52→21:43)
[2022-04-23] MEDS: ASPIRIN 81 MG ECTAB PO SCH (08:52)
[2022-04-23] MEDS: OMEGA-3 (PURIFIED FISH OIL) 1 GM CAP PO SCH ×2 (08:52→21:44)
[2022-04-23] MEDS: MAGNESIUM OXIDE 400 MG TAB PO SCH ×3 (08:52→21:45)
[2022-04-23] MEDS: CYANOCOBALAMIN (B-12) 500 MCG TABLET PO SCH (08:53)
[2022-04-23] MEDS: PANTOprazole 40 MG TAB PO SCH (08:53)
[2022-04-23] MEDS: VENLAFAXINE HCL XR 75 MG CAPXR PO SCH ×2 (08:53→21:43)
[2022-04-23] MEDS: CALCIUM CARBONATE 1250MG TAB PO SCH ×2 (08:53→21:44)
[2022-04-23] MEDS: LOSARTAN POTASSIUM 25 MG TAB PO SCH (08:54)
[2022-04-23] MEDS: ENOXAPARIN INJ 40 MG/0.4 ML SYR SQ SCH (08:54)
[2022-04-23] MEDS: amLODIPine BESYLATE 5 MG TAB PO SCH (08:54)
[2022-04-23] MEDS: DOCUSATE SODIUM 100 MG CAP PO SCH (09:04)
[2022-04-23] MEDS: cefTRIAXone SODIUM 2,000 MG in DEXTROSE 5% 50 ML IV SCH (15:43)
--- NOTE | 2022-04-23 17:12 | Hospitalist Progress Note ---
Date of Service April 23, 2022 Assessment & Plan (1) Frequent falls: Plan: Increasing frequency of falls/ambulatory dysfunction/failure to thrive in adult- The patient had an extensive hospitalization from 02/22-03/10/2022 for presumed acute encephalopathy from unknown cause. She did appear to respond to conservative therapy and IV fluids Work-up at that time included negative imaging of CT head on 02/22/2022, CTA head and neck on 02/22/2022, and MRI of brain on 02/23/2022. CT head in the ED this evening showed no acute stroke. There was question of a hyperdense change in the basilar artery, with suggestion that CTA brain could be checked for possible stroke. However, patient just had normal imaging within the past [address] on IV fluids Consult PT/OT Disposition will need to be assessed for the patient is able to go back to current living situation or whether she may need to be considered for more permanent senior living care Patient may benefit from neurocognitive testing 2/3-patient needs to be placed in a permanent senior living care facility Needs PT OT input Case management assistance 2/4-Case management to assist with placement in a senior living facility Patient has urinary symptoms and has positive UA We will start patient on IV ceftriaxone for presumptive UTI 2/5-patient having ongoing episodes of confusion along with generalized weakness Continue IV ceftriaxone for 3 days as patient shows slight improvement today with initiation of IV antibiotics Case management to assist with placement both from care coordination as well as for long-term placement Plan discussed with social sciences lecturer mellitus- Hold metformin Placed on Accu-Cheks with SSI Hypertension- Continue amlodipine, aspirin, losartan and metoprolol tartrate with hold parameters Hyperlipidemia- Continue simvastatin Hypothyroidism- Continue levothyroxine Depression with anxiety continue venlafaxine Glaucoma- Continue timolol Bladder spasm- Continue Solifenacin Insomnia- Continue melatonin (2) Failure to thrive in adult: (3) Type 2 diabetes mellitus: (4) Vitamin B1 deficiency: (5) B12 deficiency: (6) Status post fall: (7) Hypertension: (8) Depression with anxiety: (9) Ambulatory dysfunction: (10) Generalized osteoarthritis: (11) Multiple pulmonary nodules: (12) Bladder spasms: (13) Gait disturbance: (14) Coronary artery disease: Plan Admission and Anticipated Discharge Date Admission Date: April 22, 2022 Subjective Patient seen and examined No acute complaints noted Patient has episodes of confusion and as per family this is progressively worsening Patient still has inability to ambulate without assistance Patient reports intermittent urinary symptoms Physical Exam Physical Exam: Head and ENT no thyroid enlargement trachea midline Cardiovascular S1-S2 are normal no S3 Lungs bilateral air entry slightly decreased at bases Abdomen soft nondistended positive bowel sounds no rebound tenderness Extremity shows trace edema Neurologically no focal deficits Skin shows no rash no cyanosis Results & Data Results & Data ([facility]) Vital Signs (Past 12 Hours) Vital Signs Temp Pulse Pulse Resp BP Pulse Ox O2 Del Method 04/23/22 14:01 71 04/23/22 16:00 36.5 C 74 20 126/73 93 Room Air 04/23/22 11:56 36.8 C 74 18 143/84 H 95 Room Air 04/23/22 07:23 36.4 C L 68 16 177/72 H 94 Room Air 04/23/22 06:01 72 Laboratory Results Short CBC 04/23/22 Range/Units 06:27 WBC 5.60 (4.8-10.8) K/ul Hgb 12.8 (12.0-16.0) g/dl Hct 38.0 (37.0-47.0) % Plt Count 276 (130-400) K/uL BMP 04/23/22 06:27 Sodium 139 Potassium 3.8 Chloride 107 Carbon Dioxide 23 BUN 25 H Creatinine 0.89 Glucose 163 H Calcium 9.5 PG Care Time/CCT Total # of Minutes Spent Total Time Spent with Patient: Total time spent is greater than 50% in coordination of care (as documented) at patient's floor/unit and/or counseling patient: Coding Level of Care Code 56168 SUB INP/OBS CARE 2/35MIN Diagnoses Frequent falls R29.6 Failure to thrive in adult R62.7 Type 2 diabetes mellitus E11.9 Vitamin B1 deficiency E51.9 B12 deficiency E53.8 Status post fall Z91.81 Hypertension I10 Depression with anxiety F41.8 Ambulatory dysfunction R26.2 Generalized osteoarthritis M15.9 Multiple pulmonary nodules R91.8 Bladder spasms N32.89 Gait disturbance R26.9 Coronary artery disease I25.10
[2022-04-23] MEDS: MELATONIN 3 MG TAB PO SCH (21:42)
[2022-04-23] MEDS: SIMVASTATIN 40 MG TAB PO SCH (21:43)
[2022-04-24] MEDS: LEVOTHYROXINE SODIUM 100 MCG TABLET PO SCH (05:23)
[2022-04-24 07:36] LABS: Hematocrit (blood only) 38.6 % (37.0-47.0); Hemoglobin 12.9 g/dl (12.0-16.0); Mean Corpuscular Hemoglobin 29.9 pg (25.0-34.0); Mean Corpuscular Hgb Conc 33.4 g/dL (32.0-36.0); Mean Corpuscular Volume 89.6 fL (80.0-100.0); Mean Platelet Volume 10.2 fL (9.4-12.4); Platelet Count 279 K/uL (130-400); RDW Coefficient of Variation 13.3 % (11.5-14.5); RDW Standard Deviation 44.3 fL (36.4-46.3); Red Blood Count 4.31 M/uL (4.20-5.40); White Blood Count 6.07 K/ul (4.8-10.8)
[2022-04-24] MEDS: METOPROLOL TARTRATE 50 MG TAB PO SCH ×2 (07:52→20:21)
[2022-04-24] MEDS: MAGNESIUM OXIDE 400 MG TAB PO SCH ×3 (07:52→20:20)
[2022-04-24] MEDS: OMEGA-3 (PURIFIED FISH OIL) 1 GM CAP PO SCH ×2 (07:52→20:20)
[2022-04-24] MEDS: CALCIUM CARBONATE 1250MG TAB PO SCH ×2 (07:52→20:20)
[2022-04-24] MEDS: LOSARTAN POTASSIUM 25 MG TAB PO SCH (07:53)
[2022-04-24] MEDS: CYANOCOBALAMIN (B-12) 500 MCG TABLET PO SCH (07:53)
[2022-04-24] MEDS: amLODIPine BESYLATE 5 MG TAB PO SCH (07:53)
[2022-04-24] MEDS: PANTOprazole 40 MG TAB PO SCH (07:53)
[2022-04-24] MEDS: ASPIRIN 81 MG ECTAB PO SCH (07:53)
[2022-04-24] MEDS: VENLAFAXINE HCL XR 75 MG CAPXR PO SCH ×2 (07:53→20:21)
[2022-04-24] MEDS: TIMOLOL MALEATE 0.5% OP SOLN 5 ML BTL OP SCH (07:54)
[2022-04-24] MEDS: ENOXAPARIN INJ 40 MG/0.4 ML SYR SQ SCH (07:56)
[2022-04-24] MEDS: DOCUSATE SODIUM 100 MG CAP PO SCH (07:56)
[2022-04-24] MEDS: INSULIN ASPART PER UNIT SC SCH ×4 (08:30→21:27)
[2022-04-24 09:55] LABS: BUN Creatinine Ratio 24.3 (10-20); Calcium 9.2 mg/dl (8.5-10.1); Creatinine Clr Calc Pharmacy 42.2 ml/min; Est GFR (African American) 60.9 ml/min; Est GFR (Non-African American) 52.6 ml/min
--- NOTE | 2022-04-24 16:13 | Hospitalist Progress Note ---
Date of Service April 24, 2022 Assessment & Plan (1) Frequent falls: Plan: Supportive care. Continue OT and PT. She is being treated for urinary tract infection and remains on intravenous Rocephin. No signs of hydrocephalus on CT imaging. No evidence of acute CVA. (2) Failure to thrive in adult: Plan: Supportive care. Continue OT and PT (3) Type 2 diabetes mellitus: Plan: ADA diet. Metformin was held on admission and restarted today, April 24. Continue sliding-scale coverage as needed (4) Vitamin B1 deficiency: Plan: Continue supplements (5) B12 deficiency: Plan: Continue supplements (6) Status post fall: Plan: Not on systemic anticoagulation. Treat UTI. Continue OT and PT (7) Hypertension: Plan: Stable with current medical management (8) Depression with anxiety: Plan: Stable with current medical management (9) Ambulatory dysfunction: Plan: Continue OT and PT. Supportive care (10) Generalized osteoarthritis: Plan: Currently stable (11) Multiple pulmonary nodules: Plan: Do not appear malignant. Continue outpatient follow-up (12) Bladder spasms: Plan: Medication management as needed (13) Gait disturbance: Plan: Continue OT and PT (14) Coronary artery disease: Plan: Denies chest pain. Stable. Continue current medical management Plan Case management involved with placement either at [facility] or [facility] Admission and Anticipated Discharge Date Admission Date: April 22, 2022 Subjective Alert. She has baseline confusion which could be dementia. Medications revi ewed and no MANAGER TECHNICAL depressants noted. No evidence of UTI. Continue supportive care. Review of Systems Review of Systems: Patient is unable to correctly answer any questions regarding review of systems Physical Exam Physical Exam: General-alert. Disoriented however. No fevers, no chills HEENT-head atraumatic and normocephalic, pupils equal and reactive to light, extraocular muscles intact Neck-no lymphadenopathy or thyromegaly, trachea midline Chest-clear to auscultation percussion. No rales wheezing or rhonchi Cardiac-regular rate and rhythm, normal S1 and S2 Abdomen-normal bowel sounds, nontender, no hepatosplenomegaly Extremities-no cyanosis, clubbing, or edema Neuro-cranial nerves II through XII intact, motor and sensory function within normal limits, strength symmetrical , no focal deficits Psych-normal affect, normal mood Results & Data Results & Data ([facility]) Vital Signs (Past 12 Hours) Vital Signs Temp Pulse Pulse Resp BP Pulse Ox O2 Del Method 04/24/22 15:48 37.3 C 81 20 155/83 H 95 Room Air 04/24/22 15:35 87 04/24/22 11:38 36.8 C 67 16 128/79 96 Room Air 04/24/22 09:37 Room Air 04/24/22 07:34 36.7 C 72 6 L 183/92 H 93 Room Air 04/24/22 07:19 67 Laboratory Results 04/24/22 06:53 04/24/22 06:53 PG Care Time/CCT Total # of Minutes Spent Total Time Spent with Patient: Total time spent is greater than 50% in coordination of care (as documented) at patient's floor/unit and/or counseling patient: Coding Level of Care Code 84192 SUB INP/OBS CARE 3/50MIN Diagnoses Frequent falls R29.6 Failure to thrive in adult R62.7 Type 2 diabetes mellitus E11.9 Vitamin B1 deficiency E51.9 B12 deficiency E53.8 Status post fall Z91.81 Hypertension I10 Depression with anxiety F41.8 Ambulatory dysfunction R26.2 Generalized osteoarthritis M15.9 Multiple pulmonary nodules R91.8 Bladder spasms N32.89 Gait disturbance R26.9 Coronary artery disease I25.10
[2022-04-24] MEDS: cefTRIAXone SODIUM 2,000 MG in DEXTROSE 5% 50 ML IV SCH (17:08)
[2022-04-24] MEDS: metFORMIN HCL 500 MG TAB PO SCH (17:09)
[2022-04-24] MEDS: SIMVASTATIN 40 MG TAB PO SCH (20:21)
[2022-04-24] MEDS: MELATONIN 3 MG TAB PO SCH (20:25)
[2022-04-25] MEDS: LEVOTHYROXINE SODIUM 100 MCG TABLET PO SCH (05:33)
[2022-04-25] MEDS: INSULIN ASPART PER UNIT SC SCH ×4 (08:42→21:31)
[2022-04-25] MEDS: PANTOprazole 40 MG TAB PO SCH (08:45)
[2022-04-25] MEDS: OMEGA-3 (PURIFIED FISH OIL) 1 GM CAP PO SCH ×2 (08:45→20:39)
[2022-04-25] MEDS: CALCIUM CARBONATE 1250MG TAB PO SCH ×2 (08:45→20:38)
[2022-04-25] MEDS: MAGNESIUM OXIDE 400 MG TAB PO SCH ×3 (08:45→20:39)
[2022-04-25] MEDS: CYANOCOBALAMIN (B-12) 500 MCG TABLET PO SCH (08:45)
[2022-04-25] MEDS: METOPROLOL TARTRATE 50 MG TAB PO SCH ×2 (08:45→20:38)
[2022-04-25] MEDS: VENLAFAXINE HCL XR 75 MG CAPXR PO SCH (08:45)
[2022-04-25] MEDS: LOSARTAN POTASSIUM 25 MG TAB PO SCH (08:46)
[2022-04-25] MEDS: ASPIRIN 81 MG ECTAB PO SCH (08:46)
[2022-04-25] MEDS: amLODIPine BESYLATE 5 MG TAB PO SCH (08:46)
[2022-04-25] MEDS: ENOXAPARIN INJ 40 MG/0.4 ML SYR SQ SCH (08:46)
[2022-04-25] MEDS: TIMOLOL MALEATE 0.5% OP SOLN 5 ML BTL OP SCH (08:46)
[2022-04-25] MEDS: metFORMIN HCL 500 MG TAB PO SCH ×2 (08:46→17:23)
[2022-04-25] MEDS: DOCUSATE SODIUM 100 MG CAP PO SCH (08:47)
[2022-04-25] MEDS ORDERED: cephALEXin 250 MG CAP PO ONE (09:45)
[2022-04-25] MEDS: cephALEXin 250 MG CAP PO SCH ×3 (12:24→20:37)
[2022-04-25] MEDS: ACETAMINOPHEN 325 MG TAB PO PRN (12:26)
[2022-04-25] MEDS ORDERED: QUEtiapine FUMARATE 25 MG TABLET PO STA (13:02)
--- NOTE | 2022-04-25 14:41 | Hospitalist Progress Note ---
Date of Service April 25, 2022 Assessment & Plan (1) Frequent falls: Plan: Supportive care. Continue OT and PT. she appears to have baseline dementia. No cultures done on admission. No evidence of acute CVA (2) Failure to thrive in adult: Plan: Supportive care. Continue OT and PT (3) Type 2 diabetes mellitus: Plan: ADA diet. Metformin was held on admission and restarted on April 24. Continue sliding-scale coverage as needed (4) Vitamin B1 deficiency: Plan: Continue supplements (5) B12 deficiency: Plan: Continue supplements (6) Status post fall: Plan: Not on systemic anticoagulation. Treat suspected UTI. Continue OT and PT (7) Hypertension: Plan: Stable with current medical management (8) Depression with anxiety: Plan: Stable with current medical management (9) Ambulatory dysfunction: Plan: Continue OT and PT. Supportive care (10) Generalized osteoarthritis: Plan: Currently stable (11) Multiple pulmonary nodules: Plan: Do not appear malignant. Continue outpatient follow-up (12) Bladder spasms: Plan: Medication management as needed (13) Gait disturbance: Plan: Continue OT and PT (14) Coronary artery disease: Plan: Denies chest pain. Stable. Continue current medical management (15) Dementia with agitation: Plan: She appears to have baseline dementia with intermittent episodes of agitation. I do not believe she has acute metabolic encephalopathy. Seroquel has been started which replaces venlafaxine. Continue supportive care Plan Case management involved with eventual placement either at [facility] or [facility] Admission and Anticipated Discharge Date Admission Date: April 22, 2022 Subjective Awake and alert but confused. This appears to be chronic dementia. She is having periods of agitation. Seroquel started. Continue supportive care. Metformin was restarted yesterday, April 24. Glucose 194 this morning. IV antibiotic switched to oral Keflex. Apparently no urine or blood cultures were done on admission. Review of Systems Review of Systems: Patient is unable to correctly answer any questions regarding review of systems Physical Exam Physical Exam: General-alert. Disoriented however. No fevers, no chills HEENT-head atraumatic and normocephalic, pupils equal and reactive to light, extraocular muscles intact Neck-no lymphadenopathy or thyromegaly, trachea midline Chest-clear to auscultation percussion. No rales wheezing or rhonchi Cardiac-regular rate and rhythm, normal S1 and S2 Abdomen-normal bowel sounds, nontender, no hepatosplenomegaly Extremities-no cyanosis, clubbing, or edema Neuro-cranial nerves II through XII intact, motor and sensory function within normal limits, strength symmetrical , no focal deficits Psych-normal affect, normal mood Results & Data Results & Data ([facility]) Vital Signs (Past 12 Hours) Vital Signs Temp Pulse Pulse Resp BP BP Pulse Ox 04/25/22 11:27 36.5 C 76 18 146/86 H 96 04/25/22 11:28 04/25/22 07:56 36.3 C L 81 178/99 H 96 04/25/22 07:52 59 L 14 153/84 H 95 04/25/22 07:31 77 04/25/22 04:00 37.0 C 79 18 159/79 H 96 O2 Del Method 04/25/22 11:27 Room Air 04/25/22 11:28 Room Air 04/25/22 07:56 Room Air 04/25/22 07:52 Room Air 04/25/22 07:31 04/25/22 04:00 Room Air Laboratory Results 04/24/22 06:53 04/24/22 06:53 PG Care Time/CCT Total # of Minutes Spent Total Time Spent with Patient: Total time spent is greater than 50% in coordination of care (as documented) at patient's floor/unit and/or counseling patient: Coding Level of Care Code 84262 SUB INP/OBS CARE 3/50MIN Diagnoses Frequent falls R29.6 Failure to thrive in adult R62.7 Type 2 diabetes mellitus E11.9 Vitamin B1 deficiency E51.9 B12 deficiency E53.8 Status post fall Z91.81 Hypertension I10 Depression with anxiety F41.8 Ambulatory dysfunction R26.2 Generalized osteoarthritis M15.9 Multiple pulmonary nodules R91.8 Bladder spasms N32.89 Gait disturbance R26.9 Coronary artery disease I25.10 Dementia with agitation F03.911
[2022-04-25] MEDS: ONDANSETRON INJ 2 MG/ML 2 ML VIAL IV PRN (16:16)
[2022-04-25] MEDS: SIMVASTATIN 40 MG TAB PO SCH (20:38)
[2022-04-25] MEDS: MELATONIN 3 MG TAB PO SCH (21:31)
[2022-04-25] MEDS: QUEtiapine FUMARATE 25 MG TABLET PO SCH (21:31)
[2022-04-26] MEDS: LEVOTHYROXINE SODIUM 100 MCG TABLET PO SCH (05:30)
[2022-04-26] MEDS: OMEGA-3 (PURIFIED FISH OIL) 1 GM CAP PO SCH ×2 (08:30→20:54)
[2022-04-26] MEDS: METOPROLOL TARTRATE 50 MG TAB PO SCH ×2 (08:30→20:54)
[2022-04-26] MEDS: QUEtiapine FUMARATE 25 MG TABLET PO SCH ×2 (08:30→20:51)
[2022-04-26] MEDS: MAGNESIUM OXIDE 400 MG TAB PO SCH ×3 (08:30→20:55)
[2022-04-26] MEDS: cephALEXin 250 MG CAP PO SCH ×4 (08:31→20:50)
[2022-04-26] MEDS: PANTOprazole 40 MG TAB PO SCH (08:31)
[2022-04-26] MEDS: CALCIUM CARBONATE 1250MG TAB PO SCH ×2 (08:31→20:55)
[2022-04-26] MEDS: CYANOCOBALAMIN (B-12) 500 MCG TABLET PO SCH (08:31)
[2022-04-26] MEDS: ASPIRIN 81 MG ECTAB PO SCH (08:32)
[2022-04-26] MEDS: metFORMIN HCL 500 MG TAB PO SCH ×2 (08:32→16:19)
[2022-04-26] MEDS: TIMOLOL MALEATE 0.5% OP SOLN 5 ML BTL OP SCH (08:33)
[2022-04-26] MEDS: LOSARTAN POTASSIUM 25 MG TAB PO SCH (08:33)
[2022-04-26] MEDS: ENOXAPARIN INJ 40 MG/0.4 ML SYR SQ SCH (08:33)
[2022-04-26] MEDS: amLODIPine BESYLATE 5 MG TAB PO SCH (08:33)
[2022-04-26] MEDS: INSULIN ASPART PER UNIT SC SCH ×4 (08:34→21:01)
[2022-04-26] MEDS: DOCUSATE SODIUM 100 MG CAP PO SCH (08:37)
--- NOTE | 2022-04-26 14:30 | Hospitalist Progress Note ---
Date of Service April 26, 2022 Assessment & Plan (1) Frequent falls: Plan: Supportive care. Continue OT and PT. She appears to have baseline dementia. No cultures done on admission. No evidence of acute CVA (2) Failure to thrive in adult: Plan: Supportive care. Continue OT and PT (3) Type 2 diabetes mellitus: Plan: ADA diet. Metformin was held on admission and restarted on April 24. Continue sliding-scale coverage as needed (4) Vitamin B1 deficiency: Plan: Continue supplements (5) B12 deficiency: Plan: Continue supplements (6) Status post fall: Plan: Not on systemic anticoagulation. Treat suspected UTI. Continue OT and PT (7) Hypertension: Plan: Amlodipine and losartan uptitrated today, April 26, for better blood pressure control. (8) Depression with anxiety: Plan: Stable with current medical management (9) Ambulatory dysfunction: Plan: Continue OT and PT. Supportive care (10) Generalized osteoarthritis: Plan: Currently stable (11) Multiple pulmonary nodules: Plan: Do not appear malignant. Continue outpatient follow-up (12) Bladder spasms: Plan: Medication management as needed (13) Gait disturbance: Plan: Continue OT and PT (14) Coronary artery disease: Plan: Denies chest pain. Stable. Continue current medical management (15) Dementia with agitation: Plan: She appears to have baseline dementia with intermittent episodes of agitation. I do not believe she has acute metabolic encephalopathy. Seroquel has been started which replaces venlafaxine and appears to be working well. Continue supportive care Plan Anticipate discharge to [facility] tomorrow, April 27 Admission and Anticipated Discharge Date Admission Date: April 22, 2022 Subjective Alert. No acute problems. Seroquel appears to be controlling her behavior nicely. Amlodipine and losartan uptitrated for better blood pressure control. Rocephin has been switched to oral Keflex. Hopeful discharge to [facility] tomorrow, April 27 Review of Systems Review of Systems: Patient is unable to correctly answer any questions regarding review of systems due to underlying dementia Physical Exam Physical Exam: General-alert. Disoriented however. No fevers, no chills HEENT-head atraumatic and normocephalic, pupils equal and reactive to light, extraocular muscles intact Neck-no lymphadenopathy or thyromegaly, trachea midline Chest-clear to auscultation percussion. No rales wheezing or rhonchi Cardiac-regular rate and rhythm, normal S1 and S2 Abdomen-normal bowel sounds, nontender, no hepatosplenomegaly Extremities-no cyanosis, clubbing, or edema Neuro-cranial nerves II through XII intact, motor and sensory function within normal limits, strength symmetrical , no focal deficits Psych-normal affect, normal mood Results & Data Results & Data ([facility]) Vital Signs (Past 12 Hours) Vital Signs Temp Pulse Pulse Resp BP Pulse Ox O2 Del Method 04/26/22 11:20 36.7 C 73 18 140/81 94 Room Air 04/26/22 08:00 Room Air 04/26/22 07:45 37.0 C 79 18 197/98 H 96 Room Air 04/26/22 07:41 73 04/26/22 03:10 36.4 C L 75 16 171/82 H 96 Room Air Laboratory Results 04/24/22 06:53 04/24/22 06:53 PG Care Time/CCT Total # of Minutes Spent Total Time Spent with Patient: Total time spent is greater than 50% in coordination of care (as documented) at patient's floor/unit and/or counseling patient: Coding Level of Care Code 66330 SUB INP/OBS CARE 3/50MIN Diagnoses Frequent falls R29.6 Failure to thrive in adult R62.7 Type 2 diabetes mellitus E11.9 Vitamin B1 deficiency E51.9 B12 deficiency E53.8 Status post fall Z91.81 Hypertension I10 Depression with anxiety F41.8 Ambulatory dysfunction R26.2 Generalized osteoarthritis M15.9 Multiple pulmonary nodules R91.8 Bladder spasms N32.89 Gait disturbance R26.9 Coronary artery disease I25.10 Dementia with agitation F03.911
[2022-04-26] MEDS: ONDANSETRON INJ 2 MG/ML 2 ML VIAL IV PRN (17:17)
[2022-04-26] MEDS: MELATONIN 3 MG TAB PO SCH (20:52)
[2022-04-26] MEDS: SIMVASTATIN 40 MG TAB PO SCH (20:54)
[2022-04-27] MEDS: LEVOTHYROXINE SODIUM 100 MCG TABLET PO SCH (06:15)
[2022-04-27] MEDS: INSULIN ASPART PER UNIT SC SCH ×2 (08:34→12:19)
[2022-04-27] MEDS: ENOXAPARIN INJ 40 MG/0.4 ML SYR SQ SCH (08:36)
[2022-04-27] MEDS: TIMOLOL MALEATE 0.5% OP SOLN 5 ML BTL OP SCH (08:55)
[2022-04-27] MEDS: OMEGA-3 (PURIFIED FISH OIL) 1 GM CAP PO SCH (08:56)
[2022-04-27] MEDS: DOCUSATE SODIUM 100 MG CAP PO SCH (08:56)
[2022-04-27] MEDS: metFORMIN HCL 500 MG TAB PO SCH (08:56)
[2022-04-27] MEDS: CALCIUM CARBONATE 1250MG TAB PO SCH (08:56)
[2022-04-27] MEDS: CYANOCOBALAMIN (B-12) 500 MCG TABLET PO SCH (08:56)
[2022-04-27] MEDS: METOPROLOL TARTRATE 50 MG TAB PO SCH (08:57)
[2022-04-27] MEDS: PANTOprazole 40 MG TAB PO SCH (08:57)
[2022-04-27] MEDS: cephALEXin 250 MG CAP PO SCH ×2 (08:57→12:34)
[2022-04-27] MEDS: MAGNESIUM OXIDE 400 MG TAB PO SCH ×2 (08:57→12:34)
[2022-04-27] MEDS: QUEtiapine FUMARATE 25 MG TABLET PO SCH (08:57)
[2022-04-27] MEDS: ASPIRIN 81 MG ECTAB PO SCH (08:57)
[2022-04-27] MEDS ORDERED: amLODIPine BESYLATE 5 MG TAB PO SCH (09:00)
[2022-04-27] MEDS ORDERED: LOSARTAN POTASSIUM 50 MG TAB PO SCH (09:00)
--- NOTE | 2022-04-27 11:37 | Discharge Summary ---
Date of Service April 27, 2022 Admission HPI Per Admitting Provider The patient is a 71-year-old female with a past medical history including B12 deficiency, B1 deficiency, diabetes mellitus type 2, hypertension, ischial bursitis, left lower extremity DVT, generalized osteoarthritis, fatty liver, depression with anxiety, hiatal hernia, glaucoma, iron deficiency anemia, multiple pulmonary nodules, lumbar back pain, and increasing number of falls associated with generalized weakness. The patient had been admitted to [facility] from 02/22/2022-03/10/2022 for initially stroke work-up, and then issues related to falls and ambulatory dysfunction. She was transferred to [facility], where she remained until couple days ago, and was then returned home and living with her daughter. Her daughter reports that the patient has had a very significant decline over the last few days, with frequent falls, having struck her head at least 1 time. The daughter reports that the patient has been more episodes of confusion. The daughter provides most of the HPI and review of systems due to patient's underlying memory issues. Principal Diagnosis Dementia with agitation, repeated falls, failure to thrive Discharge Exam General-alert. Disoriented however. No fevers, no chills HEENT-head atraumatic and normocephalic, pupils equal and reactive to light, extraocular muscles intact Neck-no lymphadenopathy or thyromegaly, trachea midline Chest-clear to auscultation percussion. No rales wheezing or rhonchi Cardiac-regular rate and rhythm, normal S1 and S2 Abdomen-normal bowel sounds, nontender, no hepatosplenomegaly Extremities-no cyanosis, clubbing, or edema Neuro-cranial nerves II through XII intact, motor and sensory function within normal limits, strength symmetrical , no focal deficits Psych-normal affect, normal mood Discharge Data Allergies Allergy/AdvReac Type Severity Reaction Status Date / Time lisinopril AdvReac hyperkalemi Verified 04/10/22 13:41 a Consultations 04/19/22 22:25 ED Decision to Admit Stat Ordered Studies 04/19/22 20:36 CT cervical spine wo con Urgent CT head/brain wo con Urgent 04/19/22 22:26 CT angio head w con Urgent CT angio neck with con Urgent Hospital Course (1) Frequent falls: Supportive care. Continue OT and PT. She appears to have baseline dementia. No cultures done on admission. No evidence of acute CVA (2) Failure to thrive in adult: Supportive care. Continue OT and PT (3) Type 2 diabetes mellitus: ADA diet. Metformin was held on admission and restarted on April 24. Continue sliding-scale coverage as needed (4) Vitamin B1 deficiency: Continue supplements (5) B12 deficiency: Continue supplements (6) Status post fall: Not on systemic anticoagulation. Treated suspected UTI. Continue OT and PT (7) Hypertension: Amlodipine and losartan uptitrated on April 26, for better blood pressure control. (8) Depression with anxiety: Stable with current medical management (9) Ambulatory dysfunction: Continue OT and PT. Supportive care (10) Generalized osteoarthritis: Currently stable (11) Multiple pulmonary nodules: Do not appear malignant. Continue outpatient follow-up (12) Bladder spasms: Medication management as needed (13) Gait disturbance: Continue OT and PT (14) Coronary artery disease: Denies chest pain. Stable. Continue current medical management (15) Dementia with agitation: She appears to have baseline dementia with intermittent episodes of agitation. I do not believe she has acute metabolic encephalopathy. Seroquel has been started which replaces venlafaxine and appears to be working well. Continue supportive care Plan discharge to [facility] today, April 27 Total Time Total Time Spent Total Time Spent (In Minutes): 35 minutes Discharge Plan Discharge Items Patient Disposition: Transfer Intermediate Fac Reason For Visit: FREQUENT FALLS Discharge Diagnosis: Dementia with agitation, repeated falls, failure to thrive Activity: Resume your previous activity Non-emergency contact: Primary Care Provider Call non-emergency contact if: you have any medication questions Follow-up/Referrals: Meliza Dumont MD [Primary Care Provider] - Diet: Carb Consistent or DM2 and Heart Healthy Addtl Attending Provider Instructions: Seroquel is new. Effexor has been discontinued. Amlodipine and losartan dosages have been increased Pending Studies at Discharge: No Stand-Alone Forms: My [facility] Skilled Items Patient informed of condition?: Yes DNR: Yes Discharge Level of Care: Skilled Communicable Disease: No Discharge Prognosis: Stable Lines: None Urinary Catheter: No Medications and DC Order Prescriptions: New quetiapine 25 mg Tablet 25 mg PO BID Qty: 0 0RF amlodipine [Norvasc] 5 mg Tablet 10 mg PO DAILY Qty: 0 0RF losartan 50 mg Tablet 50 mg PO QAM Qty: 0 0RF Continued docusate sodium [Colace] 100 mg capsule 100 mg PO DAILY simvastatin 40 mg tablet 40 mg PO QPM Qty: 90 3RF metoprolol tartrate 50 mg tablet 50 mg PO BID Qty: 180 3RF metformin 500 mg tablet 1,000 mg PO BID Qty: 360 3RF levothyroxine 100 mcg tablet 100 mcg PO QAM Qty: 90 3RF insulin glargine [Lantus Solostar U-100 Insulin] 100 unit/mL (3 mL) insulin pen See Rx Instructions subcut DAILY MDD 30 units Qty: 15 5RF Rx Instructions: Start 16 units subcutaneously daily; Titrate dose as directed by physician. (DME) pen needle, diabetic [BD Ultra-Fine Micro Pen Needle] 32 gauge x 1/4" needle See Rx Instructions .Route Qty: 100 3RF Rx Instructions: Use daily with Lantus pen aspirin 81 mg tablet,delayed release (DR/EC) 81 mg PO DAILY calcium carbonate [Calcium 600] 600 mg calcium (1,500 mg) tablet 600 mg PO BID fish oil-dha-epa 1,200-144-216 mg capsule 1 cap PO BID albuterol sulfate 90 mcg/actuation HFA aerosol inhaler 2 puff inhalation Q6H PRN (Reason: Shortness Of Breath Or Wheezing) timolol 0.5 % Drops 1 drp OPHTHALMIC (EYE) QAM acetaminophen 500 mg capsule 1,000 mg PO TID PRN (Reason: Pain) Rx Instructions: Take 3 times per day to lessen pain. solifenacin [Vesicare] 5 mg Tablet 5 mg PO DAILY melatonin 3 mg Tablet 3 mg PO HS Qty: 30 0RF cyanocobalamin (vitamin B-12) 500 mcg Tablet 1,000 mcg PO QAM Qty: 60 11RF magnesium oxide 400 mg (241.3 mg magnesium) tablet 400 mg PO BID Qty: 60 0RF omeprazole 20 mg capsule,delayed release(DR/EC) 40 mg PO DAILY Qty: 60 3RF famotidine [Pepcid] 20 mg tablet 20 mg PO BID PRN (Reason: acid reflux/heartburn) Qty: 30 0RF Discontinued venlafaxine [Effexor XR] 75 mg capsule,extended release 24hr See Rx Instructions PO BID Qty: 270 3RF Rx Instructions: TAKE 2 CAPSULES (150 MG) EVERY MORNING AND TAKE 1 CAPSULE (75 MG) EVERY EVENING amlodipine 5 mg tablet 5 mg PO DAILY Qty: 90 3RF losartan 25 mg Tablet 25 mg PO QAM Qty: 30 2RF Discharge Orders: Discharge Order (Routine); Ordered 04/27/22 Ordered By: Ralf Jo Admission Data Admit Date/Time: 04/22/22 00:24 Attending Provider: Ralf Jo Admit Provider: Ravi Cortez Primary Care Provider: Meliza Dumont Other Providers: Ravi Cortez ; [facility] ; [facility] Coding Level of Care Code HOSP INP/OBS DISCH >30 MIN Diagnoses Frequent falls R29.6 Failure to thrive in adult R62.7 Type 2 diabetes mellitus E11.9 Vitamin B1 deficiency E51.9 B12 deficiency E53.8 Status post fall Z91.81 Hypertension I10 Depression with anxiety F41.8 Ambulatory dysfunction R26.2 Generalized osteoarthritis M15.9 Multiple pulmonary nodules R91.8 Bladder spasms N32.89 Gait disturbance R26.9 Coronary artery disease I25.10 Dementia with agitation F03.911
[2022-04-27] MEDS: ACETAMINOPHEN 325 MG TAB PO PRN (12:34)
--- NOTE | 2022-05-01 07:52 | Coding Query ---
CODING QUERY To promote full compliance with coding requirements relating to patient care, provider participation is requested in all cases of computer language coder uncertainty. Please assist us with the question(s) below: Coding Question(s): This visit was Observation on 04/19 and admitted as Inpatient on 04/22. Please specify below, in your clinical opinion, the diagnosis most responsible for occasioning the Inpatient admission: (x ) Dementia with agitation ( ) Suspected UTI ( ) Repeated Falls ( ) Other: Please Specify Physician's Response(s): Thank you Sadie Bragg Principal Diagnosis: "that condition established after study, to be chiefly responsible for occasioning the admission of the patient to the hospital for care." Co-Existing Principal Diagnosis: "when two or more diagnoses equally meet the criteria for principal diagnosis as determined by the circumstances of admission, diagnostic work up, and/or therapy provided, and the Alphabetic Index, Tabular List, or another coding guideline does not provide sequencing direction, any one of the diagnoses may be sequenced first." "When the physician has documented what appears to be a current diagnosis in the body of the record, but has not included the diagnosis in the final diagnostic statement, the physician should be asked whether the diagnosis should be added." (Source Coding [facility] 2 QTR90. p3-4) BRANDI
== END 2022-04-27 13:04 | DRG 884 ==
LOC: ED 16:30 → EDINP 16:30 → SUATTDRO 23:35 → 2W 04-20 01:24 → SUATTDRO 04-22 00:24

== ENCOUNTER 2022-12-17 19:21 | Inpatient (IN) ==
[2022-12-17] MEDS ORDERED: SODIUM CHLORIDE 0.9% 500 ML IV SCH (20:30)
--- NOTE | 2022-12-17 20:30 | Emergency Department Note ---
History of Present Illness General Chief complaint: Altered Mental Status Stated complaint: FALL, ALTERED MENTAL STATUS, HEAD INJURY Time Seen by Provider: 12/17/22 20:12 Source: patient, family (Son-in-law who is at the bedside), RN notes reviewed and old records reviewed Mode of arrival: ambulatory Limitations: no limitations History of Present Illness This patient 72-year-old female history of Parkinson's disease as well as dementia listed on her medical list, comes in after falling multiple times. She not sure why she fell they do not think she passed out or her family checks on her daily and found her laying on the ground next to the bed she had been there about 5 hours they estimate. She said she hit her head and has a headache she has pain under her ribs bilaterally. She has been feeling dizzy at times. She feels like she is in a daze her son-in-law think she may be mildly confused at times. No fever no shortness of breath the daughter had recent COVID. She has no focal numbness or weakness no urinary symptoms. No change in vision Home Medications Medication Instructions Recorded Confirmed Type calcium carbonate 600 mg calcium 600 mg PO BID 09/25/18 12/18/22 History (1,500 mg) tablet (Calcium) fish oil-dha-epa 1,200 mg-144 1 cap PO BID 09/25/18 12/18/22 History mg-216 mg capsule albuterol sulfate 90 mcg/actuation 2 puff inhalation Q6H PRN 01/21/20 12/18/22 History aerosol inhaler Shortness Of Breath Or Wheezing timolol 0.5 % eye drops 1 drp ophthalmic (eye) QAM 07/07/20 12/18/22 History acetaminophen 500 mg capsule 1,000 mg PO TID PRN Pain 05/11/21 12/18/22 History docusate sodium 100 mg capsule 100 mg PO DAILY 08/04/21 12/18/22 History (Colace) levothyroxine 100 mcg tablet 100 mcg PO QAM #90 tabs 12/23/21 12/18/22 Rx metformin 500 mg tablet 1,000 mg PO BID #360 tabs 12/23/21 12/18/22 Rx simvastatin 40 mg tablet 40 mg PO QPM #90 tabs 12/23/21 12/18/22 Rx aspirin 81 mg tablet,delayed 81 mg PO DAILY 02/22/22 12/18/22 History release cyanocobalamin (vitamin B-12) 500 1,000 mcg PO QAM #60 tabs 03/10/22 12/18/22 Rx mcg tablet magnesium oxide 400 mg (241.3 mg 400 mg PO BID #60 tabs 03/10/22 12/18/22 Rx magnesium) tablet losartan 50 mg tablet 50 mg PO QAM #0 tabs 04/27/22 12/18/22 Rx famotidine 20 mg tablet (Pepcid) 20 mg PO DAILY acid 05/16/22 12/18/22 History reflux/heartburn omeprazole 20 mg capsule,delayed 20 mg PO DAILY 05/16/22 12/18/22 History release venlafaxine 75 mg capsule,extended See Rx Instructions PO DAILY 05/16/22 12/18/22 History release 24 hr thiamine HCl (vitamin B1) 250 mg 250 mg PO DAILY #30 tabs 05/22/22 12/18/22 Rx tablet pen needle, diabetic 32 gauge x #100 ea 06/15/22 12/18/22 Rx 1/4" (BD Ultra-Fine Micro Pen Needle) naproxen 500 mg tablet 500 mg PO BID PRN pain #180 tabs 08/31/22 12/18/22 Rx amlodipine 5 mg tablet (Norvasc) 5 mg PO DAILY #90 tabs 09/04/22 12/18/22 Rx metoprolol tartrate 50 mg tablet 50 mg PO BID 09/04/22 12/18/22 History oxybutynin chloride 10 mg 10 mg PO DAILY #90 tabs 09/08/22 12/18/22 Rx tablet,extended release 24 hr memantine 10 mg tablet 10 mg PO BID #60 tabs 11/17/22 12/18/22 Rx insulin glargine 100 unit/mL (3 16 unit (0.16 mL) subcut DAILY 90 12/12/22 12/18/22 Rx mL) subcutaneous pen ( days #15 mL Solostar U-100 Insulin) Allergies Allergy/AdvReac Type Severity Reaction Status Date / Time lisinopril AdvReac hyperkalemi Verified 10/03/22 13:21 a Past Med/Surg History Medical History (Updated 12/20/22 @ 09:39 by Kenny Thakur MD) Acid reflux B12 deficiency Bladder spasms Coronary artery disease Depression with anxiety Fatty liver Frequent falls Gait disturbance Generalized osteoarthritis Glaucoma H/O deep venous thrombosis (04/2021) post op left TKA Hearing difficulty Hiatal hernia Hyperlipidemia Hypertension Hypertensive urgency Hypokalemia Hypomagnesemia Hypothyroidism Iron deficiency anemia Ischial bursitis Lumbar back pain Multiple pulmonary nodules Obesity Orthostatic hypotension Type 2 diabetes mellitus Urinary incontinence Vitamin B1 deficiency Surgical History History of cardiac cath >10 yrs ago ([facility]) > no stents History of carpal tunnel surgery R/L History of cataract surgery R/L History of section x1 History of cholecystectomy History of colonoscopy Colonoscopy (10/02/18): MAC sedation at [facility] History of esophagogastroduodenoscopy (EGD) EGD/colonoscopy (08/25/20): MAC at [facility] History of hysterectomy Total History of tonsillectomy History of tooth extraction S/P trigger finger release left Status post total knee replacement left knee 05/10/21 Family History Father Family history of diabetes mellitus Myocardial infarction, Onset Age: 56 Mother Anxiety Grandfather (Paternal) Throat cancer Other No family history of adverse response to anesthesia Denies family history of Ovarian cancer Prostate cancer Breast cancer Colorectal cancer Social History Smoking Status: Never smoker Second Hand Exposure: No; Do You Dip or Chew Tobacco: No; Hx Alcohol Use: No Hx Substance Use: No Preferred Language: Georgian Communication Ability: Effective Communication Ability Comment: hard of hearing Visual Impairment: No Limitations Hearing Ability: Use of Hearing Aid Route Contractor Required: No Beliefs That Will Affect Care: None marital status: Current Living Situation: Alone Current Living Situation Comment: possible placement- daughter expressed concerns with recent illness current occupational status: retired 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 [employer] Other Information That Helps Us Care for You: No Feels Safe at Home: Yes Safety Concerns: Feels Safe At This Time Safety Concerns Comment: son kaitlin estrada Childhood Exposure to Second-Hand Smoke: No Diet: regular Dental Care, Regularly: No Physical Activity Frequency: 3-4 Times per Week Seatbelt Use: always Sunscreen Use: Yes Assistive Devices: Cane and Walker Assistive Devices Comment: hearing aids Review of Systems A total of 10 systems reviewed and were otherwise negative Physical Exam Vital Signs Vital Signs - 24 hr 12/17/22 19:27 12/17/22 19:39 Temperature 36.9 C Temperature Source Temporal Artery Scan Pulse Rate 83 74 Pulse Rate from SpO2 Sensor 74 Pulse Rhythm Regular Pulse Strength Normal Respiratory Rate 20 18 Respiratory Effort / Characteristics Non-Labored Spontaneous Respiratory Depth Normal Respiratory Pattern Regular Blood Pressure 177/120 H Blood Pressure Mean 139 Blood Pressure Position Sitting Pulse Oximetry 94 96 Oxygen Delivery Method Room Air Sepsis Recent Fever Within 48 Hours No Sepsis New/Unexplained Change in Mental Status N/A Sepsis Action Taken by Nursing No Action Required General: Well developed well nourished non-ill appearing older female who is very hard of hearing but appears in no acute distress, breathing comfortably on room air. Normal speech HEENT: Normal cephalic atraumatic. Pupils are equal round and reactive to light. Extraocular movements are intact. Oropharynx is pink with moist mucous membranes. No swelling of the mouth lips or tongue. Neck: Supple with a midline trachea. No meningeal signs or stiffness, no JVD or bruits. No Stridor. Chest: Clear to auscultation bilaterally. No wheezes or rhonchi. No increased work of breathing. Mildly tender on the lower lateral ribs bilaterally without crepitus or external signs of trauma Heart: Regular rate and rhythm without murmurs or gallops. Abdomen: Soft nontender, nondistended without rebound guarding or rigidity. No external signs of trauma or bruise Extremities: No cyanosis clubbing or edema. No calf tenderness or assymetry Spine/Back. Non tender to palpation. No CVA tenderness no external signs of trauma or bruising Skin: Good turgor without rashes. Neurologic exam: Cranial nerves two through 12 are intact. Motor and sensation are intact and symmetrical throughout. Course Administered Medications Acetaminophen (Acetaminophen 500 Mg Tab) 1,000 mg PO TID PRN PRN Reason: Pain Stop: 01/17/23 05:12 Last Admin: 12/19/22 16:32 Dose: 1,000 mg Documented By: NICKI Amlodipine Besylate (Amlodipine Besylate 5 Mg Tab) 5 mg PO DAILY DAVID Stop: 01/17/23 08:59 Last Admin: 12/20/22 08:23 Dose: 5 mg Documented By: Admin: 12/19/22 08:03 Dose: 5 mg Documented By: Admin: 12/18/22 07:45 Dose: 5 mg Documented By: NH Aspirin (Aspirin 81 Mg Ectab) 81 mg PO DAILY DAVID Stop: 01/17/23 08:59 Last Admin: 12/20/22 08:23 Dose: 81 mg Documented By: Admin: 12/19/22 08:03 Dose: 81 mg Documented By: Admin: 12/18/22 07:45 Dose: 81 mg Documented By: NH Calcium Carbonate (Calcium Carbonate 1250mg Tab) 1,250 mg PO BID DAVID Stop: 01/17/23 08:59 Last Admin: 12/20/22 08:21 Dose: 1,250 mg Documented By: Admin: 12/19/22 21:52 Dose: 1,250 mg Documented By: Admin: 12/19/22 08:03 Dose: 1,250 mg Documented By: Admin: 12/18/22 21:04 Dose: 1,250 mg Documented By: Admin: 12/18/22 07:46 Dose: 1,250 mg Documented By: NH Cyanocobalamin (Cyanocobalamin (B-12) 500 Mcg Tablet) 1,000 mcg PO QAM DAVID Stop: 01/17/23 08:59 Last Admin: 12/20/22 08:22 Dose: 1,000 mcg Documented By: Admin: 12/19/22 08:03 Dose: 1,000 mcg Documented By: Admin: 12/18/22 07:45 Dose: 1,000 mcg Documented By: NH Docusate Sodium (Docusate Sodium 100 Mg Cap) 100 mg PO DAILY DAVID Stop: 01/17/23 08:59 Last Admin: 12/20/22 09:12 Dose: 100 mg Documented By: Admin: 12/19/22 09:07 Dose: 100 mg Documented By: Admin: 12/18/22 07:46 Dose: 100 mg Documented By: NH Famotidine (Famotidine 20 Mg Tab) 20 mg PO DAILY DAVID Stop: 01/17/23 08:59 Last Admin: 12/20/22 08:23 Dose: 20 mg Documented By: Admin: 12/19/22 08:03 Dose: 20 mg Documented By: Admin: 12/18/22 07:46 Dose: 20 mg Documented By: MYLES Hydralazine HCl (Hydralazine Hcl 20 Mg/Ml Vial) 10 mg IV Q2H PRN PRN Reason: SBP > 180 or DBP > 110 Stop: 01/18/23 14:24 Last Admin: 12/19/22 14:39 Dose: 10 mg Documented By: ECTOR Insulin Aspart (Insulin Aspart Per Unit Charge) 0 units SC ACHS [facility] Stop: 01/17/23 07:29 Last Admin: 12/20/22 09:12 Dose: 4 units Documented By: Co-signed By: ALBIN Admin: 12/19/22 21:25 Dose: 1 units Documented By: COLLETTE Co-signed By: LEONOR Admin: 12/19/22 17:31 Dose: Not Given Documented By: NICKI Co-signed By: Admin: 12/19/22 13:11 Dose: 8 units Documented By: TAJ Co-signed By: ECTOR Admin: 12/19/22 09:05 Dose: 4 units Documented By: TAJ Co-signed By: RRR Admin: 12/18/22 21:03 Dose: 4 units Documented By: LEONOR Co-signed By: CAMRYN Admin: 12/18/22 18:29 Dose: 5 units Documented By: AMY Co-signed By: JUANA Admin: 12/18/22 13:26 Dose: 2 units Documented By: AMY Co-signed By: JUANA Admin: 12/18/22 07:50 Dose: 5 units Documented By: MYLES Co-signed By: KHRIS Insulin Glargine (Lantus Per Unit Charge) 16 units SQ DAILY [facility] Stop: 01/17/23 08:59 Last Admin: 12/20/22 09:12 Dose: 16 units Documented By: Co-signed By: ALBIN Admin: 12/19/22 09:13 Dose: 16 units Documented By: TAJ Co-signed By: ECTOR Admin: 12/18/22 08:17 Dose: 16 units Documented By: MYLES Co-signed By: GUI Levothyroxine Sodium (Levothyroxine Sodium 50 Mcg Tablet) 50 mcg PO DAILYBB [facility] Stop: 01/18/23 06:29 Last Admin: 12/20/22 06:40 Dose: Not Given Documented By: Admin: 12/19/22 05:35 Dose: 50 mcg Documented By: LEONOR Losartan Potassium (Losartan Potassium 50 Mg Tab) [facility] [place] Stop: 01/17/23 08:59 Last Admin: 12/20/22 08:24 Dose: 50 mg Documented By: Admin: 12/19/22 08:02 Dose: 50 mg Documented By: Admin: 12/18/22 07:47 Dose: 50 mg Documented By: MYLES Magnesium Oxide (Magnesium Oxide 400 Mg Tab) 400 mg PO BID DAVID Stop: 01/17/23 08:59 Last Admin: 12/20/22 08:22 Dose: 400 mg Documented By: Admin: 12/19/22 21:53 Dose: 400 mg Documented By: Admin: 12/19/22 08:02 Dose: 400 mg Documented By: Admin: 12/18/22 21:05 Dose: 400 mg Documented By: Admin: 12/18/22 07:45 Dose: 400 mg Documented By: MYLES Memantine (Memantine Hcl 10 Mg Tab) 10 mg PO BID DAVID Stop: 01/17/23 08:59 Last Admin: 12/20/22 08:22 Dose: 10 mg Documented By: Admin: 12/19/22 21:51 Dose: 10 mg Documented By: Admin: 12/19/22 08:02 Dose: 10 mg Documented By: Admin: 12/18/22 21:05 Dose: 10 mg Documented By: Admin: 12/18/22 07:47 Dose: 10 mg Documented By: MYLES Metoprolol Tartrate (Metoprolol Tartrate 50 Mg Tab) 50 mg PO BID DAVID Stop: 01/17/23 08:59 Last Admin: 12/20/22 08:21 Dose: 50 mg Documented By: Admin: 12/19/22 21:53 Dose: 50 mg Documented By: Admin: 12/19/22 08:02 Dose: 50 mg Documented By: Admin: 12/18/22 21:05 Dose: 50 mg Documented By: Admin: 12/18/22 07:46 Dose: 50 mg Documented By: MYLES Oxybutynin Chloride (Oxybutynin Chloride Xl 5 Mg Tabcr) 10 mg PO DAILY DAVID Stop: 01/17/23 08:59 Last Admin: 12/20/22 08:23 Dose: 10 mg Documented By: Admin: 12/19/22 08:01 Dose: 10 mg Documented By: Admin: 12/18/22 07:47 Dose: 10 mg Documented By: MYLES Simvastatin (Simvastatin 40 Mg Tab) 40 mg PO QPM DAVID Stop: 01/17/23 20:59 Last Admin: 12/19/22 21:51 Dose: 40 mg Documented By: Admin: 12/18/22 21:04 Dose: 40 mg Documented By: LEONOR Thiamine HCl (Thiamine Hcl 50 Mg Tablet) 250 mg PO DAILY DAVID Stop: 01/17/23 08:59 Last Admin: 12/20/22 08:22 Dose: 250 mg Documented By: Admin: 12/19/22 08:01 Dose: 250 mg Documented By: Admin: 12/18/22 07:47 Dose: 250 mg Documented By: MYLES Timolol Maleate (Timolol Maleate 0.5% Op Soln 5 Ml Btl) 1 drops OP QAM DAVID Stop: 01/17/23 08:59 Last Admin: 12/20/22 08:23 Dose: 1 drops Documented By: Admin: 12/19/22 11:09 Dose: 1 drops Documented By: Admin: 12/18/22 07:48 Dose: 1 drops Documented By: MYLES Venlafaxine HCl (Venlafaxine Hcl Xr 75 Mg Capxr) 150 mg PO DAILY DAVID Stop: 01/17/23 08:59 Last Admin: 12/20/22 08:21 Dose: 150 mg Documented By: Admin: 12/19/22 08:00 Dose: 150 mg Documented By: Admin: 12/18/22 07:48 Dose: 150 mg Documented By: MYLES Venlafaxine HCl (Venlafaxine Hcl Xr 75 Mg Capxr) 75 mg PO PM DAVID Stop: 01/17/23 20:59 Last Admin: 12/19/22 21:52 Dose: 75 mg Documented By: Admin: 12/18/22 21:05 Dose: 75 mg Documented By: LEONOR Discontinued Medications Sodium Chloride (Nss) 500 mls @ 999 mls/hr IV .Q31M DAVID Stop: 12/17/22 21:00 Last Infusion: 12/17/22 22:00 Dose: 0 mls/hr Documented By: Admin: 12/17/22 20:34 Dose: 999 mls/hr Documented By: CUAUHTEMOC Magnesium Sulfate/Dextrose (Magnesium Sulfate / D5w) 1 gm in 100 mls @ 100 mls/hr IV NOW STA Stop: 12/17/22 23:48 Last Infusion: 12/18/22 00:25 Dose: 0 mls/hr Documented By: Admin: 12/17/22 23:25 Dose: 100 mls/hr Documented By: IDD Potassium Chloride/Sodium Chloride (Normal Saline W/20 Meq Kcl) 20 meq in 1,000 mls @ 80 mls/hr IV .[id number] [facility] Stop: 12/18/22 17:42 Last Infusion: 12/18/22 10:56 Dose: 0 mls/hr Documented By: Admin: 12/18/22 06:02 Dose: 80 mls/hr Documented By: LARRY Sodium Chloride (Nss) 1,000 mls @ 60 mls/hr IV .[id number] [facility] Stop: 01/17/23 08:14 Last Infusion: 12/19/22 12:31 Dose: 0 mls/hr Documented By: Admin: 12/19/22 00:33 Dose: 60 mls/hr Documented By: Infusion: 12/19/22 00:33 Dose: 60 mls/hr Documented By: Admin: 12/18/22 08:20 Dose: 60 mls/hr Documented By: MYLSE Magnesium Sulfate/Dextrose (Magnesium Sulfate / D5w) 1 gm in 100 mls @ 50 mls/hr IV Q2H [facility] Stop: 12/19/22 13:59 Last Infusion: 12/19/22 15:14 Dose: 0 mls/hr Documented By: Admin: 12/19/22 13:09 Dose: 50 mls/hr Documented By: Infusion: 12/19/22 13:09 Dose: 50 mls/hr Documented By: Admin: 12/19/22 11:09 Dose: 50 mls/hr Documented By: TAJ Influenza Virus Vaccine (Influenza Vaccine High-Dose (Hd-Iiv4) Pf 65+ 0.7ml Syr) 0.7 ml IM .ONCE ONE Stop: 12/18/22 10:44 Last Admin: 12/18/22 11:53 Dose: 0.7 ml Documented By: AMY Ioversol (Optiray 320 100ml) 100 ml IV ONCE ONE Stop: 12/17/22 23:06 Last Admin: 12/17/22 23:05 Dose: 90 ml Documented By: NICKI(2) Levothyroxine Sodium (Levothyroxine Sodium 100 Mcg Tablet) 100 mcg PO DAILYBB DAVID Stop: 01/17/23 06:29 Last Admin: 12/18/22 06:51 Dose: 100 mcg Documented By: OMKAR Ondansetron HCl (Ondansetron Inj 2 Mg/Ml 2 Ml Vial) Confirm Administered Dose 4 mg .ROUTE .STK-MED ONE Stop: 12/17/22 21:35 Last Admin: 12/17/22 21:37 Dose: 4 mg Documented By: SUMA Ondansetron HCl (Ondansetron Inj 2 Mg/Ml 2 Ml Vial) 4 mg IV NOW STA Stop: 12/17/22 21:36 Last Admin: 12/17/22 21:37 Dose: Not Given Documented By: SUMA Quetiapine Fumarate (Quetiapine Fumarate 25 Mg Tablet) 25 mg PO NOW ONE Stop: 12/19/22 17:31 Last Admin: 12/19/22 18:21 Dose: 25 mg Documented By: NICKI Medical Decision Making Differential Diagnosis Frequent falls, weakness, central neurologic process, trauma, head injury, cervical spine injury, rib fracture, pneumothorax, solid organ injury, rhabdomyolysis, electrolyte or metabolic abnormality, infection, UTI, dehydration, electrolyte or metabolic, toxicologic Medical Records Attestation: I reviewed the patient's medical records. Home Medications Current Medication List: was personally reviewed by me Laboratory Data Attestation: I reviewed the patient's lab results. 12/17/22 20:53 12/20/22 06:30 Lab Results 12/17/22 12/17/22 12/17/22 Range/Units 20:31 20:53 20:53 WBC 7.78 (4.8-10.8) K/ul RBC 4.13 L (4.20-5.40) M/uL Hgb 12.2 (12.0-16.0) g/dl Hct 36.5 L (37.0-47.0) % MCV 88.4 (80.0-100.0) fL MCH 29.5 (25.0-34.0) pg MCHC 33.4 (32.0-36.0) g/dL RDW Std Deviation 39.6 (36.4-46.3) fL RDW Coeff of Judy 12.3 (11.5-14.5) % Plt Count 227 (130-400) K/uL MPV 10.3 (9.4-12.4) fL Immature Gran % (Auto) 0.4 % Neut % (Auto) 68.6 % Lymph % (Auto) 20.8 % [place] % (Auto) 9.6 % Eos % (Auto) 0.5 % Baso % (Auto) 0.1 % Neut # (Auto) 5.33 (1.40-6.50) K/uL Lymph # (Auto) 1.62 (1.20-3.40) K/uL [place] # (Auto) 0.75 H (0.11-0.59) K/uL Eos # (Auto) 0.04 (0.00-0.50) K/uL Baso # (Auto) 0.01 (0.00-0.20) K/uL Immature Gran # (Auto) 0.03 (0.01-0.20) K/uL PT (9.0-12.0) Seconds INR (0.9-1.1) Sodium 140 (136-145) mmol/L Potassium 4.3 (3.5-5.1) mmol/L Chloride 107 (98-107) mmol/L Carbon Dioxide 22 (21-32) mmol/L Anion Gap 11 (3-11) BUN 28 H (6-23) mg/dl Creatinine 0.99 (0.6-1.2) mg/dl Est Cr Clr Drug Dosing 47.4 ml/min Est GFR ( Amer) 66.4 ml/min Est GFR (Non-Af Amer) 57.3 ml/min BUN/Creatinine Ratio 28.3 H (10-20) Glucose 214 H (70-99(Fasting)) mg/dl Calcium 9.4 (8.6-10.3) mg/dl Magnesium 1.3 L (1.7-2.4) mg/dl Total Bilirubin 0.5 (0.2-1.0) mg/dl AST 21 (13-39) U/L ALT 16 (7-52) U/L Alkaline Phosphatase 70 (34-104) U/L Total Creatine Kinase 342 H (26-192) U/L Troponin I High Sens 8.8 (0-14) pg/ml Total Protein 6.7 (6.0-8.3) gm/dl Albumin 3.9 (3.4-5.0) gm/dl Globulin 2.8 (2.5-4.0) gm/dl Albumin/Globulin Ratio 1.4 (0.9-2) TSH 0.028 L (0.300-4.500) uIu/ml Free T4 1.84 H (0.61-1.60) ng/dl SARS-CoV-2 (PCR) NEGATIVE (Negative) 12/17/22 Range/Units 21:49 WBC (4.8-10.8) K/ul RBC (4.20-5.40) M/uL Hgb (12.0-16.0) g/dl Hct (37.0-47.0) % MCV (80.0-100.0) fL MCH (25.0-34.0) pg MCHC (32.0-36.0) g/dL RDW Std Deviation (36.4-46.3) fL RDW Coeff of Judy (11.5-14.5) % Plt Count (130-400) K/uL MPV (9.4-12.4) fL Immature Gran % (Auto) % Neut % (Auto) % Lymph % (Auto) % [place] % (Auto) % Eos % (Auto) % Baso % (Auto) % Neut # (Auto) (1.40-6.50) K/uL Lymph # (Auto) (1.20-3.40) K/uL [place] # (Auto) (0.11-0.59) K/uL Eos # (Auto) (0.00-0.50) K/uL Baso # (Auto) (0.00-0.20) K/uL Immature Gran # (Auto) (0.01-0.20) K/uL PT 11.2 (9.0-12.0) Seconds INR 1.0 (0.9-1.1) Sodium (136-145) mmol/L Potassium (3.5-5.1) mmol/L Chloride (98-107) mmol/L Carbon Dioxide (21-32) mmol/L Anion Gap (3-11) BUN (6-23) mg/dl Creatinine (0.6-1.2) mg/dl Est Cr Clr Drug Dosing ml/min Est GFR ( Amer) ml/min Est GFR (Non-Af Amer) ml/min BUN/Creatinine Ratio (10-20) Glucose (70-99(Fasting)) mg/dl Calcium (8.6-10.3) mg/dl Magnesium (1.7-2.4) mg/dl Total Bilirubin (0.2-1.0) mg/dl AST (13-39) U/L ALT (7-52) U/L Alkaline Phosphatase (34-104) U/L Total Creatine Kinase (26-192) U/L Troponin I High Sens (0-14) pg/ml Total Protein (6.0-8.3) gm/dl Albumin (3.4-5.0) gm/dl Globulin (2.5-4.0) gm/dl Albumin/Globulin Ratio (0.9-2) TSH (0.300-4.500) uIu/ml Free T4 (0.61-1.60) ng/dl SARS-CoV-2 (PCR) (Negative) Imaging Data Attestation: I personally reviewed and interpreted this imaging study as follows: My Impression: Chest x-rayno acute infiltrate, failure, pneumothorax seen Head CTno hemorrhage or mass effect seen. Radiologist's Impression: Cervical Spine CT 12/17/22 20:23 Exam(s): CT C SPINE EXAM: CT Cervical Spine Without Intravenous Contrast CLINICAL HISTORY: Reason for exam: fall. TECHNIQUE: Axial computed tomography images of the cervical spine without intravenous contrast. Automated exposure control was utilized for the study. A dose lowering technique was utilized adhering to the principles of ALARA. COMPARISON: No relevant prior studies available. FINDINGS: The vertebral body heights are maintained. The craniocervical junction is intact. The atlanto-dens interval is maintained. The dens is intact. There is no spondylolisthesis. Multilevel cervical spondylosis and degenerative disc disease. Straightening of the cervical lordosis. The unenhanced neck soft tissues are grossly unremarkable. The visualized lung apices are grossly clear. IMPRESSION: No acute fracture or subluxation of the cervical spine. Electronically signed by: Hunter Beckman MD 12/17/22 22:10 PM Chest X-Ray 12/17/22 20:23 XR chest 1V portable CLINICAL HISTORY: fall, bilat rib pain TECHNIQUE: Single frontal radiograph of the chest was obtained. Comparison: Comparison is made to chest radiograph 09/18/2022 FINDINGS: No lines and tubes are seen. Calcified aortic knob is seen. The lungs are clear. No evidence of pleural effusion or pneumothorax. IMPRESSION: No acute chest disease. ACT 112: Negative or not required by law. Electronically signed by: Yosi Solomon M.D. 12/18/2022 7:[address] 12/17/22 20:24 Exam(s): CT HEAD Without Contrast EXAM: CT Head Without Intravenous Contrast CLINICAL HISTORY: Reason for exam: fall. TECHNIQUE: Axial computed tomography images of the head/brain without intravenous contrast. Automated exposure control was utilized for the study. A dose lowering technique was utilized adhering to the principles of ALARA. COMPARISON: No relevant prior studies available. FINDINGS: No acute intracranial hemorrhage. No midline shift or mass effect. The territorial banuelos-white matter differentiation is maintained throughout. Age-related cerebral volume loss. Periventricular and subcortical white matter hypoattenuation, consistent with chronic microangiopathy. The visualized orbits appear grossly unremarkable. The calvarium is intact. The visualized paranasal sinuses and mastoid air cells are grossly clear. IMPRESSION: No acute intracranial hemorrhage, midline shift, or mass effect. Electronically signed by: Hunter Beckman MD 12/17/22 22:10 PM Abdomen/Pelvis CT 12/17/22 22:48 Exam(s): CT ABDOMEN + PELVIS With Contrast IV Amt: 90 ML OPTIRAY 320 EXAM: CT Abdomen and Pelvis With Intravenous Contrast CLINICAL HISTORY: Reason for exam: eval for trauma. TECHNIQUE: Axial computed tomography images of the abdomen and pelvis with intravenous contrast. Automated exposure control was utilized for the study. A dose lowering technique was utilized adhering to the principles of ALARA. CONTRAST: Patient received 90 ML OPTIRAY 320 of IV contrast COMPARISON: No relevant prior studies available. FINDINGS: Lung bases: Unremarkable. No mass. No consolidation. ABDOMEN: Liver: Hepatic steatosis. Gallbladder and bile ducts: Cholecystectomy. No ductal dilation. Pancreas: Unremarkable. No mass. No ductal dilation. Spleen: Unremarkable. No splenomegaly. Adrenals: Unremarkable. No mass. Kidneys and ureters: Unremarkable. No hydronephrosis or delayed nephrogram. Stomach and bowel: Diverticulosis, without acute diverticulitis. No small bowel obstruction. No free intraperitoneal air. PELVIS: Appendix: No findings to suggest acute appendicitis. Bladder: Unremarkable. No mass. Reproductive: Hysterectomy. ABDOMEN and PELVIS: Intraperitoneal space: Unremarkable. No free air. No significant fluid collection. Bones/joints: Degenerative changes of the spine. No acute fracture. No dislocation. Soft tissues: Unremarkable. Vasculature: Atherosclerotic changes of the aorta. No abdominal aortic aneurysm. Lymph nodes: Unremarkable. No enlarged lymph nodes. IMPRESSION: 1. Hepatic steatosis. 2. Cholecystectomy. 3. Hysterectomy. 4. Diverticulosis, without acute diverticulitis. No small bowel obstruction. No free intraperitoneal air. Electronically signed by: Hunter Beckman MD 12/18/22 00:[address] 12/17/22 22:48 Exam(s): CT CHEST With Contrast IV Amt: 90 ML OPTIRAY 320 EXAM: CT Chest With Intravenous Contrast CLINICAL HISTORY: Reason for exam: eval for trauma. TECHNIQUE: Axial computed tomography images of the chest with intravenous contrast. Automated exposure control was utilized for the study. A dose lowering technique was utilized adhering to the principles of ALARA. CONTRAST: Patient received 90 ML OPTIRAY 320 of IV contrast COMPARISON: No relevant prior studies available. FINDINGS: LUNGS: No focal consolidation, pleural effusion, or pneumothorax. HEART: Cardiomegaly. VASCULATURE: Atherosclerotic changes of the aorta. THYROID: Within normal limits. MEDIASTINUM + LYMPH NODES: There are no pathologically enlarged mediastinal, hilar, or axillary lymph nodes. SUPERIOR ABDOMEN: Hepatic steatosis. Cholecystectomy. MUSCULOSKELETAL: Degenerative changes. IMPRESSION: No traumatic findings. Electronically signed by: Hunter Beckman MD 12/18/22 00:45 AM Brain MRI 12/18/22 02:50 Exam(s): MRI HEAD Without Contrast EXAM: MR Head Without Intravenous Contrast CLINICAL HISTORY: Reason for exam: confusion. TECHNIQUE: Magnetic resonance images of the head/brain without intravenous contrast in multiple planes. COMPARISON: CT head performed 12/17/22 FINDINGS: No acute infarct or intracranial hemorrhage is seen. There is prominence of ventricles and sulci consistent with generalized parenchymal volume loss. Scattered T2/FLAIR hyperintensities throughout the periventricular and subcortical white matter noted, most consistent with sequela of chronic microvascular ischemic changes. There is no mass-effect or midline shift. Bilateral lens replacements noted. The paranasal sinuses and mastoid air cells are clear. Midline structures are grossly unremarkable. IMPRESSION: No acute intracranial pathology identified. Generalized parenchymal volume loss and sequela of chronic microvascular ischemic angiopathy. Electronically signed by: Zeb Alcantar M.D. 12/18/22 06:14 AM ECG Data Attestation: I personally reviewed and interpreted this ECG as follows: Indication: + altered mental status and + weakness Rate (beats per minute): 70 Rhythm: + normal sinus ECG Intervals/blocks: + Normal QRS, + Normal QT and + Normal CA ECG Valera: + Normal ECG ST segments: + Normal ST segments ECG Findings: no PACs or no PVCs Comparison ECG Date: from (09/18/2022) Change: no significant change MDM Narrative This patient is a 72-year-old female who comes in after having frequent falls. She looks well at present. She does have a history of Parkinson's and some mild dementia but lives independently with family looking into her frequently. IV access was established was hydrated with 500 cc IV normal saline bolus multiple labs and blood testing was obtained she was reassessed frequently. I did order a CAT scan of the head neck as well as chest x-ray. EKG was obtained and shows no acute ischemic changes or ectopy. Urinalysis was ordered as well. She was reassessed frequently. CAT scans did not show any definite traumatic injuries. Chest x-ray was unremarkable. EKG does not show any ischemia. He has no sign of electrolyte or metabolic abnormalities with exception of magnesium being mildly low which was repleted with IV mag in the ED. Her CK is also mildly elevated likely from her fall. Her thyroid studies suggest she could be hyperthyroid however clinically that does not seem to fit the picture. She does live alone and is falling frequently is weak and I do think needs to be admitted/observed for further inpatient treatment evaluation I discussed the care and consultation with the hospitalist who saw the patient in ER for these measures Continuous cardiac monitoring: Orders placed in EMR for continuous cardiac monitoring call upon my evaluation patient noted to be in normal sinus rhythm rate of 70 Impression & Plan Weakness, Frequent falls, Parkinsonism, Hypomagnesemia, Lab test negative for COVID-19 virus Discharge Plan Visit Data Chief Complaint: Altered Mental Status Stated Complaint: FALL, ALTERED MENTAL STATUS, HEAD INJURY ED Provider: Kenny Thakur Discharge Problem: Weakness, Frequent falls, Parkinsonism, Hypomagnesemia, Lab test negative for COVID-19 virus Patient Disposition: Admitted As Inpatient Discharge Instructions Interventions: ED Discharge Assessment Last Done: 12/18/22 05:13
[2022-12-17] MEDS ORDERED: ONDANSETRON INJ 2 MG/ML 2 ML VIAL ONE (21:34)
[2022-12-17] MEDS ORDERED: ONDANSETRON INJ 2 MG/ML 2 ML VIAL IV STA (21:35)
[2022-12-17 22:10] LABS: Hematocrit (blood only) 36.5 % (37.0-47.0); Hemoglobin 12.2 g/dl (12.0-16.0); Mean Corpuscular Hemoglobin 29.5 pg (25.0-34.0); Mean Corpuscular Hgb Conc 33.4 g/dL (32.0-36.0); Mean Corpuscular Volume 88.4 fL (80.0-100.0); Mean Platelet Volume 10.3 fL (9.4-12.4); Platelet Count 227 K/uL (130-400); RDW Coefficient of Variation 12.3 % (11.5-14.5); RDW Standard Deviation 39.6 fL (36.4-46.3); Red Blood Count 4.13 M/uL (4.20-5.40); White Blood Count 7.78 K/ul (4.8-10.8)
--- NOTE | 2022-12-17 22:11 | CT Scan Report ---
Exam(s): CT C SPINE EXAM: CT Cervical Spine Without Intravenous Contrast CLINICAL HISTORY: Reason for exam: fall. TECHNIQUE: Axial computed tomography images of the cervical spine without intravenous contrast. Automated exposure control was utilized for the study. A dose lowering technique was utilized adhering to the principles of ALARA. COMPARISON: No relevant prior studies available. FINDINGS: The vertebral body heights are maintained. The craniocervical junction is intact. The atlanto-dens interval is maintained. The dens is intact. There is no spondylolisthesis. Multilevel cervical spondylosis and degenerative disc disease. Straightening of the cervical lordosis. The unenhanced neck soft tissues are grossly unremarkable. The visualized lung apices are grossly clear. IMPRESSION: No acute fracture or subluxation of the cervical spine. Electronically signed by: Hunter Beckman MD 12/17/22 22:10 PM
--- NOTE | 2022-12-17 22:11 | CT Scan Report ---
Exam(s): CT HEAD Without Contrast EXAM: CT Head Without Intravenous Contrast CLINICAL HISTORY: Reason for exam: fall. TECHNIQUE: Axial computed tomography images of the head/brain without intravenous contrast. Automated exposure control was utilized for the study. A dose lowering technique was utilized adhering to the principles of ALARA. COMPARISON: No relevant prior studies available. FINDINGS: No acute intracranial hemorrhage. No midline shift or mass effect. The territorial banuelos-white matter differentiation is maintained throughout. Age-related cerebral volume loss. Periventricular and subcortical white matter hypoattenuation, consistent with chronic microangiopathy. The visualized orbits appear grossly unremarkable. The calvarium is intact. The visualized paranasal sinuses and mastoid air cells are grossly clear. IMPRESSION: No acute intracranial hemorrhage, midline shift, or mass effect. Electronically signed by: Hunter Beckman MD 12/17/22 22:10 PM
[2022-12-17 22:12] LABS: Basophils # (auto) 0.01 K/uL (0.00-0.20); Basophils % (auto) 0.1 %; Eosinophils # (auto) 0.04 K/uL (0.00-0.50); Eosinophils % (auto) 0.5 %; Immature Granulocytes # (auto) 0.03 K/uL (0.01-0.20); Immature Granulocytes % (auto) 0.4 %; Lymphocytes # (auto) 1.62 K/uL (1.20-3.40); Lymphocytes % (auto) 20.8 %; Monocytes # (auto) 0.75 K/uL (0.11-0.59); Monocytes % (auto) 9.6 %; Neutrophils # (auto) 5.33 K/uL (1.40-6.50); Neutrophils % (auto) 68.6 %
[2022-12-17 22:28] LABS: Albumin Level 3.9 gm/dl (3.4-5.0); Bilirubin,Total 0.5 mg/dl (0.2-1.0); Calcium 9.4 mg/dl (8.6-10.3); Magnesium 1.3 mg/dl (1.7-2.4); Potassium 4.3 mmol/L (3.5-5.1)
[2022-12-17 22:32] LABS: Prothrombin Time 11.2 Seconds (9.0-12.0)
[2022-12-17 22:34] LABS: Albumin Globulin Ratio 1.4 (0.9-2); BUN Creatinine Ratio 28.3 (10-20); Creatinine Clr Calc Pharmacy 47.4 ml/min; Est GFR (African American) 66.4 ml/min; Est GFR (Non-African American) 57.3 ml/min; Globulin 2.8 gm/dl (2.5-4.0); Total Protein 6.7 gm/dl (6.0-8.3)
[2022-12-17] MEDS ORDERED: MAGNESIUM SULFATE / D5W 1 GM/100 ML BAG IV STA (22:49)
[2022-12-17 22:56] LABS: Troponin I High Sensitivity 8.8 pg/ml (0-14)
[2022-12-17 23:05] LABS: Thyroid Stimulating Hormone 0.028 uIu/ml (0.300-4.500)
[2022-12-17] MEDS ORDERED: OPTIRAY 320 100ml IV ONE (23:05)
[2022-12-17 23:43] LABS: T4 Free Thyroxine 1.84 ng/dl (0.61-1.60)
--- NOTE | 2022-12-18 00:46 | CT Scan Report ---
Exam(s): CT CHEST With Contrast IV Amt: 90 ML OPTIRAY 320 EXAM: CT Chest With Intravenous Contrast CLINICAL HISTORY: Reason for exam: eval for trauma. TECHNIQUE: Axial computed tomography images of the chest with intravenous contrast. Automated exposure control was utilized for the study. A dose lowering technique was utilized adhering to the principles of ALARA. CONTRAST: Patient received 90 ML OPTIRAY 320 of IV contrast COMPARISON: No relevant prior studies available. FINDINGS: LUNGS: No focal consolidation, pleural effusion, or pneumothorax. HEART: Cardiomegaly. VASCULATURE: Atherosclerotic changes of the aorta. THYROID: Within normal limits. MEDIASTINUM + LYMPH NODES: There are no pathologically enlarged mediastinal, hilar, or axillary lymph nodes. SUPERIOR ABDOMEN: Hepatic steatosis. Cholecystectomy. MUSCULOSKELETAL: Degenerative changes. IMPRESSION: No traumatic findings. Electronically signed by: Hunter Beckman MD 12/18/22 00:45 AM
--- NOTE | 2022-12-18 00:49 | CT Scan Report ---
Exam(s): CT ABDOMEN + PELVIS With Contrast IV Amt: 90 ML OPTIRAY 320 EXAM: CT Abdomen and Pelvis With Intravenous Contrast CLINICAL HISTORY: Reason for exam: eval for trauma. TECHNIQUE: Axial computed tomography images of the abdomen and pelvis with intravenous contrast. Automated exposure control was utilized for the study. A dose lowering technique was utilized adhering to the principles of ALARA. CONTRAST: Patient received 90 ML OPTIRAY 320 of IV contrast COMPARISON: No relevant prior studies available. FINDINGS: Lung bases: Unremarkable. No mass. No consolidation. ABDOMEN: Liver: Hepatic steatosis. Gallbladder and bile ducts: Cholecystectomy. No ductal dilation. Pancreas: Unremarkable. No mass. No ductal dilation. Spleen: Unremarkable. No splenomegaly. Adrenals: Unremarkable. No mass. Kidneys and ureters: Unremarkable. No hydronephrosis or delayed nephrogram. Stomach and bowel: Diverticulosis, without acute diverticulitis. No small bowel obstruction. No free intraperitoneal air. PELVIS: Appendix: No findings to suggest acute appendicitis. Bladder: Unremarkable. No mass. Reproductive: Hysterectomy. ABDOMEN and PELVIS: Intraperitoneal space: Unremarkable. No free air. No significant fluid collection. Bones/joints: Degenerative changes of the spine. No acute fracture. No dislocation. Soft tissues: Unremarkable. Vasculature: Atherosclerotic changes of the aorta. No abdominal aortic aneurysm. Lymph nodes: Unremarkable. No enlarged lymph nodes. IMPRESSION: 1. Hepatic steatosis. 2. Cholecystectomy. 3. Hysterectomy. 4. Diverticulosis, without acute diverticulitis. No small bowel obstruction. No free intraperitoneal air. Electronically signed by: Hunter Beckman MD 12/18/22 00:47 AM
--- NOTE | 2022-12-18 02:47 | History & Physical Report ---
Date of Service December 18, 2022 Assessment & Plan (1) Parkinsonism: (2) Frequent falls: (3) Type 2 diabetes mellitus: (4) Hypertension: (5) Confusion: (6) Ataxia: (7) NPH (normal pressure hydrocephalus): (8) Anxiety: (9) Hypomagnesemia: Plan Frequent falls- Most recent fall was this morning where she was on the floor at home for about 5 hours for being found. Prior to that was about 1 week ago that she admits to Multiple contributing factors including but not limited to: NPH, hypomagnesemia, generalized weakness, dementia, confusion Consult PT/OT Patient presently lives by herself, but is checked on by family members daily Patient may require inpatient rehab, which according to family members she has been in in the past Would expect the likely progression as the day we do need to check on her more frequently, and/or have her moved to assisted living Hypomagnesemia- Magnesium 1.3 on admission Given total 3 g of mag IV, recheck laboratories in a.m. Would hold omeprazole and instead placed on famotidine, avoiding PPI potential to cause low magnesium Normal pressure hydrocephalus- Via dementia via imbalance contributing to underlying generalized weakness, all of which may be making more difficult for her to be able to ambulate without falling CT head, cervical spine, chest and abdomen and pelvis all negative for acute events Order MRI brain to assess for possible stroke History of Present Illness Chief Complaint: The patient presents to the emergency department with complaint of generalized weakness, increasing frequency of falls, having been found on the floor at her home, after falling at 6:00 in the morning and being found at 11:00 AM Primary Care Provider: Meliza Dumont MD The patient is a 72-year-old female with a past medical history including parkinsonism, DVT, anxiety, diabetes mellitus, hypertension, fatty liver, hiatal hernia, lumbar back pain, obesity, B12 deficiency, B1 deficiency, urinary incontinence, NPH, ataxia and dementia with agitation. Patient lives by herself, but her family checks on her at least once daily. Today they found her on the floor, after having fallen at about 6 AM, and being found at 11 AM. She denies any focal weakness, she reports that she gets generalized weakness, and that her feet were going too fast for her this morning. The patient is somewhat confused, and her information is confirmed by family member who is in attendance. Allergies Allergy/AdvReac Type Severity Reaction Status Date / Time lisinopril AdvReac hyperkalemi Verified 10/03/22 13:21 a Home Medications Medication Instructions Recorded Confirmed Type calcium carbonate 600 mg calcium 600 mg PO BID 09/25/18 12/18/22 History (1,500 mg) tablet (Calcium) fish oil-dha-epa 1,200 mg-144 1 cap PO BID 09/25/18 12/18/22 History mg-216 mg capsule albuterol sulfate 90 mcg/actuation 2 puff inhalation Q6H PRN 01/21/20 12/18/22 History aerosol inhaler Shortness Of Breath Or Wheezing timolol 0.5 % eye drops 1 drp ophthalmic (eye) QAM 07/07/20 12/18/22 History acetaminophen 500 mg capsule 1,000 mg PO TID PRN Pain 05/11/21 12/18/22 History docusate sodium 100 mg capsule 100 mg PO DAILY 08/04/21 12/18/22 History (Colace) levothyroxine 100 mcg tablet 100 mcg PO QAM #90 tabs 12/23/21 12/18/22 Rx metformin 500 mg tablet 1,000 mg PO BID #360 tabs 12/23/21 12/18/22 Rx simvastatin 40 mg tablet 40 mg PO QPM #90 tabs 12/23/21 12/18/22 Rx aspirin 81 mg tablet,delayed 81 mg PO DAILY 02/22/22 12/18/22 History release cyanocobalamin (vitamin B-12) 500 1,000 mcg PO QAM #60 tabs 03/10/22 12/18/22 Rx mcg tablet magnesium oxide 400 mg (241.3 mg 400 mg PO BID #60 tabs 03/10/22 12/18/22 Rx magnesium) tablet losartan 50 mg tablet 50 mg PO QAM #0 tabs 04/27/22 12/18/22 Rx famotidine 20 mg tablet (Pepcid) 20 mg PO DAILY acid 05/16/22 12/18/22 History reflux/heartburn omeprazole 20 mg capsule,delayed 20 mg PO DAILY 05/16/22 12/18/22 History release venlafaxine 75 mg capsule,extended See Rx Instructions PO DAILY 05/16/22 12/18/22 History release 24 hr thiamine HCl (vitamin B1) 250 mg 250 mg PO DAILY #30 tabs 05/22/22 12/18/22 Rx tablet pen needle, diabetic 32 gauge x #100 ea 06/15/22 12/18/22 Rx 1/4" (BD Ultra-Fine Micro Pen Needle) naproxen 500 mg tablet 500 mg PO BID PRN pain #180 tabs 08/31/22 12/18/22 Rx amlodipine 5 mg tablet (Norvasc) 5 mg PO DAILY #90 tabs 09/04/22 12/18/22 Rx metoprolol tartrate 50 mg tablet 50 mg PO BID 09/04/22 12/18/22 History oxybutynin chloride 10 mg 10 mg PO DAILY #90 tabs 09/08/22 12/18/22 Rx tablet,extended release 24 hr memantine 10 mg tablet 10 mg PO BID #60 tabs 11/17/22 12/18/22 Rx insulin glargine 100 unit/mL (3 16 unit (0.16 mL) subcut DAILY 90 12/12/22 12/18/22 Rx mL) subcutaneous pen (Lantus days #15 mL Solostar U-100 Insulin) Past Med/Surg History Medical History (Updated 12/18/22 @ 03:56 by Ravi Cortez MD) Acid reflux B12 deficiency Bladder spasms Coronary artery disease Depression with anxiety Fatty liver Frequent falls Gait disturbance Generalized osteoarthritis Glaucoma H/O deep venous thrombosis (04/2021) post op left TKA Hearing difficulty Hiatal hernia Hyperlipidemia Hypertension Hypertensive urgency Hypokalemia Hypomagnesemia Hypothyroidism Iron deficiency anemia Ischial bursitis Lumbar back pain Multiple pulmonary nodules Obesity Orthostatic hypotension Type 2 diabetes mellitus Urinary incontinence Vitamin B1 deficiency Surgical History History of cardiac cath >10 yrs ago ([facility]) > no stents History of carpal tunnel surgery R/L History of cataract surgery R/L History of section x1 History of cholecystectomy History of colonoscopy Colonoscopy (10/02/18): MAC sedation at [facility] History of esophagogastroduodenoscopy (EGD) EGD/colonoscopy (08/25/20): MAC at [facility] History of hysterectomy Total History of tonsillectomy History of tooth extraction S/P trigger finger release left Status post total knee replacement left knee 05/10/21 Family History Father Family history of diabetes mellitus Myocardial infarction, Onset Age: 56 Mother Anxiety Grandfather (Paternal) Throat cancer Other No family history of adverse response to anesthesia Denies family history of Ovarian cancer Prostate cancer Breast cancer Colorectal cancer Social History Smoking Status: Never smoker Second Hand Exposure: No; Do You Dip or Chew Tobacco: No; Hx Alcohol Use: No Hx Substance Use: No Preferred Language: Thai Communication Ability: Effective Communication Ability Comment: hard of hearing Visual Impairment: No Limitations Hearing Ability: Use of Hearing Aid Project Coordinator Required: No Beliefs That Will Affect Care: None marital status: Current Living Situation: Family Current Living Situation Comment: possible placement- daughter expressed concerns with recent illness current occupational status: retired 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 [employer] Feels Safe at Home: Yes Safety Concerns Comment: son kaitlin estrada Childhood Exposure to Second-Hand Smoke: No Diet: regular Dental Care, Regularly: No Physical Activity Frequency: 3-4 Times per Week Seatbelt Use: always Sunscreen Use: Yes Assistive Devices: Walker Review of Systems Review of Systems: The patient denies chest pain, palpitations, shortness of breath, dyspnea on exertion, cough, lower extremity swelling, sore throat, fevers, chills, sweats, nausea, vomiting, diarrhea , constipation, abdominal pain, pelvic pain, blood in urine or stool, dysuria, urinary frequency or urgency, lightheadedness, dizziness, headache, loss of consciousness, rash, abnormal bruising or bleeding, focal weakness, numbness or tingling in arms or legs, generalized arthralgias or myalgias, neck pain, or night sweats. The review of systems is otherwise negative other than for that already noted above, and at least 10 systems have been reviewed. Physical Exam Physical Exam: The patient is awake, alert and oriented 3, well developed and well nourished, normocephalic and atraumatic, lying in bed and in no acute distress. HEENT--PERRL, EOMI, mucous membranes and oropharynx mildly dry. Neck--supple. No JVD. No bruits. Thyroid normal, trachea midline, no adenop athy. Heart--normal S1 and S2. No murmurs, rubs or gallops. Lungs--clear bilaterally, no respiratory distress, no accessory muscle use. Abdomen--normal bowel sounds and soft. Nontender. Nondistended, no hernias or masses, no organomegaly. Extremities--no cyanosis or clubbing. No edema. Dermatologic--normal skin turgor, normal color, no abnormal lymph nodes, no rash. Neurologic--cranial nerves II through XII grossly intact. Rheumatologic--normal range of motion. Psychiatric--normal affect. Results & Data Results & Data Vital Signs (Past 12 Hours) Vital Signs Temp Pulse Pulse Resp BP BP Pulse Ox 12/18/22 00:00 77 12 150/115 H 98 12/17/22 23:43 78 12/17/22 22:00 76 18 175/92 H 98 12/17/22 21:15 78 18 128/95 97 12/17/22 19:39 74 12/17/22 19:39 74 18 96 12/17/22 19:27 36.9 C 83 20 177/120 H 94 O2 Del Method 12/18/22 00:00 Room Air 12/17/22 23:43 12/17/22 22:00 Room Air 12/17/22 21:15 Room Air 12/17/22 19:39 12/17/22 19:39 12/17/22 19:27 Room Air Laboratory Results Laboratory Results WBC 7.78 K/ul (4.8-10.8) 12/17/22 20:53 RBC 4.13 M/uL (4.20-5.40) L 12/17/22 20:53 Hgb 12.2 g/dl (12.0-16.0) 12/17/22 20:53 Hct 36.5 % (37.0-47.0) L 12/17/22 20:53 MCV 88.4 fL (80.0-100.0) 12/17/22 20:53 MCH 29.5 pg (25.0-34.0) 12/17/22 20:53 MCHC 33.4 g/dL (32.0-36.0) 12/17/22 20:53 RDW Std Deviation 39.6 fL (36.4-46.3) 12/17/22 20:53 RDW Coeff of Judy 12.3 % (11.5-14.5) 12/17/22 20:53 Plt Count 227 K/uL (130-400) 12/17/22 20:53 MPV 10.3 fL (9.4-12.4) 12/17/22 20:53 Immature Gran % (Auto) 0.4 % 12/17/22 20:53 Neut % (Auto) 68.6 % 12/17/22 20:53 Lymph % (Auto) 20.8 % 12/17/22 20:53 Lamar % (Auto) 9.6 % 12/17/22 20:53 Eos % (Auto) 0.5 % 12/17/22 20:53 Baso % (Auto) 0.1 % 12/17/22 20:53 Neut # (Auto) 5.33 K/uL (1.40-6.50) 12/17/22 20:53 Lymph # (Auto) 1.62 K/uL (1.20-3.40) 12/17/22 20:53 Lamar # (Auto) 0.75 K/uL (0.11-0.59) H 12/17/22 20:53 Eos # (Auto) 0.04 K/uL (0.00-0.50) 12/17/22 20:53 Baso # (Auto) 0.01 K/uL (0.00-0.20) 12/17/22 20:53 Immature Gran # (Auto) 0.03 K/uL (0.01-0.20) 12/17/22 20:53 PT 11.2 Seconds (9.0-12.0) 12/17/22 21:49 INR 1.0 (0.9-1.1) 12/17/22 21:49 Sodium 140 mmol/L (136-145) 12/17/22 20:53 Potassium 4.3 mmol/L (3.5-5.1) 12/17/22 20:53 Chloride 107 mmol/L (98-107) 12/17/22 20:53 Carbon Dioxide 22 mmol/L (21-32) 12/17/22 20:53 Anion Gap 11 (3-11) 12/17/22 20:53 BUN 28 mg/dl (6-23) H 12/17/22 20:53 Creatinine 0.99 mg/dl (0.6-1.2) 12/17/22 20:53 Est Cr Clr Drug Dosing 47.4 ml/min 12/17/22 20:53 Est GFR ( Amer) 66.4 ml/min 12/17/22 20:53 Est GFR (Non-Af Amer) 57.3 ml/min 12/17/22 20:53 BUN/Creatinine Ratio 28.3 (10-20) H 12/17/22 20:53 Glucose 214 mg/dl (70-99(Fasting)) H 12/17/22 20:53 Calcium 9.4 mg/dl (8.6-10.3) 12/17/22 20:53 Magnesium 1.3 mg/dl (1.7-2.4) L 12/17/22 20:53 Total Bilirubin 0.5 mg/dl (0.2-1.0) 12/17/22 20:53 AST 21 U/L (13-39) 12/17/22 20:53 ALT 16 U/L (7-52) 12/17/22 20:53 Alkaline Phosphatase 70 U/L (34-104) 12/17/22 20:53 Total Creatine Kinase 342 U/L (26-192) H 12/17/22 20:53 Troponin I High Sens 8.8 pg/ml (0-14) 12/17/22 20:53 Total Protein 6.7 gm/dl (6.0-8.3) 12/17/22 20:53 Albumin 3.9 gm/dl (3.4-5.0) 12/17/22 20:53 Globulin 2.8 gm/dl (2.5-4.0) 12/17/22 20:53 Albumin/Globulin Ratio 1.4 (0.9-2) 12/17/22 20:53 TSH 0.028 uIu/ml (0.300-4.500) L 12/17/22 20:53 Free T4 1.84 ng/dl (0.61-1.60) H 12/17/22 20:53 SARS-CoV-2 (PCR) NEGATIVE (Negative) 12/17/22 20:[address] 12/17/22 20:23 Exam(s): CT C SPINE EXAM: CT Cervical Spine Without Intravenous Contrast CLINICAL HISTORY: Reason for exam: fall. TECHNIQUE: Axial computed tomography images of the cervical spine without intravenous contrast. Automated exposure control was utilized for the study. A dose lowering technique was utilized adhering to the principles of ALARA. COMPARISON: No relevant prior studies available. FINDINGS: The vertebral body heights are maintained. The craniocervical junction is intact. The atlanto-dens interval is maintained. The dens is intact. There is no spondylolisthesis. Multilevel cervical spondylosis and degenerative disc disease. Straightening of the cervical lordosis. The unenhanced neck soft tissues are grossly unremarkable. The visualized lung apices are grossly clear. IMPRESSION: No acute fracture or subluxation of the cervical spine. Electronically signed by: Hunter Beckman MD 12/17/22 22:[address] 12/17/22 20:24 Exam(s): CT HEAD Without Contrast EXAM: CT Head Without Intravenous Contrast CLINICAL HISTORY: Reason for exam: fall. TECHNIQUE: Axial computed tomography images of the head/brain without intravenous contrast. Automated exposure control was utilized for the study. A dose lowering technique was utilized adhering to the principles of ALARA. COMPARISON: No relevant prior studies available. FINDINGS: No acute intracranial hemorrhage. No midline shift or mass effect. The territorial banuelos-white matter differentiation is maintained throughout. Age-related cerebral volume loss. Periventricular and subcortical white matter hypoattenuation, consistent with chronic microangiopathy. The visualized orbits appear grossly unremarkable. The calvarium is intact. The visualized paranasal sinuses and mastoid air cells are grossly clear. IMPRESSION: No acute intracranial hemorrhage, midline shift, or mass effect. Electronically signed by: Hunter Beckman MD 12/17/22 22:10 PM Abdomen/Pelvis CT 12/17/22 22:48 Exam(s): CT ABDOMEN + PELVIS With Contrast IV Amt: 90 ML OPTIRAY 320 EXAM: CT Abdomen and Pelvis With Intravenous Contrast CLINICAL HISTORY: Reason for exam: eval for trauma. TECHNIQUE: Axial computed tomography images of the abdomen and pelvis with intravenous contrast. Automated exposure control was utilized for the study. A dose lowering technique was utilized adhering to the principles of ALARA. CONTRAST: Patient received 90 ML OPTIRAY 320 of IV contrast COMPARISON: No relevant prior studies available. FINDINGS: Lung bases: Unremarkable. No mass. No consolidation. ABDOMEN: Liver: Hepatic steatosis. Gallbladder and bile ducts: Cholecystectomy. No ductal dilation. Pancreas: Unremarkable. No mass. No ductal dilation. Spleen: Unremarkable. No splenomegaly. Adrenals: Unremarkable. No mass. Kidneys and ureters: Unremarkable. No hydronephrosis or delayed nephrogram. Stomach and bowel: Diverticulosis, without acute diverticulitis. No small bowel obstruction. No free intraperitoneal air. PELVIS: Appendix: No findings to suggest acute appendicitis. Bladder: Unremarkable. No mass. Reproductive: Hysterectomy. ABDOMEN and PELVIS: Intraperitoneal space: Unremarkable. No free air. No significant fluid collection. Bones/joints: Degenerative changes of the spine. No acute fracture. No dislocation. Soft tissues: Unremarkable. Vasculature: Atherosclerotic changes of the aorta. No abdominal aortic aneurysm. Lymph nodes: Unremarkable. No enlarged lymph nodes. IMPRESSION: 1. Hepatic steatosis. 2. Cholecystectomy. 3. Hysterectomy. 4. Diverticulosis, without acute diverticulitis. No small bowel obstruction. No free intraperitoneal air. Electronically signed by: Hunter Beckman MD 12/18/22 00:[address] 12/17/22 22:48 Exam(s): CT CHEST With Contrast IV Amt: 90 ML OPTIRAY 320 EXAM: CT Chest With Intravenous Contrast CLINICAL HISTORY: Reason for exam: eval for trauma. TECHNIQUE: Axial computed tomography images of the chest with intravenous contrast. Automated exposure control was utilized for the study. A dose lowering technique was utilized adhering to the principles of ALARA. CONTRAST: Patient received 90 ML OPTIRAY 320 of IV contrast COMPARISON: No relevant prior studies available. FINDINGS: LUNGS: No focal consolidation, pleural effusion, or pneumothorax. HEART: Cardiomegaly. VASCULATURE: Atherosclerotic changes of the aorta. THYROID: Within normal limits. MEDIASTINUM + LYMPH NODES: There are no pathologically enlarged mediastinal, hilar, or axillary lymph nodes. SUPERIOR ABDOMEN: Hepatic steatosis. Cholecystectomy. MUSCULOSKELETAL: Degenerative changes. IMPRESSION: No traumatic findings. Electronically signed by: Hunter Beckman MD 12/18/22 00:45 AM Code Status & VTE Plan Code Status Full code PG Care Time/CCT Total # of Minutes Spent Total Time Spent with Patient: Total time spent is greater than 50% in coordination of care (as documented) at patient's floor/unit and/or counseling patient: Coding Level of Care Code 09877 INT INP/OBS CARE 3/75MIN Diagnoses Parkinsonism G20 Frequent falls R29.6 Type 2 diabetes mellitus E11.9 Hypertension I10 Confusion R41.0 Ataxia R27.0 NPH (normal pressure hydrocephalus) G91.2 Anxiety F41.9 Hypomagnesemia E83.42
[2022-12-18 03:37] LABS: Appearance Urine Clear (Clear); Bacteria Urine Automated Negative (Negative); Bilirubin Urine Negative (Negative); Blood Urine Negative (Negative); Cast Urine Automated 0 /lpf (0-5); Color Urine Yellow; Glucose Urine UA Negative (Negative); Ketones Urine 1+ (Negative); Leukocyte Esterase Urine Negative (Negative); Nitrite Urine Negative (Negative); RBC Urine Automated 0-4 /hpf (0-4); Specific Gravity Urine 1.037 (1.000-1.030); Urobilinogen Urine Negative (Negative)
[2022-12-18 04:06] LABS: Protein Urine Trace (Negative)
[2022-12-18] MEDS ORDERED: GLUCOSE 10 TAB/TUBE PO PRN (05:13)
[2022-12-18] MEDS ORDERED: CARBOHYDRATES FOR HYPOGLYCEMIA PO PRN (05:13)
[2022-12-18] MEDS ORDERED: ACETAMINOPHEN 500 MG TAB PO PRN (05:13)
[2022-12-18] MEDS ORDERED: ALBUTEROL HFA 8 GM INHALER INH PRN (05:13)
[2022-12-18] MEDS ORDERED: NSS + 20MEQ KCL 20 MEQ/1,000 ML BAG IV SCH (05:13)
[2022-12-18] MEDS ORDERED: DEXTROSE 50% 50 ML SYRINGE IV PRN (05:13)
[2022-12-18] MEDS ORDERED: GLUCAGON FOR INJ 1 MG VIAL SQ PRN (05:13)
[2022-12-18] MEDS ORDERED: GLUCOSE 40% GEL 15 GM TUBE PO PRN (05:13)
[2022-12-18] MEDS ORDERED: ONDANSETRON INJ 2 MG/ML 2 ML VIAL IV PRN (05:13)
--- NOTE | 2022-12-18 06:15 | Magnetic Resonance Report ---
Exam(s): MRI HEAD Without Contrast EXAM: MR Head Without Intravenous Contrast CLINICAL HISTORY: Reason for exam: confusion. TECHNIQUE: Magnetic resonance images of the head/brain without intravenous contrast in multiple planes. COMPARISON: CT head performed 12/17/22 FINDINGS: No acute infarct or intracranial hemorrhage is seen. There is prominence of ventricles and sulci consistent with generalized parenchymal volume loss. Scattered T2/FLAIR hyperintensities throughout the periventricular and subcortical white matter noted, most consistent with sequela of chronic microvascular ischemic changes. There is no mass-effect or midline shift. Bilateral lens replacements noted. The paranasal sinuses and mastoid air cells are clear. Midline structures are grossly unremarkable. IMPRESSION: No acute intracranial pathology identified. Generalized parenchymal volume loss and sequela of chronic microvascular ischemic angiopathy. Electronically signed by: Zeb Alcantar M.D. 12/18/22 06:14 AM
[2022-12-18] MEDS ORDERED: LEVOTHYROXINE SODIUM 100 MCG TABLET PO SCH (06:30)
[2022-12-18] MEDS: ASPIRIN 81 MG ECTAB PO SCH (07:45)
[2022-12-18] MEDS: CYANOCOBALAMIN (B-12) 500 MCG TABLET PO SCH (07:45)
[2022-12-18] MEDS: amLODIPine BESYLATE 5 MG TAB PO SCH (07:45)
[2022-12-18] MEDS: MAGNESIUM OXIDE 400 MG TAB PO SCH ×2 (07:45→21:05)
[2022-12-18] MEDS: CALCIUM CARBONATE 1250MG TAB PO SCH ×2 (07:46→21:04)
[2022-12-18] MEDS: FAMOTIDINE 20 MG TAB PO SCH (07:46)
[2022-12-18] MEDS: DOCUSATE SODIUM 100 MG CAP PO SCH (07:46)
[2022-12-18] MEDS: METOPROLOL TARTRATE 50 MG TAB PO SCH ×2 (07:46→21:05)
[2022-12-18] MEDS: OXYBUTYNIN CHLORIDE XL 5 MG TABCR PO SCH (07:47)
[2022-12-18] MEDS: MEMANTINE HCL 10 MG TAB PO SCH ×2 (07:47→21:05)
[2022-12-18] MEDS: LOSARTAN POTASSIUM 50 MG TAB PO SCH (07:47)
[2022-12-18] MEDS: THIAMINE HCL 50 MG TABLET PO SCH (07:47)
[2022-12-18] MEDS: TIMOLOL MALEATE 0.5% OP SOLN 5 ML BTL OP SCH (07:48)
[2022-12-18] MEDS: VENLAFAXINE HCL XR 75 MG CAPXR PO SCH ×2 (07:48→21:05)
[2022-12-18] MEDS: INSULIN ASPART PER UNIT CHARGE SC SCH ×4 (07:50→21:03)
--- NOTE | 2022-12-18 07:52 | XRay Report ---
XR chest 1V portable CLINICAL HISTORY: fall, bilat rib pain TECHNIQUE: Single frontal radiograph of the chest was obtained. Comparison: Comparison is made to chest radiograph 09/18/2022 FINDINGS: No lines and tubes are seen. Calcified aortic knob is seen. The lungs are clear. No evidence of pleur al effusion or pneumothorax. IMPRESSION: No acute chest disease. ACT 112: Negative or not required by law. Electronically signed by: Yosi Solomon M.D. 12/18/2022 7:51 AM
[2022-12-18] MEDS: LANTUS PER UNIT CHARGE SQ SCH (08:17)
[2022-12-18] MEDS: SODIUM CHLORIDE 0.9% 1,000 ML IV SCH (08:20)
[2022-12-18] MEDS ORDERED: INFLUENZA VACCINE HIGH-DOSE (HD-IIV4) PF 65+ 0.7mL SYR IM ONE (10:43)
--- NOTE | 2022-12-18 14:43 | Electrocardiogram Report ---
Test Reason : Blood Pressure : / mmHG Vent. Rate : 070 BPM Atrial Rate : 070 BPM P-R Int : 124 ms QRS Dur : 088 ms QT Int : 432 ms P-R-T Axes : 047 027 030 degrees QTc Int : 466 ms Normal sinus rhythm Normal ECG When compared with ECG of 18-SEP-2022 15:45, No significant change was found Confirmed by Andry Yanes ([id number]) on 12/18/2022 2:43:03 PM Referred By: REFERRED SELF Confirmed By:Zeus Yanes
--- NOTE | 2022-12-18 14:58 | Hospitalist Progress Note ---
Date of Service December 18, 2022 Assessment & Plan (1) Parkinsonism: Plan: Probably contributing to frequent falls. Continue current medical therapy. OT and PT assessments requested (2) Frequent falls: Plan: Parkinsons disease is probably playing a role. Supportive care. OT and PT assessments requested (3) Type 2 diabetes mellitus: Plan: ADA diet. Sliding scale coverage as needed. Lantus therapy (4) Hypertension: Plan: Stable. Continue current medical management (5) Confusion: Plan: The patient was alert and oriented at the time of my examination. 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 This is causing her frequent falls at home. Supportive care (7) NPH (normal pressure hydrocephalus): Plan: Stable. Supportive care (8) Hypomagnesemia: Plan: Parenteral replacement therapy. Serial labs Plan Correct electrolyte abnormalities. Decrease thyroid replacement therapy. Await OT and PT assessments. Hopefully she can go home soon Admission and Anticipated Discharge Date Admission Date: December 18, 2022 Subjective Alert and oriented. No distress. Thyroid replacement therapy has been tapered down based on elevated free T4 and low TSH. IV fluids have also been tapered down. Nonfasting glucose 214 on admission. OT and PT assessments requested. Review of Systems Review of Systems: Constitutional-no fever or chills ENT-no blurred vision, no double vision, no epistaxis, no sore throat Respiratory-no cough, no wheezing, no shortness of breath Cardiac-no palpitations, no chest pain, no syncope GI-no nausea, vomiting, diarrhea, melena, hematochezia -no urinary retention, no urinary incontinence, no dysuria, no hematuria Musculoskeletal-no joint pain, no muscle tenderness Skin-no bruising, no rashes, no pruritus Neuro-no isolated weakness, no paresthesia, no weakness Psych-no depression, no anxiety Physical Exam Physical Exam: General-alert and oriented x3, no fevers, no chills HEENT-head atraumatic and normocephalic, pupils equal and reactive to light, extraocular muscles intact Neck-no lymphadenopathy or thyromegaly, trachea midline Chest-clear to auscultation percussion. No rales wheezing or rhonchi Cardiac-regular rate and rhythm, normal S1 and S2 Abdomen-normal bowel sounds, nontender, no hepatosplenomegaly Extremities-no cyanosis, clubbing, or edema Neuro-cranial nerves II through XII intact, motor and sensory function within normal limits, strength symmetrical , no focal deficits Psych-normal affect, normal mood Results & Data Results & Data Vital Signs (Past 12 Hours) Vital Signs Temp Pulse Pulse Pulse Resp BP BP 12/18/22 10:00 70 12/18/22 09:37 36.4 C L 70 16 163/78 H 12/18/22 09:17 70 18 179/100 H 12/18/22 09:00 72 14 12/18/22 08:36 37.0 C 12/18/22 08:00 84 18 177/102 H 12/18/22 07:30 74 12 185/95 H 12/18/22 07:01 77 14 174/77 H 12/18/22 05:13 79 14 168/68 H 12/18/22 05:13 12/18/22 05:02 78 12/18/22 04:00 81 16 188/93 H Pulse Ox Pulse Ox O2 Del Method O2 Del Method 12/18/22 10:00 12/18/22 09:37 95 Room Air 12/18/22 09:17 96 Room Air 12/18/22 09:00 96 Room Air 12/18/22 08:36 12/18/22 08:00 98 Room Air 12/18/22 07:30 98 Room Air 12/18/22 07:01 98 Room Air 12/18/22 05:13 97 Room Air 12/18/22 05:13 96 Room Air 12/18/22 05:02 12/18/22 04:00 97 Room Air Laboratory Results 12/17/22 20:53 12/17/22 20:53 PG Care Time/CCT Total # of Minutes Spent Total Time Spent with Patient: Total time spent is greater than 50% in coordination of care (as documented) at patient's floor/unit and/or counseling patient: Coding Level of Care Code 12322 SUB INP/OBS CARE 3/50MIN Diagnoses Parkinsonism G20 Frequent falls R29.6 Type 2 diabetes mellitus E11.9 Hypertension I10 Confusion R41.0 Ataxia R27.0 NPH (normal pressure hydrocephalus) G91.2 Hypomagnesemia E83.42
[2022-12-18] MEDS: SIMVASTATIN 40 MG TAB PO SCH (21:04)
[2022-12-19] MEDS: SODIUM CHLORIDE 0.9% 1,000 ML IV SCH (00:33)
[2022-12-19] MEDS: LEVOTHYROXINE SODIUM 50 MCG TABLET PO SCH (05:35)
[2022-12-19 07:24] LABS: BUN Creatinine Ratio 18.2 (10-20); Calcium 8.3 mg/dl (8.6-10.3); Creatinine Clr Calc Pharmacy 61.3 ml/min; Est GFR (Non-African American) 77.7 ml/min; Magnesium 1.3 mg/dl (1.7-2.4); Potassium 3.6 mmol/L (3.5-5.1)
[2022-12-19] MEDS: VENLAFAXINE HCL XR 75 MG CAPXR PO SCH ×2 (08:00→21:52)
[2022-12-19] MEDS: OXYBUTYNIN CHLORIDE XL 5 MG TABCR PO SCH (08:01)
[2022-12-19] MEDS: THIAMINE HCL 50 MG TABLET PO SCH (08:01)
[2022-12-19] MEDS: MEMANTINE HCL 10 MG TAB PO SCH ×2 (08:02→21:51)
[2022-12-19] MEDS: METOPROLOL TARTRATE 50 MG TAB PO SCH ×2 (08:02→21:53)
[2022-12-19] MEDS: LOSARTAN POTASSIUM 50 MG TAB PO SCH (08:02)
[2022-12-19] MEDS: MAGNESIUM OXIDE 400 MG TAB PO SCH ×2 (08:02→21:53)
[2022-12-19] MEDS: CALCIUM CARBONATE 1250MG TAB PO SCH ×2 (08:03→21:52)
[2022-12-19] MEDS: amLODIPine BESYLATE 5 MG TAB PO SCH (08:03)
[2022-12-19] MEDS: FAMOTIDINE 20 MG TAB PO SCH (08:03)
[2022-12-19] MEDS: ASPIRIN 81 MG ECTAB PO SCH (08:03)
[2022-12-19] MEDS: CYANOCOBALAMIN (B-12) 500 MCG TABLET PO SCH (08:03)
[2022-12-19 08:35] LABS: Estimated Average Glucose 177 mg/dl; Hemoglobin A1C 7.8 % (4.5-5.6)
[2022-12-19] MEDS: INSULIN ASPART PER UNIT CHARGE SC SCH ×4 (09:05→21:25)
[2022-12-19] MEDS: DOCUSATE SODIUM 100 MG CAP PO SCH (09:07)
[2022-12-19] MEDS: LANTUS PER UNIT CHARGE SQ SCH (09:13)
[2022-12-19] MEDS ORDERED: MAGNESIUM OXIDE 400 MG TAB PO SCH (10:00)
[2022-12-19] MEDS: TIMOLOL MALEATE 0.5% OP SOLN 5 ML BTL OP SCH (11:09)
[2022-12-19] MEDS: MAGNESIUM SULFATE / D5W 1 GM/100 ML BAG IV SCH ×2 (11:09→13:09)
[2022-12-19] MEDS ORDERED: hydrALAZINE HCL 20 MG/ML VIAL IV PRN (14:25)
--- NOTE | 2022-12-19 14:41 | Hospitalist Progress Note ---
Date of Service December 19, 2022 Assessment & Plan (1) Parkinsonism: Plan: Probably contributing to frequent falls. Continue current medical therapy. OT and PT assessments completed and they recommend inpatient rehab at discharge (2) Frequent falls: Plan: Parkinsons disease is probably playing a role. Supportive care. OT and PT assessments noted (3) Type 2 diabetes mellitus: Plan: ADA diet. Sliding scale coverage as needed. Lantus therapy (4) Hypertension: Plan: Stable. Continue current medical management (5) Confusion: Plan: The patient was alert and oriented at the time of my examination. 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 This is causing her frequent falls at home. Supportive care (7) NPH (normal pressure hydrocephalus): Plan: Stable. Supportive care (8) Hypomagnesemia: Plan: Continue oral and parenteral replacement therapy. Serial labs Plan Hopeful discharge to [facility] tomorrow, December 20 Admission and Anticipated Discharge Date Admission Date: December 18, 2022 Subjective Alert and stable. Magnesium remains low at 1.3. IV and oral replacement ordered. IV fluids have been discontinued. [facility] Review of Systems Review of Systems: Constitutional-no fever or chills ENT-no blurred vision, no double vision, no epistaxis, no sore throat Respiratory-no cough, no wheezing, no shortness of breath Cardiac-no palpitations, no chest pain, no syncope GI-no nausea, vomiting, diarrhea, melena, hematochezia -no urinary retention, no urinary incontinence, no dysuria, no hematuria Musculoskeletal-no joint pain, no muscle tenderness Skin-no bruising, no rashes, no pruritus Neuro-no isolated weakness, no paresthesia, no weakness Psych-no depression, no anxiety Physical Exam Physical Exam: General-alert and oriented x3, no fevers, no chills HEENT-head atraumatic and normocephalic, pupils equal and reactive to light, extraocular muscles intact Neck-no lymphadenopathy or thyromegaly, trachea midline Chest-clear to auscultation percussion. No rales wheezing or rhonchi Cardiac-regular rate and rhythm, normal S1 and S2 Abdomen-normal bowel sounds, nontender, no hepatosplenomegaly Extremities-no cyanosis, clubbing, or edema Neuro-cranial nerves II through XII intact, motor and sensory function within no rmal limits, strength symmetrical , no focal deficits Psych-normal affect, normal mood Results & Data Results & Data Vital Signs (Past 12 Hours) Vital Signs Temp Pulse Pulse Resp BP Pulse Ox O2 Del Method 12/19/22 05:58 76 12/19/22 11:42 36.8 C 79 16 181/89 H 96 Room Air 12/19/22 07:53 36.8 C 79 16 177/80 H 95 Room Air 12/19/22 03:00 36.8 C 76 18 183/90 H 95 Room Air Laboratory Results 12/17/22 20:53 12/19/22 05:58 PG Care Time/CCT Total # of Minutes Spent Total Time Spent with Patient: Total time spent is greater than 50% in coordination of care (as documented) at patient's floor/unit and/or counseling patient: Coding Level of Care Code 90068 SUB INP/OBS CARE 3/50MIN Diagnoses Parkinsonism G20 Frequent falls R29.6 Type 2 diabetes mellitus E11.9 Hypertension I10 Confusion R41.0 Ataxia R27.0 NPH (normal pressure hydrocephalus) G91.2 Hypomagnesemia E83.42
[2022-12-19] MEDS ORDERED: QUEtiapine FUMARATE 25 MG TABLET PO ONE (17:30)
[2022-12-19] MEDS: SIMVASTATIN 40 MG TAB PO SCH (21:51)
[2022-12-20] MEDS: LEVOTHYROXINE SODIUM 50 MCG TABLET PO SCH (06:40)
[2022-12-20 08:02] LABS: BUN Creatinine Ratio 21.6 (10-20); Calcium 8.6 mg/dl (8.6-10.3); Creatinine Clr Calc Pharmacy 63.6 ml/min; Est GFR (African American) 94.5 ml/min; Est GFR (Non-African American) 81.5 ml/min; Magnesium 1.6 mg/dl (1.7-2.4); Potassium 3.6 mmol/L (3.5-5.1)
[2022-12-20] MEDS: CALCIUM CARBONATE 1250MG TAB PO SCH ×2 (08:21→20:24)
[2022-12-20] MEDS: VENLAFAXINE HCL XR 75 MG CAPXR PO SCH ×2 (08:21→20:23)
[2022-12-20] MEDS: METOPROLOL TARTRATE 50 MG TAB PO SCH ×2 (08:21→20:23)
[2022-12-20] MEDS: CYANOCOBALAMIN (B-12) 500 MCG TABLET PO SCH (08:22)
[2022-12-20] MEDS: THIAMINE HCL 50 MG TABLET PO SCH (08:22)
[2022-12-20] MEDS: MEMANTINE HCL 10 MG TAB PO SCH ×2 (08:22→20:23)
[2022-12-20] MEDS: MAGNESIUM OXIDE 400 MG TAB PO SCH ×2 (08:22→20:23)
[2022-12-20] MEDS: ASPIRIN 81 MG ECTAB PO SCH (08:23)
[2022-12-20] MEDS: OXYBUTYNIN CHLORIDE XL 5 MG TABCR PO SCH (08:23)
[2022-12-20] MEDS: amLODIPine BESYLATE 5 MG TAB PO SCH (08:23)
[2022-12-20] MEDS: TIMOLOL MALEATE 0.5% OP SOLN 5 ML BTL OP SCH (08:23)
[2022-12-20] MEDS: FAMOTIDINE 20 MG TAB PO SCH (08:23)
[2022-12-20] MEDS: LOSARTAN POTASSIUM 50 MG TAB PO SCH (08:24)
[2022-12-20] MEDS: INSULIN ASPART PER UNIT CHARGE SC SCH ×4 (09:12→20:37)
[2022-12-20] MEDS: LANTUS PER UNIT CHARGE SQ SCH (09:12)
[2022-12-20] MEDS: DOCUSATE SODIUM 100 MG CAP PO SCH (09:12)
--- NOTE | 2022-12-20 16:43 | Hospitalist Progress Note ---
Date of Service December 20, 2022 Assessment & Plan (1) Parkinsonism: Plan: Probably contributing to frequent falls. Continue current medical therapy. OT and PT assessments completed and they recommend inpatient rehab at discharge (2) Frequent falls: Plan: Parkinsons disease is probably playing a role. Supportive care. OT and PT assessments noted (3) Type 2 diabetes mellitus: Plan: ADA diet. Sliding scale coverage as needed. Lantus therapy (4) Dementia with agitation: Plan: Seroquel increased to twice daily dosing from bedtime dosing. Supportive care. (5) Hypertension: Plan: Stable. 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 This is causing her frequent falls at home. Supportive care (7) NPH (normal pressure hydrocephalus): Plan: Stable. Supportive care (8) Hypomagnesemia: Plan: Continue oral and parenteral replacement therapy. Serial labs Plan Hopeful discharge to [facility] or SNF on December 21. Admission and Anticipated Discharge Date Admission Date: December 18, 2022 Subjective The patient has episodes of agitated behavior related to her underlying dementia. Seroquel has been increased to twice daily dosing. Hypomagnesemia is improving up to 1.6 now. Synthroid dosage has been decreased this admission. She is medically stable for discharge. Review of Systems Review of Systems: Constitutional-no fever or chills ENT-no blurred vision, no double vision, no epistaxis, no sore throat Respiratory-no cough, no wheezing, no shortness of breath Cardiac-no palpitations, no chest pain, no syncope GI-no nausea, vomiting, diarrhea, melena, hematochezia -no urinary retention, no urinary incontinence, no dysuria, no hematuria Musculoskeletal-no joint pain, no muscle tenderness Skin-no bruising, no rashes, no pruritus Neuro-no isolated weakness, no paresthesia, no weakness Psych-no depression, no anxiety Physical Exam Physical Exam: General-alert and oriented x3, no fevers, no chills HEENT-head atraumatic and normocephalic, pupils equal and reactive to light, extraocular muscles intact Neck-no lymphadenopathy or thyromegaly, trachea midline Chest-clear to auscultation percussion. No rales wheezing or rhonchi Cardiac-regular rate and rhythm, normal S1 and S2 Abdomen-normal bowel sounds, nontender, no hepatosplenomegaly Extremities-no cyanosis, clubbing, or edema Neuro-cranial nerves II through XII intact, motor and sensory function within normal limits, strength symmetrical , no focal deficits Psych-normal affect, normal mood Results & Data Results & Data Vital Signs (Past 12 Hours) Vital Signs Temp Pulse Pulse Resp BP Pulse Ox O2 Del Method 12/20/22 16:22 36.9 C 70 16 149/71 H 96 Room Air 12/20/22 13:59 67 12/20/22 08:19 61 169/91 H 12/20/22 08:08 36.4 C L 76 16 209/99 H 95 Room Air 12/20/22 05:56 78 Laboratory Results 12/17/22 20:53 12/20/22 06:30 PG Care Time/CCT Total # of Minutes Spent Total Time Spent with Patient: Total time spent is greater than 50% in coordination of care (as documented) at patient's floor/unit and/or counseling patient: Coding Level of Care Code 88982 SUB INP/OBS CARE 3/50MIN Diagnoses Parkinsonism G20.C Parkinsonism type: unspecified Frequent falls R29.6 Type 2 diabetes mellitus E11.9 Dementia with agitation F03.911 Hypertension I10 Ataxia R27.0 NPH (normal pressure hydrocephalus) G91.2 Hypomagnesemia E83.42 (1) Parkinsonism Parkinsonism type: unspecified Qualified Code(s): G20.C - Parkinsonism, unspecified
[2022-12-20] MEDS: SIMVASTATIN 40 MG TAB PO SCH (20:24)
[2022-12-20] MEDS: QUEtiapine FUMARATE 25 MG TABLET PO SCH (20:24)
[2022-12-20] MEDS ORDERED: QUEtiapine FUMARATE 25 MG TABLET PO SCH (21:00)
[2022-12-20] MEDS ORDERED: OLANZapine 10 MG/2.1 ML SDV IM STA (23:32)
[2022-12-21] MEDS: LEVOTHYROXINE SODIUM 50 MCG TABLET PO SCH (06:40)
[2022-12-21 07:42] LABS: BUN Creatinine Ratio 24.4 (10-20); Calcium 9.1 mg/dl (8.6-10.3); Creatinine Clr Calc Pharmacy 52.3 ml/min; Est GFR (African American) 74.6 ml/min; Est GFR (Non-African American) 64.3 ml/min; Magnesium 1.5 mg/dl (1.7-2.4); Potassium 3.9 mmol/L (3.5-5.1)
[2022-12-21] MEDS: INSULIN ASPART PER UNIT CHARGE SC SCH ×4 (08:40→21:30)
[2022-12-21] MEDS: LANTUS PER UNIT CHARGE SQ SCH (09:29)
[2022-12-21] MEDS: TIMOLOL MALEATE 0.5% OP SOLN 5 ML BTL OP SCH (10:55)
[2022-12-21] MEDS: VENLAFAXINE HCL XR 75 MG CAPXR PO SCH ×2 (10:57→21:25)
[2022-12-21] MEDS: THIAMINE HCL 50 MG TABLET PO SCH (10:57)
[2022-12-21] MEDS: MEMANTINE HCL 10 MG TAB PO SCH ×2 (10:58→21:24)
[2022-12-21] MEDS: METOPROLOL TARTRATE 50 MG TAB PO SCH ×2 (10:58→21:23)
[2022-12-21] MEDS: QUEtiapine FUMARATE 25 MG TABLET PO SCH ×2 (10:58→21:21)
[2022-12-21] MEDS: OXYBUTYNIN CHLORIDE XL 5 MG TABCR PO SCH (10:58)
[2022-12-21] MEDS: LOSARTAN POTASSIUM 50 MG TAB PO SCH (10:58)
[2022-12-21] MEDS: amLODIPine BESYLATE 5 MG TAB PO SCH (10:59)
[2022-12-21] MEDS: CALCIUM CARBONATE 1250MG TAB PO SCH ×2 (10:59→21:21)
[2022-12-21] MEDS: FAMOTIDINE 20 MG TAB PO SCH (10:59)
[2022-12-21] MEDS: ASPIRIN 81 MG ECTAB PO SCH (11:00)
[2022-12-21] MEDS: CYANOCOBALAMIN (B-12) 500 MCG TABLET PO SCH (11:00)
[2022-12-21] MEDS: DOCUSATE SODIUM 100 MG CAP PO SCH (11:14)
[2022-12-21] MEDS: MAGNESIUM OXIDE 400 MG TAB PO SCH ×2 (12:42→21:21)
--- NOTE | 2022-12-21 16:30 | Hospitalist Progress Note ---
Date of Service December 21, 2022 Assessment & Plan (1) Parkinsonism: Plan: Probably contributing to frequent falls. Continue current medical therapy. OT and PT assessments completed and they recommend inpatient rehab at discharge . Unfortunately the insurance company has denied inpatient rehab and case management is pursuing shelter facility placement (2) Frequent falls: Plan: Parkinsons disease is probably playing a role. Supportive care. OT and PT assessments noted (3) Type 2 diabetes mellitus: Plan: ADA diet. Sliding scale coverage as needed. Lantus therapy (4) Dementia with agitation: Plan: Seroquel increased to twice daily dosing from bedtime dosing. Supportive care. (5) Hypertension: Plan: Stable. 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 This is causing her frequent falls at home. Supportive care (7) NPH (normal pressure hydrocephalus): Plan: Stable. Supportive care (8) Hypomagnesemia: Plan: Magnesium levels remain slightly low but they are improved. Oral magnesium rep lacement uptitrated today, December 21. Serial labs Plan Hopeful discharge to SNF when arrangements are finalized. Insurance has denied IPR placement Admission and Anticipated Discharge Date Admission Date: December 18, 2022 Subjective Somnolent from additional Zyprexa administered IM last evening. Peer review with insurance company completed today, December 21, and they have denied IPR placement. SNF placement is being pursued by case management. Magnesium remains slightly low at 1.5. Oral replacement therapy has been increased. Review of Systems Review of Systems: Constitutional-no fever or chills ENT-no blurred vision, no double vision, no epistaxis, no sore throat Respiratory-no cough, no wheezing, no shortness of breath Cardiac-no palpitations, no chest pain, no syncope GI-no nausea, vomiting, diarrhea, melena, hematochezia -no urinary retention, no urinary incontinence, no dysuria, no hematuria Musculoskeletal-no joint pain, no muscle tenderness Skin-no bruising, no rashes, no pruritus Neuro-no isolated weakness, no paresthesia, no weakness Psych-no depression, no anxiety Physical Exam Physical Exam: General-somnolent, no fevers, no chills HEENT-head atraumatic and normocephalic Neck-no lymphadenopathy or thyromegaly, trachea midline Chest-clear to auscultation anteriorly. No rales, wheezing or rhonchi Cardiac-regular rate and rhythm, normal S1 and S2 Abdomen-normal bowel sounds, no hepatosplenomegaly Extremities-no cyanosis, clubbing, or edema Neuro-patient is sleeping. Cannot assess Psych-patient is sleeping. Cannot assess Results & Data Results & Data Vital Signs (Past 12 Hours) Vital Signs Temp Pulse Pulse Resp BP Pulse Ox O2 Del Method 12/21/22 16:20 62 12/21/22 15:42 36.7 C 61 17 135/83 95 Room Air 12/21/22 11:12 36.6 C 70 16 139/85 95 Room Air 12/21/22 08:02 77 12/21/22 07:08 36 C L 75 16 129/80 91 Room Air Laboratory Results 12/17/22 20:53 12/21/22 06:21 PG Care Time/CCT Total # of Minutes Spent Total Time Spent with Patient: Total time spent is greater than 50% in coordination of care (as documented) at patient's floor/unit and/or counseling patient: Coding Level of Care Code 09317 SUB INP/OBS CARE 3/50MIN Diagnoses Parkinsonism G20.C Parkinsonism type: unspecified Frequent falls R29.6 Type 2 diabetes mellitus E11.9 Dementia with agitation F03.911 Hypertension I10 Ataxia R27.0 NPH (normal pressure hydrocephalus) G91.2 Hypomagnesemia E83.42 (1) Parkinsonism Parkinsonism type: unspecified Qualified Code(s): G20.C - Parkinsonism, unspecified
[2022-12-21] MEDS: SIMVASTATIN 40 MG TAB PO SCH (21:24)
[2022-12-21] MEDS ORDERED: OLANZapine 10 MG/2.1 ML SDV IM STA (22:40)
[2022-12-22] MEDS: LEVOTHYROXINE SODIUM 50 MCG TABLET PO SCH (05:27)
[2022-12-22] MEDS: INSULIN ASPART PER UNIT CHARGE SC SCH ×4 (09:23→22:11)
[2022-12-22] MEDS: LANTUS PER UNIT CHARGE SQ SCH (09:23)
[2022-12-22] MEDS: CYANOCOBALAMIN (B-12) 500 MCG TABLET PO SCH (09:58)
[2022-12-22] MEDS: ASPIRIN 81 MG ECTAB PO SCH (09:58)
[2022-12-22] MEDS: DOCUSATE SODIUM 100 MG CAP PO SCH (09:58)
[2022-12-22] MEDS: CALCIUM CARBONATE 1250MG TAB PO SCH ×2 (09:58→20:12)
[2022-12-22] MEDS: MEMANTINE HCL 10 MG TAB PO SCH ×2 (09:59→20:10)
[2022-12-22] MEDS: FAMOTIDINE 20 MG TAB PO SCH (09:59)
[2022-12-22] MEDS: OXYBUTYNIN CHLORIDE XL 5 MG TABCR PO SCH (09:59)
[2022-12-22] MEDS: METOPROLOL TARTRATE 50 MG TAB PO SCH ×2 (09:59→20:13)
[2022-12-22] MEDS: MAGNESIUM OXIDE 400 MG TAB PO SCH ×2 (09:59→20:11)
[2022-12-22] MEDS: LOSARTAN POTASSIUM 50 MG TAB PO SCH (09:59)
[2022-12-22] MEDS: amLODIPine BESYLATE 5 MG TAB PO SCH (10:00)
[2022-12-22] MEDS: QUEtiapine FUMARATE 25 MG TABLET PO SCH ×2 (10:00→20:13)
[2022-12-22] MEDS: THIAMINE HCL 50 MG TABLET PO SCH (10:00)
[2022-12-22] MEDS: VENLAFAXINE HCL XR 75 MG CAPXR PO SCH ×2 (10:00→20:10)
[2022-12-22] MEDS: TIMOLOL MALEATE 0.5% OP SOLN 5 ML BTL OP SCH (10:01)
--- NOTE | 2022-12-22 15:37 | Hospitalist Progress Note ---
Date of Service December 22, 2022 Assessment & Plan (1) Parkinsonism: Plan: Probably contributing to frequent falls. Continue current medical therapy. OT and PT assessments completed and they recommend inpatient rehab at discharge . Unfortunately the insurance company has denied inpatient rehab and case management is pursuing correction facility placement (2) Frequent falls: Plan: Parkinsons disease is probably playing a role. Supportive care. OT and PT assessments noted (3) Type 2 diabetes mellitus: Plan: ADA diet. Sliding scale coverage as needed. Lantus therapy (4) Dementia with agitation: Plan: Seroquel increased to twice daily dosing from bedtime dosing. Supportive care. (5) Hypertension: Plan: Stable. 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 This is causing her frequent falls at home. Supportive care (7) NPH (normal pressure hydrocephalus): Plan: Stable. Supportive care (8) Hypomagnesemia: Plan: Magnesium levels remain slightly low but they are improved. Oral magnesium rep lacement uptitrated on December 21. Serial labs Plan Hopeful discharge to SNF when arrangements are finalized. Insurance has denied IPR placement Admission and Anticipated Discharge Date Admission Date: December 18, 2022 Subjective Alert. She looks at me with a quizzical look as if she does not really understand what is going on or what I am saying. Case management is working on SNF placement. IPR was denied by her insurance. Synthroid dosage was down titrated due to high free T4 levels. We will repeat blood work tomorrow morning, December 23. Both PT and OT recommend rehab placement. She remains on Seroquel twice a day which is new. Review of Systems Review of Systems: Constitutional-no fever or chills ENT-no blurred vision, no double vision, no epistaxis, no sore throat Respiratory-no cough, no wheezing, no shortness of breath Cardiac-no palpitations, no chest pain, no syncope GI-no nausea, vomiting, diarrhea, melena, hematochezia -no urinary retention, no urinary incontinence, no dysuria, no hematuria Musculoskeletal-no joint pain, no muscle tenderness Skin-no bruising, no rashes, no pruritus Neuro-no isolated weakness, no paresthesia, no weakness Psych-no depression, no anxiety Physical Exam Physical Exam: General-awake and alert. No fevers, no chills HEENT-head atraumatic and normocephalic Neck-no lymphadenopathy or thyromegaly, trachea midline Chest-clear to auscultation anteriorly. No rales, wheezing or rhonchi Cardiac-regular rate and rhythm, normal S1 and S2 Abdomen-normal bowel sounds, no hepatosplenomegaly Extremities-no cyanosis, clubbing, or edema Neuro-no focal deficits. Psych-normal affect. Baseline dementia Results & Data Results & Data Vital Signs (Past 12 Hours) Vital Signs Temp Pulse Pulse Resp BP BP Pulse Ox 12/22/22 15:29 72 12/22/22 11:40 36.5 C 67 16 137/75 96 12/22/22 10:31 12/22/22 07:52 36.4 C L 77 16 169/89 H 92 12/22/22 07:38 70 12/22/22 05:00 O2 Del Method O2 Del Method 12/22/22 15:29 12/22/22 11:40 Room Air 12/22/22 10:31 Room Air 12/22/22 07:52 Room Air 12/22/22 07:38 12/22/22 05:00 Room Air Laboratory Results 12/17/22 20:53 12/21/22 06:21 PG Care Time/CCT Total # of Minutes Spent Total Time Spent with Patient: Total time spent is greater than 50% in coordination of care (as documented) at patient's floor/unit and/or counseling patient: Coding Level of Care Code 02904 SUB INP/OBS CARE 2/35MIN Diagnoses Parkinsonism G20.C Parkinsonism type: unspecified Frequent falls R29.6 Type 2 diabetes mellitus E11.9 Dementia with agitation F03.911 Hypertension I10 Ataxia R27.0 NPH (normal pressure hydrocephalus) G91.2 Hypomagnesemia E83.42 (1) Parkinsonism Parkinsonism type: unspecified Qualified Code(s): G20.C - Parkinsonism, unspecified
[2022-12-22] MEDS: SIMVASTATIN 40 MG TAB PO SCH (20:11)
[2022-12-23] MEDS: LEVOTHYROXINE SODIUM 50 MCG TABLET PO SCH (05:15)
[2022-12-23 07:40] LABS: Basophils # (auto) 0.01 K/uL (0.00-0.20); Basophils % (auto) 0.1 %; Eosinophils # (auto) 0.12 K/uL (0.00-0.50); Eosinophils % (auto) 1.5 %; Hematocrit (blood only) 43.1 % (37.0-47.0); Hemoglobin 14.1 g/dl (12.0-16.0); Immature Granulocytes # (auto) 0.04 K/uL (0.01-0.20); Immature Granulocytes % (auto) 0.5 %; Lymphocytes # (auto) 2.23 K/uL (1.20-3.40); Lymphocytes % (auto) 28.1 %; Mean Corpuscular Hemoglobin 28.9 pg (25.0-34.0); Mean Corpuscular Hgb Conc 32.7 g/dL (32.0-36.0); Mean Corpuscular Volume 88.3 fL (80.0-100.0); Monocytes # (auto) 0.99 K/uL (0.11-0.59); Monocytes % (auto) 12.5 %; Neutrophils # (auto) 4.55 K/uL (1.40-6.50); Neutrophils % (auto) 57.3 %; Platelet Count 256 K/uL (130-400); RDW Coefficient of Variation 12.3 % (11.5-14.5); RDW Standard Deviation 39.8 fL (36.4-46.3); Red Blood Count 4.88 M/uL (4.20-5.40); White Blood Count 7.94 K/ul (4.8-10.8)
[2022-12-23 08:00] LABS: Calcium 9.8 mg/dl (8.6-10.3); Creatinine Clr Calc Pharmacy 42.3 ml/min; Est GFR (African American) 58.5 ml/min; Est GFR (Non-African American) 50.5 ml/min; Magnesium 1.5 mg/dl (1.7-2.4); Potassium 4.2 mmol/L (3.5-5.1)
[2022-12-23] MEDS: VENLAFAXINE HCL XR 75 MG CAPXR PO SCH (08:47)
[2022-12-23] MEDS: METOPROLOL TARTRATE 50 MG TAB PO SCH ×2 (08:48→20:19)
[2022-12-23] MEDS: QUEtiapine FUMARATE 25 MG TABLET PO SCH ×2 (08:48→20:18)
[2022-12-23] MEDS: LOSARTAN POTASSIUM 50 MG TAB PO SCH (08:48)
[2022-12-23] MEDS: MEMANTINE HCL 10 MG TAB PO SCH ×2 (08:48→20:20)
[2022-12-23] MEDS: FAMOTIDINE 20 MG TAB PO SCH (08:48)
[2022-12-23] MEDS: MAGNESIUM OXIDE 400 MG TAB PO SCH ×2 (08:48→20:19)
[2022-12-23] MEDS: THIAMINE HCL 50 MG TABLET PO SCH (08:48)
[2022-12-23] MEDS: OXYBUTYNIN CHLORIDE XL 5 MG TABCR PO SCH (08:48)
[2022-12-23] MEDS: CALCIUM CARBONATE 1250MG TAB PO SCH ×2 (08:49→20:20)
[2022-12-23] MEDS: LANTUS PER UNIT CHARGE SQ SCH (08:49)
[2022-12-23] MEDS: amLODIPine BESYLATE 5 MG TAB PO SCH (08:49)
[2022-12-23] MEDS: CYANOCOBALAMIN (B-12) 500 MCG TABLET PO SCH (08:49)
[2022-12-23] MEDS: INSULIN ASPART PER UNIT CHARGE SC SCH ×4 (08:49→21:45)
[2022-12-23] MEDS: ASPIRIN 81 MG ECTAB PO SCH (08:49)
[2022-12-23] MEDS: TIMOLOL MALEATE 0.5% OP SOLN 5 ML BTL OP SCH (08:49)
[2022-12-23] MEDS: DOCUSATE SODIUM 100 MG CAP PO SCH (08:55)
[2022-12-23] MEDS ORDERED: MAGNESIUM SULFATE / D5W 1 GM/100 ML BAG IV ONE (10:03)
--- NOTE | 2022-12-23 15:25 | Hospitalist Progress Note ---
Date of Service December 23, 2022 Assessment & Plan (1) Parkinsonism: Plan: Probably contributing to frequent falls. Not currently on medications for this as per Neuro note from Nov. OT and PT assessments completed and they recommend inpatient rehab at discharge . Unfortunately the insurance company has denied inpatient rehab and case management is pursuing intermediate facility placement (2) Frequent falls: Plan: Parkinsonism and NPH playing a role. Supportive care. OT and PT assessments noted Oxybutynin also can contribute to falls-consider stopping this (3) Hypomagnesemia: Plan: Magnesium levels remain slightly low but they are improved. 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 Sliding scale coverage as needed. Lantus therapy (6) Dementia with agitation: Plan: Seroquel started this admission and then increased to twice daily dosing from bedtime dosing. Supportive care. Continue mementine which was recently started one month ago by Neuro (7) Hypertension: Plan: Stable. Continue current medical management with amlodipine, losartan,. 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 This is causing her frequent falls at home. Supportive care (9) NPH (normal pressure hydrocephalus): Plan: Stable. Supportive care Was not a candidate for shunt as per Neuro notes (10) Hypothyroidism: Plan: TSH low LT4 dose reduced this admission to 50mcg daily but would increase to 75 mcg and repeat labs in 2 months (11) Urinary incontinence: Plan: consider stopping Oxybutynin for falls (12) Vitamin B1 deficiency: Plan: last checked in September and now normal continue po supplement Plan DVT proph- add Lovenox given prolonged stay and immobility Dispo- Hopeful discharge to SNF when arrangements are finalized. Insurance has denied acute rehab placement Discussed care with daughter on phone 12/23 Admission and Anticipated Discharge Date Admission Date: December 18, 2022 Subjective Pt is tearful, misses her daughter. Daughter on phone reports pt is depressed, has developed dementia and Parkinsonism recently and having worsening insomnia. She denies pain. Tele with NSR, PACs, rates 60-90s Physical Exam Constitutional: WD/WN, vitals as above Respiratory: normal respiratory effort, lungs clear to auscultation Cardiovascular: RRR, no murmur, no edema Chest (Breasts): Chest: normal inspection of chest Gastrointestinal (Abdomen): normal bowel sounds, soft, nontender, no hepatosplenomegaly Musculoskeletal: Extremities: extremities normal to inspection; no cyanosis and no clubbing Skin: no rashes, warm and dry Neurologic: moves all extremities and awake; no focal motor deficits Psychiatric: Orientation: alert, oriented to person, oriented to place and cooperative; + not oriented to time Affect: + tearful affect Mood: + depressed mood Results & Data Results & Data Vital Signs (Past 12 Hours) Vital Signs Temp Pulse Pulse Resp BP BP Pulse Ox 12/23/22 11:20 36.4 C L 70 16 152/75 H 93 12/23/22 08:15 36.6 C 81 19 197/86 H 177/97 H 93 12/23/22 07:26 73 12/23/22 04:33 36.7 C 80 18 176/91 H 93 12/23/22 03:43 61 O2 Del Method 12/23/22 11:20 Room Air 12/23/22 08:15 Room Air 12/23/22 07:26 12/23/22 04:33 Room Air 12/23/22 03:43 Laboratory Results CBC, BMP, magnesium reviewed PG Care Time/CCT Total # of Minutes Spent Total Time Spent with Patient: Total time spent is greater than 50% in coordination of care (as documented) at patient's floor/unit and/or counseling patient: Coding Level of Care Code 77444 SUB INP/OBS CARE 2/35MIN Diagnoses Parkinsonism G20.C Parkinsonism type: unspecified Frequent falls R29.6 Hypomagnesemia E83.42 Depression due to dementia F03.93 Type 2 diabetes mellitus E11.9 Dementia with agitation F03.911 Hypertension I10 Ataxia R27.0 NPH (normal pressure hydrocephalus) G91.2 Hypothyroidism E03.9 Urinary incontinence R32 Vitamin B1 deficiency E51.9 (1) Parkinsonism Parkinsonism type: unspecified Qualified Code(s): G20.C - Parkinsonism, unspecified
--- NOTE | 2022-12-23 17:51 | Communication Note ---
Date of Service: December 23, 2022 Consult received, chart reviewed. Patient with dementia, NPH, Parkinson's started on Seroquel 25 mg BID by hospitalist on 12/20 for ongoing confusion/agita tion. Consult by Dr. Giang for comanagement given ongoing insomnia and tearfulness. Currently receiving Effexor XR 150 mg po qam and 75 mg po qpm which is hs while inpatient which could be having paradoxical effect. Case reviewed briefly with Dr. Giang, will hold pm dose of Effexor pending full consultation in am. No acute aggression noted in recent nursing notes so avoid increasing Seroquel as hx of falls and patients with Parkinson's can be more sensitive to EPS, would need slow titration, etc.
[2022-12-23] MEDS: ENOXAPARIN INJ 40 MG/0.4 ML SYR SQ SCH (18:02)
[2022-12-23] MEDS: SIMVASTATIN 40 MG TAB PO SCH (20:21)
[2022-12-24] MEDS: LEVOTHYROXINE SODIUM 75 MCG TABLET PO SCH (05:51)
[2022-12-24 07:07] LABS: Calcium 9.3 mg/dl (8.6-10.3); Magnesium 1.8 mg/dl (1.7-2.4); Potassium 4.8 mmol/L (3.5-5.1)
[2022-12-24 07:13] LABS: BUN Creatinine Ratio 35.4 (10-20); Creatinine Clr Calc Pharmacy 48.4 ml/min; Est GFR (Non-African American) 59.5 ml/min
[2022-12-24] MEDS: DOCUSATE SODIUM 100 MG CAP PO SCH (09:29)
[2022-12-24] MEDS: TIMOLOL MALEATE 0.5% OP SOLN 5 ML BTL OP SCH (09:29)
[2022-12-24] MEDS: THIAMINE HCL 50 MG TABLET PO SCH (09:29)
[2022-12-24] MEDS: MAGNESIUM OXIDE 400 MG TAB PO SCH ×2 (09:30→20:33)
[2022-12-24] MEDS: METOPROLOL TARTRATE 50 MG TAB PO SCH ×2 (09:30→20:33)
[2022-12-24] MEDS: ASPIRIN 81 MG ECTAB PO SCH (09:30)
[2022-12-24] MEDS: LOSARTAN POTASSIUM 50 MG TAB PO SCH (09:30)
[2022-12-24] MEDS: QUEtiapine FUMARATE 25 MG TABLET PO SCH (09:30)
[2022-12-24] MEDS: amLODIPine BESYLATE 5 MG TAB PO SCH (09:30)
[2022-12-24] MEDS: MEMANTINE HCL 10 MG TAB PO SCH ×2 (09:30→20:33)
[2022-12-24] MEDS: FAMOTIDINE 20 MG TAB PO SCH (09:30)
[2022-12-24] MEDS: CYANOCOBALAMIN (B-12) 500 MCG TABLET PO SCH (09:30)
[2022-12-24] MEDS: CALCIUM CARBONATE 1250MG TAB PO SCH ×2 (09:30→20:33)
[2022-12-24] MEDS: LANTUS PER UNIT CHARGE SQ SCH (09:31)
[2022-12-24] MEDS: VENLAFAXINE HCL XR 75 MG CAPXR PO SCH (09:31)
[2022-12-24] MEDS: INSULIN ASPART PER UNIT CHARGE SC SCH ×4 (09:32→20:29)
--- NOTE | 2022-12-24 13:07 | Hospitalist Progress Note ---
Date of Service December 24, 2022 Assessment & Plan (1) Frequent falls: Plan: Parkinsonism and NPH playing a role. Supportive care. OT and PT assessments noted Oxybutynin also can contribute to falls-stopped this (2) Parkinsonism: Plan: Probably contributing to frequent falls. Not currently on medications for this as per Neuro note from Nov. OT and PT assessments completed and they recommend inpatient rehab at discharge . 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: Plan: Tearful on exam 12/23 and as per daughter having a lot of issues with insomnia Continues on Effexor here at home dose of 225mg daily-Psych consulted and held evening dose Effexor as mario worsen insomnia Was started on Seroquel here bid but now with profound lethargy likely from AM dose Seroquel--> HOLD Seroquel Consult Psych to assist with med management of depression and insomnia in setting of dementia, Parkinsonism, and geriatric patient Add continuous pulse ox while drowsy but doubt anything acute going on-good vitals, does wake up and respond appropriately to pain-will closely monitor with RN as per my discussion withRN (4) Hypomagnesemia: Plan: Magnesium levels remain slightly low but they are improved. Oral magnesium replacement uptitrated and given IV mag resolved (5) Type 2 diabetes mellitus: Plan: ADA diet. With hyperglycemia at lunch but hypoglycemia in AM Continue home Lantus therapy loosen Novlog CF and CR A1C well controlled in 7s (6) Dementia with agitation: Plan: Seroquel started this admission and then increased to twice daily but now held as above for lethargy Continue mementine which was recently started one month ago by Neuro (7) Hypertension: Plan: Stable. Continue current medical management with amlodipine, losartan,. 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 This is causing her frequent falls at home. Supportive care (9) NPH (normal pressure hydrocephalus): Plan: Stable. Supportive care Was not a candidate for shunt as per Neuro notes (10) Hypothyroidism: Plan: TSH low LT4 dose reduced this admission to 50mcg daily but would increase to 75 mcg and repeat labs in 2 months (11) Urinary incontinence: Plan: stopping Oxybutynin for falls (12) Vitamin B1 deficiency: Plan: last checked in September and now normal continue po supplement Plan DVT proph- Lovenox given prolonged stay and immobility Dispo- Hopeful discharge to SNF when arrangements are finalized. Insurance has denied acute rehab placement Discussed care with daughter on phone 12/23 Admission and Anticipated Discharge Date Admission Date: December 18, 2022 Subjective Pt was awake this AM but c/o feeling tired and then has been sleeping ever since. She did wake up for me but only with pen applied pressure to her nail bed. She then jerked awake and yelled "ouch! that hurt!" and then quickly fell back asleep. She did eat breakfast and took all of her pills this AM. As per nursing notes it does appear she slept last night. Physical Exam Constitutional: WD/WN, vitals as above Respiratory: normal respiratory effort, lungs clear to auscultation Cardiovascular: RRR, no murmur, no edema Chest (Breasts): Chest: normal inspection of chest Gastrointestinal (Abdomen): normal bowel sounds, soft, nontender, no hepatosplenomegaly Musculoskeletal: Extremities: extremities normal to inspection; no cyanosis and no clubbing Skin: no rashes, warm and dry Neurologic: moves all extremities; no focal motor deficits Psychiatric: Orientation: + not alert (lethargic) Results & Data Results & Data Vital Signs (Past 12 Hours) Vital Signs Temp Pulse Resp BP BP Pulse Ox O2 Del Method 12/24/22 12:17 58 L 120/74 12/24/22 11:17 36.9 C 69 18 96/62 L 93 Room Air 12/24/22 07:49 36.4 C L 62 19 142/79 H 94 Room Air Laboratory Results BMP, magnesium reviewed PG Care Time/CCT Total # of Minutes Spent Total Time Spent with Patient: Total time spent is greater than 50% in coordination of care (as documented) at patient's floor/unit and/or counseling patient: Coding Level of Care Code 03104 SUB INP/OBS CARE 2/35MIN Diagnoses Frequent falls R29.6 Parkinsonism G20.C Parkinsonism type: unspecified Depression due to dementia F03.93 Hypomagnesemia E83.42 Type 2 diabetes mellitus E11.9 Dementia with agitation F03.911 Hypertension I10 Ataxia R27.0 NPH (normal pressure hydrocephalus) G91.2 Hypothyroidism E03.9 Urinary incontinence R32 Vitamin B1 deficiency E51.9 (2) Parkinsonism Parkinsonism type: unspecified Qualified Code(s): G20.C - Parkinsonism, unspecified
--- NOTE | 2022-12-24 14:45 | Psychiatric Consultation ---
Date of Consultation December 24, 2022 Impression / Recommendations Impression 72 yo female with Parkinson's, NPH, dementia at baseline, increase confusion during hospitalization. I will re-review the chart but other than sleep issues reported at home I don't see much in the way of orourke or aggression while here. Started on Seroquel 25 mg BID initial dose, unclear if having much change in Parkinson's symptoms as currently overly sedated after a few doses which could certainly be side effect. (1) Dementia with agitation: Plan agree with hold Seroquel, if there is an indication to restart I'd suggest 12.5 mg hs starting dose and slower titration. no additional recs re: Effexor XR at this time, still holding hs dose, will need to monitor for any discontinuation syndrome. Overall, I spent a total of 57 minutes with this case, including review of chart/records, direct evaluation of the patient, coordination with nursing and hospitalist, and documentation. Psych History Identifying Data Consult received, chart reviewed. Patient with dementia, NPH, Parkinson's started on Seroquel 25 mg BID by hospitalist on 12/20 for ongoing confusion/agitation. Chief Complaint sedation History of Present Illness today the patient is rather lethargic, Seroquel held by Dr. Giang. as per my initial chart review on 12/23/2022: Consult by Dr. Giang for comanagement given ongoing insomnia and tearfulness. Currently receiving Effexor XR 150 mg po qam and 75 mg po qpm which is hs while inpatient which could be having paradoxical effect. Case reviewed briefly with Dr. Giang, will hold pm dose of Effexor pending full consultation in am. No acute aggression noted in recent nursing notes so avoid increasing Seroquel as hx of falls and patients with Parkinson's can be more sensitive to EPS, would need slow titration, etc. collateral obtained by liaison nurse: Pt. gave verbal consent (BANDAR) for liaison to speak with her daughter, Letty Pop. Liaison spoke with daughter via telephone. According to Letty, pt's orientation tends to be worse in the hospital setting. Overall, she does fairly well at home. Pt normally oriented to person, place, some aspects of date. Letty states days tend to blend together for pt. and she typically does not know the day. Pt. can complete majority of ADL's on her own. Able to use bathroom and shower but sometimes gets tired due to her strength level. She also gets help with meals by having them delivered to the house most days. Letty states that pt's memory started declining approx. 1yr ago and gets worse with her hospital and rehab stays. Hx of depression and SI. Hallucinations in past when "feeling sick" like during a UTI or being in hospital setting. Other than Effexor, Letty can't recall pt. being on any other psych medications. Effexor prescribed by Dr. Meliza Dumont (pcp). Letty doesn't believe pt. ever seeing a psychiatrist or therapist. Hx of suicide attempts in past via medication overdose. Letty states she remembers one of the outcomes pt's overdoses 10+ yrs ago. Pt. at an in psych facility for a few days somewhere towards [place]. Letty unsure of how long pt has had depression but has been at least 15-20yrs. Also unsure of cause for her depression. Letty doesn't recall pt having any trauma or abuse hx. No use of tobacco, marijuana, alcohol or other substances. Pt no longer has access to lethal weapons such as firearms. Allergies Allergy/AdvReac Type Severity Reaction Status Date / Time lisinopril AdvReac hyperkalemi Verified 10/03/22 13:21 a Home Medications Medication Instructions Recorded Confirmed Type calcium carbonate 600 mg calcium 600 mg PO BID 09/25/18 12/18/22 History (1,500 mg) tablet (Calcium) fish oil-dha-epa 1,200 mg-144 1 cap PO BID 09/25/18 12/18/22 History mg-216 mg capsule albuterol sulfate 90 mcg/actuation 2 puff inhalation Q6H PRN 01/21/20 12/18/22 History aerosol inhaler Shortness Of Breath Or Wheezing timolol 0.5 % eye drops 1 drp ophthalmic (eye) QAM 07/07/20 12/18/22 History acetaminophen 500 mg capsule 1,000 mg PO TID PRN Pain 05/11/21 12/18/22 History docusate sodium 100 mg capsule 100 mg PO DAILY 08/04/21 12/18/22 History (Colace) levothyroxine 100 mcg tablet 100 mcg PO QAM #90 tabs 12/23/21 12/18/22 Rx metformin 500 mg tablet 1,000 mg PO BID #360 tabs 12/23/21 12/18/22 Rx simvastatin 40 mg tablet 40 mg PO QPM #90 tabs 12/23/21 12/18/22 Rx aspirin 81 mg tablet,delayed 81 mg PO DAILY 02/22/22 12/18/22 History release cyanocobalamin (vitamin B-12) 500 1,000 mcg PO QAM #60 tabs 03/10/22 12/18/22 Rx mcg tablet magnesium oxide 400 mg (241.3 mg 400 mg PO BID #60 tabs 03/10/22 12/18/22 Rx magnesium) tablet losartan 50 mg tablet 50 mg PO QAM #0 tabs 04/27/22 12/18/22 Rx famotidine 20 mg tablet (Pepcid) 20 mg PO DAILY acid 05/16/22 12/18/22 History reflux/heartburn omeprazole 20 mg capsule,delayed 20 mg PO DAILY 05/16/22 12/18/22 History release venlafaxine 75 mg capsule,extended See Rx Instructions PO DAILY 05/16/22 12/18/22 History release 24 hr thiamine HCl (vitamin B1) 250 mg 250 mg PO DAILY #30 tabs 05/22/22 12/18/22 Rx tablet pen needle, diabetic 32 gauge x #100 ea 06/15/22 12/18/22 Rx 1/4" (BD Ultra-Fine Micro Pen Needle) naproxen 500 mg tablet 500 mg PO BID PRN pain #180 tabs 08/31/22 12/18/22 Rx amlodipine 5 mg tablet (Norvasc) 5 mg PO DAILY #90 tabs 09/04/22 12/18/22 Rx metoprolol tartrate 50 mg tablet 50 mg PO BID 09/04/22 12/18/22 History oxybutynin chloride 10 mg 10 mg PO DAILY #90 tabs 09/08/22 12/18/22 Rx tablet,extended release 24 hr memantine 10 mg tablet 10 mg PO BID #60 tabs 11/17/22 12/18/22 Rx insulin glargine 100 unit/mL (3 16 unit (0.16 mL) subcut DAILY 90 12/12/22 12/18/22 Rx mL) subcutaneous pen (Lantus days #15 mL Solostar U-100 Insulin) Patient History Medical History Acid reflux B12 deficiency Bladder spasms Coronary artery disease Depression due to dementia Depression with anxiety Fatty liver Frequent falls Gait disturbance Generalized osteoarthritis Glaucoma H/O deep venous thrombosis (04/2021) post op left TKA Hearing difficulty Hiatal hernia Hyperlipidemia Hypertension Hypertensive urgency Hypokalemia Hypomagnesemia Hypothyroidism Iron deficiency anemia Ischial bursitis Lumbar back pain Multiple pulmonary nodules Obesity Orthostatic hypotension Type 2 diabetes mellitus Urinary incontinence Vitamin B1 deficiency Surgical History History of cardiac cath >10 yrs ago ([facility]) > no stents History of carpal tunnel surgery R/L History of cataract surgery R/L History of section x1 History of cholecystectomy History of colonoscopy Colonoscopy (10/02/18): MAC sedation at [facility] History of esophagogastroduodenoscopy (EGD) EGD/colonoscopy (08/25/20): MAC at [facility] History of hysterectomy Total History of tonsillectomy History of tooth extraction S/P trigger finger release left Status post total knee replacement left knee 05/10/21 Family History Father Family history of diabetes mellitus Myocardial infarction, Onset Age: 56 Mother Anxiety Grandfather (Paternal) Throat cancer Other No family history of adverse response to anesthesia Denies family history of Ovarian cancer Prostate cancer Breast cancer Colorectal cancer Social History Smoking Status: Never smoker Second Hand Exposure: No; Do You Dip or Chew Tobacco: No; Hx Alcohol Use: No Hx Substance Use: No Preferred Language: Hungarian Communication Ability: Effective Communication Ability Comment: hard of hearing Visual Impairment: No Limitations Hearing Ability: Use of Hearing Aid Handle Machine Operator Required: No Beliefs That Will Affect Care: None marital status: Current Living Situation: Alone Current Living Situation Comment: possible placement- daughter expressed concerns with recent illness current occupational status: retired 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 [employer] Feels Safe at Home: Yes Safety Concerns Comment: son kaitlin estrada Childhood Exposure to Second-Hand Smoke: No Diet: regular Dental Care, Regularly: No Physical Activity Frequency: 3-4 Times per Week Seatbelt Use: always Sunscreen Use: Yes Assistive Devices: Cane and Walker Physical Exam Psychiatric: Orientation: + not alert (lethargic) and + not oriented to time Vital Signs (Past 24 Hours): Last Vital Signs Temp 36.9 C 12/24/22 13:04 Pulse 61 12/24/22 13:04 Resp 16 12/24/22 13:04 BP 129/78 12/24/22 13:04 Pulse Ox 95 12/24/22 13:04 O2 Del Method Room Air 12/24/22 13:04 Review of Systems Unobtainable due to cognitive status Results & Data (PSY) Laboratory Results 12/24/22 12/24/22 12/24/22 Range/Units 11:52 11:50 08:10 Sodium (136-145) mmol/L Potassium (3.5-5.1) mmol/L Chloride (98-107) mmol/L Carbon Dioxide (21-32) mmol/L Anion Gap (3-11) BUN (6-23) mg/dl Creatinine (0.6-1.2) mg/dl Est Cr Clr Drug Dosing ml/min Est GFR ( Amer) ml/min Est GFR (Non-Af Amer) ml/min BUN/Creatinine Ratio (10-20) Glucose (70-99(Fasting)) mg/dl POC Glucose 360 H* 324 H* 108 H (70-99) mg/dl Calcium (8.6-10.3) mg/dl Magnesium (1.7-2.4) mg/dl 12/24/22 12/23/22 12/23/22 Range/Units 06:16 20:42 17:29 Sodium 139 (136-145) mmol/L Potassium 4.8 (3.5-5.1) mmol/L Chloride 109 H (98-107) mmol/L Carbon Dioxide 22 (21-32) mmol/L Anion Gap 8 (3-11) BUN 34 H (6-23) mg/dl Creatinine 0.96 (0.6-1.2) mg/dl Est Cr Clr Drug Dosing 48.4 ml/min Est GFR ( Amer) 69.0 ml/min Est GFR (Non-Af Amer) 59.5 ml/min BUN/Creatinine Ratio 35.4 H (10-20) Glucose 106 H (70-99(Fasting)) mg/dl POC Glucose 100 H 76 (70-99) mg/dl Calcium 9.3 (8.6-10.3) mg/dl Magnesium 1.8 (1.7-2.4) mg/dl 12/23/22 12/23/22 Range/Units 17:06 17:05 Sodium (136-145) mmol/L Potassium (3.5-5.1) mmol/L Chloride (98-107) mmol/L Carbon Dioxide (21-32) mmol/L Anion Gap (3-11) BUN (6-23) mg/dl Creatinine (0.6-1.2) mg/dl Est Cr Clr Drug Dosing ml/min Est GFR ( Amer) ml/min Est GFR (Non-Af Amer) ml/min BUN/Creatinine Ratio (10-20) Glucose (70-99(Fasting)) mg/dl POC Glucose 67 L* 62 L* (70-99) mg/dl Calcium (8.6-10.3) mg/dl Magnesium (1.7-2.4) mg/dl Medications Administered Acetaminophen (Acetaminophen 500 Mg Tab) 1,000 mg PO TID PRN PRN Reason: Pain Stop: 01/17/23 05:12 Last Admin: 12/19/22 16:32 Dose: 1,000 mg Documented By: NICKI Amlodipine Besylate (Amlodipine Besylate 5 Mg Tab) 5 mg PO DAILY DAVID Stop: 01/17/23 08:59 Last Admin: 12/24/22 09:30 Dose: 5 mg Documented By: [id number] Admin: 12/23/22 08:49 Dose: 5 mg Documented By: Admin: 12/22/22 10:00 Dose: 5 mg Documented By: Admin: 12/21/22 10:59 Dose: 5 mg Documented By: Admin: 12/20/22 08:23 Dose: 5 mg Documented By: Admin: 12/19/22 08:03 Dose: 5 mg Documented By: Admin: 12/18/22 07:45 Dose: 5 mg Documented By: MYLES Aspirin (Aspirin 81 Mg Ectab) 81 mg PO DAILY DAVID Stop: 01/17/23 08:59 Last Admin: 12/24/22 09:30 Dose: 81 mg Documented By: [id number] Admin: 12/23/22 08:49 Dose: 81 mg Documented By: Admin: 12/22/22 09:58 Dose: 81 mg Documented By: Admin: 12/21/22 11:00 Dose: 81 mg Documented By: Admin: 12/20/22 08:23 Dose: 81 mg Documented By: Admin: 12/19/22 08:03 Dose: 81 mg Documented By: Admin: 12/18/22 07:45 Dose: 81 mg Documented By: MYLES Calcium Carbonate (Calcium Carbonate 1250mg Tab) 1,250 mg PO BID DAVID Stop: 01/17/23 08:59 Last Admin: 12/24/22 09:30 Dose: 1,250 mg Documented By: [id number] Admin: 12/23/22 20:20 Dose: 1,250 mg Documented By: Admin: 12/23/22 08:49 Dose: 1,250 mg Documented By: Admin: 12/22/22 20:12 Dose: 1,250 mg Documented By: Admin: 12/22/22 09:58 Dose: 1,250 mg Documented By: Admin: 12/21/22 21:21 Dose: 1,250 mg Documented By: Admin: 12/21/22 10:59 Dose: 1,250 mg Documented By: Admin: 12/20/22 20:24 Dose: 1,250 mg Documented By: Admin: 12/20/22 08:21 Dose: 1,250 mg Documented By: Admin: 12/19/22 21:52 Dose: 1,250 mg Documented By: Admin: 12/19/22 08:03 Dose: 1,250 mg Documented By: Admin: 12/18/22 21:04 Dose: 1,250 mg Documented By: Admin: 12/18/22 07:46 Dose: 1,250 mg Documented By: MYLES Cyanocobalamin (Cyanocobalamin (B-12) 500 Mcg Tablet) 1,000 mcg PO QAM DAVID Stop: 01/17/23 08:59 Last Admin: 12/24/22 09:30 Dose: 1,000 mcg Documented By: [id number] Admin: 12/23/22 08:49 Dose: 1,000 mcg Documented By: Admin: 12/22/22 09:58 Dose: 1,000 mcg Documented By: Admin: 12/21/22 11:00 Dose: 1,000 mcg Documented By: Admin: 12/20/22 08:22 Dose: 1,000 mcg Documented By: Admin: 12/19/22 08:03 Dose: 1,000 mcg Documented By: Admin: 12/18/22 07:45 Dose: 1,000 mcg Documented By: MYLES Docusate Sodium (Docusate Sodium 100 Mg Cap) 100 mg PO DAILY DAVID Stop: 01/17/23 08:59 Last Admin: 12/24/22 09:29 Dose: 100 mg Documented By: [id number] Admin: 12/23/22 08:55 Dose: 100 mg Documented By: Admin: 12/22/22 09:58 Dose: 100 mg Documented By: Admin: 12/21/22 11:14 Dose: 100 mg Documented By: Admin: 12/20/22 09:12 Dose: 100 mg Documented By: Admin: 12/19/22 09:07 Dose: 100 mg Documented By: Admin: 12/18/22 07:46 Dose: 100 mg Documented By: MYLES Enoxaparin Sodium (Enoxaparin Inj 40 Mg/0.4 Ml Syr) 40 mg SQ Q24H DAVID Stop: 01/22/23 16:14 Last Admin: 12/23/22 18:02 Dose: 40 mg Documented By: JOSIAH Famotidine (Famotidine 20 Mg Tab) 20 mg PO DAILY DAVID Stop: 01/17/23 08:59 Last Admin: 12/24/22 09:30 Dose: 20 mg Documented By: [id number] Admin: 12/23/22 08:48 Dose: 20 mg Documented By: Admin: 12/22/22 09:59 Dose: 20 mg Documented By: Admin: 12/21/22 10:59 Dose: 20 mg Documented By: Admin: 12/20/22 08:23 Dose: 20 mg Documented By: Admin: 12/19/22 08:03 Dose: 20 mg Documented By: Admin: 12/18/22 07:46 Dose: 20 mg Documented By: MYLES Hydralazine HCl (Hydralazine Hcl 20 Mg/Ml Vial) 10 mg IV Q2H PRN PRN Reason: SBP > 180 or DBP > 110 Stop: 01/18/23 14:24 Last Admin: 12/19/22 14:39 Dose: 10 mg Documented By: RRR Insulin Aspart (Insulin Aspart Per Unit Charge) 0 units SC ACHS DAVID Stop: 01/17/23 07:29 Last Admin: 12/24/22 13:06 Dose: 8 units Documented By: SIVAKUMAR Co-signed By: ALBIN Admin: 12/24/22 09:32 Dose: Not Given Documented By: [id number] Admin: 12/23/22 21:45 Dose: Not Given Documented By: Admin: 12/23/22 17:58 Dose: 2 units Documented By: JOSIAH Co-signed By: MARTHA Admin: 12/23/22 12:53 Dose: 11 units Documented By: JOSIAH Co-signed By: MARTHA Admin: 12/23/22 08:49 Dose: 7 units Documented By: JOSIAH Co-signed By: MARTHA Admin: 12/22/22 22:11 Dose: Not Given Documented By: Admin: 12/22/22 18:08 Dose: 5 units Documented By: EUNICE Co-signed By: EMILIANO Admin: 12/22/22 13:48 Dose: 4 units Documented By: AMS Co-signed By: BISI Admin: 12/22/22 09:23 Dose: 2 units Documented By: AMS Co-signed By: SM Admin: 12/21/22 21:30 Dose: 6 units Documented By: QUANG Co-signed By: COLLETTE Admin: 12/21/22 18:06 Dose: Not Given Documented By: Admin: 12/21/22 13:03 Dose: 1 units Documented By: KKS Co-signed By: KJL Admin: 12/21/22 08:40 Dose: Not Given Documented By: Admin: 12/20/22 20:37 Dose: 3 units Documented By: CLR Co-signed By: AMS(2) Admin: 12/20/22 17:54 Dose: 4 units Documented By: MG Co-signed By: BRANDI Admin: 12/20/22 12:52 Dose: 10 units Documented By: MG Co-signed By: ANGELF Admin: 12/20/22 09:12 Dose: 4 units Documented By: MG Co-signed By: ALBIN(2) Admin: 12/19/22 21:25 Dose: 1 units Documented By: COLLETTE Co-signed By: LEONOR Admin: 12/19/22 17:31 Dose: Not Given Documented By: NICKI Co-signed By: Admin: 12/19/22 13:11 Dose: 8 units Documented By: TAJ Co-signed By: ECTOR Admin: 12/19/22 09:05 Dose: 4 units Documented By: TAJ Co-signed By: ECTOR Admin: 12/18/22 21:03 Dose: 4 units Documented By: LEONOR Co-signed By: CAMRYN Admin: 12/18/22 18:29 Dose: 5 units Documented By: MAY Co-signed By: JUANA Admin: 12/18/22 13:26 Dose: 2 units Documented By: AMY Co-signed By: JUANA Admin: 12/18/22 07:50 Dose: 5 units Documented By: MYLES Co-signed By: KHRIS Insulin Glargine (Lantus Per Unit Charge) 16 units SQ DAILY [facility] Stop: 01/17/23 08:59 Last Admin: 12/24/22 09:31 Dose: 16 units Documented By: [id number] Co-signed By: EMILIANO Admin: 12/23/22 08:49 Dose: 16 units Documented By: JOSIAH Co-signed By: MARTHA Admin: 12/22/22 09:23 Dose: 16 units Documented By: EUNICE Co-signed By: BISI Admin: 12/21/22 09:29 Dose: 16 units Documented By: KISHOR Co-signed By: AMY Admin: 12/20/22 09:12 Dose: 16 units Documented By: Co-signed By: ALBIN(2) Admin: 12/19/22 09:13 Dose: 16 units Documented By: TAJ Co-signed By: ECTOR Admin: 12/18/22 08:17 Dose: 16 units Documented By: MYLES Co-signed By: GUI Levothyroxine Sodium (Levothyroxine Sodium 75 Mcg Tablet) 75 mcg PO DAILYBB [facility] Stop: 01/23/23 06:29 Last Admin: 12/24/22 05:51 Dose: 75 mcg Documented By: OLIMPIAG Losartan Potassium (Losartan Potassium 50 Mg Tab) 50 mg PO QAM [facility] Stop: 01/17/23 08:59 Last Admin: 12/24/22 09:30 Dose: 50 mg Documented By: [id number] Admin: 12/23/22 08:48 Dose: 50 mg Documented By: Admin: 12/22/22 09:59 Dose: 50 mg Documented By: Admin: 12/21/22 10:58 Dose: 50 mg Documented By: Admin: 12/20/22 08:24 Dose: 50 mg Documented By: Admin: 12/19/22 08:02 Dose: 50 mg Documented By: Admin: 12/18/22 07:47 Dose: 50 mg Documented By: MYLES Magnesium Oxide (Magnesium Oxide 400 Mg Tab) 800 mg PO BID DAVID Stop: 01/20/23 20:59 Last Admin: 12/24/22 09:30 Dose: 800 mg Documented By: [id number] Admin: 12/23/22 20:19 Dose: 800 mg Documented By: Admin: 12/23/22 08:48 Dose: 800 mg Documented By: Admin: 12/22/22 20:11 Dose: 800 mg Documented By: Admin: 12/22/22 09:59 Dose: 800 mg Documented By: Admin: 12/21/22 21:21 Dose: 800 mg Documented By: QUANG Memantine (Memantine Hcl 10 Mg Tab) 10 mg PO BID DAVID Stop: 01/17/23 08:59 Last Admin: 12/24/22 09:30 Dose: 10 mg Documented By: [id number] Admin: 12/23/22 20:20 Dose: 10 mg Documented By: Admin: 12/23/22 08:48 Dose: 10 mg Documented By: Admin: 12/22/22 20:10 Dose: 10 mg Documented By: Admin: 12/22/22 09:59 Dose: 10 mg Documented By: Admin: 12/21/22 21:24 Dose: 10 mg Documented By: Admin: 12/21/22 10:58 Dose: 10 mg Documented By: Admin: 12/20/22 20:23 Dose: 10 mg Documented By: Admin: 12/20/22 08:22 Dose: 10 mg Documented By: Admin: 12/19/22 21:51 Dose: 10 mg Documented By: Admin: 12/19/22 08:02 Dose: 10 mg Documented By: Admin: 12/18/22 21:05 Dose: 10 mg Documented By: Admin: 12/18/22 07:47 Dose: 10 mg Documented By: MYLES Metoprolol Tartrate (Metoprolol Tartrate 50 Mg Tab) 50 mg PO BID DAVID Stop: 01/17/23 08:59 Last Admin: 12/24/22 09:30 Dose: 50 mg Documented By: [id number] Admin: 12/23/22 20:19 Dose: 50 mg Documented By: Admin: 12/23/22 08:48 Dose: 50 mg Documented By: Admin: 12/22/22 20:13 Dose: 50 mg Documented By: Admin: 12/22/22 09:59 Dose: 50 mg Documented By: Admin: 12/21/22 21:23 Dose: 50 mg Documented By: Admin: 12/21/22 10:58 Dose: 50 mg Documented By: Admin: 12/20/22 20:23 Dose: 50 mg Documented By: Admin: 12/20/22 08:21 Dose: 50 mg Documented By: Admin: 12/19/22 21:53 Dose: 50 mg Documented By: Admin: 12/19/22 08:02 Dose: 50 mg Documented By: Admin: 12/18/22 21:05 Dose: 50 mg Documented By: Admin: 12/18/22 07:46 Dose: 50 mg Documented By: MYLES Miscellaneous (Carbohydrates For Hypoglycemia ) 15 - 30 gm PO UD PRN PRN Reason: Hypoglycemia Protocol Stop: 01/17/23 05:12 Last Admin: 12/23/22 17:11 Dose: 15 gm Documented By: JOSIAH Quetiapine Fumarate (Quetiapine Fumarate 25 Mg Tablet) 25 mg PO BID DAVID Stop: 01/19/23 20:59 Last Admin: 12/24/22 09:30 Dose: 25 mg Documented By: [id number] Admin: 12/23/22 20:18 Dose: 25 mg Documented By: Admin: 12/23/22 08:48 Dose: 25 mg Documented By: Admin: 12/22/22 20:13 Dose: 25 mg Documented By: Admin: 12/22/22 10:00 Dose: 25 mg Documented By: Admin: 12/21/22 21:21 Dose: 25 mg Documented By: Admin: 12/21/22 10:58 Dose: 25 mg Documented By: Admin: 12/20/22 20:24 Dose: 25 mg Documented By: COLLETTE Simvastatin (Simvastatin 40 Mg Tab) 40 mg PO QPM DAVID Stop: 01/17/23 20:59 Last Admin: 12/23/22 20:21 Dose: 40 mg Documented By: Admin: 12/22/22 20:11 Dose: 40 mg Documented By: Admin: 12/21/22 21:24 Dose: 40 mg Documented By: Admin: 12/20/22 20:24 Dose: 40 mg Documented By: Admin: 12/19/22 21:51 Dose: 40 mg Documented By: Admin: 12/18/22 21:04 Dose: 40 mg Documented By: LEONOR Thiamine HCl (Thiamine Hcl 50 Mg Tablet) 250 mg PO DAILY DAVID Stop: 01/17/23 08:59 Last Admin: 12/24/22 09:29 Dose: 250 mg Documented By: [id number] Admin: 12/23/22 08:48 Dose: 250 mg Documented By: Admin: 12/22/22 10:00 Dose: 250 mg Documented By: Admin: 12/21/22 10:57 Dose: 250 mg Documented By: Admin: 12/20/22 08:22 Dose: 250 mg Documented By: Admin: 12/19/22 08:01 Dose: 250 mg Documented By: Admin: 12/18/22 07:47 Dose: 250 mg Documented By: MYLES Timolol Maleate (Timolol Maleate 0.5% Op Soln 5 Ml Btl) 1 drops OP QAM DAVID Stop: 01/17/23 08:59 Last Admin: 12/24/22 09:29 Dose: 1 drops Documented By: [id number] Admin: 12/23/22 08:49 Dose: 1 drops Documented By: Admin: 12/22/22 10:01 Dose: 1 drops Documented By: Admin: 12/21/22 10:55 Dose: 1 drops Documented By: Admin: 12/20/22 08:23 Dose: 1 drops Documented By: Admin: 12/19/22 11:09 Dose: 1 drops Documented By: Admin: 12/18/22 07:48 Dose: 1 drops Documented By: MYLES Venlafaxine HCl (Venlafaxine Hcl Xr 75 Mg Capxr) 150 mg PO DAILY DAVID Stop: 01/17/23 08:59 Last Admin: 12/24/22 09:31 Dose: 150 mg Documented By: [id number] Admin: 12/23/22 08:47 Dose: 150 mg Documented By: Admin: 12/22/22 10:00 Dose: 150 mg Documented By: Admin: 12/21/22 10:57 Dose: 150 mg Documented By: Admin: 12/20/22 08:21 Dose: 150 mg Documented By: Admin: 12/19/22 08:00 Dose: 150 mg Documented By: Admin: 12/18/22 07:48 Dose: 150 mg Documented By: NH Venlafaxine HCl (Venlafaxine Hcl Xr 75 Mg Capxr) 75 mg PO PM DAVID Stop: 01/17/23 20:59 Last Admin: 12/22/22 20:10 Dose: 75 mg Documented By: Admin: 12/21/22 21:25 Dose: 75 mg Documented By: Admin: 12/20/22 20:23 Dose: 75 mg Documented By: Admin: 12/19/22 21:52 Dose: 75 mg Documented By: Admin: 12/18/22 21:05 Dose: 75 mg Documented By: LEONOR Coding Level of Care Code 42633 U Intl Hosp Care Lvl 2 Diagnoses Dementia with agitation F03.911
[2022-12-24] MEDS: ENOXAPARIN INJ 40 MG/0.4 ML SYR SQ SCH (17:28)
[2022-12-24] MEDS: SIMVASTATIN 40 MG TAB PO SCH (20:33)
[2022-12-25] MEDS: LEVOTHYROXINE SODIUM 75 MCG TABLET PO SCH (06:03)
[2022-12-25] MEDS: amLODIPine BESYLATE 5 MG TAB PO SCH (08:12)
[2022-12-25] MEDS: DOCUSATE SODIUM 100 MG CAP PO SCH (08:12)
[2022-12-25] MEDS: ASPIRIN 81 MG ECTAB PO SCH (08:12)
[2022-12-25] MEDS: THIAMINE HCL 50 MG TABLET PO SCH (08:12)
[2022-12-25] MEDS: METOPROLOL TARTRATE 50 MG TAB PO SCH ×2 (08:13→20:03)
[2022-12-25] MEDS: LOSARTAN POTASSIUM 50 MG TAB PO SCH (08:13)
[2022-12-25] MEDS: CALCIUM CARBONATE 1250MG TAB PO SCH ×2 (08:13→20:02)
[2022-12-25] MEDS: MAGNESIUM OXIDE 400 MG TAB PO SCH ×2 (08:13→20:03)
[2022-12-25] MEDS: CYANOCOBALAMIN (B-12) 500 MCG TABLET PO SCH (08:13)
[2022-12-25] MEDS: FAMOTIDINE 20 MG TAB PO SCH (08:14)
[2022-12-25] MEDS: TIMOLOL MALEATE 0.5% OP SOLN 5 ML BTL OP SCH (08:14)
[2022-12-25] MEDS: VENLAFAXINE HCL XR 75 MG CAPXR PO SCH (08:14)
[2022-12-25] MEDS: MEMANTINE HCL 10 MG TAB PO SCH ×2 (08:14→20:02)
[2022-12-25] MEDS: LANTUS PER UNIT CHARGE SQ SCH (08:23)
[2022-12-25] MEDS: INSULIN ASPART PER UNIT CHARGE SC SCH ×4 (08:24→21:09)
--- NOTE | 2022-12-25 13:49 | Hospitalist Progress Note ---
Date of Service December 25, 2022 Assessment & Plan (1) Frequent falls: Plan: Parkinsonism and NPH playing a role. Supportive care. OT and PT assessments noted Oxybutynin also can contribute to falls-stopped this (2) Parkinsonism: Plan: Probably contributing to frequent falls. Not currently on medications for this as per Neuro note from Nov. OT and PT assessments completed and they recommend inpatient rehab at discharge . 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 continue Effexor 150mg qAM Was started on Seroquel here bid but then had profound lethargy likely from AM dose Seroquel--> HELD Seroquel and now MUCH improved but not sleeping at all--> restart Seroquel 12.5mg po hs Consult Psych to assist with med management of depression and insomnia in setting of dementia, Parkinsonism, and geriatric patient (4) Hypomagnesemia: Plan: Magnesium replaced and reoslved -continue Oral magnesium replacement (5) Type 2 diabetes mellitus: Plan: ADA diet. With hyperglycemia persisting at lunch but low to normal AM glucose Continue Lantus therapy but increase to 18 units qAM Make Novolog CR tighter at 1:12 A1C well controlled in 7s (6) Dementia with agitation: Plan: Seroquel started this admission and then increased to twice daily but now held as above for lethargy Now restart at 12.5mg hs for insomnia Continue mementine which was recently started one month ago by Neuro (7) Hypertension: Plan: Stable. Continue current medical management with amlodipine, losartan,. 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 This is causing her frequent falls at home. Supportive care (9) NPH (normal pressure hydrocephalus): Plan: Stable. Supportive care Was not a candidate for shunt as per Neuro notes (10) Hypothyroidism: Plan: TSH low LT4 dose reduced this admission to 50mcg daily but would increase to 75 mcg and repeat labs in 2 months (11) Urinary incontinence: Plan: stopping Oxybutynin for falls (12) Vitamin B1 deficiency: Plan: last checked in September and now normal continue po supplement Plan DVT proph- Lovenox given prolonged stay and immobility Dispo- Hopeful discharge to SNF when arrangements are finalized. Insurance has denied acute rehab placement Discussed care with daughter on phone 12/23 Admission and Anticipated Discharge Date Admission Date: December 18, 2022 Subjective DId not sleep well last night as per RN. Today she has been impulsive, getting up from chair without supervision, agitated about why she can't leave. I saw her and she was pleasant, much improved mentation from yesterday. She does recall having a lot of falls at home and understands the need for rehab stay. Has some pain in her left ribs but no bruising. Physical Exam Constitutional: WD/WN, vitals as above Respiratory: normal respiratory effort, lungs clear to auscultation Cardiovascular: RRR, no murmur, no edema Chest (Breasts): Chest: normal inspection of chest Additional Comments: no bruising left ribs, no ttp Gastrointestinal (Abdomen): normal bowel sounds, soft, nontender, no hepatosplenomegaly Musculoskeletal: Extremities: extremities normal to inspection; no cyanosis and no clubbing Skin: no rashes, warm and dry Neurologic: moves all extremities and awake; no focal motor deficits Psychiatric: Orientation: oriented to person, oriented to place and cooperative Results & Data Results & Data Vital Signs (Past 12 Hours) Vital Signs Temp Pulse Resp BP Pulse Ox O2 Del Method 12/25/22 08:35 37.2 C 89 16 138/81 94 Room Air PG Care Time/CCT Total # of Minutes Spent Total Time Spent with Patient: Total time spent is greater than 50% in coordination of care (as documented) at patient's floor/unit and/or counseling patient: Coding Level of Care Code 02788 SUB INP/OBS CARE 2/35MIN Diagnoses Frequent falls R29.6 Parkinsonism G20.C Parkinsonism type: unspecified Depression due to dementia F03.93 Hypomagnesemia E83.42 Type 2 diabetes mellitus E11.9 Dementia with agitation F03.911 Hypertension I10 Ataxia R27.0 NPH (normal pressure hydrocephalus) G91.2 Hypothyroidism E03.9 Urinary incontinence R32 Vitamin B1 deficiency E51.9 (2) Parkinsonism Parkinsonism type: unspecified Qualified Code(s): G20.C - Parkinsonism, unspecified
[2022-12-25] MEDS: ENOXAPARIN INJ 40 MG/0.4 ML SYR SQ SCH (17:24)
[2022-12-25] MEDS: SIMVASTATIN 40 MG TAB PO SCH (20:04)
[2022-12-25] MEDS: QUEtiapine FUMARATE 25 MG TABLET PO SCH (20:04)
[2022-12-26] MEDS: LEVOTHYROXINE SODIUM 75 MCG TABLET PO SCH (06:52)
[2022-12-26] MEDS: TIMOLOL MALEATE 0.5% OP SOLN 5 ML BTL OP SCH (08:14)
[2022-12-26] MEDS: VENLAFAXINE HCL XR 75 MG CAPXR PO SCH (08:15)
[2022-12-26] MEDS: amLODIPine BESYLATE 5 MG TAB PO SCH (08:15)
[2022-12-26] MEDS: LOSARTAN POTASSIUM 50 MG TAB PO SCH (08:15)
[2022-12-26] MEDS: CYANOCOBALAMIN (B-12) 500 MCG TABLET PO SCH (08:15)
[2022-12-26] MEDS: THIAMINE HCL 50 MG TABLET PO SCH (08:15)
[2022-12-26] MEDS: MEMANTINE HCL 10 MG TAB PO SCH ×2 (08:15→20:03)
[2022-12-26] MEDS: MAGNESIUM OXIDE 400 MG TAB PO SCH ×2 (08:15→20:04)
[2022-12-26] MEDS: CALCIUM CARBONATE 1250MG TAB PO SCH ×2 (08:15→20:04)
[2022-12-26] MEDS: METOPROLOL TARTRATE 50 MG TAB PO SCH ×2 (08:15→20:03)
[2022-12-26] MEDS: ASPIRIN 81 MG ECTAB PO SCH (08:15)
[2022-12-26] MEDS: DOCUSATE SODIUM 100 MG CAP PO SCH (08:21)
[2022-12-26] MEDS: LANTUS PER UNIT CHARGE SQ SCH (08:21)
[2022-12-26] MEDS: INSULIN ASPART PER UNIT CHARGE SC SCH ×4 (08:22→20:03)
[2022-12-26] MEDS: FAMOTIDINE 20 MG TAB PO SCH (12:35)
--- NOTE | 2022-12-26 14:36 | Hospitalist Progress Note ---
Date of Service December 26, 2022 Assessment & Plan (1) Frequent falls: Plan: Parkinsonism and NPH playing a role. Supportive care. OT and PT assessments noted Oxybutynin also can contribute to falls-stopped this (2) Parkinsonism: Plan: Probably contributing to frequent falls. Not currently on medications for this as per Neuro note from Nov. OT and PT assessments completed and they recommend inpatient rehab at discharge . 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 continue Effexor 150mg qAM Was started on Seroquel here 25mg bid but then had profound lethargy likely from AM dose Seroquel--> HELD Seroquel and now MUCH improved but not sleeping at all--> restarted Seroquel 12.5mg po hs Consult Psych to assist with med management of depression and insomnia in setting of dementia, Parkinsonism, and geriatric patient (4) Hypomagnesemia: Plan: Magnesium replaced and reoslved -continue Oral magnesium replacement (5) Type 2 diabetes mellitus: Plan: ADA diet. With hyperglycemia persisting at lunch but low to normal AM glucose Continue Lantus therapy 18 units qAM tighten Novolog CF and continue Novolog CR at 1:12 A1C well controlled in 7s (6) Dementia with agitation: Plan: Seroquel started this admission and then increased to twice daily but now held as above for lethargy Now restarted at 12.5mg hs for insomnia Continue mementine which was recently started one month ago by Neuro (7) Hypertension: Plan: Stable. Continue current medical management with amlodipine, losartan,. 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 This is causing her frequent falls at home. Supportive care (9) NPH (normal pressure hydrocephalus): Plan: Stable. Supportive care Was not a candidate for shunt as per Neuro notes (10) Hypothyroidism: Plan: TSH low LT4 dose reduced this admission to 50mcg daily but would increase to 75 mcg and repeat labs in 2 months (11) Urinary incontinence: Plan: stopping Oxybutynin for falls (12) Vitamin B1 deficiency: Plan: last checked in September and now normal continue po supplement Plan DVT proph- Lovenox given prolonged stay and immobility Dispo- Hopeful discharge to SNF when arrangements are finalized. Insurance has denied acute rehab placement Discussed care with daughter on phone 12/23 Admission and Anticipated Discharge Date Admission Date: December 18, 2022 Subjective Pt calm and cooperative today. Was crying when I entered the room. Is reminiscing about her dog that and wants to know if she can have one of her 6 puppies at home brought into the hospital. Is upset about having to go to a rehab but does understand she needs to go because of her falls. At first she states "I haven't fallen in a long time," then I reminded her she did and then she said "oh yeah I fell and hit my head." Physical Exam Constitutional: WD/WN, vitals as above Respiratory: normal respiratory effort, lungs clear to auscultation Cardiovascular: RRR, no murmur, no edema Chest (Breasts): Chest: normal inspection of chest Gastrointestinal (Abdomen): normal bowel sounds, soft, nontender, no hepatosplenomegaly Musculoskeletal: Extremities: extremities normal to inspection; no cyanosis and no clubbing Skin: no rashes, warm and dry Neurologic: moves all extremities and awake; no focal motor deficits Psychiatric: Orientation: oriented to person, oriented to place and cooperative; + not oriented to time Affect: + tearful affect Mood: + depressed mood Results & Data Results & Data Vital Signs (Past 12 Hours) Vital Signs Temp Pulse Resp BP BP Pulse Ox O2 Del Method 12/26/22 08:00 Room Air 12/26/22 09:00 69 122/76 12/26/22 08:02 36.4 C L 69 16 181/74 H 95 Room Air PG Care Time/CCT Total # of Minutes Spent Total Time Spent with Patient: Total time spent is greater than 50% in coordination of care (as documented) at patient's floor/unit and/or counseling patient: Coding Level of Care Code 49621 SUB INP/OBS CARE 2/35MIN Diagnoses Frequent falls R29.6 Parkinsonism G20.C Parkinsonism type: unspecified Depression due to dementia F03.93 Hypomagnesemia E83.42 Type 2 diabetes mellitus E11.9 Dementia with agitation F03.911 Hypertension I10 Ataxia R27.0 NPH (normal pressure hydrocephalus) G91.2 Hypothyroidism E03.9 Urinary incontinence R32 Vitamin B1 deficiency E51.9 (2) Parkinsonism Parkinsonism type: unspecified Qualified Code(s): G20.C - Parkinsonism, unspecified
--- NOTE | 2022-12-26 14:46 | Communication Note ---
Date of Service: December 26, [address] Giang, patient resumed Seroquel 12.5 mg and sleep was improved overnight. Now that sedation has resolved she is more tearful, talking of her pet. Otherwise no sx of Effexor discontinuation syndrome. As symptoms were present on higher daily dose of Effexor XR, no rationale to consolidate previous dose to am. Could certainly add Lexapro and taper Effexor XR over time but would not have as much as an immediate effect as retitrating Seroquel plus still trying to figure out tolerability of Seroquel. Differential includes depression, anxiety, or mild delirium/confusion superimposed on baseline cognition, or pseudobulbar affect.
[2022-12-26] MEDS: ENOXAPARIN INJ 40 MG/0.4 ML SYR SQ SCH (17:57)
[2022-12-26] MEDS: SIMVASTATIN 40 MG TAB PO SCH (20:04)
[2022-12-26] MEDS: QUEtiapine FUMARATE 25 MG TABLET PO SCH (20:57)
[2022-12-27] MEDS: LEVOTHYROXINE SODIUM 75 MCG TABLET PO SCH (05:38)
[2022-12-27] MEDS: INSULIN ASPART PER UNIT CHARGE SC SCH ×4 (08:20→20:24)
[2022-12-27] MEDS: LANTUS PER UNIT CHARGE SQ SCH (08:20)
[2022-12-27] MEDS: CALCIUM CARBONATE 1250MG TAB PO SCH ×2 (08:21→20:25)
[2022-12-27] MEDS: CYANOCOBALAMIN (B-12) 500 MCG TABLET PO SCH (08:21)
[2022-12-27] MEDS: amLODIPine BESYLATE 5 MG TAB PO SCH (08:21)
[2022-12-27] MEDS: TIMOLOL MALEATE 0.5% OP SOLN 5 ML BTL OP SCH (08:21)
[2022-12-27] MEDS: MAGNESIUM OXIDE 400 MG TAB PO SCH ×2 (08:22→20:25)
[2022-12-27] MEDS: ASPIRIN 81 MG ECTAB PO SCH (08:22)
[2022-12-27] MEDS: METOPROLOL TARTRATE 50 MG TAB PO SCH ×2 (08:22→20:26)
[2022-12-27] MEDS: THIAMINE HCL 50 MG TABLET PO SCH (08:22)
[2022-12-27] MEDS: MEMANTINE HCL 10 MG TAB PO SCH ×2 (08:22→20:26)
[2022-12-27] MEDS: LOSARTAN POTASSIUM 50 MG TAB PO SCH (08:23)
[2022-12-27] MEDS: VENLAFAXINE HCL XR 75 MG CAPXR PO SCH (08:23)
[2022-12-27] MEDS: DOCUSATE SODIUM 100 MG CAP PO SCH (08:24)
[2022-12-27] MEDS: FAMOTIDINE 20 MG TAB PO SCH (08:32)
[2022-12-27] MEDS: ENOXAPARIN INJ 40 MG/0.4 ML SYR SQ SCH (17:27)
--- NOTE | 2022-12-27 18:23 | Hospitalist Progress Note ---
Date of Service December 27, 2022 Assessment & Plan (1) Frequent falls: Plan: Parkinsonism and NPH playing a role. Supportive care. OT and PT assessments noted Oxybutynin also can contribute to falls-stopped this (2) Parkinsonism: Plan: Probably contributing to frequent falls. Not currently on medications for this as per Neuro note from Nov. OT and PT assessments completed and they recommend inpatient rehab at discharge . 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 continue Effexor 150mg qAM Was started on Seroquel here 25mg bid but then had profound lethargy likely from AM dose Seroquel--> HELD Seroquel and now MUCH improved but not sleeping at all--> restarted Seroquel 12.5mg po hs Consult Psych to assist with med management of depression and insomnia in setting of dementia, Parkinsonism, and geriatric patient. COuld be pseudobulbar affect and could consider up titrating Seroquel again vs adding Lexapro and slowly decreasing Effexor Recommend Psychiatry and/or Neurology follow up as outpatient for titration of these types of medications (4) Hypomagnesemia: Plan: Magnesium replaced and reoslved -continue Oral magnesium replacement (5) Type 2 diabetes mellitus: Plan: ADA diet. With hyperglycemia persisting at lunch but low to normal AM glucose Continue Lantus therapy 18 units qAM tighten Novolog CR to 1:10 A1C well controlled in 7s (6) Dementia with agitation: Plan: Seroquel started this admission and then increased to twice daily but now held as above for lethargy Now restarted at 12.5mg hs for insomnia Continue mementine which was recently started one month ago by Neuro (7) Hypertension: Plan: Stable. Continue current medical management with amlodipine, losartan,. 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 This is causing her frequent falls at home. Supportive care (9) NPH (normal pressure hydrocephalus): Plan: Stable. Supportive care Was not a candidate for shunt as per Neuro notes (10) Hypothyroidism: Plan: TSH low LT4 dose reduced this admission to 88 mcg and repeat labs in 2 months (11) Urinary incontinence: Plan: stopping Oxybutynin for falls (12) Vitamin B1 deficiency: Plan: last checked in September and now normal continue po supplement Plan DVT proph- Lovenox given prolonged stay and immobility Dispo- discharge to SNF at [facility] when insurance auth approved Discussed care with daughter on phone left VM for daughter on 12/27 Admission and Anticipated Discharge Date Admission Date: December 18, 2022 Subjective Pt having a good day today. Says "I'm bored." No tearfulness. RN reports she was OOB to chair for most of the day, no concerns. Pt appropriately asks which rehab she is going to and asks how she will get clothes to wear for rehab. Denies pain, is eating. Physical Exam Constitutional: WD/WN, vitals as above Respiratory: normal respiratory effort, lungs clear to auscultation Cardiovascular: RRR, no murmur, no edema Chest (Breasts): Chest: normal inspection of chest Gastrointestinal (Abdomen): normal bowel sounds, soft, nontender, no hepatosplenomegaly Musculoskeletal: Extremities: extremities normal to inspection; no cyanosis and no clubbing Skin: no rashes, warm and dry Neurologic: moves all extremities and awake; no focal motor deficits Psychiatric: Orientation: alert, oriented to person, oriented to place and cooperative; + not oriented to time Affect: euthymic affect Results & Data Results & Data Vital Signs (Past 12 Hours) Vital Signs Temp Pulse Resp BP Pulse Ox O2 Del Method 12/27/22 15:04 36.7 C 62 18 118/65 95 Room Air 12/27/22 08:30 Room Air 12/27/22 07:48 36.5 C 69 18 189/90 H 97 Room Air PG Care Time/CCT Total # of Minutes Spent Total Time Spent with Patient: Total time spent is greater than 50% in coordination of care (as documented) at patient's floor/unit and/or counseling patient: Coding Level of Care Code 10996 SUB INP/OBS CARE 2/35MIN Diagnoses Frequent falls R29.6 Parkinsonism G20.C Parkinsonism type: unspecified Depression due to dementia F03.93 Hypomagnesemia E83.42 Type 2 diabetes mellitus E11.9 Dementia with agitation F03.911 Hypertension I10 Ataxia R27.0 NPH (normal pressure hydrocephalus) G91.2 Hypothyroidism E03.9 Urinary incontinence R32 Vitamin B1 deficiency E51.9 (2) Parkinsonism Parkinsonism type: unspecified Qualified Code(s): G20.C - Parkinsonism, unspecified
[2022-12-27] MEDS: QUEtiapine FUMARATE 25 MG TABLET PO SCH (20:26)
[2022-12-27] MEDS: SIMVASTATIN 40 MG TAB PO SCH (20:26)
[2022-12-28] MEDS ORDERED: LEVOTHYROXINE SODIUM 88 MCG TABLET PO SCH (06:30)
[2022-12-28 08:00] VITALS: PULSE 64; RESP 16; TEMP 97.7; O2SAT 94
[2022-12-28] MEDS: INSULIN ASPART PER UNIT CHARGE SC SCH (09:35)
[2022-12-28] MEDS: THIAMINE HCL 50 MG TABLET PO SCH (09:37)
[2022-12-28] MEDS: ASPIRIN 81 MG ECTAB PO SCH (09:38)
[2022-12-28] MEDS: amLODIPine BESYLATE 5 MG TAB PO SCH (09:38)
[2022-12-28] MEDS: CYANOCOBALAMIN (B-12) 500 MCG TABLET PO SCH (09:38)
[2022-12-28] MEDS: VENLAFAXINE HCL XR 75 MG CAPXR PO SCH (09:38)
[2022-12-28] MEDS: MEMANTINE HCL 10 MG TAB PO SCH (09:39)
[2022-12-28] MEDS: MAGNESIUM OXIDE 400 MG TAB PO SCH (09:39)
[2022-12-28] MEDS: CALCIUM CARBONATE 1250MG TAB PO SCH (09:39)
[2022-12-28] MEDS: METOPROLOL TARTRATE 50 MG TAB PO SCH (09:39)
[2022-12-28] MEDS: LOSARTAN POTASSIUM 50 MG TAB PO SCH (09:39)
[2022-12-28] MEDS: TIMOLOL MALEATE 0.5% OP SOLN 5 ML BTL OP SCH (09:40)
[2022-12-28] MEDS: LANTUS PER UNIT CHARGE SQ SCH (09:51)
[2022-12-28] MEDS: FAMOTIDINE 20 MG TAB PO SCH (09:51)
[2022-12-28] MEDS: DOCUSATE SODIUM 100 MG CAP PO SCH (09:51)
[2022-12-28 11:23] VITALS: BP 118/65
--- NOTE | 2022-12-28 11:35 | Discharge Summary ---
Discharge Summary Date of Service December 28, 2022 Notes For Next Care Provider Medication Changes From Visit Added Seroquel 12.5mg hs Decreased Effexor to 150mg po qAM Admission HPI Per Admitting Provider The patient is a 72-year-old female with a past medical history including parkinsonism, DVT, anxiety, diabetes mellitus, hypertension, fatty liver, hiatal hernia, lumbar back pain, obesity, B12 deficiency, B1 deficiency, urinary incontinence, NPH, ataxia and dementia with agitation. Patient lives by herself, but her family checks on her at least once daily. Today they found her on the floor, after having fallen at about 6 AM, and being found at 11 AM. She denies any focal weakness, she reports that she gets generalized weakness, and that her feet were going too fast for her this morning. The patient is somewhat confused, and her information is confirmed by family member who is in attendance. Principal Dx & Hospital Course #1 = Principal Diagnosis (1) Frequent falls: Parkinsonism and NPH playing a role. Supportive care. OT and PT assessments noted Oxybutynin also can contribute to falls-stopped this (2) Parkinsonism: Probably contributing to frequent falls. Not currently on medications for this as per Neuro note from Nov. OT and PT assessments completed and they recommend inpatient rehab at discharge . 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 continue Effexor 150mg qAM Was started on Seroquel here 25mg bid but then had profound lethargy likely from AM dose Seroquel--> HELD Seroquel and now MUCH improved but wasn't sleeping at all--> restarted Seroquel 12.5mg po hs and now much improved Consult Psych to assist with med management of depression and insomnia in setting of dementia, Parkinsonism, and geriatric patient. COuld be pseudobulbar affect and could consider up titrating Seroquel again vs adding Lexapro and slowly decreasing Effexor Recommend Psychiatry and/or Neurology follow up as outpatient for titration of these types of medications (4) Hypomagnesemia: Magnesium replaced and reoslved -continue Oral magnesium replacement (5) Type 2 diabetes mellitus: ADA diet. With hyperglycemia persisting at lunch but low to normal AM glucose Continue Lantus therapy 18 units qAM continue Novolog CF 25 CR 1:10 A1C well controlled in 7s (6) Dementia with agitation: Seroquel started this admission and then increased to twice daily but now held as above for lethargy Now restarted at 12.5mg hs for insomnia Continue mementine which was recently started one month ago by Neuro (7) Hypertension: Stable. Continue current medical management with amlodipine, losartan, and metoprolol (8) Ataxia: Appears to be chronic due to underlying NPH. This is causing her frequent falls at home. Supportive care (9) NPH (normal pressure hydrocephalus): Stable. Supportive care Was not a candidate for shunt as per Neuro notes (10) Hypothyroidism: TSH low LT4 dose reduced this admission to 88 mcg and repeat labs in 2 months (11) Urinary incontinence: stopped Oxybutynin for falls (12) Vitamin B1 deficiency: last checked in September and now normal continue po supplement Plan DVT proph- Lovenox given prolonged stay and immobility Dispo- discharge to SNF at [facility] Discussed care with daughter on phone nd left VM for daughter on 12/27 Discharge Exam Constitutional WD/WN, vitals as above Respiratory normal respiratory effort, lungs clear to auscultation Cardiovascular RRR, no murmur, no edema Chest (Breasts) Chest: normal inspection of chest Musculoskeletal Extremities: extremities normal to inspection; no cyanosis and no clubbing Skin no rashes, warm and dry Neurologic moves all extremities and awake; no focal motor deficits Psychiatric Orientation: alert, oriented to person, oriented to place and cooperative; + not oriented to time Affect: euthymic affect Updated Medication List Medication Instructions Recorded Confirmed Type calcium carbonate 600 mg calcium 600 mg PO BID 09/25/18 12/18/22 History (1,500 mg) tablet (Calcium) fish oil-dha-epa 1,200 mg-144 1 cap PO BID 09/25/18 12/18/22 History mg-216 mg capsule albuterol sulfate 90 mcg/actuation 2 puff inhalation Q6H PRN 01/21/20 12/18/22 History aerosol inhaler Shortness Of Breath Or Wheezing timolol 0.5 % eye drops 1 drp ophthalmic (eye) QAM 07/07/20 12/18/22 History acetaminophen 500 mg capsule 1,000 mg PO TID PRN Pain 05/11/21 12/18/22 History docusate sodium 100 mg capsule 100 mg PO DAILY 08/04/21 12/18/22 History (Colace) metformin 500 mg tablet 1,000 mg PO BID #360 tabs 12/23/21 12/18/22 Rx simvastatin 40 mg tablet 40 mg PO QPM #90 tabs 12/23/21 12/18/22 Rx aspirin 81 mg tablet,delayed 81 mg PO DAILY 02/22/22 12/18/22 History release cyanocobalamin (vitamin B-12) 500 1,000 mcg PO QAM #60 tabs 03/10/22 12/18/22 Rx mcg tablet magnesium oxide 400 mg (241.3 mg 400 mg PO BID #60 tabs 03/10/22 12/18/22 Rx magnesium) tablet losartan 50 mg tablet 50 mg PO QAM #0 tabs 04/27/22 12/18/22 Rx famotidine 20 mg tablet (Pepcid) 20 mg PO DAILY acid 05/16/22 12/18/22 History reflux/heartburn omeprazole 20 mg capsule,delayed 20 mg PO DAILY 05/16/22 12/18/22 History release thiamine HCl (vitamin B1) 250 mg 250 mg PO DAILY #30 tabs 05/22/22 12/18/22 Rx tablet pen needle, diabetic 32 gauge x #100 ea 06/15/22 12/18/22 Rx 1/4" (BD Ultra-Fine Micro Pen Needle) amlodipine 5 mg tablet (Norvasc) 5 mg PO DAILY #90 tabs 09/04/22 12/18/22 Rx metoprolol tartrate 50 mg tablet 50 mg PO BID 09/04/22 12/18/22 History memantine 10 mg tablet 10 mg PO BID #60 tabs 11/17/22 12/18/22 Rx insulin glargine 100 unit/mL (3 18 unit (0.18 mL) subcut DAILY 90 12/28/22 12/18/22 Rx mL) subcutaneous pen (Lantus days #15 mL Solostar U-100 Insulin) levothyroxine 88 mcg tablet 88 mcg PO DAILYBB #30 tabs 12/28/22 Rx (Synthroid) quetiapine 25 mg tablet 12.5 mg PO HS #15 tabs 12/28/22 Rx venlafaxine 75 mg capsule,extended 150 mg PO DAILY #60 caps 12/28/22 12/18/22 Rx release 24 hr Hospital Stay Data Consultations 12/18/22 01:42 ED Decision to Admit Stat 12/23/22 15:53 Consult Psychiatry Routine Diagnostic Imagining Performed 12/17/22 20:23 CT cervical spine wo con Stat 12/17/22 20:24 CT head/brain wo con Stat 12/17/22 22:48 CT abd pelvis IV con only Stat CT chest with contrast [CT chest diagnostic w con] Stat 12/18/22 02:50 MRI Brain [MR brain wo con] Stat Pending Results Patient Have Any Pending Studies at Discharge: No Discharge Instructions Given to Patient (Per Discharging Provider) You were admitted with falls likely related to your NPH and progressive dementia. You will need rehab for strengthening. You were started on Seroquel to help with insomnia and your mood which is helping. Your Effexor dose was lowered as this can make insomnia worse. Please consider seeing a Psychiatrist for further adjustments to your medications to help with your depressed mood. Total Time Total Time Spent Total Time Spent (In Minutes): 35 min Coding Level of Care Code 77783 INP/OBS DISCH >30 MIN Diagnoses Frequent falls R29.6 Parkinsonism G20.C Parkinsonism type: unspecified Depression due to dementia F03.93 Hypomagnesemia E83.42 Type 2 diabetes mellitus E11.9 Dementia with agitation F03.911 Hypertension I10 Ataxia R27.0 NPH (normal pressure hydrocephalus) G91.2 Hypothyroidism E03.9 Urinary incontinence R32 Vitamin B1 deficiency E51.9
== END 2022-12-28 12:13 | DRG 57 ==
LOC: ED 19:21 → SUATTDRO 12-18 02:57 → EDINP 12-18 02:57 → 2N 12-18 05:13 → 3N 12-24 11:14